=== PATIENT | male | born 1940 | race Caucasian/White ===

== ENCOUNTER 2017-01-17 17:21 | Inpatient (IN) | payer MEDICARE, BC ==
[2017-01-17] MEDS ORDERED: NS 0.9% 1000 ML* 1,000 ML IV ONE (17:27)
[2017-01-17] MEDS ORDERED: Ondansetron INJ* 2 MG/ML VIAL IV ONE (17:27)
--- NOTE | 2017-01-17 18:04 | RAD ---
INDICATION: Abdominal pain. COMPARISON: Comparison is made with a prior CT of the abdomen and pelvis from June 12, 2016. TECHNIQUE: Supine and decubitus views of the abdomen were obtained. FINDINGS: The small bowel and colon appear nondistended. No free intraperitoneal air is seen. There are scattered air-fluid levels within the small bowel and colon. No abnormal calcifications are seen. IMPRESSION: SCATTERED AIR-FLUID LEVELS WITHIN THE SMALL BOWEL AND COLON, NONSPECIFIC GAS PATTERN.
[2017-01-17 18:42] LABS: Albumin 3.9 g/dL (3.2-5.2); BUN/Creatinine Ratio 16.7 (8-20); C Reactive Protein 139.67 mg/L (< 5.00); Calcium 8.8 mg/dL (8.6-10.3); EGFR African American 39.7 (>60); EGFR Non-African American 30.9 (>60); Globulin 3.1 g/dL (2-4); Potassium 4.4 mmol/L (3.5-5.0); Total Bilirubin 0.9 mg/dL (0.2-1.0)
[2017-01-17 18:44] LABS: Hematocrit 48 % (42-52); Hemoglobin 15.5 g/dl (14.0-18.0); Mean Corpuscular HGB Conc 32 g/dl (31-36); Mean Corpuscular Hemoglobin 30 pg (27-31); Mean Corpuscular Volume 92 fL (80-94); Mean Platelet Volume 10 um3 (7.4-10.4); Red Cell Distribution Width 16 % (10.5-15); White Blood Count 7.4 10^3/ul (3.5-10.8)
[2017-01-17] MEDS ORDERED: NS 0.9% 1000 ML* 2,000 ML IV ONE ×2 (19:09→20:52)
[2017-01-17] MEDS ORDERED: metroNIDAZOLE TAB* 250 MG PO ONE (20:07)
--- NOTE | 2017-01-17 20:45 | ED ---
Frantz López Billy, scribed for Jose Car MD on 01/17/17 at 1743 . Abdominal Pain/Male - HPI Summary HPI Summary: Patient is a 76 year-old male coming to [facility] presenting with constant diffuse abdominal pain since late yesterday evening. Pain severity 9/10, worse with palpation. Positive N/V/D, abdominal distension, and general weakness; denies any blood or mucus in the stools. Denies any recent travel, antibiotics, changes in diet, or contact with sick people. - History of Current Complaint Chief Complaint: EDAbdPain Stated Complaint: WEAKNESS, ABD PAIN, BACK PAIN Time Seen by Provider: 01/17/17 17:27 Hx Obtained From: Patient Onset/Duration: Gradual Onset, Lasting Hours, Still Present Timing: Constant Severity Initially: Moderate Severity Currently: Moderate Pain Intensity: 9 Pain Scale Used: 0-10 Numeric Location: Diffuse Radiates: No Aggravating Factor(s): Other: - palpation Alleviating Factor(s): Nothing Associated Signs And Symptoms: Positive: Nausea, Vomiting, Diarrhea, Other - weakness - Allergies/Home Medications Allergies/Adverse Reactions: Allergies Allergy/AdvReac Type Severity Reaction Status Date / Time Enalapril [From Vasotec] Allergy Unknown Unknown Verified 06/12/16 14:47 Reaction Details Nifedipine [From Procardia] Allergy Unknown Unknown Verified 06/12/16 14:47 Reaction Details Verapamil Allergy Unknown Unknown Verified 06/12/16 14:47 Reaction Details Cephalexin Allergy Anaphylatic Verified 06/13/16 09:08 Shock PMH/Surg Hx/FS Hx/Imm Hx Endocrine/Hematology History: Reports: Hx Anticoagulant Therapy - xarelto for alpha lipoic acid , Hx Diabetes - insulin dependent, poorly controlled Cardiovascular History: Reports: Hx Hypercholesterolemia, Hx Hypertension, Other Cardiovascular Problems/Disorders Denies: Hx Congestive Heart Failure, Hx Pacemaker/ICD Respiratory History: Denies: Hx Asthma GI History: Reports: Other GI Disorders - CELIAC DISEASE History: Reports: Other Problems/Disorders - URETHRAL STRICTURE DILATION Denies: Hx Dialysis, Hx Renal Disease Sensory History: Reports: Hx Contacts or Glasses, Other Sensory Impairments - decreased hearing Denies: Hx Hearing Aid Opthamlomology History: Reports: Hx Contacts or Glasses, Other Sensory Impairments - decreased hearing Neurological History: Reports: Other Neuro Impairments/Disorders - SPINAL FUSION ; pituitary adenoma Psychiatric History: Denies: Hx Panic Disorder - Surgical History Surgery Procedure, Year, and Place: HERNIA, LEFT THUMB AMPUTATION, C-SPINE FUSION, CATARACT - Immunization History Date of Tetanus Vaccine: unknown Date of Influenza Vaccine: 08/16/15 Infectious Disease History: No Infectious Disease History: Denies: Hx of Known/Suspected MRSA, Traveled Outside the [place] in Last 30 Days - Family History Known Family History: Positive: Diabetes - Social History Alcohol Use: Occasionally Substance Use Type: Reports: None Smoking Status (MU): Former Smoker Review of Systems Positive: Abdominal Pain, Vomiting, Diarrhea, Nausea, Other - distension Positive: Weakness All Other Systems Reviewed And Are Negative: Yes Physical Exam - Summary Physical Exam Summary: VITAL SIGNS: Reviewed. GENERAL: Patient is a debilitated male who is lying comfortable in the stretcher. Patient is not in any acute respiratory distress. HEAD AND FACE: Normocephalic and atraumatic. EYES: PERRLA, EOMI x 2, No injected conjunctiva. EARS: Hearing grossly intact. Ear canals and tympanic membranes are WNL. MOUTH: Dry nasal and oral mucosa. NECK: Supple, trachea is midline, no adenopathy, no JVD. CHEST: Symmetric, no tenderness at palpation LUNGS: Clear to auscultation bilaterally. No wheezing or crackles. CVS: RRR,, S1 and S2 present, no murmurs or gallops appreciated. ABDOMEN: Soft, Diffuse abdominal tenderness. No signs of distention. Positive bowel sounds. No rebound no guarding, and no masses palpated. No abdominal bruit or pulsations. EXTREMITIES: FROM in all major joints, no edema, no cyanosis or clubbing. NEURO: Alert and oriented x 3. No acute neurological deficits. Speech is normal. SKIN: Dry and warm Triage Information Reviewed: Yes Vital Signs On Initial Exam: Initial Vitals BP 130/80 01/17/17 17:33 Vital Signs Reviewed: Yes Diagnostics - Vital Signs Vital Signs Temp Pulse Resp BP Pulse Ox 01/17/17 17:36 98.8 F 88 18 130/80 92 01/17/17 17:35 91 18 92 01/17/17 17:33 130/80 - Laboratory Lab Results: Lab Results 01/17/17 01/17/17 01/17/17 Range/Units 18:15 18:15 18:15 WBC 7.4 (3.5-10.8) 10^3/ul RBC 5.20 (4.0-5.4) 10^6/ul Hgb 15.5 (14.0-18.0) g/dl Hct 48 (42-52) % MCV 92 (80-94) fL MCH 30 (27-31) pg MCHC 32 (31-36) g/dl RDW 16 H (10.5-15) % Plt Count 138 L (150-450) 10^3/ul MPV 10 (7.4-10.4) um3 Neut % (Auto) 81.5 (38-83) % Lymph % (Auto) 8.4 L (25-47) % [place] % (Auto) 9.1 H (1-9) % Eos % (Auto) 0.5 (0-6) % Baso % (Auto) 0.5 (0-2) % Absolute Neuts (auto) 6.0 (1.5-7.7) 10^3/ul Absolute Lymphs (auto) 0.6 L (1.0-4.8) 10^3/ul Absolute Monos (auto) 0.7 (0-0.8) 10^3/ul Absolute Eos (auto) 0 (0-0.6) 10^3/ul Absolute Basos (auto) 0 (0-0.2) 10^3/ul Absolute Nucleated RBC 0.01 10^3/ul Nucleated RBC % 0.1 APTT 32.5 (26.0-36.3) seconds Sodium 137 (133-145) mmol/L Potassium 4.4 (3.5-5.0) mmol/L Chloride 107 (101-111) mmol/L Carbon Dioxide 23 (22-32) mmol/L Anion Gap 7 (2-11) mmol/L BUN 35 H (6-24) mg/dL Creatinine 2.10 H (0.67-1.17) mg/dL Est GFR ( Amer) 39.7 (>60) Est GFR (Non-Af Amer) 30.9 (>60) BUN/Creatinine Ratio 16.7 (8-20) Glucose 192 H (70-100) mg/dL Lactic Acid (0.5-2.0) mmol/L Calcium 8.8 (8.6-10.3) mg/dL Total Bilirubin 0.90 (0.2-1.0) mg/dL AST 33 (13-39) U/L ALT 37 (7-52) U/L Alkaline Phosphatase 63 (34-104) U/L C-Reactive Protein 139.67 H (< 5.00) mg/L B-Natriuretic Peptide ( - 100) pg/mL Total Protein 7.0 (6.4-8.9) g/dL Albumin 3.9 (3.2-5.2) g/dL Globulin 3.1 (2-4) g/dL Albumin/Globulin Ratio 1.3 (1-3) Amylase 18 L (29-103) U/L Lipase 10 L (11.0-82.0) U/L 01/17/17 01/17/17 Range/Units 18:15 18:15 WBC (3.5-10.8) 10^3/ul RBC (4.0-5.4) 10^6/ul Hgb (14.0-18.0) g/dl Hct (42-52) % MCV (80-94) fL MCH (27-31) pg MCHC (31-36) g/dl RDW (10.5-15) % Plt Count (150-450) 10^3/ul MPV (7.4-10.4) um3 Neut % (Auto) (38-83) % Lymph % (Auto) (25-47) % [place] % (Auto) (1-9) % Eos % (Auto) (0-6) % Baso % (Auto) (0-2) % Absolute Neuts (auto) (1.5-7.7) 10^3/ul Absolute Lymphs (auto) (1.0-4.8) 10^3/ul Absolute Monos (auto) (0-0.8) 10^3/ul Absolute Eos (auto) (0-0.6) 10^3/ul Absolute Basos (auto) (0-0.2) 10^3/ul Absolute Nucleated RBC 10^3/ul Nucleated RBC % APTT (26.0-36.3) seconds Sodium (133-145) mmol/L Potassium (3.5-5.0) mmol/L Chloride (101-111) mmol/L Carbon Dioxide (22-32) mmol/L Anion Gap (2-11) mmol/L BUN (6-24) mg/dL Creatinine (0.67-1.17) mg/dL Est GFR ( Amer) (>60) Est GFR (Non-Af Amer) (>60) BUN/Creatinine Ratio (8-20) Glucose (70-100) mg/dL Lactic Acid 1.7 (0.5-2.0) mmol/L Calcium (8.6-10.3) mg/dL Total Bilirubin (0.2-1.0) mg/dL AST (13-39) U/L ALT (7-52) U/L Alkaline Phosphatase (34-104) U/L C-Reactive Protein (< 5.00) mg/L B-Natriuretic Peptide 82 ( - 100) pg/mL Total Protein (6.4-8.9) g/dL Albumin (3.2-5.2) g/dL Globulin (2-4) g/dL Albumin/Globulin Ratio (1-3) Amylase (29-103) U/L Lipase (11.0-82.0) U/L Result Diagrams: 01/17/17 18:15 01/17/17 18:15 Lab Statement: Any lab studies that have been ordered have been reviewed, and results considered in the medical decision making process. - Radiology abd xray Radiology Interpretation Completed By: Radiologist - SCATTERED AIR-FLUID LEVELS WITHIN THE SMALL BOWEL AND COLON, NONSPECIFIC GAS PATTERN. - EKG 1731 EKG Interpretation: NSR 87 bpm, no ST elevation Abdominal Pain Fem Course/Dx - Course Assessment/Plan: Patient is a 76 year-old male coming to [facility] presenting with constant diffuse abdominal pain since late yesterday evening. Pain severity 9/10 , worse with palpation. Positive N/V/D, abdominal distension, and general weakness; denies any blood or mucus in the stools. Denies any recent travel, antibiotics, changes in diet, or contact with sick people. Bloodwork found to be WNL except for increased BUN/creatinine of 35/2.1. Also, C. dif is positive. Therefore the patient was given PO Flagyl. Patient become hypotensive and so was given 3L of IV fluids. BP is now 110/60 approximately. At this point, patient reports he is feeling better, hemodynamically stable, A&Ox3. I discussed the findings and test results with Dr. Peng (hospitalist) and accepted the pt for admission. - Diagnoses Differential Diagnosis/HQI/PQRI: Bowel Obstruction, Urinary Tract Infection, Other - Nausea, vomiting, diarrhea, gastroenteritis Provider Diagnoses: Abdominal pain, Diarrhea, C. difficile colitis - Provider Notifications Discussed Care Of Patient With: Dr. Peng (hospitalist) @ 2001: accepts admission. Discharge - Discharge Plan Condition: Stable Disposition: ADMITTED TO [facility] Referrals: Gigi Feldman MD [Primary Care Provider] - The documentation as recorded by the Frantz celestin Billy accurately reflects the service I personally performed and the decisions made by , Jose Car MD.
[2017-01-17] MEDS ORDERED: Ondansetron INJ* 2 MG/ML VIAL IV PRN (20:52)
[2017-01-17] MEDS ORDERED: Acetaminophen TAB* 325 MG PO PRN (20:52)
[2017-01-17] MEDS ORDERED: Dextrose 50% Syringe 50 ML* 25 GM/50 ML SYRINGE IV PUSH PRN (20:55)
[2017-01-17] MEDS ORDERED: NS 0.9% 1000 ML* 1,000 ML IV SCH (21:00)
[2017-01-17] MEDS: Hydrocortisone INJ* 100 MG VIAL IV SCH (22:46)
[2017-01-17] MEDS: metroNIDAZOLE IV 500 MG/100ML* 500 MG/100 ML BAG IVPB SCH (22:46)
--- NOTE | 2017-01-17 22:49 | RAD ---
INDICATION: Abdominal pain and distention, nausea, C. difficile. COMPARISON: Comparison is made with a prior CT of the abdomen and pelvis from June 12, 2006. TECHNIQUE: A CT scan of the abdomen and pelvis was performed without intravenous and oral oral contrast. Contiguous axial sections were obtained from the lung bases through the symphysis pubis. Images were reconstructed in the coronal and sagittal planes. FINDINGS: There is mild dependent bilateral lower lobe subsegmental atelectasis. No pleural effusion is present. The liver and spleen are normal in size. The liver is decreased in attenuation consistent with fatty infiltration which appears similar to the prior study. There are calcified gallstones present. No gallbladder wall thickening is seen. There is fatty infiltration of the pancreas. The pancreas is otherwise unremarkable. The adrenal glands appear to be within normal limits. The kidneys appear slightly small in size. There is a 2 mm calculus present in the upper pole of the right kidney. No hydronephrosis is present. The aorta is normal in caliber with mild calcific plaque present. No significant enlarged retroperitoneal lymph nodes are seen. The stomach, small and large bowel appear nondistended. There is fluid present within the colon consistent with the patient's history of diarrhea. The appendix appears to be within normal limits. There is mild sigmoid diverticulosis without evidence for diverticulitis. No free intraperitoneal air or fluid is seen. No significant focal osseous abnormality is seen. IMPRESSION: 1. FLUID IS NOTED WITHIN THE COLON CONSISTENT WITH THE PATIENT'S HISTORY OF DIARRHEA. 2. HEPATIC STEATOSIS. 3. CHOLELITHIASIS. 4. SMALL NONOBSTRUCTING RIGHT RENAL CALCULUS.
[2017-01-17] MEDS: Vancomycin CAP* 250 MG CAP PO SCH (22:50)
[2017-01-18] MEDS: Insulin LISPRO* 1 UNITS UNIT SUBCUT SCH ×5 (00:57→22:40)
[2017-01-18] MEDS: Insulin GLARGINE(*) 1 UNITS UNIT SUBCUT SCH ×2 (01:00→22:39)
--- NOTE | 2017-01-18 01:39 | HP ---
HISTORY AND PHYSICAL: DATE OF ADMISSION: 01/17/17 PRIMARY CARE PROVIDER: Dr. Feldman. ATTENDING PHYSICIAN WHILE IN THE HOSPITAL: Dr. Daniel Peng *(report dictated by Handy Goodman NP) CHIEF COMPLAINT: 1. Diarrhea. 2. Abdominal bloating. 3. Abdominal discomfort. HISTORY OF PRESENT ILLNESS: Mr. Foley is a 76-year-old male patient. He has multiple medical problems with history of celiac disease with chronic diarrhea, history of diabetes insipidus, diabetes. He has a history of panhypopituitarism. He has a pituitary adenoma, urethral strictures, hypertension, antiphospholipid syndrome, glaucoma, gout, back pain, and history of TIA. He comes into the ER today. The says that the patient last night started all of a sudden having a loose watery stool. He had about an episode every half an hour throughout the night. He woke up this morning. He felt extremely fatigued, weak, to the point where he could not even get out of bed. The was concerned because she knew she would not really lift him or care for him. He was still having diarrhea. He was having more abdominal distention and belly pain, so she was concerned and brought him into the hospital. He had one episode of vomiting. She had to call the ambulance because she could not move him and said he was feeling profoundly weak and this has been going on for the last 12 to 24 hours. The patient denies any recent antibiotics. He says he has had C. diff in the past, 2 separate occasions, the last one was over greater than a year to two years ago. He has had exploratory laparotomy in the past related to C. diff and was concerned that this may be the case again, so she brought him into the hospital. There has been no reports of shortness of breath, chest pain, no reports of blood in the stool and there has been no reports of vomiting, just one episode. He came into the ER. He was evaluated. It was noted that he was C. diff positive. It was noted that he was in acute renal failure and the hospitalist service was asked to evaluate for admission. PAST MEDICAL HISTORY: Significant for: 1. Celiac disease. 2. Diabetes insipidus. 3. Diabetes. 4. Urethral strictures. 5. Panhypopituitarism. 6. Pituitary adenoma. 7. Hypertension. 8. Antiphospholipid syndrome. 9. Glaucoma. 10. Gout. 11. Back pain. 12. TIA. PAST SURGICAL HISTORY: 1. He has had a partial amputation of the left thumb. 2. He has had a right inguinal hernia repair. 3. He has had a C-spine fusion. 4. He has had a diagnostic laparotomy. HOME MEDICATIONS: According to the list that was provided by the patient include: 1. B12 100 mcg p.o. daily. 2. Glucophage 1000 mg at night and 1500 mg in the morning. 3. Desmopressin 0.2 mg p.o. b.i.d. 4. Allopurinol 300 mg p.o. daily. 5. Cytomel 5 mcg p.o. b.i.d. 6. Synthroid 112 mcg p.o. daily. 7. Lantus 35 units subcu q.p.m. 8. Meclizine 25 mg p.o. t.i.d. as needed. 9. Losartan 50 mg p.o. daily. 10. Celebrex 200 mg p.o. b.i.d. 11. Testosterone 1% topically daily. 12. Xarelto 10 mg daily. 13. Repaglinide 1 mg p.o. t.i.d. 14. Lyrica 50 mg p.o. b.i.d. 15. Prednisone 7.5 mg daily. 16. Metformin 1500 mg in the morning. ALLERGIES TO MEDICATIONS: Include VERAPAMIL, ENALAPRIL, NIFEDIPINE, KEFLEX. FAMILY HISTORY: His mother was diabetic. Father had a history of heart disease. SOCIAL HISTORY: He is a former smoker. He rarely drinks alcohol. Surrogate decision maker is his , Megan. REVIEW OF SYSTEMS: There is no documented fever. He denied having any significant weight change. There was no double vision. There was no ear discharge. There was no rhinorrhea, no sore throat, no thyroid enlargement. There is no chest pain, no orthopnea, no nocturnal dyspnea. There was abdominal discomfort mostly in the left lower quadrant described as a cramping. One episode of nausea and vomiting. There is diarrhea. No dysuria, no frequency, no loss of consciousness, no pruritus, and no skin ulcerations. Review of 14 systems completed, all others negative. PHYSICAL EXAMINATION GENERAL: At this time, Mr. Foley is a 76-year-old male patient. He is sitting in the ER stretcher. He does not appear to be in any acute distress. He does appear to be weak and drowsy. He is awake and alert. VITAL SIGNS: Blood pressure 103/52, pulse 89, respirations were 25, O2 sat 93% , temperature 98.8. HEENT: Head: Atraumatic, normocephalic. Eyes: EOMs intact. Sclerae anicteric, not pale. Throat: Oral mucosa appears to be dry. No oropharyngeal erythema. NECK: Supple. LUNGS: Clear to auscultation bilaterally. No wheezes, rales, or rhonchi. HEART: Sounds S1, S2. Regular rate and rhythm. No murmurs, rubs, or gallops. ABDOMEN: Distended. He did have tenderness diffusely. Bowel sounds were present. EXTREMITIES: Pulses were 2+ throughout. He is able to move all 4 extremities with 5/5 strength. NEUROLOGIC: The patient is awake. He is alert. He is oriented x3. His aqua ammonia operator were equal. His tongue is midline. He had no gross focal deficits. SKIN: Intact. LABORATORY DATA AND DIAGNOSTIC STUDIES: Labs today revealed a WBC of 7.4, RBC of 5.20, hemoglobin 15.5, hematocrit of 48, platelet count of 138, PTT of 32.5. Sodium was 137, potassium 4.4, chloride of 107, bicarbonate 23, BUN 35, creatinine 2.10, glucose 192, lactic 1.7, calcium 8.8. Total bili 0.9, AST 32, ALT 37, alk phos 63. CRP was 140. His albumin was 3.9. He did have an abdominal x-ray, which impression read as scattered air fluid levels within the small bowel and colon, nonspecific gas pattern. He had an EKG obtained today as well, which showed a normal sinus rhythm at a rate of 90. He had some subtle depression in leads I and II, which he has had in the past. The EKG appeared to be unchanged. He does have a PAC on the new one. Old medical records were reviewed. ASSESSMENT AND PLAN: Mr. Foley is a 76-year-old male patient coming into the ER today with complaints of abdominal discomfort, diarrhea, and weakness. On evaluation, he was found to have C. diff. He will be admitted under inpatient status for: 1. C. diff. I am concerned that he has moderate to severe C. diff. His abdominal examination, he is distended. He has diffuse tenderness. I think he warrants a CAT scan to make sure he does not have an ileus. I am going to touch base with Surgery. I did place a call to Dr. Meyer. I have put the patient on p.o. vancomycin. In addition to this, I put him on IV Flagyl. Fortunately, he is not tachycardic. He does not have a fever. He might not mount these response because of the prednisone, but we would like to get the CAT scan. He is not vomiting fortunately. We will hydrate him aggressively. I am going to give him another liter for a total of 4 L bolus and then normal saline at 100 an hour and we will hold obviously his blood pressure medications in the setting of acute illness, put him on stress-dose steroids and treat him aggressively and monitor. 2. Celiac disease. Continue current medical regimen. 3. Diabetes insipidus. Continue his desmopressin. 4. Diabetes. He will be on a lispro sliding scale and I will order his Lantus at a reduced dose probably just 10 units a day as right now, he is n.p.o. because of the fact that going for the CAT scan for the time being. 5. Urethral strictures. Again, continue to follow with his primary. 6. Panhypopituitarism. Continue with Cytomel. Continue his Synthroid and I have put him on stress-dosed steroids and continue desmopressin. 7. Pituitary adenoma. Follow with his primary. 8. Hypertension. In the setting of acute illness, we are holding his antihypertensives. 9. Antiphospholipid syndrome. He did get a dose of Xarelto this morning. We may need to consider starting him on the heparin drip, but I would like to see the CAT scan before I make that decision just in case if there was any procedure. The heparin drip will need to be started in the morning anyway because of Xarelto, he will need time to clear the acute renal failure. 10. Acute renal failure. This is probably prerenal secondary to the fact that the patient has been having significant amount of diarrhea. I will send off a urine sodium and creatinine for a FENa and we will hydrate him. We will continue to follow. We will try to avoid nephrotoxic agents. 11. Glaucoma. Continue with his meds as described. 12. Gout. I am going to hold his allopurinol in the setting of this acute illness. 13. Back pain. Continue p.r.n. Tylenol. 14. History of transient ischemic attack. Continue with secondary prevention. 15. DVT prophylaxis. Again, he was on Xarelto, took it this morning. I am just putting on SCDs for now. We may need to consider putting him on a heparin drip in the morning possibly because of the antiphospholipid syndrome. 16. Code status. He is a full code. 17. Fluids, electrolytes and nutrition. He is n.p.o., normal saline at 100 an hour. TIME SPENT: Time spent on the admission approximately 60 minutes, greater than half the time was spent [id number] with the patient obtaining my history and physical, the other half time was spent going over the plan of care with the patient and implementing plan of care. I did discuss the plan of care with my attending, Dr. Peng; he is in agreement. HANDY GOODMAN NP CC: Dr. Feldman* [id number]/[facility] #: [id number] SYMONE
[2017-01-18 03:25] LABS: Urine Bacteria Absent (Absent); Urine Bilirubin Negative (Negative); Urine Glucose 1+(50 mg/dL) (Negative); Urine Nitrite Negative (Negative)
[2017-01-18] MEDS: Hydrocortisone INJ* 100 MG VIAL IV SCH ×3 (05:43→22:39)
[2017-01-18] MEDS: metroNIDAZOLE IV 500 MG/100ML* 500 MG/100 ML BAG IVPB SCH ×3 (05:51→22:37)
[2017-01-18] MEDS: Levothyroxine TAB* 112 MCG TAB PO SCH (05:59)
[2017-01-18 06:02] LABS: Hematocrit 37 % (42-52); Hemoglobin 12.4 g/dl (14.0-18.0); Mean Corpuscular HGB Conc 33 g/dl (31-36); Mean Corpuscular Hemoglobin 31 pg (27-31); Mean Corpuscular Volume 92 fL (80-94); Mean Platelet Volume 10 um3 (7.4-10.4); Red Blood Count 4.05 10^6/ul (4.0-5.4); Red Cell Distribution Width 16 % (10.5-15); White Blood Count 5.1 10^3/ul (3.5-10.8)
[2017-01-18 06:16] LABS: BUN/Creatinine Ratio 17.3 (8-20); EGFR African American 55.9 (>60); EGFR Non-African American 43.5 (>60); Potassium 4.7 mmol/L (3.5-5.0)
[2017-01-18 06:18] LABS: Calcium 6.3 mg/dL (8.6-10.3)
[2017-01-18] MEDS: Vancomycin CAP* 250 MG CAP PO SCH ×4 (08:44→22:40)
[2017-01-18] MEDS: CMCS: Desmopressin TAB (NF) 0.1 MG TAB PO SCH ×2 (08:44→22:39)
[2017-01-18] MEDS: Liothyronine TAB* 5 MCG PO SCH ×2 (08:44→22:39)
[2017-01-18] MEDS ORDERED: Morphine INJ* 2 MG/ML 1 ML CARPUJECT IV PRN (09:13)
[2017-01-18] MEDS ORDERED: NS 0.9% 1000 ML* 1,000 ML IV SCH (09:15)
--- NOTE | 2017-01-18 09:21 | PN ---
Subjective Date of Service: 01/18/17 Interval History: Feels abdomen is more distended but not more painful Feels very thirsty and hungry No nausea or vomiting. 3 episodes of diarrhea overnight Feels stronger since presenting to the hospital Specifically denies SOB and chest pain Objective Active Medications: Acetaminophen (Tylenol Tab*) 650 mg PO Q4H PRN PRN Reason: FEVER/PAIN Desmopressin Acetate (Desmopressin Tab (Nf)) 0.2 mg PO BID [facility] Last Admin: 01/18/17 08:44 Dose: 0.2 mg Dextrose (D50w Syringe 50 Ml*) 12.5 gm IV PUSH .FOR FS < 60 - SS PRN PRN Reason: FS < 60 Hydrocortisone Sodium Succinate (Solu-Cortef*) 100 mg IV Q8H [facility] Last Admin: 01/18/17 05:43 Dose: 100 mg Metronidazole/Sodium Chloride (Flagyl 500 Mg Ivpb*) 500 mg in 100 mls @ 100 mls /hr IVPB Q8H [facility] Last Admin: 01/18/17 05:51 Dose: 100 mls/hr Sodium Chloride (Ns 0.9% 1000 Ml*) 1,000 mls @ 100 mls/hr IV PER RATE [facility] Stop: 01/18/17 19:14 Insulin Glargine (Lantus(*)) 10 units SUBCUT Q24H [facility] Last Admin: 01/18/17 01:00 Dose: 10 unit Insulin Human Lispro (Humalog*) 0 units SUBCUT ACHS [facility] PRN Reason: Protocol Levothyroxine Sodium (Synthroid Tab*) 112 mcg PO DAILY@0600 [facility] Last Admin: 01/18/17 05:59 Dose: 112 mcg Liothyronine Sodium (Cytomel Tab*) 5 mcg PO BID [facility] Last Admin: 01/18/17 08:44 Dose: 5 mcg Morphine Sulfate (Morphine Inj (Syringe)*) 2 mg IV Q4H PRN PRN Reason: PAIN - MILD Ondansetron HCl (Zofran Inj*) 4 mg IV Q6H PRN PRN Reason: NAUSEA Vancomycin HCl (Vancomycin Cap*) 250 mg PO QID [facility] Last Admin: 01/18/17 08:44 Dose: 250 mg Vital Signs 01/17/17 01/17/17 01/17/17 21:30 22:00 22:24 Temperature Pulse Rate 77 60 67 Respiratory 23 25 25 Rate Blood Pressure 123/62 112/60 (mmHg) O2 Sat by Pulse 94 93 93 Oximetry 01/17/17 01/17/17 01/17/17 22:38 22:47 23:00 Temperature 98.9 F Pulse Rate 79 76 Respiratory 27 26 Rate Blood Pressure 136/60 120/58 (mmHg) O2 Sat by Pulse 93 90 Oximetry 01/17/17 01/17/17 01/17/17 23:25 23:30 23:45 Temperature Pulse Rate 75 70 69 Respiratory 20 22 22 Rate Blood Pressure 126/51 118/57 101/47 (mmHg) O2 Sat by Pulse 93 97 95 Oximetry 01/17/17 01/18/17 01/18/17 23:51 00:00 00:01 Temperature 98.9 F 98.9 F Pulse Rate 72 70 Respiratory 20 22 Rate Blood Pressure 104/50 (mmHg) O2 Sat by Pulse 95 96 Oximetry 01/18/17 01/18/17 01/18/17 00:15 00:30 00:45 Temperature Pulse Rate 66 64 67 Respiratory 21 22 21 Rate Blood Pressure 103/50 110/48 110/54 (mmHg) O2 Sat by Pulse 95 95 95 Oximetry 01/18/17 01/18/17 01/18/17 01:00 01:15 01:30 Temperature Pulse Rate 65 67 62 Respiratory 21 17 22 Rate Blood Pressure 116/46 130/59 118/53 (mmHg) O2 Sat by Pulse 95 96 96 Oximetry 01/18/17 01/18/17 01/18/17 01:45 02:00 02:15 Temperature Pulse Rate 52 69 63 Respiratory 20 21 20 Rate Blood Pressure 107/52 105/50 115/59 (mmHg) O2 Sat by Pulse 95 96 95 Oximetry 01/18/17 01/18/17 01/18/17 02:30 02:45 03:00 Temperature Pulse Rate 63 64 66 Respiratory 21 20 20 Rate Blood Pressure 115/60 115/60 106/50 (mmHg) O2 Sat by Pulse 96 96 97 Oximetry 01/18/17 01/18/17 01/18/17 03:15 03:17 03:30 Temperature Pulse Rate 42 41 Respiratory 19 20 Rate Blood Pressure 86/33 67/35 (mmHg) O2 Sat by Pulse 94 94 Oximetry 01/18/17 01/18/17 01/18/17 03:34 03:51 04:00 Temperature 97.0 F Pulse Rate 44 45 Respiratory 20 20 Rate Blood Pressure 101/54 100/53 (mmHg) O2 Sat by Pulse 94 94 Oximetry 01/18/17 01/18/17 01/18/17 05:00 06:00 07:00 Temperature Pulse Rate 63 73 49 Respiratory 17 19 17 Rate Blood Pressure 113/54 110/64 101/57 (mmHg) O2 Sat by Pulse 96 95 95 Oximetry 01/18/17 01/18/17 01/18/17 07:58 08:00 08:15 Temperature 97.1 F Pulse Rate 52 Respiratory 18 15 Rate Blood Pressure 119/63 (mmHg) O2 Sat by Pulse 97 Oximetry Oxygen Devices in Use Now: None Appearance: lying 20 deg, interactive, NAD Eyes: No Scleral Icterus, PERRLA Ears/Nose/Mouth/Throat: Clear Oropharnyx, - - dry MM Neck: NL Appearance and Movements; NL JVP, Trachea Midline Respiratory: Symmetrical Chest Expansion and Respiratory Effort, Clear to Auscultation Cardiovascular: - - irregular HR Abdominal: - - distended, +bs, TTP throughout worst in LLQ, guarding without rebound Extremities: No Edema Skin: No Rash or Ulcers Neurological: Alert and Oriented x 3 Result Diagrams: 01/18/17 05:50 01/18/17 05:50 Additional Lab and Data: Lab Results 01/17/17 01/17/17 01/17/17 Range/Units 18:15 18:15 18:15 WBC 7.4 (3.5-10.8) 10^3/ul RBC 5.20 (4.0-5.4) 10^6/ul Hgb 15.5 (14.0-18.0) g/dl Hct 48 (42-52) % MCV 92 (80-94) fL MCH 30 (27-31) pg MCHC 32 (31-36) g/dl RDW 16 H (10.5-15) % Plt Count 138 L (150-450) 10^3/ul MPV 10 (7.4-10.4) um3 Neut % (Auto) 81.5 (38-83) % Lymph % (Auto) 8.4 L (25-47) % Emmet % (Auto) 9.1 H (1-9) % Eos % (Auto) 0.5 (0-6) % Baso % (Auto) 0.5 (0-2) % Absolute Neuts (auto) 6.0 (1.5-7.7) 10^3/ul Absolute Lymphs (auto) 0.6 L (1.0-4.8) 10^3/ul Absolute Monos (auto) 0.7 (0-0.8) 10^3/ul Absolute Eos (auto) 0 (0-0.6) 10^3/ul Absolute Basos (auto) 0 (0-0.2) 10^3/ul Absolute Nucleated RBC 0.01 10^3/ul Nucleated RBC % 0.1 APTT 32.5 (26.0-36.3) seconds Sodium 137 (133-145) mmol/L Potassium 4.4 (3.5-5.0) mmol/L Chloride 107 (101-111) mmol/L Carbon Dioxide 23 (22-32) mmol/L Anion Gap 7 (2-11) mmol/L BUN 35 H (6-24) mg/dL Creatinine 2.10 H (0.67-1.17) mg/dL Est GFR ( Amer) 39.7 (>60) Est GFR (Non-Af Amer) 30.9 (>60) BUN/Creatinine Ratio 16.7 (8-20) Glucose 192 H (70-100) mg/dL Lactic Acid (0.5-2.0) mmol/L Calcium 8.8 (8.6-10.3) mg/dL Total Bilirubin 0.90 (0.2-1.0) mg/dL AST 33 (13-39) U/L ALT 37 (7-52) U/L Alkaline Phosphatase 63 (34-104) U/L C-Reactive Protein 139.67 H (< 5.00) mg/L B-Natriuretic Peptide ( - 100) pg/mL Total Protein 7.0 (6.4-8.9) g/dL Albumin 3.9 (3.2-5.2) g/dL Globulin 3.1 (2-4) g/dL Albumin/Globulin Ratio 1.3 (1-3) Amylase 18 L (29-103) U/L Lipase 10 L (11.0-82.0) U/L 01/17/17 01/17/17 Range/Units 18:15 18:15 WBC (3.5-10.8) 10^3/ul RBC (4.0-5.4) 10^6/ul Hgb (14.0-18.0) g/dl Hct (42-52) % MCV (80-94) fL MCH (27-31) pg MCHC (31-36) g/dl RDW (10.5-15) % Plt Count (150-450) 10^3/ul MPV (7.4-10.4) um3 Neut % (Auto) (38-83) % Lymph % (Auto) (25-47) % Emmet % (Auto) (1-9) % Eos % (Auto) (0-6) % Baso % (Auto) (0-2) % Absolute Neuts (auto) (1.5-7.7) 10^3/ul Absolute Lymphs (auto) (1.0-4.8) 10^3/ul Absolute Monos (auto) (0-0.8) 10^3/ul Absolute Eos (auto) (0-0.6) 10^3/ul Absolute Basos (auto) (0-0.2) 10^3/ul Absolute Nucleated RBC 10^3/ul Nucleated RBC % APTT (26.0-36.3) seconds Sodium (133-145) mmol/L Potassium (3.5-5.0) mmol/L Chloride (101-111) mmol/L Carbon Dioxide (22-32) mmol/L Anion Gap (2-11) mmol/L BUN (6-24) mg/dL Creatinine (0.67-1.17) mg/dL Est GFR ( Amer) (>60) Est GFR (Non-Af Amer) (>60) BUN/Creatinine Ratio (8-20) Glucose (70-100) mg/dL Lactic Acid 1.7 (0.5-2.0) mmol/L Calcium (8.6-10.3) mg/dL Total Bilirubin (0.2-1.0) mg/dL AST (13-39) U/L ALT (7-52) U/L Alkaline Phosphatase (34-104) U/L C-Reactive Protein (< 5.00) mg/L B-Natriuretic Peptide 82 ( - 100) pg/mL Total Protein (6.4-8.9) g/dL Albumin (3.2-5.2) g/dL Globulin (2-4) g/dL Albumin/Globulin Ratio (1-3) Amylase (29-103) U/L Lipase (11.0-82.0) U/L Microbiology and Other Data: Microbiology 01/18/17 00:00 Nasal Screen MRSA (PCR)(HARLEEN) - Final Nasal Mrsa Positive Assess/Plan/Problems-Billing Assessment: 76 yo M h/o celiacs, DI, panhypopituitary, antiphospholipd syndrome, HTN, C. diff colitis presents with abdominal pain diarrhea found +C. diff - Patient Problems (1) Recurrent Clostridium difficile diarrhea Comment: Positive 06/23/2016 but no records here for surrounding circumstances. Pt is a little hazy on details Request records from Dr. Feldman Also had episode of severe abdominal pain in 2014 for which he underwent an unrevealing ex-lap. Repeat abdominal pain, N/V after urethral dilitation 05/2016 with concern for anaphylaxis to periprocedural abx IV flagyl and PO vanco Normal saline additional 1 liter Advance diet Would consider repeat CT abd/pelvis for worsening distention or pain (2) Panhypopituitarism Comment: cont cytomel/synthroid, desmopressin Stress dose steroids in setting of infection Decrease tomorrow is stable (3) Diabetes mellitus Comment: Basal bolus insulin (4) Lupus anticoagulant disorder Comment: Continue rivaroxaban. (5) DVT prophylaxis Comment: gita
[2017-01-18 09:25] LABS: Albumin 2.8 g/dL (3.2-5.2)
[2017-01-18 09:51] LABS: Troponin I 0.03 ng/mL (<0.04)
[2017-01-18] MEDS ORDERED: Calcium Gluconate INJ* 1 GM in NS 0.9% 50 ML* 50 ML IVPB ONE (10:12)
[2017-01-18] MEDS: Rivaroxaban TAB(*) 10 MG PO SCH (11:47)
[2017-01-18] MEDS: Morphine INJ* 2 MG/ML 1 ML CARPUJECT IV PRN ×3 (13:09→22:33)
[2017-01-18] MEDS ORDERED: Vancomycin per Pharmacy* NOTE FOLLOW UP SCH (23:45)
--- NOTE | 2017-01-18 23:46 | PN ---
Progress Note - Progress Note Note: Paged for 2 out of 2 gram positive cocci not staph aureus. Patient with anaphylaxis to cephalosporins. Will start vancomycin.
[2017-01-19] MEDS ORDERED: Vancomycin(*) 1,500 MG in NS 0.9% 250 ML* 250 ML IVPB ONE ×2
[2017-01-19] MEDS: Hydrocortisone INJ* 100 MG VIAL IV SCH ×3 (06:10→23:54)
[2017-01-19] MEDS: Levothyroxine TAB* 112 MCG TAB PO SCH (06:15)
[2017-01-19] MEDS: metroNIDAZOLE IV 500 MG/100ML* 500 MG/100 ML BAG IVPB SCH (06:15)
[2017-01-19 06:20] LABS: Hematocrit 36 % (42-52); Hemoglobin 11.9 g/dl (14.0-18.0); Mean Corpuscular HGB Conc 33 g/dl (31-36); Mean Corpuscular Hemoglobin 30 pg (27-31); Mean Corpuscular Volume 92 fL (80-94); Mean Platelet Volume 10 um3 (7.4-10.4); Red Blood Count 3.93 10^6/ul (4.0-5.4); Red Cell Distribution Width 16 % (10.5-15); White Blood Count 6.5 10^3/ul (3.5-10.8)
[2017-01-19 06:34] LABS: BUN/Creatinine Ratio 19.4 (8-20); Calcium 6.9 mg/dL (8.6-10.3); EGFR African American 61.3 (>60); EGFR Non-African American 47.7 (>60)
[2017-01-19] MEDS ORDERED: Insulin GLARGINE(*) 1 UNITS UNIT SUBCUT ONE (08:10)
[2017-01-19] MEDS ORDERED: Calcium Gluconate INJ* 1 GM in NS 0.9% 50 ML* 50 ML IVPB ONE (08:30)
[2017-01-19] MEDS: CMCS: Desmopressin TAB (NF) 0.1 MG TAB PO SCH ×2 (09:38→21:02)
[2017-01-19] MEDS: Liothyronine TAB* 5 MCG PO SCH ×2 (09:39→21:00)
[2017-01-19] MEDS: Rivaroxaban TAB(*) 10 MG PO SCH (09:39)
[2017-01-19] MEDS: Vancomycin CAP* 250 MG CAP PO SCH ×4 (09:39→21:02)
[2017-01-19] MEDS: Insulin LISPRO* 1 UNITS UNIT SUBCUT SCH ×4 (09:42→21:26)
--- NOTE | 2017-01-19 11:21 | PN ---
Subjective Date of Service: 01/19/17 Interval History: Bcx positive overnight. 1 bottle staph epi and 1 enteroccocus. 2 bottle NGTD Feels stronger today. Feels increased appetite. No N/V 1 episode diarrhea overnight 2 this AM Abdominal pain decreased, now a 3/10 without narcotics Objective Active Medications: Acetaminophen (Tylenol Tab*) 650 mg PO Q4H PRN PRN Reason: FEVER/PAIN Last Admin: 01/19/17 09:39 Dose: 650 mg Desmopressin Acetate (Desmopressin Tab (Nf)) 0.2 mg PO BID [facility] Last Admin: 01/19/17 09:38 Dose: 0.2 mg Dextrose (D50w Syringe 50 Ml*) 12.5 gm IV PUSH .FOR FS < 60 - SS PRN PRN Reason: FS < 60 Hydrocortisone Sodium Succinate (Solu-Cortef*) 50 mg IV Q8H [facility] Insulin Glargine (Lantus(*)) 10 units SUBCUT Q24H [facility] Last Admin: 01/18/17 22:39 Dose: 10 unit Insulin Glargine (Lantus(*)) 35 units SUBCUT Q24H [facility] Insulin Human Lispro (Humalog*) 0 units SUBCUT ACHS [facility] PRN Reason: Protocol Last Admin: 01/19/17 09:42 Dose: 6 unit Levothyroxine Sodium (Synthroid Tab*) 112 mcg PO DAILY@0600 [facility] Last Admin: 01/19/17 06:15 Dose: 112 mcg Liothyronine Sodium (Cytomel Tab*) 5 mcg PO BID [facility] Last Admin: 01/19/17 09:39 Dose: 5 mcg Metronidazole (Flagyl Tab*) 500 mg PO TID [facility] Morphine Sulfate (Morphine Inj (Syringe)*) 2 mg IV Q2H PRN PRN Reason: PAIN - MILD Last Admin: 01/18/17 22:33 Dose: 2 mg Ondansetron HCl (Zofran Inj*) 4 mg IV Q6H PRN PRN Reason: NAUSEA Oxycodone/Acetaminophen (Percocet 5/325 Tab*) 1 tab PO Q4H PRN PRN Reason: PAIN Pharmacy Profile Note (Vancomycin Trough Check) 1 note FOLLOW UP 1130 ONE Stop: 01/20/17 11:31 Rivaroxaban (Xarelto(*)) 10 mg PO DAILY [facility] Last Admin: 01/19/17 09:39 Dose: 10 mg Vancomycin HCl (Vancomycin Cap*) 250 mg PO QID [facility] Last Admin: 01/19/17 09:39 Dose: 250 mg Vital Signs 01/18/17 01/18/17 01/18/17 12:00 12:05 13:03 Temperature 96.8 F Pulse Rate Respiratory 16 15 Rate Blood Pressure (mmHg) O2 Sat by Pulse Oximetry 01/18/17 01/18/17 01/18/17 13:09 14:33 15:18 Temperature 97.6 F 97.5 F Pulse Rate 69 61 Respiratory 15 18 16 Rate Blood Pressure 115/66 107/57 (mmHg) O2 Sat by Pulse 100 94 Oximetry 01/18/17 01/18/17 01/18/17 17:12 18:12 19:14 Temperature 97.6 F Pulse Rate 66 Respiratory 16 16 16 Rate Blood Pressure 116/63 (mmHg) O2 Sat by Pulse 96 Oximetry 01/18/17 01/18/17 01/18/17 20:00 22:33 23:33 Temperature Pulse Rate Respiratory 16 16 16 Rate Blood Pressure (mmHg) O2 Sat by Pulse Oximetry 01/18/17 01/19/17 01/19/17 23:45 04:20 07:49 Temperature 97.6 F 97.6 F 97.4 F Pulse Rate 64 66 62 Respiratory 16 15 Rate Blood Pressure 103/42 124/53 115/67 (mmHg) O2 Sat by Pulse 95 96 96 Oximetry Oxygen Devices in Use Now: None Appearance: NAD Eyes: No Scleral Icterus, PERRLA Ears/Nose/Mouth/Throat: NL Teeth, Lips, Gums, Clear Oropharnyx, Mucous Membranes Moist, - Neck: NL Appearance and Movements; NL JVP, Trachea Midline Respiratory: Symmetrical Chest Expansion and Respiratory Effort, Clear to Auscultation Cardiovascular: NL Sounds; No Murmurs; No JVD, RRR Abdominal: - - soft, +bs, distended, TTP worst in LLQ, no rebound/guarding Extremities: No Edema Skin: No Rash or Ulcers Neurological: Alert and Oriented x 3 Result Diagrams: 01/19/17 05:53 01/19/17 05:53 Additional Lab and Data: Lab Results 01/17/17 01/17/17 01/17/17 Range/Units 18:15 18:15 18:15 WBC 7.4 (3.5-10.8) 10^3/ul RBC 5.20 (4.0-5.4) 10^6/ul Hgb 15.5 (14.0-18.0) g/dl Hct 48 (42-52) % MCV 92 (80-94) fL MCH 30 (27-31) pg MCHC 32 (31-36) g/dl RDW 16 H (10.5-15) % Plt Count 138 L (150-450) 10^3/ul MPV 10 (7.4-10.4) um3 Neut % (Auto) 81.5 (38-83) % Lymph % (Auto) 8.4 L (25-47) % Polk % (Auto) 9.1 H (1-9) % Eos % (Auto) 0.5 (0-6) % Baso % (Auto) 0.5 (0-2) % Absolute Neuts (auto) 6.0 (1.5-7.7) 10^3/ul Absolute Lymphs (auto) 0.6 L (1.0-4.8) 10^3/ul Absolute Monos (auto) 0.7 (0-0.8) 10^3/ul Absolute Eos (auto) 0 (0-0.6) 10^3/ul Absolute Basos (auto) 0 (0-0.2) 10^3/ul Absolute Nucleated RBC 0.01 10^3/ul Nucleated RBC % 0.1 APTT 32.5 (26.0-36.3) seconds Sodium 137 (133-145) mmol/L Potassium 4.4 (3.5-5.0) mmol/L Chloride 107 (101-111) mmol/L Carbon Dioxide 23 (22-32) mmol/L Anion Gap 7 (2-11) mmol/L BUN 35 H (6-24) mg/dL Creatinine 2.10 H (0.67-1.17) mg/dL Est GFR ( Amer) 39.7 (>60) Est GFR (Non-Af Amer) 30.9 (>60) BUN/Creatinine Ratio 16.7 (8-20) Glucose 192 H (70-100) mg/dL Lactic Acid (0.5-2.0) mmol/L Calcium 8.8 (8.6-10.3) mg/dL Total Bilirubin 0.90 (0.2-1.0) mg/dL AST 33 (13-39) U/L ALT 37 (7-52) U/L Alkaline Phosphatase 63 (34-104) U/L C-Reactive Protein 139.67 H (< 5.00) mg/L B-Natriuretic Peptide ( - 100) pg/mL Total Protein 7.0 (6.4-8.9) g/dL Albumin 3.9 (3.2-5.2) g/dL Globulin 3.1 (2-4) g/dL Albumin/Globulin Ratio 1.3 (1-3) Amylase 18 L (29-103) U/L Lipase 10 L (11.0-82.0) U/L 01/17/17 01/17/17 Range/Units 18:15 18:15 WBC (3.5-10.8) 10^3/ul RBC (4.0-5.4) 10^6/ul Hgb (14.0-18.0) g/dl Hct (42-52) % MCV (80-94) fL MCH (27-31) pg MCHC (31-36) g/dl RDW (10.5-15) % Plt Count (150-450) 10^3/ul MPV (7.4-10.4) um3 Neut % (Auto) (38-83) % Lymph % (Auto) (25-47) % Polk % (Auto) (1-9) % Eos % (Auto) (0-6) % Baso % (Auto) (0-2) % Absolute Neuts (auto) (1.5-7.7) 10^3/ul Absolute Lymphs (auto) (1.0-4.8) 10^3/ul Absolute Monos (auto) (0-0.8) 10^3/ul Absolute Eos (auto) (0-0.6) 10^3/ul Absolute Basos (auto) (0-0.2) 10^3/ul Absolute Nucleated RBC 10^3/ul Nucleated RBC % APTT (26.0-36.3) seconds Sodium (133-145) mmol/L Potassium (3.5-5.0) mmol/L Chloride (101-111) mmol/L Carbon Dioxide (22-32) mmol/L Anion Gap (2-11) mmol/L BUN (6-24) mg/dL Creatinine (0.67-1.17) mg/dL Est GFR ( Amer) (>60) Est GFR (Non-Af Amer) (>60) BUN/Creatinine Ratio (8-20) Glucose (70-100) mg/dL Lactic Acid 1.7 (0.5-2.0) mmol/L Calcium (8.6-10.3) mg/dL Total Bilirubin (0.2-1.0) mg/dL AST (13-39) U/L ALT (7-52) U/L Alkaline Phosphatase (34-104) U/L C-Reactive Protein (< 5.00) mg/L B-Natriuretic Peptide 82 ( - 100) pg/mL Total Protein (6.4-8.9) g/dL Albumin (3.2-5.2) g/dL Globulin (2-4) g/dL Albumin/Globulin Ratio (1-3) Amylase (29-103) U/L Lipase (11.0-82.0) U/L Microbiology and Other Data: Microbiology 01/18/17 00:00 Nasal Screen MRSA (PCR)(HARLEEN) - Final Nasal Mrsa Positive Assess/Plan/Problems-Billing Assessment: 76 yo M h/o celiacs, DI, panhypopituitary, antiphospholipd syndrome, HTN, C. diff colitis presents with abdominal pain diarrhea found +C. diff - Patient Problems (1) Recurrent Clostridium difficile diarrhea Comment: Positive 06/23/2016 but no records here for surrounding circumstances. Pt is a little hazy on details Requested records from Dr. Feldman [email or web address] Also had episode of severe abdominal pain in 2014 for which he underwent an unrevealing ex-lap. Repeat abdominal pain, N/V after urethral dilitation 05/2016 with concern for anaphylaxis to periprocedural abx improving on IV flagyl and PO vanco - change IV to PO flagyl 01/19/17 Tolerating diet (2) Panhypopituitarism Comment: cont cytomel/synthroid, desmopressin Stress dose steroids in setting of infection decreased from 100mg to 50mg q8h 01/19 (3) Diabetes mellitus Comment: Basal bolus insulin Increase to home dose lantus 01/19 (4) Lupus anticoagulant disorder Comment: Continue rivaroxaban. (5) DVT prophylaxis Comment: xarelto
[2017-01-19] MEDS ORDERED: Vancomycin(*) 1,000 MG in NS 0.9% 250 ML* 250 ML IVPB SCH (12:00)
[2017-01-19] MEDS: metroNIDAZOLE TAB* 250 MG PO SCH ×2 (14:50→21:00)
[2017-01-19] MEDS: oxyCODONE/Acetamin 5/325 MG* TAB PO PRN ×2 (16:17→21:02)
[2017-01-19] MEDS: Insulin GLARGINE(*) 1 UNITS UNIT SUBCUT SCH (21:01)
[2017-01-20 06:06] LABS: Hematocrit 34 % (42-52); Hemoglobin 11.3 g/dl (14.0-18.0); Mean Corpuscular HGB Conc 33 g/dl (31-36); Mean Corpuscular Hemoglobin 30 pg (27-31); Mean Corpuscular Volume 91 fL (80-94); Mean Platelet Volume 10 um3 (7.4-10.4); Red Blood Count 3.72 10^6/ul (4.0-5.4); Red Cell Distribution Width 16 % (10.5-15)
[2017-01-20] MEDS: Levothyroxine TAB* 112 MCG TAB PO SCH (06:09)
[2017-01-20] MEDS: Hydrocortisone INJ* 100 MG VIAL IV SCH ×2 (06:09→13:04)
[2017-01-20 06:16] LABS: BUN/Creatinine Ratio 18.9 (8-20); Calcium 7.2 mg/dL (8.6-10.3); EGFR African American 61.8 (>60); EGFR Non-African American 48.1 (>60); Potassium 4.1 mmol/L (3.5-5.0)
[2017-01-20 07:59] VITALS: BP 143/75
[2017-01-20] MEDS: CMCS: Desmopressin TAB (NF) 0.1 MG TAB PO SCH (07:59)
[2017-01-20] MEDS: Liothyronine TAB* 5 MCG PO SCH (08:00)
[2017-01-20] MEDS: Rivaroxaban TAB(*) 10 MG PO SCH (08:00)
[2017-01-20] MEDS: metroNIDAZOLE TAB* 250 MG PO SCH ×2 (08:00→13:03)
[2017-01-20] MEDS: Vancomycin CAP* 250 MG CAP PO SCH ×2 (08:00→13:03)
[2017-01-20] MEDS: Insulin LISPRO* 1 UNITS UNIT SUBCUT SCH ×2 (08:01→13:04)
[2017-01-20] MEDS ORDERED: Insulin GLARGINE(*) 1 UNITS UNIT SUBCUT SCH (09:00)
[2017-01-20] MEDS ORDERED: Vancomycin Trough Check NOTE FOLLOW UP ONE (11:30)
--- NOTE | 2017-01-21 05:56 | DS ---
DISCHARGE SUMMARY: DATE OF ADMISSION: 01/17/17 DATE OF DISCHARGE: 01/20/17 PRIMARY CARE PROVIDER: Dr. Feldman. PRIMARY DIAGNOSIS: Sepsis secondary to Clostridium difficile colitis. SECONDARY DIAGNOSES: Include: 1. Recurrent Clostridium difficile diarrhea. 2. Panhypopituitarism. 3. Type 2 diabetes mellitus. 4. Lupus anticoagulant disorder. 5. Celiac disease. 6. History of urethral strictures. 7. Hypertension. 8. Glaucoma. 9. Gout. 10. Back pain. 11. History of transient ischemic attacks. MEDICATIONS ON DISCHARGE: Include: 1. Vitamin B12 100 mcg daily. 2. Desmopressin 0.2 mg twice daily. 3. Allopurinol 300 mg daily. 4. Cytomel 5 mcg twice daily. 5. Synthroid 112 mcg in the morning. 6. Insulin glargine 35 units in the morning. 7. Meclizine 25 mg 3 times a day as needed. 8. Testosterone gel 1% topically daily. 9. Xarelto 10 mg daily. 10. Repaglinide 2 mg 3 times daily. 11. Lyrica 50 mg twice daily. 12. Prednisone 7.5 mg daily. 13. Vancomycin 250 mg every 4 hours for 10 additional days. 14. Metronidazole 500 mg 3 times a day for 10 additional days. PERTINENT MICROBIOLOGY: Stool positive for C. diff on 0 to 7 strain. Urine culture positive for E. coli, 10,000 to 25,000 colony count. One blood culture bottle positive for Staphylococcus haemolyticus. An additional bottle positive for Enterococcus faecalis. Two blood culture bottles drawn at the same time remained negative to date. HISTORY OF PRESENT ILLNESS AND HOSPITAL COURSE: This is a very pleasant 76-year - old gentleman with past medical history as outlined on the day of admission including history of abdominal pain for which he underwent ex lap without identification of source as well as history of positive C. diff in our computer system, who presented to the hospital with copious diarrhea and abdominal pain and was found with positive C. diff colitis, was treated with metronidazole as well as vancomycin p.o. with resolution of diarrhea and abdominal pain. On the day of discharge, he was tolerating diabetic diet, and his pain had completely resolved and had a semi-formed stool. Diarrhea is no longer an issue. He is ambulatory without distress. Of note, he received stress dosed steroids for 2 days, titrated down to 50 mg, hydrocortisone for 1 day and then discharged on his home dose of oral steroids. Hypotension was never an issue. Suspected that he had recurrent C. diff colitis. His CAT scan was not indicative of diffuse colitis, however, positive stool culture in the setting of abdominal pain and diffuse diarrhea improved with antibiotics consistent with diagnosis of C. diff colitis. Of note, blood sugar was elevated during the course of the hospital stay on steroids. He will be discharged off of metformin given his elevated creatinine of 1.4, which appears to be his baseline. Please evaluate and restart if deemed necessary. He can be discharged on his home dose of Lantus. There were no complications of this patient's hospital stay. He was discharged on his home dose of rivaroxaban __dosed for____ lupus anticoagulant _ __at___ 10 mg daily. Additionally, valsartan was held at the time of discharge given his normal blood pressures off of this medication. At followup, please; 1. Evaluate blood pressure, restart valsartan as deemed necessary. 2. Evaluate blood sugar control and restart metformin if kidney function allows. 3. No other specific labs or vitals that need followup. Reasons to return to the hospital including, but not limited to recurrent or worsening of symptoms including profuse diarrhea, fevers, chills, night sweats, inability to obtain or tolerate his medications, chest pain, shortness of breath , bleeding from any source were discussed with the patient and his and they acknowledged understanding. TIME SPENT: Greater than 45 minutes were spent on the discharge of this patient with greater than half spent [id number] with the patient. CC: Dr. Feldman * [id number]/[facility] #: [id number] SYMONE
== END 2017-01-20 14:20 | disposition home or self-care (01) | DRG 872 ==
LOC: ED 17:21 → MED 21:09 → ICU 21:54 → MED 01-18 14:08
PROVIDERS: ADMIT Internal Medicine; ATTEND Internal Medicine
DX: A41.9 Sepsis, unspecified organism (principal); N17.9 Acute kidney failure, unspecified; A04.7 Enterocolitis due to Clostridium difficile; E23.2 Diabetes insipidus; E23.0 Hypopituitarism; D68.62 Lupus anticoagulant syndrome; K86.81 Exocrine pancreatic insufficiency; E11.9 Type 2 diabetes mellitus without complications; K90.0 Celiac disease; I10 Essential (primary) hypertension; H40.9 Unspecified glaucoma; M10.9 Gout, unspecified; M54.9 Dorsalgia, unspecified; N35.9 Urethral stricture, unspecified; D35.2 Benign neoplasm of pituitary gland; Z79.01 Long term (current) use of anticoagulants; Z86.73 Personal history of transient ischemic attack (TIA), and cerebral infarction without residual deficits; Z79.84 Long term (current) use of oral hypoglycemic drugs; Z79.4 Long term (current) use of insulin; Z79.899 Other long term (current) drug therapy; Z79.52 Long term (current) use of systemic steroids; Z91.09 Other allergy status, other than to drugs and biological substances; Z83.3 Family history of diabetes mellitus; Z82.49 Family history of ischemic heart disease and other diseases of the circulatory system; Z87.891 Personal history of nicotine dependence
CPT/HCPCS: 36415; 74020; 74176; 80048; 80053; 80202; 81003; 81015; 82040; 82150; 82330; 83605; 83630; 83690; 83880; 84484; 85025; 85730; 86140; 87040; 87045; 87046; 87077; 87086; 87150; 87186; 87205; 87493; 87641; 87899; 93005; A9270-GY; J0610; J1720; J2270; J3370; J3490

== ENCOUNTER 2017-08-05 06:25 | Day surgery (SDC) | payer MEDICARE, BC ==
[~2017-08-05 06:25] MED LIST: Buffered Lidocaine 0.9% SYRIN* 5 ML/SYR SYRINGE INTRADERM ONE; Famotidine IV* 10 MG/ML 2 ML (20 mg) IV ONE; Famotidine IV* 10 MG/ML 2 ML (20 mg) ONE; Proparacaine 0.5% OPHTH.SOL* 15 ML BTL ONE; mitoMYcin 0.2 MG (0.02%) in Sterile Water for Inj* 1 ML OPHTHALMIC SCH
[2017-08-05] MEDS ORDERED: Sodium Bicarbonate 8.4%* 50 ML SYRINGE ONE (07:04)
[2017-08-05] MEDS ORDERED: Lidocaine 2% PF* 10 ML AMP ONE (07:04)
[2017-08-05] MEDS ORDERED: Triamcinolone Acetonide* 40 MG/ML 1 ML VIAL ONE (07:04)
[2017-08-05] MEDS ORDERED: Acetylcholine 1:100 OPTH* OPHTH.SOLN ONE (07:04)
[2017-08-05] MEDS ORDERED: Atropine 1% OPHTH.SOL* 2 ML BOT - 2 ML ONE (07:05)
[2017-08-05] MEDS ORDERED: Povidone Iodine 5% OPTH* 30 ML BTL ONE (07:05)
[2017-08-05] MEDS ORDERED: Neomycin/Polymy/Dex OPTH.SUSP* MAXITROL 0.1% 5 ML ONE (07:05)
[2017-08-05] MEDS ORDERED: Lidocaine 2% EPI 1:200000 MPF* 20 ML VIAL ONE (07:05)
[2017-08-05] MEDS ORDERED: Hyaluronidase OVINE* 200 UNIT/ML ML SUBCUT ONE (07:05)
[2017-08-05] MEDS ORDERED: BSS OPTH.SOL* BTL ONE (07:05)
[2017-08-05] MEDS ORDERED: fentaNYL* 50 MCG/ML 2 ML VIAL (100 MCG VIAL) ONE (07:11)
[2017-08-05] MEDS ORDERED: Propofol* 10 MG/ML 20 ML BTL IV PUSH ONE (07:11)
[2017-08-05] MEDS ORDERED: Lidocaine 2% PF * 5 ML VIAL ONE (07:11)
[2017-08-05] MEDS ORDERED: Midazolam* 1 MG/ML 2 ML VIAL (2 MG) ONE ×2 (07:11→07:40)
[2017-08-05 11:52] VITALS: BP 162/80
--- NOTE | 2017-08-06 05:43 | OP ---
DATE OF OPERATION: 08/05/17- [facility] DATE OF : 40 SURGEON: Pedrito Huynh M.D. ANESTHESIA: Local with MAC. PREOPERATIVE DIAGNOSIS: Uncontrolled glaucoma, right eye. POSTOPERATIVE DIAGNOSIS: Uncontrolled glaucoma, right eye. OPERATIVE PROCEDURE: Trabeculectomy, right eye. COMPLICATIONS: None. DESCRIPTION OF PROCEDURE: The patient was given retrobulbar in the operating room, 50:50 mixture of 0.75 Marcaine and 1.5% lidocaine with epinephrine inserted into the cone, 4 cc were injected. He was prepped and draped in the usual sterile fashion. A lid speculum was placed. Superior limbal traction suture 6-0 silk was placed and the eye rotated inferiorly. A fornix-based conjunctival peritomy was performed with Jason scissors from the 12 o'clock to the 2 o'clock position. Hemostasis achieved with cautery. Mitomycin-C 0.2 mg/mL placed sub-tenon's on a Weck-Alyse sponge for 90 seconds and thoroughly irrigated. Triangular limbal-based scleral flap created, half scleral thickness depth with the crescent blade. Anterior chamber entered under the flap with a 3 mm keratome. Paracentesis made at the 8 o'clock position with a 75 blade. A 3.1 mm trabecular block excised from the corneal incision using the Itzel punch, peripheral iridectomy performed with Vannas scissors. Miochol instilled into the anterior chamber, DisCoVisc. Flap closed using two 10-0 nylon interrupted sutures and the conjunctiva tenon was closed using a running locking 10-0 nylon suture and a running locking 10-0 Vicryl suture. All traction sutures removed. Sub-tenon's Kenalog 40 mg/mL injected in the inferior fornix 1 mL. The area inflated. All incisions found to be watertight. Topical atropine and Maxitrol given and the eye was patched. [id number]/[facility] #: [id number] [facility]
== END 2017-08-05 11:21 | disposition home or self-care (01) ==
LOC: OREAST 06:25
PROVIDERS: ATTEND Specialist
DX: 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, right eye, severe stage (principal); H40.1122 Primary open-angle glaucoma, left eye, moderate stage; E11.3293 Type 2 diabetes mellitus with mild nonproliferative diabetic retinopathy without macular edema, bilateral; E29.1 Testicular hypofunction; M10.9 Gout, unspecified; D68.61 Antiphospholipid syndrome; E03.9 Hypothyroidism, unspecified; I12.9 Hypertensive chronic kidney disease with stage 1 through stage 4 chronic kidney disease, or unspecified chronic kidney disease; E11.22 Type 2 diabetes mellitus with diabetic chronic kidney disease; N18.9 Chronic kidney disease, unspecified; E23.2 Diabetes insipidus; E11.40 Type 2 diabetes mellitus with diabetic neuropathy, unspecified; Z87.891 Personal history of nicotine dependence; Z79.4 Long term (current) use of insulin; Z79.01 Long term (current) use of anticoagulants; Z79.84 Long term (current) use of oral hypoglycemic drugs; Z88.1 Allergy status to other antibiotic agents; Z86.73 Personal history of transient ischemic attack (TIA), and cerebral infarction without residual deficits
CPT/HCPCS: A9270-GY; J2001; J2250; J2704; J3010; J3301; J3471; J9280

== ENCOUNTER 2017-08-19 06:27 | Day surgery (SDC) | payer MEDICARE, BC ==
[~2017-08-19 06:27] MED LIST changes: +Dexamethasone IV* 4 MG/ML 1 ML (4 MG) ONE; -Famotidine IV* 10 MG/ML 2 ML (20 mg) IV ONE; -Proparacaine 0.5% OPHTH.SOL* 15 ML BTL ONE; +mitoMYcin PWD* 0.2 MG in Sterile Water for Inj* 1 ML OPHTHALMIC SCH
[2017-08-19] MEDS: Dexamethasone IV* 4 MG/ML 1 ML (4 MG) IV SLOW PU ONE ×2 (07:06→07:07)
[2017-08-19] MEDS: Famotidine IV* 10 MG/ML 2 ML (20 mg) IV ONE ×2 (07:06→07:07)
[2017-08-19] MEDS ORDERED: Acetylcholine 1:100 OPTH* OPHTH.SOLN ONE (07:16)
[2017-08-19] MEDS ORDERED: Lidocaine 2% PF* 10 ML AMP ONE (07:16)
[2017-08-19] MEDS ORDERED: Triamcinolone Acetonide* 40 MG/ML 1 ML VIAL ONE (07:16)
[2017-08-19] MEDS ORDERED: Sodium Bicarbonate 8.4%* 50 ML SYRINGE ONE (07:16)
[2017-08-19] MEDS ORDERED: BSS OPTH.SOL* BTL ONE ×2 (07:17→07:30)
[2017-08-19] MEDS ORDERED: Lidocaine 2% EPI 1:200000 MPF* 20 ML VIAL ONE (07:17)
[2017-08-19] MEDS ORDERED: Neomycin/Polymy/Dex OPTH.SUSP* MAXITROL 0.1% 5 ML ONE (07:17)
[2017-08-19] MEDS ORDERED: Atropine 1% OPHTH.SOL* 2 ML BOT - 2 ML ONE (07:17)
[2017-08-19] MEDS ORDERED: Povidone Iodine 5% OPTH* 30 ML BTL ONE (07:17)
[2017-08-19] MEDS ORDERED: Hyaluronidase OVINE* 200 UNIT/ML ML SUBCUT ONE (07:18)
[2017-08-19] MEDS ORDERED: Midazolam* 1 MG/ML 2 ML VIAL (2 MG) ONE ×2 (07:27→08:04)
[2017-08-19] MEDS ORDERED: fentaNYL* 50 MCG/ML 2 ML VIAL (100 MCG VIAL) ONE (07:41)
[2017-08-19 09:39] VITALS: BP 149/78
--- NOTE | 2017-08-19 15:33 | OP ---
DATE OF OPERATION: 08/19/17 - [facility] DATE OF : 40 SURGEON: Pedrito Huynh MD. ANESTHESIA: Local with MAC. PRE-OP DIAGNOSIS: Uncontrolled glaucoma, left eye. POST-OP DIAGNOSIS: Uncontrolled glaucoma, left eye. OPERATIVE PROCEDURE: Trabeculectomy, left eye. COMPLICATIONS: None. DESCRIPTION OF PROCEDURE: The patient was given retrobulbar anesthesia in the operating room, 50:50 mixture of 0.75 Marcaine, 2% lidocaine with epinephrine, 4 cc given in the muscle cone without difficulty. Eye was prepped and draped in the usual sterile fashion. A lid speculum was placed. A 6-0 silk traction suture was placed through the superior limbus and the eye rotated inferiorly. A fornix-based conjunctival peritomy was performed with Jason scissors from the 12 o'clock to the 2 o'clock position. Hemostasis achieved with low temp cautery. Mitomycin-C 0.2 mg/mL was placed in a sponge, placed sub-tenons for 90 seconds and then thoroughly irrigated with balanced salt solution. The half scleral thickness limbal based triangular scleral flap was created using the crescent blade. Anterior chamber entered with a 3 mm keratome and 3 x 1 mm trabecular block was excised using the Itzel punch. A peripheral iridectomy was performed with Vannas scissors and the scleral flap was sutured with two 10- 0 nylon interrupted sutures with the suture tension adjusted to provide adequate fluid flow. Paracentesis was made at the 4 o'clock position with a 75 blade. Miochol and small amount of DisCoVisc was inflated into the anterior chamber prior to suturing the scleral flap. The conjunctiva was closed with combination of running locking 10-0 nylon suture at the limbus and 10-0 Vicryl suture on the sides of the conjunctiva. Kenalog 40 mg/mL was given sub-tenons 1 mL. The traction suture removed. Anterior chamber reinflated with balanced salt solution and the incisions were all found to be watertight. Topical Maxitrol and atropine were given and then the eye was securely patched. [id number]/[facility] #: [id number] [facility]
== END 2017-08-19 09:45 | disposition home or self-care (01) ==
LOC: OREAST 06:27
PROVIDERS: ATTEND Specialist
DX: E11.39 Type 2 diabetes mellitus with other diabetic ophthalmic complication (principal); H40.1122 Primary open-angle glaucoma, left eye, moderate stage; 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, right eye, severe stage; Z79.4 Long term (current) use of insulin; I10 Essential (primary) hypertension; E03.9 Hypothyroidism, unspecified; E29.1 Testicular hypofunction; G47.33 Obstructive sleep apnea (adult) (pediatric); M10.9 Gout, unspecified; D68.61 Antiphospholipid syndrome; E23.2 Diabetes insipidus; Z79.01 Long term (current) use of anticoagulants; Z88.1 Allergy status to other antibiotic agents; Z87.891 Personal history of nicotine dependence
CPT/HCPCS: A9270-GY; J1100; J2001; J2250; J3010; J3301; J3471; J9280

== ENCOUNTER → 2018-03-10 10:12 | Day surgery (SDC) | payer MEDICARE, BC ==
[~2018-03-10 10:12] MED LIST changes: -Buffered Lidocaine 0.9% SYRIN* 5 ML/SYR SYRINGE INTRADERM ONE; -Dexamethasone IV* 4 MG/ML 1 ML (4 MG) ONE; -Famotidine IV* 10 MG/ML 2 ML (20 mg) ONE; +LORazepam TAB(*) 1 MG ONE; -mitoMYcin 0.2 MG (0.02%) in Sterile Water for Inj* 1 ML OPHTHALMIC SCH; -mitoMYcin PWD* 0.2 MG in Sterile Water for Inj* 1 ML OPHTHALMIC SCH
[2018-03-10 13:08] LABS: ABS Basophils 0.1 10^3/ul (0-0.2); ABS Eosinophils 0 10^3/ul (0-0.6); ABS Lymphocytes 0.7 10^3/ul (1.0-4.8); ABS Monocytes 0.7 10^3/ul (0-0.8); ABS Neutrophils 5.1 10^3/ul (1.5-7.7); ABS Nucleated RBC 0 10^3/ul; Eosinophil % 0.7 % (0-6); Hematocrit 39 % (42-52); Hemoglobin 13.3 g/dl (14.0-18.0); Mean Corpuscular HGB Conc 34 g/dl (31-36); Mean Corpuscular Hemoglobin 31 pg (27-31); Mean Corpuscular Volume 92 fL (80-94); Mean Platelet Volume 9.7 um3 (7.4-10.4); Nucleated Red Blood Cells % 0.1; Platelet Count 155 10^3/ul (150-450); Red Blood Count 4.28 10^6/ul (4.0-5.4); Red Cell Distribution Width 15 % (10.5-15); White Blood Count 6.6 10^3/ul (3.5-10.8)
[2018-03-10 13:20] LABS: INR 1.5 (0.77-1.02)
--- NOTE | 2018-03-10 16:22 | RAD ---
CPT II Codes: G9500 Procedure(s) performed: 1. Diagnostic pelvic and left lower extremity arteriogram. 2. Percutaneous closure device at the right common femoral arteriotomy. 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 Comparison: Anteriorly PVR dated December 22, 2017 Contrast: 45 mL of Visipaque 320 Fluoroscopy Time: 6.5 minutes Vessels Accessed: Percutaneous access was obtained with ultrasound guidance in the right common femoral artery in the retrograde direction towards the heart. Catheter arteriography, with the catheter tip located within the lumen of the following arteries, was performed at the right external iliac artery, right common iliac artery, right common femoral artery and right popliteal artery. Anesthesia: Conscious sedation with IV Fentanyl and Versed as well as local 1% lidocaine injected locally at the arteriotomy site. Conscious sedation time: Timeout: 1329 hours Case end: 1412 hours Total conscious sedation time: 43 minutes Additional medications: * The patient received 1 mg of p.o. Ativan prior to the onset of the procedure. PROCEDURE NOTE AND INTRAPROCEDURAL IMAGING FINDINGS: While still in the [facility] holding area bedside ultrasound was performed of the left ankle arteries demonstrating no flow in the left dorsalis pedis artery and flow in the coarsely calcified left posterior tibial artery. Images were recorded. Immediately prior to the procedure the patient signed consent after thoroughly discussing all risks, benefits and alternative therapies. The patient was positioned on the fluoroscopy table in the supine position and the bilateral groins and left ankle were shaved, prepped and the patient was draped in standard sterile fashion. Using fluoroscopic imaging the location of the right common femoral head was marked externally with a skin marker on the patient's groin. Utilizing sonographic guidance and palpation, the right common femoral artery was cannulated overlying the femoral head with an 18-gauge needle. An ultrasound image was saved. A 0.035" wire was slowly and smoothly advanced into the common femoral artery under fluoroscopic imaging. No buckling of the wire was visualized to indicate dissection. With the wire securing percutaneous arterial access, the needle was removed and a 5-[place] Citizen SideArm access sheath was advanced under fluoroscopic control into the common femoral artery retrograde into the distal left external iliac artery securing access. Through the side arm of the access sheath arteriography of the right common femoral artery demonstrated an appropriate puncture of the common femoral artery above the bifurcation and below the inferior epigastric artery. To further characterize and exactly locate the extent of atherosclerotic disease involving the pelvis and left lower extremity diagnostic catheter arteriography was necessary. Over the wire a 5-[place] Citizen C2 catheter was advanced to the aortic bifurcation. With the tip of the catheter in the left common iliac artery contrast arteriography was performed demonstrating the lower abdominal aorta and left iliac arteries and proximal femoral arteries to be adequately patent. A hydrophilic wire was advanced into the catheter securing access into the left superficial femoral artery. Over the wire a 5-[place] Citizen straight multi-sidehole catheter was advanced until the tip was at the left common femoral artery. The wire was removed and contrast arteriography was performed of the left femoral profundus and proximal half of the left superficial femoral artery exhibiting wide patency. With the catheter at the same location the distal superficial femoral artery, popliteal artery and proximal infrapopliteal arteries were studied demonstrating adequate patency. A stiff hydrophilic wire was advanced into the catheter and advanced to the proximal portion of the left posterior tibial artery. Over the stiff hydrophilic wire the flush catheter was advanced until the tip was in the midportion of the left popliteal artery. The wire was removed and catheter arteriography was performed demonstrating adequate patency of the infrapopliteal arteries to approximately the mid-level left lower leg. With the catheter in the same position a final arteriogram of the left leg was performed to image the remainder of the infrapopliteal arteries and the arteries of the foot. The distal most portion of the left posterior tibial artery exhibits mild multifocal stenoses. There is more long segment stenoses at the proximal plantar arteries but in-line flow through the FACILITY SERVICE ASSOCIATE and plantar arteries is seen up to the pedal arch. The left anterior tibial artery becomes abruptly occluded at the level of the ankle and the dorsalis pedis artery exhibits essentially no filling until collateralized flow fills the distal portion from collateral branches provided by the pedal loop. The peroneal artery provides minimal collateralized flow at the level of the ankle but does not directly provide arterial flow to the foot. It was determined at this time that no intervention was currently indicated. Under fluoroscopic control the flush catheter and wire were removed. Through the side arm of the access sheath, this time in the right anterior oblique projection, arteriography of the right common femoral artery demonstrated an appropriate puncture of the common femoral artery above the bifurcation and below the inferior epigastric artery. After an appropriate resterilization of the arteriotomy and exchange for new sterile gloves, a Minx closure device was deployed at the common femoral arteriotomy and pressure held for approximately 15 minutes. There were no signs of bleeding at the percutaneous arterial access site and the site was dressed with sterile gauze and Tegaderm. The patient tolerated the procedure well and was transferred to angiography holding bay for standard post procedural observation. SUMMARY OF PROCEDURE, IMAGING FINDINGS AND INTERVENTIONS PERFORMED: 1. Diagnostic studies performed: * Arterial access was obtained at the right common femoral artery in the retrograde direction (i.e. towards the heart) with ultrasound guidance. A sonographic image was recorded. * Diagnostic catheter angiography was performed with the catheter tip in the right external iliac artery, left common iliac artery, left common femoral artery and left popliteal artery. * Catheter arteriography was performed of the pelvic and left lower extremity arteries as far as the toes. * At the conclusion of the procedure arteriography was performed through the side arm of the access sheath to image the distal right external iliac artery, right common femoral artery and proximal superficial femoral artery and femoral profundus. 2. Interpretation of diagnostic studies performed: * Bedside ultrasound performed by Dr. Henning of the pedal arteries demonstrates the dorsalis pedis artery to be coarsely calcified and absent of flow. The left posterior tibial artery is coarsely calcified but exhibits adequate flow. * Widely patent arteries were documented from the lower abdominal aorta to the left lower leg infrapopliteal arteries. * Mild multifocal stenoses at the inferior most distal left posterior tibial artery as well as more long segment stenoses at the proximal left plantar arteries. Despite this appearance the left FACILITY SERVICE ASSOCIATE provides the dominant flow to the foot including filling the inferior portion of the "pedal loop". * There is abrupt occlusion of the distal left anterior tibial artery approximately at the junction with the dorsalis pedis artery. Only the distal most portion of the dorsalis pedis artery fills by collateralized flow mostly provided by branches from the FACILITY SERVICE ASSOCIATE and plantar arteries. * Arteriography performed for the purpose of deploying a percutaneous arterial closure device demonstrates adequately patent right external iliac artery, common femoral artery and proximal superficial femoral artery and femoral profundus. 3. Surgical interventions performed: * Closure of the right common femoral artery was achieved with a Minx closure device followed by 15 minutes of gentle manual pressure. Plan: 1. As was discussed with the patient and his Megan, contour and recommendations are to continue good diabetes control, attentive foot and wound care with Dr. Patel and to exercise regularly. If and when the patient experiences chronic wounds in the left foot today's examination provides detailed arteriography for the purpose of a revascularization intervention. 2. No change was made to the patient's current prescription regimen.
[2018-03-10 16:25] VITALS: BP 145/76
--- NOTE | 2018-03-10 16:39 | PN ---
Progress Note - Progress Note Date of Service: 03/10/18 SOAP: Subjective: No pain or nausea. Ate lunch. Ready to go home. 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 Plan: 1. As discussed with patient and his Megan, good diabetes control, exercise and attentive foot/wound care with Dr. Black. 2. Continue all previous medications. 3. IR clinic nurse will call tomorrow and 03/12/18 to inquire about groin symptoms. No specific IR clinic visit currently necessary.
== END | disposition home or self-care (01) ==
LOC: CHICATH 10:12
PROVIDERS: ATTEND Radiology Diagnostic Radiology
DX: I70.262 Atherosclerosis of native arteries of extremities with gangrene, left leg (principal); E11.621 Type 2 diabetes mellitus with foot ulcer; L97.529 Non-pressure chronic ulcer of other part of left foot with unspecified severity; Z79.4 Long term (current) use of insulin; I10 Essential (primary) hypertension; Z79.84 Long term (current) use of oral hypoglycemic drugs; Z87.891 Personal history of nicotine dependence; L97.521 Non-pressure chronic ulcer of other part of left foot limited to breakdown of skin; L97.511 Non-pressure chronic ulcer of other part of right foot limited to breakdown of skin; Z79.899 Other long term (current) drug therapy
CPT/HCPCS: 36415; 76937; 85025; 85610; 85730; 99156; 99157; A9270-GY; C1769; C1887

== ENCOUNTER 2018-04-19 16:11 | Observation (INO) | payer MEDICARE, BC ==
--- NOTE | 2018-04-19 16:52 | RAD ---
Indication: Chest pain. Single frontal view of the chest performed at 1641 hours was reviewed. Comparison is made with previous exam dated April 11, 2016. No mediastinal shift is noted. Heart is of normal size and configuration. Lung davies appear clear. IMPRESSION: NO ACTIVE CARDIOPULMONARY DISEASE IS NOTED.
[2018-04-19 17:18] LABS: ABS Basophils 0 10^3/ul (0-0.2); ABS Eosinophils 0 10^3/ul (0-0.6); ABS Lymphocytes 0.7 10^3/ul (1.0-4.8); ABS Nucleated RBC 0 10^3/ul; Eosinophil % 0.6 % (0-6); Hematocrit 43 % (42-52); Hemoglobin 14.4 g/dl (14.0-18.0); Lymphocyte % 10.8 % (25-47); Mean Corpuscular HGB Conc 34 g/dl (31-36); Mean Corpuscular Hemoglobin 31 pg (27-31); Mean Corpuscular Volume 93 fL (80-94); Mean Platelet Volume 9.5 um3 (7.4-10.4); Nucleated Red Blood Cells % 0; Platelet Count 183 10^3/ul (150-450); Red Blood Count 4.62 10^6/ul (4.0-5.4); Red Cell Distribution Width 15 % (10.5-15); White Blood Count 6.8 10^3/ul (3.5-10.8)
[2018-04-19 17:27] LABS: INR 1.67 (0.77-1.02)
[2018-04-19 17:51] LABS: EGFR Non-African American 45.7 (>60)
[2018-04-19] MEDS ORDERED: Aspirin 81 mg CHEW TAB* 81 MG TAB.CHEW PO ONE (19:18)
[2018-04-19] MEDS ORDERED: Morphine VIAL* 4 MG/ML VIAL (1 ml vial) IV PRN (19:21)
[2018-04-19] MEDS ORDERED: Ondansetron 40 MG VIAL* 2 MG/ML 20 ML VIAL IV PRN (19:21)
[2018-04-19] MEDS ORDERED: oxyCODONE/Acetamin 5/325 MG* TAB PO PRN (19:21)
[2018-04-19] MEDS ORDERED: Magnesium Hydroxide LIQ* 30 ML UDC PO PRN (19:21)
[2018-04-19] MEDS ORDERED: Acetaminophen TAB* 325 MG PO PRN (19:21)
[2018-04-19] MEDS ORDERED: Al Hydrox/Mg Hydrox/Simet LIQ* 30 ML UDC PO PRN (19:21)
--- NOTE | 2018-04-19 19:29 | ED ---
Juan Carlos Lpóez Angela, scribed for Jose Car MD on 04/19/18 at 1640 . HPI Chest Pain - HPI Summary HPI Summary: This pt is a 77 y/o male, accompanied by his , presenting to [facility] c/o chest pain today. reports that last night the pt was moaning and was short of breath. This morning the pt developed chest pain on the right. Additionally pt has SOB, fatigue, and nausea. Pt states he has a sensation of not being able to take a deep breathe. Denies fever, vomiting, dizziness. Yesterday the reports the pt didn't eat much. Per , pt only had coffee this morning. PMHx includes neuropathy, diabetes, HTN. - History of Current Complaint Chief Complaint: EDChestPainROMI Time Seen by Provider: 04/19/18 16:30 Hx Obtained From: Patient Onset/Duration: Started Hours Ago, Still Present Timing: Lasting Hours Current Severity: Severe Pain Intensity: 8 Pain Scale Used: 0-10 Numeric Chest Pain Location: Right Anterior Chest Pain Radiates: No Aggravating Factor(s): Nothing Alleviating Factor(s): Nothing Associated Signs and Symptoms: Positive: Chest Pain, Shortness of Breath, Nausea. Negative: Dizziness, Vomiting - Additional Pertinent History Primary Care Physician: [id number] - Allergy/Home Medications Allergies/Adverse Reactions: Allergies Allergy/AdvReac Type Severity Reaction Status Date / Time MS Cephalexin [Cephalexin] Allergy Severe Anaphylatic Verified 08/19/17 06:40 Shock MS Enalapril [From Vasotec] Allergy Unknown Unknown Verified 08/19/17 06:40 Reaction Details MS Nifedipine Allergy Unknown Unknown Verified 08/19/17 06:40 [From Procardia] Reaction Details MS Verapamil [Verapamil] Allergy Unknown Unknown Verified 08/19/17 06:40 Reaction Details Home Medications: Home Medications Allopurinol TAB* [Zyloprim 300 MG TAB*] 300 mg PO DAILY 04/19/18 [History Confirmed 04/19/18] Desmopressin Acetate [Ddavp] 0.2 mg PO BID 04/19/18 [History Confirmed 04/19/18] Insulin GLARGINE(*) [Lantus(*)] 28 units SUBCUT DAILY 04/19/18 [History Confirmed 04/19/18] Insulin LISPRO* [HumaLOG*] 0 units SUBCUT TID AC 04/19/18 [History Confirmed 03/03] Levothyroxine TAB* [Synthroid TAB*] 112 mcg PO DAILY 04/19/18 [History Confirmed 04/19/18] Liothyronine TAB* [Cytomel TAB*] 5 mcg PO BID 04/19/18 [History Confirmed ] Losartan TAB* [Cozaar TAB*] 50 mg PO DAILY 04/19/18 [History Confirmed 04/19/18] Magnesium Oxide [Magnesium 400 mg] 1 tab PO DAILY 04/19/18 [History Confirmed ] Pregabalin CAP(*) [Lyrica CAP(*)] 50 - 100 mg PO DAILY 04/19/18 [History Confirmed 04/19/18] Rivaroxaban TAB(*) [Xarelto 10 mg (*)] 10 mg PO DAILY 04/19/18 [History Confirmed 04/19/18] Testosterone [Androgel] 2 pump TOPICAL DAILY 04/19/18 [History Confirmed ] metFORMIN* [Glucophage 1000 MG TAB *] 1,000 mg PO BID 04/19/18 [History Confirmed 04/19/18] predniSONE TAB* [Deltasone TAB*] 7.5 mg PO DAILY 04/19/18 [History Confirmed 03/03] PMH/Surg Hx/FS Hx/Imm Hx Endocrine/Hematology History: Reports: Hx Anticoagulant Therapy - xarelto for alpha lipoic acid , Hx Diabetes - insulin dependent type 2, poorly controlled, Hx Thyroid Disease Cardiovascular History: Reports: Hx Hypercholesterolemia, Hx Hypertension - takes meds, Other Cardiovascular Problems/Disorders Denies: Hx Congestive Heart Failure, Hx Pacemaker/ICD Respiratory History: Denies: Hx Asthma GI History: Reports: Other GI Disorders - Celiac disease History: Reports: Other Problems/Disorders - URETHRAL STRICTURE DILATION Denies: Hx Dialysis, Hx Renal Disease Sensory History: Reports: Hx Contacts or Glasses - reading, Hx Glaucoma - both eyes, Hx Hearing Aid - doesn't wear them, Other Sensory Impairments - decreased hearing Opthamlomology History: Reports: Hx Contacts or Glasses - reading, Hx Glaucoma - both eyes, Other Sensory Impairments - decreased hearing Neurological History: Reports: Hx Nerve Disease - neuropathy, Other Neuro Impairments/Disorders - SPINAL FUSION; pituitary adenoma >10 years ago Psychiatric History: Denies: Hx Panic Disorder - Cancer History Hx Chemotherapy: No - Surgical History Surgery Procedure, Year, and Place: right inguinal hernia repair 4th grade, LEFT THUMB AMPUTATION, C-SPINE FUSION. filter placed in right eye for glaucoma , exploratory laparotomy Dr. Deal Hx Anesthesia Reactions: No - Immunization History Date of Tetanus Vaccine: unknown Date of Influenza Vaccine: 08/16/15 Infectious Disease History: No Infectious Disease History: Denies: Hx of Known/Suspected MRSA, Traveled Outside the [place] in Last 30 Days - Family History Known Family History: Positive: Diabetes - Social History Alcohol Use: Rare Substance Use Type: Reports: None Smoking Status (MU): Former Smoker Amount Used/How Often: smoked for 20-30 years 1/2ppd Review of Systems Positive: Fatigue. Negative: Fever Positive: Chest Pain Positive: Shortness Of Breath Positive: Nausea. Negative: Vomiting Musculoskeletal: Negative Skin: Negative Neurological: Negative - dizziness All Other Systems Reviewed And Are Negative: Yes Physical Exam - Summary Physical Exam Summary: VITAL SIGNS: Reviewed. GENERAL: Patient is a well-developed and nourished male who is lying comfortable in the stretcher. Patient is not in any acute respiratory distress. HEAD AND FACE: No signs of trauma. No ecchymosis, hematomas or skull depressions. No sinus tenderness. EYES: PERRLA, EOMI x 2, No injected conjunctiva, no nystagmus. EARS: Hearing grossly intact. Ear canals and tympanic membranes are within normal limits. MOUTH: Oropharynx within normal limits. NECK: Supple, trachea is midline, no adenopathy, no JVD, no carotid bruit, no c- spine tenderness, neck with full ROM. CHEST: Symmetric, no tenderness at palpation LUNGS: Clear to auscultation bilaterally. No wheezing or crackles. CVS: Regular rate and rhythm, S1 and S2 present, no murmurs or gallops appreciated. ABDOMEN: Soft, non-tender. No signs of distention. No rebound no guarding, and no masses palpated. Bowel sounds are normal. EXTREMITIES: FROM in all major joints, no edema, no cyanosis or clubbing. NEURO: Alert and oriented x 3. No acute neurological deficits. Speech is normal and follows commands. SKIN: Dry and warm Triage Information Reviewed: Yes Vital Signs On Initial Exam: Initial Vitals Temp Pulse Resp BP Pulse Ox 97.4 F 65 19 156/78 96 04/19/18 16:20 04/19/18 16:20 04/19/18 16:20 04/19/18 16:20 04/19/18 16:20 Vital Signs Reviewed: Yes Diagnostics - Vital Signs Vital Signs Temp Pulse Resp BP Pulse Ox 04/19/18 16:20 97.4 F 65 19 156/78 96 - Laboratory Lab Results: Lab Results 04/19/18 04/19/18 04/19/18 Range/Units 17:01 17:01 17:01 WBC 6.8 (3.5-10.8) 10^3/ul RBC 4.62 (4.0-5.4) 10^6/ul Hgb 14.4 (14.0-18.0) g/dl Hct 43 (42-52) % MCV 93 (80-94) fL MCH 31 (27-31) pg MCHC 34 (31-36) g/dl RDW 15 (10.5-15) % Plt Count 183 (150-450) 10^3/ul MPV 9.5 (7.4-10.4) um3 Neut % (Auto) 73.8 (38-83) % Lymph % (Auto) 10.8 L (25-47) % Reagan % (Auto) 14.3 H (0-7) % Eos % (Auto) 0.6 (0-6) % Baso % (Auto) 0.5 (0-2) % Absolute Neuts (auto) 5.0 (1.5-7.7) 10^3/ul Absolute Lymphs (auto) 0.7 L (1.0-4.8) 10^3/ul Absolute Monos (auto) 1.0 H (0-0.8) 10^3/ul Absolute Eos (auto) 0 (0-0.6) 10^3/ul Absolute Basos (auto) 0 (0-0.2) 10^3/ul Absolute Nucleated RBC 0 10^3/ul Nucleated RBC % 0 INR (Anticoag Therapy) (0.77-1.02) APTT (26.0-36.3) seconds D-Dimer, Quantitative (Less Than 230) ng/mL Sodium 137 L (139-145) mmol/L Potassium 4.0 (3.5-5.0) mmol/L Chloride 101 (101-111) mmol/L Carbon Dioxide 24 (22-32) mmol/L Anion Gap 12 H (2-11) mmol/L BUN 24 (6-24) mg/dL Creatinine 1.49 H (0.67-1.17) mg/dL Est GFR ( Amer) 58.8 (>60) Est GFR (Non-Af Amer) 45.7 (>60) BUN/Creatinine Ratio 16.1 (8-20) Glucose 232 H (70-100) mg/dL Lactic Acid 2.5 H* (0.5-2.0) mmol/L Calcium 8.8 (8.6-10.3) mg/dL Magnesium 1.9 (1.9-2.7) mg/dL Total Bilirubin 0.50 (0.2-1.0) mg/dL AST 18 (13-39) U/L ALT 26 (7-52) U/L Alkaline Phosphatase 69 (34-104) U/L Total Creatine Kinase 47 (10-223) U/L CK-MB (CK-2) 2.1 (0.6-6.3) ng/mL Troponin I 0.03 (<0.04) ng/mL B-Natriuretic Peptide ( - 100) pg/mL Total Protein 6.1 L (6.4-8.9) g/dL Albumin 3.6 (3.2-5.2) g/dL Globulin 2.5 (2-4) g/dL Albumin/Globulin Ratio 1.4 (1-3) TSH 0.07 L (0.34-5.60) mcIU/mL 04/19/18 04/19/18 Range/Units 17:01 17:01 WBC (3.5-10.8) 10^3/ul RBC (4.0-5.4) 10^6/ul Hgb (14.0-18.0) g/dl Hct (42-52) % MCV (80-94) fL MCH (27-31) pg MCHC (31-36) g/dl RDW (10.5-15) % Plt Count (150-450) 10^3/ul MPV (7.4-10.4) um3 Neut % (Auto) (38-83) % Lymph % (Auto) (25-47) % Reagan % (Auto) (0-7) % Eos % (Auto) (0-6) % Baso % (Auto) (0-2) % Absolute Neuts (auto) (1.5-7.7) 10^3/ul Absolute Lymphs (auto) (1.0-4.8) 10^3/ul Absolute Monos (auto) (0-0.8) 10^3/ul Absolute Eos (auto) (0-0.6) 10^3/ul Absolute Basos (auto) (0-0.2) 10^3/ul Absolute Nucleated RBC 10^3/ul Nucleated RBC % INR (Anticoag Therapy) 1.67 H (0.77-1.02) APTT 36.4 H (26.0-36.3) seconds D-Dimer, Quantitative < 200 (Less Than 230) ng/mL Sodium (139-145) mmol/L Potassium (3.5-5.0) mmol/L Chloride (101-111) mmol/L Carbon Dioxide (22-32) mmol/L Anion Gap (2-11) mmol/L BUN (6-24) mg/dL Creatinine (0.67-1.17) mg/dL Est GFR ( Amer) (>60) Est GFR (Non-Af Amer) (>60) BUN/Creatinine Ratio (8-20) Glucose (70-100) mg/dL Lactic Acid (0.5-2.0) mmol/L Calcium (8.6-10.3) mg/dL Magnesium (1.9-2.7) mg/dL Total Bilirubin (0.2-1.0) mg/dL AST (13-39) U/L ALT (7-52) U/L Alkaline Phosphatase (34-104) U/L Total Creatine Kinase (10-223) U/L CK-MB (CK-2) (0.6-6.3) ng/mL Troponin I (<0.04) ng/mL B-Natriuretic Peptide 85 ( - 100) pg/mL Total Protein (6.4-8.9) g/dL Albumin (3.2-5.2) g/dL Globulin (2-4) g/dL Albumin/Globulin Ratio (1-3) TSH (0.34-5.60) mcIU/mL Result Diagrams: 04/19/18 17:01 04/19/18 17:01 Lab Statement: Any lab studies that have been ordered have been reviewed, and results considered in the medical decision making process. - Radiology Chest XR Xray Interpretation: No Acute Changes - IMPRESSION: No active cardiopulmonary disease is noted. Dr. Car has reviewed this radiology report. Radiology Interpretation Completed By: Radiologist - EKG 16:32 Cardiac Rate: NL - at 60 bpm EKG Rhythm: Sinus Rhythm EKG Interpretation: No ST elevations. EKG Comparison: No Significant Change - Unchanged from prior EKG on 01/18/17. Chest Pain Course/Dx - Course Assessment/Plan: This patient is a 77-year-old male who presents to the emergency department with a chief complaint of chest pain approximately shortness of breath. Patient has past medical history for lupus anticoagulant disorder, diabetes insipidus, diabetes mellitus, hypertension,hypothyroidism, HTN and gout. Blood test results without any significant abnormality except for sodium 137, creatinine 1.49,glucose is 232. Left because it is 2.5, TSH is 0.07. Troponin is 0.03. EKG shows no ST elevation. Because of the patients multiple comorbidities I discussed the case with Dr. Castillo from the hospitalist services and he agreed to admit the patient to his services for further workup and management. The patient also has a right foot wound which is with some black discoloration that has no surrounding erythema, he has slight increase in temperature. I would do an x-ray of the foot however I do not think the patient is infected since the patient does have an increase in WBCs, and d-dimer is not increased. Therefore this time and do not worry for a cellulitis. The patient was given aspirin however I held a nitroglycerin and the beta liss since the patient's heart rate is in the 50s. - Chest Pain Differential Diagnosis/HQI/PQRI: Acute MN, ACS, Angina, CHF, Chest Wall, GI Disease, Lower Respiratory Infection - Diagnoses Provider Diagnoses: Chest pain, Dyspnea - Provider Notifications Discussed Care Of Patient With: Lg Castillo Time Discussed With Above Provider: 18:36 Instructed by Provider To: Other - I discussed pt care with Dr. Castillo, hospitalist, who has accepted the pt for admission. Discharge - Sign-Out/Discharge Documenting (check all that apply): Discharge/Admit/Transfer - Admit - Discharge Plan Condition: Stable Disposition: ADMITTED TO [facility] Referrals: Daniel Peng MD [Primary Care Provider] - - Billing Disposition and Condition Condition: STABLE Disposition: Admitted to [facility] The documentation as recorded by the Juan Carlos celestin Angela accurately reflects the service I personally performed and the decisions made by Josep marin Walter, MD.
[2018-04-19] MEDS ORDERED: NS 0.9% 1000 ML* 1,000 ML IV SCH (19:30)
[2018-04-19] MEDS ORDERED: Dextrose 50% Syringe 50 ML* 25 GM/50 ML SYRINGE IV PUSH PRN (19:31)
--- NOTE | 2018-04-19 20:11 | RAD ---
Indication indication: Foot wound. 2 views of left foot demonstrates no fracture. No foreign body is noted. Mild osteopenia is noted. Vascular calcifications are noted. IMPRESSION: No fracture or focal osteoporosis is noted.
--- NOTE | 2018-04-19 21:08 | HP ---
CC: Dr. Peng * ADMISSION HISTORY AND PHYSICAL: DATE OF ADMISSION: 04/19/18 PATIENT OF: Lg Castillo MD PRIMARY CARE PHYSICIAN: Daniel Peng MD ATTENDING HOSPITALIST: Lg Castillo MD * (DICTATED BY MODE CASTILLO) CHIEF COMPLAINT: Chest pain. HISTORY OF PRESENT ILLNESS: Mr. Foley is a pleasant 77-year-old gentleman, who carries multiple past medical histories including atherosclerotic disease of the extremities as well as bilateral conductive hearing loss in addition to hypertension, glaucoma, gout, celiac disease, primary antiphospholipid syndrome , pituitary gland insufficiency, testicular dysfunction, and acquired hypothyroidism in addition to multiple other endocrine issues. The patient presents to the emergency room today with 1-day history of intermittent left- sided chest pain. He notes that he has not felt well for almost a month with increased weakness and loss of stamina. He denied any weakness or headache or syncope. He has been slowing down lately and he thinks that might be related of just getting old. His noted that he has not been breathing very well last night and then he got up this morning with increasing breathing difficulty as well as intermittent left-sided chest pain. He described his pain as being burning, localized to the left substernal area, occasionally migrate to the epigastric and left upper quadrant. He denies any indigestion, history of GERD, gallbladder issues, nausea, vomiting, or recent changes in the bowel habits. He was evaluated in the emergency room and found to have normal blood count with stable hemoglobin and hematocrit. His D- dimer was less than 200 and his INR was slightly elevated at 1.6. He has been on Xarelto for an extended period of time after he was on warfarin for years due to a known history of primary antiphospholipid syndrome. His troponin was 0.03, which has been his baseline lately. He had an EKG that showed no significant ST changes. He never had any significant cardiac history and his last stress test was done back in 2009 according to the records and per the patient, there were no significant ischemic changes. Given his age, multiple comorbidities, and the new onset of chest pain today, we were asked to see the patient to consider admission for observation and to rule out acute coronary syndrome. 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 PAST SURGICAL HISTORY: Significant for right inguinal hernia repair as a child , cervical spine fusion, exploratory laparotomy with history of C. diff colitis in the remote past, as well as transurethral resection of the prostate with history of urinary retention and benign prostatic hypertrophy. CURRENT MEDICATIONS: His medications at home include: 1. Allopurinol 300 mg p.o. daily. 2. DDAVP (desmopressin) 0.2 mg p.o. b.i.d. 3. Lantus insulin 28 units subcu daily. 4. Humalog insulin 0 to 15 units per sliding scale. 5. Synthroid 112 mcg p.o. daily. 6. Cytomel 5 mcg p.o. b.i.d. 7. Cozaar 50 mg p.o. daily. 8. Magnesium 400 mg p.o. daily. 9. Glucophage 100 mg p.o. b.i.d. 10. Prednisone 7.5 mg p.o. daily. 11. Lyrica 50 to 100 mg p.o. daily. 12. Xarelto 10 mg p.o. daily. 13. Testosterone/AndroGel 1.25 g gel packet, use as directed. ALLERGIES: Multiple including CEPHALEXIN, ENALAPRIL, NIFEDIPINE, and VERAPAMIL. FAMILY HISTORY: Denies any family history of diabetes. Father of [place] back in May of last year and also has family history of rheumatoid arthritis. SOCIAL HISTORY: The patient is retired. He lives with his , Megan, who is the carrier of the healthcare proxy. He has never smoked and he denies alcohol intake. REVIEW OF SYSTEMS: I have reviewed 14-point review of systems and any pertinent positive finding will be found in the above history of present illness , otherwise all negative. PHYSICAL EXAMINATION GENERAL: He is a pleasant, older male, appears comfortable, and in no acute distress or discomfort. VITAL SIGNS: Revealed blood pressure of 142/77, pulse of 54, respirations of 16 , temperature of 97.4, and O2 sat of 94% on room air. HEENT: Head is normocephalic, atraumatic. Sclerae anicteric. PERRLA. EOMs intact. Oropharynx is pink and moist. NECK: Supple. Trachea midline. No cervical adenopathy or thyromegaly. LUNGS: Clear to auscultation bilaterally. HEART: Regular rate and rhythm. Normal S1 and S2 without rubs, murmurs, or gallops. BACK: With normal curvature. No CVA tenderness. BREASTS: Exam deferred at this time. ABDOMEN: Soft, nontender, and nondistended. There are no hernias, masses, or hepatosplenomegaly. RECTAL: Exam deferred at this time. EXTREMITIES: Without cyanosis, clubbing, or edema. NEUROLOGIC: Grossly intact. DIAGNOSTIC STUDIES/LAB DATA: CBC done today was white count of 6800, hemoglobin 14.4, hematocrit 43, platelets of 183. Chemistry panel: Sodium of 137, potassium 4.0, CO2 24, BUN 24, creatinine 1.5 which is baseline for the patient, glucose 232, lactic acid 2.5. TSH of 0.07. Accessory diagnostic data: Chest x-ray with no acute findings. EKG was done with no significant ST changes compared to last study. IMPRESSION: A 77-year-old gentleman with multiple past medical comorbidities including hypertension, hyperlipidemia, peripheral vascular disease, endocrine issues including primary antiphospholipid syndrome, and panhypopituitarism as well as hypothyroidism and diabetes mellitus, who presented to the emergency room today with worsening left-sided chest pain. ASSESSMENT AND PLAN: 1. Chest pain, although atypical in nature for myocardial infarction, the patient has been chest pain-free since presentation to the emergency room. His blood pressure and other vitals have been stable. His pain is more likely to be secondary to gastroesophageal reflux disease symptoms versus indigestion. Given his multiple comorbidities and his age as well as family history, he needs to be admitted to telemetry for close observation, oxygen supplementation , close monitoring as well as serial troponin. We will repeat his EKG tomorrow morning and also we will obtain stress test. He appears to be comfortable at that point. 2. Hypertension. We will continue his Cozaar at home. 3. Insulin-dependent type 2 diabetes mellitus. The patient will be covered with his Lantus in addition to lispro per sliding scale. I will hold his metformin for now. He will have cardiac healthy diet and then n.p.o. after midnight in anticipation for his nuclear stress test. 4. Glaucoma. To be followed up by his production floater as an outpatient. 5. Gout. We will continue his allopurinol. 6. History of benign prostatic hyperplasia and status post transurethral resection of prostate. The patient shows no sign of urinary retention. 7. DVT prophylaxis. He is on Xarelto. 8. Code status. He is a full code. I have discussed the case with my attending, Dr. Castillo, who agreed to the management and the patient will be admitted for observation status to telemetry unit to rule out acute coronary syndrome. TIME SPENT: I have spent approximately 50 minutes with the patient and his with greater than 50% spent obtaining history, performing physical exam, and discussing plan of care. MODE CASTILLO [id number]/[facility] #: [id number] SYMONE
[2018-04-19] MEDS: Insulin LISPRO* 1 UNITS UNIT SUBCUT SCH (21:44)
[2018-04-19] MEDS: Omeprazole CAP* 20 MG PO SCH (21:44)
[2018-04-19] MEDS: Liothyronine TAB* 5 MCG PO SCH (21:45)
[2018-04-19] MEDS: Desmopressin TAB (NF) 0.2 MG TAB PO SCH (21:49)
[2018-04-20 05:49] LABS: ABS Basophils 0 10^3/ul (0-0.2); ABS Eosinophils 0.1 10^3/ul (0-0.6); ABS Monocytes 0.7 10^3/ul (0-0.8); ABS Neutrophils 3.5 10^3/ul (1.5-7.7); ABS Nucleated RBC 0 10^3/ul; Eosinophil % 1.1 % (0-6); Hematocrit 41 % (42-52); Lymphocyte % 18.3 % (25-47); Mean Corpuscular HGB Conc 34 g/dl (31-36); Mean Corpuscular Hemoglobin 32 pg (27-31); Mean Corpuscular Volume 92 fL (80-94); Mean Platelet Volume 9.3 um3 (7.4-10.4); Nucleated Red Blood Cells % 0.2; Platelet Count 167 10^3/ul (150-450); Red Blood Count 4.44 10^6/ul (4.0-5.4); Red Cell Distribution Width 16 % (10.5-15); White Blood Count 5.3 10^3/ul (3.5-10.8)
[2018-04-20] MEDS ORDERED: Levothyroxine TAB* 112 MCG TAB PO SCH (06:00)
[2018-04-20 06:04] LABS: EGFR Non-African American 46.5 (>60)
[2018-04-20] MEDS: Insulin LISPRO* 1 UNITS UNIT SUBCUT SCH ×2 (08:01→13:12)
[2018-04-20] MEDS ORDERED: Insulin GLARGINE(*) 1 UNITS UNIT SUBCUT SCH (09:00)
[2018-04-20] MEDS ORDERED: Losartan TAB* 25 MG PO SCH (09:00)
[2018-04-20] MEDS ORDERED: Pregabalin CAP(*) 50 MG PO SCH (09:00)
[2018-04-20] MEDS ORDERED: Magnesium Oxide TAB* 400 MG PO SCH (09:00)
[2018-04-20] MEDS ORDERED: Allopurinol TAB* 300 MG PO SCH (09:00)
[2018-04-20] MEDS ORDERED: predniSONE TAB* 5 MG PO SCH (09:00)
[2018-04-20] MEDS ORDERED: Rivaroxaban TAB(*) 10 MG PO SCH (09:00)
[2018-04-20] MEDS ORDERED: Regadenoson* 0.4 MG/5 ML SYRINGE ONE (09:31)
[2018-04-20] MEDS ORDERED: Aminophylline IV* 25 MG/ML 10 ML VIAL ONE (09:32)
--- NOTE | 2018-04-20 11:03 | RAD ---
HISTORY: Chest pain, shortness of breath, diabetes, hypertension, hyperlipidemia COMPARISONS: May 08, 2010 TECHNIQUE: A 1 day stress/rest myocardial perfusion study was performed, with pharmacologic stress. The stress portion was monitored by Dr. Yarbrough. Gated SPECT imaging was performed, with CT-based attenuation correction DOSE: Stress: Technetium 99m tetrofosmin, 25.99 millicuries, injected at 9:55 AM on April 20, 2018 Rest: Technetium 99m tetrofosmin, 10.2 millicuries, injected at 6:50 AM on April 20, 2018 Pharmacologic agent: Lexiscan FINDINGS: CARDIAC MONITORING: Nondiagnostic EKG study due to resting EKG abnormalities. EF: 56% TID: 1 MOTION: Normal motion, with normal wall thickening. PERFUSION: There is a small partially reversible apical perfusion defect along the distal lateral wall OTHER: None IMPRESSION: SMALL PARTIALLY REVERSIBLE PERFUSION DEFECT ALONG THE DISTAL LATERAL WALL TOWARDS THE APEX SUGGESTIVE OF AN AREA OF ISCHEMIA. ASSESSMENT: LOW RISK. Based on imaging criteria from ACC/AHA 2002. Guideline Update for the Management of Patient's with Chronic Stable Angina, table 23. Noninvasive Risk Stratification. CPT II Codes: 3570F
[2018-04-20] MEDS: Desmopressin TAB (NF) 0.2 MG TAB PO SCH (11:30)
[2018-04-20] MEDS: Omeprazole CAP* 20 MG PO SCH (11:37)
[2018-04-20] MEDS ORDERED: DESMOPRESSIN 0.1 MG PO SCH (12:00)
[2018-04-20] MEDS: Liothyronine TAB* 5 MCG PO SCH (12:15)
[2018-04-20] MEDS ORDERED: Famotidine IV* 10 MG/ML 2 ML (20 mg) IV SLOW PU ONE (15:31)
[2018-04-20 15:43] VITALS: BP 132/68
--- NOTE | 2018-04-21 08:18 | DS ---
AMENDED REPORT NOW INCLUDES COSIGNER DESIGNATION - ESIGNED BEFORE ADJUSTMENTS CC: Dr. Peng * DISCHARGE SUMMARY: DATE OF ADMISSION: 04/19/18 DATE OF DISCHARGE: 04/20/18 ATTENDING PHYSICIAN: Dr. Lg Castillo. MY ATTENDING FOR TODAY: Dr. Lg Castillo.* (DICTATED BY [facility] ZARAGOZA NP) PRIMARY CARE PROVIDER: Dr. Daniel Peng. CHIEF COMPLAINT: Chest pain. HOSPITAL COURSE: This is a very pleasant 77-year-old male patient, who has history of hypertension, glaucoma, gout, celiac disease, primary antiphospholipid syndrome, pituitary gland insufficiency, acquired hypothyroidism, multiple endocrine disorders and issues, also hypoandrogenism. The patient presented to the emergency department with 1-day history of intermittent left-sided chest pain. The patient described as a burning sensation on the left side, substernal, and into the epigastrium. The patient states that he has had a month of general weakness and malaise, but no other quantifiable complaints. The patient had been on Xarelto for many years and then was on warfarin; however, he has been off anticoagulation for some time. EKG in the emergency department was negative for any acute changes. He had a last stress test in 2009 with no significant ischemic changes; however, given his multiple comorbidities, we kept him for observation to evaluate for cardiac ischemia. He had a stress test, 04/20/2018. Impression states small partially reversible perfusion defect along the distal lateral wall towards the apex suggestive of an area of ischemia. Assessment, low risk based on imaging criteria. Also, of note, the patient was not able to participate in an exercise stress test, so as a result, he had a nuclear stress test as opposed to walking on the treadmill. The patient states he felt the sensation of this chest and epigastric pain again with burning sensation during his test; however, there were no associated EKG changes that coincided with his complaint. Upon seeing the patient after his stress test, I explained to him these results were low risk according to the criteria. The patient then described after the stress test, he had lunch and then felt the pain again, having some postprandial burning and nausea. The patient states he felt like his food was repeating on him and that sensation was similar to what he felt when he came into the emergency department. Upon further discussion, the patient revealed that he does have celiac disease and has been noncompliant with his diet. Also, at one point, may have had a component of GERD, but has not seen the GI doctor in a long time. Also, the patient has not had an endoscopy in a number of years. At this point, with a low-risk stress test and the patient's self- reporting of being noncompliant with his celiac disease diet, e.g., eating white bread, tuna fish sandwich for lunch here in the hospital, and then experiencing the same pain afterwards, I suspect the patient's chest pain has been due to dietary indiscretion in accordance with his celiac disease. He may also have a component of GERD and/or peptic ulcer disease. We gave the patient a dose of IV Pepcid 20 mg and also some Zofran. He is actually feeling better with having both of those medications. We discussed discharge planning and need to stay on a PPI and to monitor his diet. The patient and his are agreeable and concur that they feel that his symptoms are much more GI related than cardiac at this point. On day of discharge, the patient again was complaining of some nausea earlier, which has improved since having IV Pepcid. Denies any acute chest pain, no shortness of breath, no abdominal pain, no nausea, no vomiting, no further constitutional complaints. PHYSICAL EXAMINATION: The patient is alert, no acute distress. Vital Signs: Blood pressure 132/68, heart rate is 54, respiratory rate 16, O2 saturation 92% on room air, temperature is 97.3. HEENT: The patient is atraumatic. Normocephalic. PERRLA with nonicteric sclerae. Extraocular movements are intact. Neck: Supple, nontender, no JVD noted. No thyromegaly appreciated. Cardiovascular: S1, S2 are present. No murmurs, gallops, or rubs noted. Lungs are clear bilaterally to auscultation with no adventitious breath sounds. Abdomen: Soft, nontender. Moderately obese, nondistended, positive bowel sounds in all 4 quadrants. : Deferred. Musculoskeletal: There is no clubbing, no cyanosis. No pedal edema. He has +2 distal pulses palpable. Gross motor and sensation are intact. Neurologic: There are no acute focalities. Psychiatric: He is cooperative and appropriate. LABORATORY DATA: WBC is 5.3, RBC is 4.44, hemoglobin 14, hematocrit 41, platelets 167. Sodium 138, potassium 3.9, chloride 102, CO2 of 28, BUN 25, creatinine 1.47. GFR 46.5, glucose ranging from 144 to 199, lactic acid 1.4, calcium 8.6. Troponin is negative at 0.03, 0.02, and 0.01. Triglycerides 87, cholesterol 138, LDL 81, HDL 39.4. TSH is 0.07. DISPOSITION: The patient will be discharged to home. DISCHARGE DIAGNOSES: 1. Atypical chest pain and burning, rule out acute coronary syndrome versus gastrointestinal disorder. 2. Hypertension. 3. Gout. 4. History of arthritis. 5. Thyroid disease. 6. Celiac disease. 7. History of pituitary adenoma. 8. Diabetes mellitus, type 2. 9. Glaucoma. 10. Panhypopituitarism. DISCHARGE MEDICATIONS: Include: 1. Allopurinol 300 mg daily. 2. Desmopressin 0.2 mg p.o. 2 times a day. 3. Lantus 20 units subcu daily. 4. Humalog sliding scale. 5. Synthroid 112 mcg daily. 6. Cytomel 5 mcg 2 times a day. 7. Cozaar 50 mg daily. 8. Magnesium 400 mg daily. 9. Glucophage 100 mg 2 times a day. 10. Prednisone 7.5 mg daily. 11. Lyrica 50 mg p.o. daily. 12. Testosterone/AndroGel 1.25 g gel. 13. Xarelto 10 mg p.o. daily. INSTRUCTIONS FOR FOLLOWUP: The patient was told to follow up with his primary care, Dr. Daniel Peng, in the next 4 to 7 days and also with Dr. Ulices Banerjee, his histology teacher. If he cannot get in to see Dr. Peng, we discussed it will be okay for him to see Dr. Banerjee instead. The patient should also follow up with Dr. Gomez of the GI group to have followup endoscopy and evaluate possibility of peptic ulcer disease and/or GERD and also to discuss dietary issues with his celiac disease, which may likely be the culprit in his pain over the past 3 weeks. The patient is agreeable and states he understands his discharge plan, his medications at the time of discharge, and his followups. [facility] Z[facility]OZA, DIRECT MARKETING REPRESENTATIVE [id number]/[facility] #: [id number] [facility] HEALTH SYSTEMKellie
== END 2018-04-20 16:43 | disposition home or self-care (01) ==
LOC: ED 16:11 → MEDTELE 19:21
PROVIDERS: ADMIT Internal Medicine; ATTEND Internal Medicine
DX: R07.89 Other chest pain (principal); I10 Essential (primary) hypertension; R06.00 Dyspnea, unspecified; R06.02 Shortness of breath; R11.0 Nausea; Z79.01 Long term (current) use of anticoagulants; Z87.891 Personal history of nicotine dependence; R53.83 Other fatigue; M10.9 Gout, unspecified; M19.91 Primary osteoarthritis, unspecified site; E07.9 Disorder of thyroid, unspecified; K90.0 Celiac disease; Z86.018 Personal history of other benign neoplasm; E11.9 Type 2 diabetes mellitus without complications; H40.9 Unspecified glaucoma; E23.0 Hypopituitarism
CPT/HCPCS: 36415; 71045; 78452; 80048; 80053; 80061; 82550; 82553; 83605; 83735; 83880; 84443; 84484; 85025; 85379; 85610; 85730; 86140; 93005; 93017; 96360; 99284; A9270-GY; A9502; J0280; J2785; J7512

== ENCOUNTER 2018-07-13 16:40 | Emergency (ER) | payer MEDICARE, BC ==
--- OUTSIDE RECORDS SUMMARY | 2018-07-13 17:13 | XMS REPORT ---
:1940 External Reference #:[id number] Author Organization [facility] Address [address] [place] [address] [place] [address] Phone [phone] Care Team Providers Name Role Phone Daniel Peng MD Primary Care Physician Unavailable Payers Type Date Identification Numbers Payment Provider Subscriber Medicare Primary Effective: Policy Number: Medicare Rashel Foley 2002 [id number] PayID: [id number] [address] [address] [place] [address] Medigap Part B Effective: 2012 Policy Number: BS Facets Michele Foley [id number] PayID: [id number] [address] [address] [place] [address] Problems Date Description Provider Status Onset: 05/27/2017 Disorder of pituitary gland Daniel Peng M.D.,FACP Active Note: apoplexy 2006 Onset: 05/27/2017 Primary antiphospholipid syndrome Carolann Thorpe M.D.,BOYDP Onset: 05/27/2017 Diabetes mellitus Carolann Thorpe M.D.,BOYDP Onset: 05/27/2017 Acquired hypothyroidism Carolann Thorpe M.D.,BOYDP Onset: 05/27/2017 Testicular hypofunction Carolann Thorpe M.D.,BOYDP Onset: 05/27/2017 Celiac disease Carolann Thorpe M.D.,BOYDP Onset: 05/27/2017 Essential hypertension Carolann Thorpe M.D.,BOYDP Onset: 05/27/2017 Gout Carolann Thorpe M.D.,FACP Onset: 05/27/2017 Glaucoma Carolann Thorpe M.D.,BOYDP Note: trabulectomy Onset: 05/27/2017 Obstructive sleep apnea Daniel Peng M.D.,BOYDP Active syndrome Onset: 06/19/2017 Benign prostatic hypertrophy Daniel Peng M.D.,BOYDP Active without outflow obstruction Note: s/p TURP Onset: 06/19/2017 Disseminated idiopathic skeletal Carolann Thorpe hyperostosis Oksana,FACP Onset: 09/15/2017 Bilateral hearing loss Carolann Thorpe M.D.,FACP Onset: 01/20/2018 Atherosclerosis of arteries of Tony Henning M.D. Active the extremities 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/2018 Hypopituitarism Carolann Thorpe M.D.,FACP Onset: 04/19/2018 Long-term current use of insulin MODE Guzman Active Onset: 04/19/2018 Chest pain MODE Guzman Resolved Resolved: 06/03/2018 Family History Date Family Member(s) Problem(s) Comments General No Current Problems General Heart Disease General Hypertension General Rheumatoid Arthritis : (05/27/2017) Father due to [place] Onset: (05/27/2017) Father 53 Mother due to Diabetes () Onset: (05/27/2017) Mother 58 Onset: (05/27/2017) Siblings 3 First Brother Hypertension First Brother 81 Second Brother Subdural Hemorrhage Second Brother 49 First Sister Hypertension First Sister 79 Social History Type Date Description Comments Marital Status Lives With Occupation Store Detective-Retired Cigarette Use Quit - Age 50 ETOH Use 09/15/2017 Denies alcohol use Smoking Patient is a former smoker Recreational Drug Use Denies Drug Use Daily Caffeine Consumes on average 1 cup of regular coffee per day Daily Caffeine Consumes on average 8oz of soda per occassional day Exercise Type/Frequency Does not exercise General Hx Text 3 children Allergies, Adverse Reactions, Alerts Date Description Reaction Status Severity Comments 10/02/2016 Keflex active 04/26/2018 Protonix active diarrhea 05/16/2015 NKDA inactive Medications Medication Date Status Form Strength Qnty SIG Indications Ordering Provider Ranitidine HCL 04/26/ Active Tablets 150mg 60tab take one Daniel 2017 s tablet by Beckie Peng, mouth twice M.D.,FACP a day prn Insulin 02/09/ Active Misc 29G X 100un use twice E11.9 Daniel Syringe/U-100/1 2018 1" 1 ML its daily with Beckie Peng, ML/29G X /2" insulin M.D.,FACP Prednisone 02/09/ Active Tablets 2.5mg 270ta 2 tabs PO Daniel 2017 bs qam and 1 Beckie Peng, tab po qpm M.D.,FACP Androgel Pump 01/20/ Active Gel 20.25mg/A [address] topical Beckie Peng, (1.62%) daily M.D.,FACHeriberto Magnesium-Oxide 06/11/ Active Tablets 400(241.3 90tab 1 by mouth Ray Mixon 2016 mg) mg s every Beckie Peng, evening M.D.,FACHeriberto Allopurinol / Active Tablets 300mg 90tab 1 by mouth Daniel 0000 s every day Beckie Peng M.D.,FACP Levothyroxine / Active Tablets 112mcg 1 by mouth Unknown Sodium 0000 every day Liothyronine / Active Tablets 5mcg bid Unknown Sodium 0000 Desmopressin / Active Tablets 0.2mg 1 by mouth Unknown Acetate 0000 twice daily Losartan / Active Tablets 50mg 90tab 1 by mouth Daniel Potassium 0000 s every day Beckie Peng M.D.,BOYDP Lyrica / Active Capsules 50mg 120ca 1-2 tab by Daniel 0000 ps mouth twice Beckie Peng, daily M.D.,FACP Lantus 00/ Active Solution 100Unit/M 20 units SC Unknown 0000 L daily Xarelto / Active Tablets 10mg 90tab 1 by mouth Danile 0000 s every day Beckie Peng M.D.,FACP Metformin HCL / Active Tablets 1000mg 1 by mouth Unknown 0000 twice a day Humalog Kwikpen / Active Solution 100Unit/M use per Unknown 0000 Pen-Inject L sliding scale (mdd 36 units) b-150:0 units;151-20 0: 2 201-250:5;25 1-300: 7;301-350: 9; 351-400:11; >400: 12 Celebrex 07/24/ Hx Capsules 100mg 30cap 1-2 po qd Amari Kwok 2008 s Rachelle, 04/16/ M.D. 2014 Percocet 01/30/ Hx Tablets 10-325mg 60tab 1-2 po qid Amari Kwok 2008 prn Rachelle, 04/16/ M.D. 2014 Androgel / Hx Gel 25mg/2.5G apply 2 Daniel 0000 - M (1%) pumps each Beckie Peng, arm twice a M.D.,FACP 2018 day Coumadin / Hx Tablets 5mg as directed Unknown 0000 - 2015 Pilocarpine HCL 00/ Hx Solution 4% 1 drop both Unknown 0000 - eyes daily 2016 Lumigan / Hx Solution 0.01% instill one Unknown 0000 - drop in each eye at 2017 bedtime every day Prednisone / Hx Tablets 5mg 135ta 1 tab po qam Daniel 0000 - bs and 1/2 tab Beckie Peng, 02/09/ po qpm [facility] 2017 Metformin HCL /00/ Hx Tablets 500mg 1 by mouth Unknown 0000 - twice a day 2016 Viagra /00/ Hx Tablets 100mg by mouth 0.5 Unknown 0000 - or 1 tab 1h 09/22/ 2016 intercourse Dorzolamide HCL / Hx Solution 2% 1 drop left Unknown 0000 - eye twice daily 2017 Celebrex / Hx Capsules 200mg 1 by mouth Unknown 0000 - every day 2016 Lantus /00/ Hx Unknown 0000 - 2016 Repaglinide 00/ Hx Tablets 1mg 1 by mouth Unknown 0000 - before 08/03/ dinner 2016 Glipizide-Metfo / Hx Tablets 2.5-500mg 2 by mouth Unknown rmin HCL 0000 - twice a day 2017 Brimonidine 00/ Hx Solution 0.2% bid Unknown Tartrate 0000 - 2016 Immunizations CPT Code Status Date Vaccine Lot # [id number] Given 09/15/2017 Pneumococcal Conjugate Vaccine 13 Valent For [id number] Intramuscular Use [id number] Given 09/09/2017 Influenza Virus Vaccine, Quadrivalent, Split, Preservative Free [id number] Given 09/06/2007 Pneumonia Vaccine Vital Signs Date Vital Result Comment 06/22/2018 Height 70 inches 5'10" Weight 198.00 lb Heart Rate 64 /min BP Systolic 132 mmHg BP Diastolic 70 mmHg Respiratory Rate 16 /min Body Temperature 97.5 F BMI (Body Mass Index) 28.4 kg/m2 06/03/2018 Weight 206.00 lb Heart Rate 59 /min BP Systolic Sitting 138 mmHg BP Diastolic Sitting 80 mmHg Body Temperature 97.8 F O2 % BldC Oximetry 95 % 04/26/2018 Height 70 inches 5'10" Weight 204.00 lb Heart Rate 54 /min BP Systolic Sitting 146 mmHg BP Diastolic Sitting 72 mmHg BP Systolic Recheck 152 mmHg BP Diastolic Recheck 88 mmHg Body Temperature 96.3 F O2 % BldC Oximetry 95 % BMI (Body Mass Index) 29.3 kg/m2 02/09/2018 Height 70 inches 5'10" Weight 216.25 lb Heart Rate 63 /min BP Systolic Sitting 138 mmHg BP Diastolic Sitting 78 mmHg Body Temperature 98.0 F O2 % BldC Oximetry 96 % BMI (Body Mass Index) 31.0 kg/m2 01/20/2018 Height 70 inches 5'10" Weight 218.00 lb w/ shoes Heart Rate 60 /min BP Systolic Sitting 162 mmHg lue large cuff BP Diastolic Sitting 80 mmHg lue large cuff Respiratory Rate 18 /min BMI (Body Mass Index) 31.3 kg/m2 Ejection Fraction no echo/ss 09/15/2017 Weight 220.00 lb Heart Rate 66 /min BP Systolic Sitting 142 mmHg BP Diastolic Sitting 60 mmHg Body Temperature 97.1 F O2 % BldC Oximetry 93 % 08/03/2017 Height 69.25 inches 5'9.25" Weight 219.00 lb Heart Rate 59 /min BP Systolic Sitting 138 mmHg BP Diastolic Sitting 80 mmHg O2 % BldC Oximetry 95 % BMI (Body Mass Index) 32.1 kg/m2 05/27/2017 Height 69.25 inches 5'9.25" Weight 219.00 lb Heart Rate 60 /min BP Systolic Sitting 150 mmHg BP Diastolic Sitting 82 mmHg BP Systolic Recheck 162 mmHg BP Diastolic Recheck 85 mmHg Body Temperature 98.1 F O2 % BldC Oximetry 96 % BMI (Body Mass Index) 32.1 kg/m2 11/26/2016 Height 71 inches 5'11" Weight 211.00 lb Pain Level 0 BMI (Body Mass Index) 29.4 kg/m2 11/05/2016 Height 71 inches 5'11" Weight 211.00 lb Pain Level 2 BMI (Body Mass Index) 29.4 kg/m2 10/22/2016 Height 71 inches 5'11" Weight 222.00 lb Pain Level 3 BMI (Body Mass Index) 31.0 kg/m2 10/08/2016 Height 71 inches 5'11" Weight 222.00 lb Heart Rate 60 /min Respiratory Rate 16 /min Pain Level 3 BMI (Body Mass Index) 31.0 kg/m2 10/02/2016 Height 71 inches 5'11" Weight 222.00 lb Heart Rate 60 /min BP Systolic 135 mmHg BP Diastolic 80 mmHg Pain Level 10 BMI (Body Mass Index) 31.0 kg/m2 06/18/2015 Height 71 inches 5'11" Weight 215.00 lb Pain Level 0 BMI (Body Mass Index) 30.0 kg/m2 05/16/2015 Height 71 inches 5'11" Weight 215.00 lb Heart Rate 61 /min BP Systolic Sitting 172 mmHg BP Diastolic Sitting 90 mmHg Pain Level 9 BMI (Body Mass Index) 30.0 kg/m2 Results Test Date Test Result H/L Range Note Xray 05/24/2018 US Gall Bladder <pending> US Liver <pending> Laboratory test finding 04/28/2018 TSH (Thyroid Stim 0.05 mcIU/mL Low 0.34 -5.60 Horm) T3 Free 3.30 pg/mL 2.5-3.9 Free T4 (Free Thyroxine) 1.18 ng/dL High 0.61-1.12 T3 Total 69 ng/dL Low 87-178 Comp Metabolic Panel 04/28/2018 Sodium 139 mmol/L 139-145 Potassium 4.6 mmol/L 3.5-5.0 Chloride 103 mmol/L 101-111 Co2 Carbon Dioxide 27 mmol/L 22-32 Anion Gap 9 mmol/L 2-11 Glucose 174 mg/dL High 70-100 Blood Urea Nitrogen 29 mg/dL High 6-24 Creatinine 1.53 mg/dL High 0.67-1.17 BUN/Creatinine Ratio 19.0 8-20 Calcium 9.2 mg/dL 8.6-10.3 Total Protein 6.1 g/dL Low 6.4-8.9 Albumin 3.8 g/dL 3.2-5.2 Globulin 2.3 g/dL 2-4 Albumin/Globulin Ratio 1.7 1-3 Total Bilirubin 0.50 mg/dL 0.2-1.0 Alkaline Phosphatase 63 U/L 34-104 Alt 24 U/L 7-52 Ast 16 U/L 13-39 Egfr Non- 44.4 >60 Egfr 57.0 >60 1 Laboratory test finding 04/28/2018 C Reactive Protein 8.48 mg/L High < 5.00 2 Basic Metabolic Panel 04/28/2018 Sodium 138 mmol/L Low 139-145 Potassium 4.6 mmol/L 3.5-5.0 Chloride 103 mmol/L 101-111 Co2 Carbon Dioxide 27 mmol/L 22-32 Anion Gap 8 mmol/L 2-11 Glucose 173 mg/dL High 70-100 Blood Urea Nitrogen 29 mg/dL High 6-24 Creatinine 1.47 mg/dL High 0.67-1.17 BUN/Creatinine Ratio 19.7 8-20 Calcium 9.1 mg/dL 8.6-10.3 Egfr Non- 46.5 >60 Egfr 59.7 >60 3 CBC Auto Diff 04/28/2018 White Blood Count 6.3 10^3/uL 3.5-10.8 Red Blood Count 4.52 10^6/uL 4.00-5.40 Hemoglobin 13.8 g/dL Low 14.0-18.0 Hematocrit 42 % 42-52 Mean Corpuscular Volume 93 fL 80-94 Mean Corpuscular Hemoglobin 31 pg 27-31 Mean Corpuscular HGB Conc 33 g/dL 31-36 Red Cell Distribution Width 15 % 10.5-15 Platelet Count 182 10^3/uL 150-450 Mean Platelet Volume 10.1 um3 7.4-10.4 Abs Neutrophils 4.3 10^3/uL 1.5-7.7 Abs Lymphocytes 1.0 10^3/uL 1.0-4.8 Abs Monocytes 0.8 10^3/uL 0-0.8 Abs Eosinophils 0.1 10^3/uL 0-0.6 Abs Basophils 0.1 10^3/uL 0-0.2 Abs Nucleated RBC 0 10^3/uL Granulocyte % 68.3 % 38-83 Lymphocyte % 16.0 % Low 25-47 Monocyte % 13.4 % High 0-7 Eosinophil % 1.0 % 0-6 Basophil % 1.3 % 0-2 Nucleated Red Blood Cells % 0.1 Laboratory test finding 04/26/2018 Hemoglobin A1c 7.8 High 5-7 CBC Auto Diff 04/19/2018 White Blood Count 6.8 10^3/uL 3.5-10.8 Red Blood Count 4.62 10^6/uL 4.0-5.4 Hemoglobin 14.4 g/dL 14.0-18.0 Hematocrit 43 % 42-52 Mean Corpuscular Volume 93 fL 80-94 Mean Corpuscular Hemoglobin 31 pg 27-31 Mean Corpuscular HGB Conc 34 g/dL 31-36 Red Cell Distribution Width 15 % 10.5-15 Platelet Count 183 10^3/uL 150-450 Mean Platelet Volume 9.5 um3 7.4-10.4 Abs Neutrophils 5.0 10^3/uL 1.5-7.7 Abs Lymphocytes 0.7 10^3/uL Low 1.0-4.8 Abs Monocytes 1.0 10^3/uL High 0-0.8 Abs Eosinophils 0 10^3/uL 0-0.6 Abs Basophils 0 10^3/uL 0-0.2 Abs Nucleated RBC 0 10^3/uL Granulocyte % 73.8 % 38-83 Lymphocyte % 10.8 % Low 25-47 Monocyte % 14.3 % High 0-7 Eosinophil % 0.6 % 0-6 Basophil % 0.5 % 0-2 Nucleated Red Blood Cells % 0 Inr/Protime 04/19/2018 Inr 1.67 High 0.77-1.02 Laboratory test finding 04/19/2018 Partial Thrombo Time 36.4 seconds High 26.0-36.3 PTT B-Type Natriuretic Peptide BNP 85 pg/mL 4 Troponin-I (TnI) 0.03 ng/mL <0.04 CKMB 04/19/2018 CKMB ng/mL 2.1 ng/mL 0.6-6.3 Laboratory test finding 04/19/2018 TSH (Thyroid Stim 0.07 mcIU/mL Low 0.34 -5.60 Horm) Comp Metabolic Panel 04/19/2018 Sodium 137 mmol/L Low 139-145 Potassium 4.0 mmol/L 3.5-5.0 Chloride 101 mmol/L 101-111 Co2 Carbon Dioxide 24 mmol/L 22-32 Anion Gap 12 mmol/L High 2-11 Glucose 232 mg/dL High 70-100 Blood Urea Nitrogen 24 mg/dL 6-24 Creatinine 1.49 mg/dL High 0.67-1.17 BUN/Creatinine Ratio 16.1 8-20 Calcium 8.8 mg/dL 8.6-10.3 Total Protein 6.1 g/dL Low 6.4-8.9 Albumin 3.6 g/dL 3.2-5.2 Globulin 2.5 g/dL 2-4 Albumin/Globulin Ratio 1.4 1-3 Total Bilirubin 0.50 mg/dL 0.2-1.0 Alkaline Phosphatase 69 U/L 34-104 Alt 26 U/L 7-52 Ast 18 U/L 13-39 Egfr Non- 45.7 >60 Egfr 58.8 >60 5 Laboratory test finding 04/19/2018 Magnesium 1.9 mg/dL 1.9-2.7 Creatine Kinase(CK) 47 U/L 10-223 Lactic Acid 2.5 mmol/L High 0.5-2.0 6 D Dimer Quantitative < 200 ng/mL Less Than 230 7 C Reactive Protein 23.95 mg/L High < 5.00 8 Laboratory test finding 04/19/2018 Troponin-I (TnI) 0.02 ng/mL <0.04 CBC Auto Diff 03/10/2018 White Blood Count 6.6 10^3/uL 3.5-10.8 Red Blood Count 4.28 10^6/uL 4.0-5.4 Hemoglobin 13.3 g/dL Low 14.0-18.0 Hematocrit 39 % Low 42-52 Mean Corpuscular Volume 92 fL 80-94 Mean Corpuscular Hemoglobin 31 pg 27-31 Mean Corpuscular HGB Conc 34 g/dL 31-36 Red Cell Distribution Width 15 % 10.5-15 Platelet Count 155 10^3/uL 150-450 Mean Platelet Volume 9.7 um3 7.4-10.4 Abs Neutrophils 5.1 10^3/uL 1.5-7.7 Abs Lymphocytes 0.7 10^3/uL Low 1.0-4.8 Abs Monocytes 0.7 10^3/uL 0-0.8 Abs Eosinophils 0 10^3/uL 0-0.6 Abs Basophils 0.1 10^3/uL 0-0.2 Abs Nucleated RBC 0 10^3/uL Granulocyte % 76.3 % 38-83 Lymphocyte % 11.0 % Low 25-47 Monocyte % 11.2 % High 0-7 Eosinophil % 0.7 % 0-6 Basophil % 0.8 % 0-2 Nucleated Red Blood Cells % 0.1 Inr/Protime 03/10/2018 Inr 1.50 High 0.77-1.02 Laboratory test finding 03/10/2018 Partial Thrombo Time 36.7 seconds High 26.0-36.3 PTT Xray 03/10/2018 Angio Extremity <pending> Unilateral Angio Pelvic Selective Supraselect <pending> Laboratory test finding 03/03/2018 Uric Acid 4.1 mg/dL Low 4.4-7.6 9 Urine Microalbumin Random 03/03/2018 Ur Microalbumin (mg/L) 71.0 mg/L Urine Creatinine 178.34 mg/dL Urine Microalbumin/Creatinine 39.8 ug/mg High <31 Basic Metabolic Panel 03/03/2018 Sodium 142 mmol/L 139-145 Potassium 4.4 mmol/L 3.5-5.0 Chloride 106 mmol/L 101-111 Co2 Carbon Dioxide 26 mmol/L 22-32 Anion Gap 10 mmol/L 2-11 Glucose 208 mg/dL High 70-100 Blood Urea Nitrogen 30 mg/dL High 6-24 Creatinine 1.46 mg/dL High 0.67-1.17 BUN/Creatinine Ratio 20.5 High 8-20 Calcium 9.3 mg/dL 8.6-10.3 Egfr Non- 46.8 >60 Egfr 60.2 >60 10 Laboratory test finding 11/13/2017 Hemoglobin A1c (Glyco 8.6 % High 4.0- 5.6 11 HGB) Basic Metabolic Panel 11/13/2017 Sodium 142 mmol/L 133-145 Chloride 103 mmol/L 101-111 Co2 Carbon Dioxide 28 mmol/L 22-32 Glucose 151 mg/dL High 70-100 Blood Urea Nitrogen 24 mg/dL 6-24 Creatinine 1.51 mg/dL High 0.67-1.17 BUN/Creatinine Ratio 15.9 8-20 Calcium 9.2 mg/dL 8.6-10.3 Egfr Non- 45.0 >60 Egfr 57.9 >60 12 Potassium 5.1 mmol/L High 3.5-5.0 Anion Gap 11 mmol/L 2-11 Lipid Profile (Trig/Chol/HDL) 11/13/2017 Triglycerides 78 mg/dL 13 Cholesterol 152 mg/dL 14 HDL Cholesterol 49.6 mg/dL 15 LDL Cholesterol 87 mg/dL 16 Laboratory test finding 08/19/2017 Point of Care Glucose 269 mg/dL High 70 -100 17 Laboratory test finding 08/19/2017 Point of Care Glucose 179 mg/dL High 70 -100 18 Laboratory test finding 08/05/2017 Point of Care Glucose 221 mg/dL High 70 -100 19 Laboratory test finding 06/05/2017 Testosterone Total 501.36 ng/dL 240- 950 Cortisol 0.79 g/dL 20 Free T4 (Free Thyroxine) 1.08 ng/dL 0.61-1.12 Basic Metabolic Panel 06/05/2017 Sodium 138 mmol/L 133-145 Potassium 3.9 mmol/L 3.5-5.0 Chloride 102 mmol/L 101-111 Co2 Carbon Dioxide 27 mmol/L 22-32 Anion Gap 9 mmol/L 2-11 Glucose 124 mg/dL High 70-100 Blood Urea Nitrogen 18 mg/dL 6-24 Creatinine 1.31 mg/dL High 0.67-1.17 BUN/Creatinine Ratio 13.7 8-20 Calcium 9.0 mg/dL 8.6-10.3 Egfr Non- 53.2 >60 Egfr 68.4 >60 21 Laboratory test finding 06/05/2017 Uric Acid 3.8 mg/dL Low 4.4-7.6 CBC Auto Diff 06/05/2017 White Blood Count 6.0 10^3/uL 3.5-10.8 Red Blood Count 4.72 10^6/uL 4.0-5.4 Hemoglobin 14.3 g/dL 14.0-18.0 Hematocrit 44 % 42-52 Mean Corpuscular Volume 93 fL 80-94 Mean Corpuscular Hemoglobin 30 pg 27-31 Mean Corpuscular HGB Conc 33 g/dL 31-36 Red Cell Distribution Width 16 % High 10.5-15 Platelet Count 169 10^3/uL 150-450 Mean Platelet Volume 11 um3 High 7.4-10.4 Abs Neutrophils 3.8 10^3/uL 1.5-7.7 Abs Lymphocytes 1.2 10^3/uL 1.0-4.8 Abs Monocytes 0.9 10^3/uL High 0-0.8 Abs Eosinophils 0.1 10^3/uL 0-0.6 Abs Basophils 0.1 10^3/uL 0-0.2 Abs Nucleated RBC 0 10^3/uL Granulocyte % 63.4 % 38-83 Lymphocyte % 20.1 % Low 25-47 Monocyte % 14.3 % High 1-9 Eosinophil % 1.2 % 0-6 Basophil % 1.0 % 0-2 Nucleated Red Blood Cells % 0.1 Laboratory test 06/05/2017 Magnesium 1.6 mg/dL Low 1.9-2.7 finding Order 05/27/2017 EKG <pending> Surgical Pathology 01/25/2009 Surgical Pathology 22 - <SEE NOTE> Laboratory test 01/19/2009 Antibody Identification Anti-E 23 finding Abid Comment . 23, 24 Direct Antiglobulin Test NEGATIVE 23, 25 Protime 01/19/2009 Protime 20.3 High 10.9-13.3 23 Inr 2.83 23, 26 Laboratory test 01/19/2009 PTT (Aptt) 36.5 High 20.1-28.2 23, 27 finding Type And Screen 01/19/2009 Patient Blood Type A POSITIVE 23 Antibody Screen POSITIVE 23 Specimen Discard Date 02/02/09 23, 28 Basic Metabolic Panel 01/19/2009 Sodium 134 mmol/L Low 135-145 23 Potassium 4.0 mmol/L 3.5-5.0 23 Chloride 101 mmol/L 101-111 23 Co2 (Carbon Dioxide) 24.0 mmol/L 22-32 23 Anion Gap 9.0 mmol/L 2-11 23, 29 Glucose 119 mg/dL High 70-100 23, 30 BUN 19 mg/dL 6-24 23 Creatinine 1.10 mg/dL 0.50-1.40 23 One Over Creatinine 0.90 23 BUN/Creatinine Ratio 17.3 8-20 23 Calcium 8.7 mg/dL 8.1-9.9 23, 31 CBC With Manual Diff 01/19/2009 White Blood Count 7.3 CUMM 4.8-10.8 23 Red Cell Count 4.87 CUMM 4.6-6.2 23 Hemoglobin 14.9 g/dL 14.0-18.0 23 Hematocrit 44 % 42-52 23 Mean Corpuscular Volume 90 um3 80-94 23 Mean Corpuscular Hemoglob 31 pg 27-31 23 Mean Corpuscular HGB Cone 34 g/dL 32-36 23 Redcell Distribution WDTH 14 % 10.5-15 23 Platelet Count 246 CUMM 150-450 23 Mean Platelet Volume 8.2 um3 7.4-10.4 23 Polysegmented Neutrophil 70 % 38-83 23 Band Neutrophil 2 % 0-8 23 Lymphocyte 15 % Low 25-47 23 Monocyte 8 % 0-13 23 Eosenophil 3 % 0-6 23 Atypical Lymph 1 % 0-6 23 Metamyelocyte 1 % 0-2 23 Absolute Neutrophil Count 5.2 23 RBC Morphology NORMAL 23 1 Because ethnic data is not always readily available, this report includes an eGFR for both -Americans and non- Americans. The National Kidney Disease Education Program (NKDEP) does not endorse the use of the MDRD equation for patients that are not between the ages of 18 and 70, are , have extremes of body size, muscle mass, or nutritional status, or are non- or non-. According to the National Kidney Foundation, irrespective of diagnosis, the stage of the disease is based on the level of kidney function: Stage Description GFR(mL/min/1.73 m(2)) 1 Kidney damage with normal or decreased GFR 90 2 Kidney damage with mild decrease in GFR 60-89 3 Moderate decrease in GFR 30-59 4 Severe decrease in GFR 15-29 5 Kidney failure <15 (or dialysis) 2 Acute inflammation: >10.00 3 Because ethnic data is not always readily available, this report includes an eGFR for both -Americans and non- Americans. The National Kidney Disease Education Program (NKDEP) does not endorse the use of the MDRD equation for patients that are not between the ages of 18 and 70, are , have extremes of body size, muscle mass, or nutritional status, or are non- or non-. According to the National Kidney Foundation, irrespective of diagnosis, the stage of the disease is based on the level of kidney function: Stage Description GFR(mL/min/1.73 m(2)) 1 Kidney damage with normal or decreased GFR 90 2 Kidney damage with mild decrease in GFR 60-89 3 Moderate decrease in GFR 30-59 4 Severe decrease in GFR 15-29 5 Kidney failure <15 (or dialysis) 4 >100 to <200 pg/mL: likely compensated congestive heart failure (CHF) 200 to 400 pg/mL: likely moderate CHF >400 pg/mL: likely moderate to severe CHF 5 Because ethnic data is not always readily available, this report includes an eGFR for both -Americans and non- Americans. The National Kidney Disease Education Program (NKDEP) does not endorse the use of the MDRD equation for patients that are not between the ages of 18 and 70, are , have extremes of body size, muscle mass, or nutritional status, or are non- or non-. According to the National Kidney Foundation, irrespective of diagnosis, the stage of the disease is based on the level of kidney function: Stage Description GFR(mL/min/1.73 m(2)) 1 Kidney damage with normal or decreased GFR 90 2 Kidney damage with mild decrease in GFR 60-89 3 Moderate decrease in GFR 30-59 4 Severe decrease in GFR 15-29 5 Kidney failure <15 (or dialysis) 6 Critical Result LACT:2.5 Called to DEVONTE at: 17:52:15 by:[id number] Read back by:[facility] Severe Sepsis and Septic Shock Management Bundle Measure requires all lactic acids initially measuring >2.0 mmol/L be repeated. 7 Please note: The following may produce a false positive D Dimer test: - Rheumatoid factor greater than 60 IU/ml - Plasma hemoglobin greater than 0.05 gm/dl - Bilirubin greater than 50 mg/dl - Lipids greater than 1000 mg/dl - FDP greater than 20 ug/ml 8 Acute inflammation: >10.00 9 Copy Result to: [facility] ([id number]) 10 Because ethnic data is not always readily available, this report includes an eGFR for both -Americans and non- Americans. The National Kidney Disease Education Program (NKDEP) does not endorse the use of the MDRD equation for patients that are not between the ages of 18 and 70, are , have extremes of body size, muscle mass, or nutritional status, or are non- or non-. According to the National Kidney Foundation, irrespective of diagnosis, the stage of the disease is based on the level of kidney function: Stage Description GFR(mL/min/1.73 m(2)) 1 Kidney damage with normal or decreased GFR 90 2 Kidney damage with mild decrease in GFR 60-89 3 Moderate decrease in GFR 30-59 4 Severe decrease in GFR 15-29 5 Kidney failure <15 (or dialysis) 11 Therapeutic target for the treatment of diabetes mellitus patients is <7% HBA1C, and in selective patients <6.0%. Please refer to [place] [employer] diabetic care guidelines for further information. 12 Because ethnic data is not always readily available, this report includes an eGFR for both -Americans and non- Americans. The National Kidney Disease Education Program (NKDEP) does not endorse the use of the MDRD equation for patients that are not between the ages of 18 and 70, are , have extremes of body size, muscle mass, or nutritional status, or are non- or non-. According to the National Kidney Foundation, irrespective of diagnosis, the stage of the disease is based on the level of kidney function: Stage Description GFR(mL/min/1.73 m(2)) 1 Kidney damage with normal or decreased GFR 90 2 Kidney damage with mild decrease in GFR 60-89 3 Moderate decrease in GFR 30-59 4 Severe decrease in GFR 15-29 5 Kidney failure <15 (or dialysis) 13 Desirable: <150 Borderline High: 150-199 High: 200-499 Very High: >500 14 Desirable: <200 Borderline High: 200-239 High: >239 15 Low: <40 Desirable: 40-60 High: >60 16 Desirable: <100 Near Optimal: 100-129 Borderline High: 130-159 High: 160-189 Very High: >189 17 Sourcing Coordinator: [id number] 18 Sourcing Coordinator: [id number] 19 Sourcing Coordinator: [id number] 20 AM 8.7-22.4 PM <10 21 Because ethnic data is not always readily available, this report includes an eGFR for both -Americans and non- Americans. The National Kidney Disease Education Program (NKDEP) does not endorse the use of the MDRD equation for patients that are not between the ages of 18 and 70, are , have extremes of body size, muscle mass, or nutritional status, or are non- or non-. According to the National Kidney Foundation, irrespective of diagnosis, the stage of the disease is based on the level of kidney function: Stage Description GFR(mL/min/1.73 m(2)) 1 Kidney damage with normal or decreased GFR 90 2 Kidney damage with mild decrease in GFR 60-89 3 Moderate decrease in GFR 30-59 4 Severe decrease in GFR 15-29 5 Kidney failure <15 (or dialysis) 22 ---- RUN DATE: 01/30/09 [facility] NMI LIVE PAGE 1 RUN TIME: 1314 Specimen Inquiry RUN USER: INTERFACE -- Name: MICHELE FOLEY Accrebeca#: [id number] Status: DIS IN Re01/25/09 Age/Sex: 68/M Unit#: [id number] Location: [facility] : 40 -- Specimen: [id number] SOUT Spec Date: 01/25/[address] [facility] Dr: Amari alegre MD Spec Type: SURGICAL P Received: 01/26/09-1301 Copies to: SPECIMEN DISC C4-C5 HISTORY PRE-OP DIAGNOSIS: Cord compression from C4-5 cord compression GROSS DESCRIPTION The specimen is received in formalin labelled Michele Foley, Disc C4-5, and consists of multiple fragments of gardiner tissue, measuring in aggregate 2.0 x 2.0 x 1.0 cm. Implementation Advisor sections, one cassette. DIAGNOSIS Intervertebral disc, C4-C5, discectomy: Intervertebral disc material with myxoid degeneration. Signed Electronically by: MANOJ LERNER MD 01/29/09 1438 -- -- DEPARTMENT OF PATHOLOGY, [address] [place] [address] [facility] Permit #[id number] Manoj Lerner M.D. Director Tom Downey M.D. Foreign Exchange Trader Dir travis -- 23 [facility] 01/26/09 24 *PATIENT'S BLOOD CONTAINS ATYPICAL ANTIBODIES. ADDITIONAL UNITS OF COMPATIBLE BLOOD CANNOT BE AVAILABLE IN AN EMERGENCY* 25 DIRECT FLORIN INTERPRETATION: RESULT: INTERPRETATION: WEAKLY POSITIVE POSITIVE 1+ POSITIVE 2+ POSITIVE 3+ POSITIVE 4+ POSITIVE 26 YESSENIA VALUE=2.01 ( OF 10/22/07 Recommended INR for Patients on Oral Anticoagulants Prophylaxis 2.0 - 3.0 Treatment of thrombosis 2.0 - 3.0 Prevention of embolism 2.0 - 3.0 Prevention of embolism from prosthetic heart valves 2.5 - 3.5 27 PLEASE NOTE NEW REFERENCE RANGE EFFECTIVE 08. 28 PREADMISSION TESTING SAMPLES FOR BLOOD BANK WILL BE HELD FOR 14 DAYS FROM THE DATE OF COLLECTION *IF* THE FOLLOWING CRITERIA ARE MET: 1) THE PATIENT HAS *NOT* BEEN IN THE LAST 3 MONTHS. 2) THE PATIENT HAS *NOT* BEEN TRANSFUSED IN THE LAST 3 MONTHS. PREADMISSION TESTING SAMPLES WILL *NOT* BE HELD FOR 14 DAYS FROM PATIENTS WHO IN THE LAST 3 MONTHS: 1) HAVE BEEN 2) HAVE BEEN TRANSFUSED THESE PATIENTS *MUST* BE COLLECTED WITHIN 3 DAYS OF THE SURGERY DATE. 29 Anion gap measurement may be of limited value in the presence of any alkalosis, especially in a combined acid base disorder. . 30 Note change in reference range as of 07/06/08. The change was based on recommendations from the [employer]. 31 Please note change in reference range effective 08 . Procedures Date CPT Code Description Status 05/25/2018 Diabetic Retinal Eye Exam Completed 04/20/2018 54849 Stress Test Supervsn W/Out I/R Completed 04/20/2018 21806 Treadmill Interp/Report Only Completed 03/10/2018 86096 Moderate Sedation Services; Same Phys Each Additional Completed 15 Mins 03/10/2018 82471 Moderate Sedation Services; Same Phys Intl 15 Mins; PT Completed >=5 Years 03/10/2018 36406 Ultrasound Guidance For Vascular Access Completed 03/10/2018 76637 Ahogb-Ppmojvnca-Pvwvakcxfy Completed 03/10/2018 86766 Catheter Placement Arterial System Init 3RD Order Completed Abdom/Pelv/Low 11/17/2017 Diabetic Retinal Eye Exam Completed 05/27/2017 65455 EKG Tracing & Interpretation Completed 01/18/2017 38537 EKG, Interpretation Only Completed 06/22/2015 00010 Laparoscopy, Surgical,Abdomen,Peritoneum,Omentum Completed Diagnostic 06/03/2013 Colonoscopy Completed 01/25/2009 98619 Discectomy,W/Decomp SP Cord/Nerve Root;Cervical Single Completed Interspace 01/25/2009 64709 Anterior Instrumentation 2-3 Vertebral Segments Completed 01/25/2009 04316 Arthrodesis, Anterior Cervical C2 And Below Completed 01/25/2009 90491 Allograft For Spine Surgery,Structural (Bone Bank) Completed Encounters Type Date Location Provider CPT E/M Dx Office Visit 04/26/2018 9:00a [facility] Internal Daniel Peng, 37444 R07.89 Medicine - [place] Rene Gandhi,FACP K81.9 E11.65 Office Visit 04/20/2018 11:46a [facility], Yumiko Bello 03284 R07.89 Hospitalists NATO Etienne K90.0 E23.0 E11.9 I10 Z79.4 Office Visit 04/19/2018 11:45a [facility] Abhay, 50906 R07.89 Assoc, Hospitalists MODE E23.0 D68.61 E11.9 Z79.4 I10 Office Visit 02/09/2018 1:00p [facility] Internal Medicine Daniel Peng, 70012 Z00.01 - Senthil Gandhi,BOYDP E23.0 E11.65 I70.262 I10 D68.61 M10.9 Z12.11 Office Visit 01/20/2018 2:00p [facility] Vascular Medicine Tony Heninng, 80385 I70.262 Of Fadumo Gandhi Office Visit 09/15/2017 4:00p [facility] Internal Medicine Daniel Peng, 52606 I10 - Senthil Gandhi,FACP E11.9 H40.1232 Z23 Office Visit 08/03/2017 1:00p [facility] [place] [address] Z01.818 Senthil H40.1113 E11.9 E03.9 D68.61 E23.2 I10 Office Visit 05/27/2017 11:30a [facility] Daniel DKenya Peng, 63883 R53.83 Medicine - [address] Oksana,FACP E23.0 E11.9 E03.9 D68.61 Z01.810 Office Visit 01/20/2017 12:33p [facility], 21263 A04.7 Hospitalists M.D. E23.0 E03.9 E11.9 Office Visit 01/19/2017 12:32p [facility], 39562 A04.7 Hospitalists M.D. E23.0 E03.9 E11.9 Office Visit 01/18/2017 12:32p [facility], 42454 A04.7 Hospitalists M.D. E23.0 E03.9 E11.9 Office Visit 01/17/2017 12:27p [facility] [place], Rm Goodman, 52680 A04.7 Hospitalists N.P. E11.9 E23.0 E03.9 Office Visit 11/26/2016 10:15a [facility] Nancy Hyman, 59429 S61.012D Of Marco A Gandhi S62.525D Office Visit 11/05/2016 10:20a [facility] Jaida Davenport, 25420 S61.012D Of Marco A RPA-C Office Visit 10/22/2016 10:00a [facility] Jaida Davenport, 26376 S61.012D Of Marco A RPA-C S62.525D Office Visit 10/08/2016 9:40a [facility] Nancy Hyman, 21564 S61.012A Of Marco A Gandhi S62.525A Office Visit 10/02/2016 9:30a [facility] Nancy Hyman, 24814 S61.012A Of Marco A Gandhi S62.525A Office Visit 06/13/2016 12:51p [facility], Tariq Hauser, 72544 R55 Hospitalthai Gandhi D68.61 E11.8 Office Visit 06/12/2016 12:50p [facility] Annita Ceballos, 31917 R55 Assoc, [place] Hospitalists E11.8 I95.9 D68.61 Office Visit 06/26/2015 9:13a [facility], Tsih Adolfo, 91005 584.9 Hospitalists MDesiree 785.50 789.00 Office Visit 06/25/2015 9:13a [facility] Tish Mata, 94013 785.50 Assoc, Hospitalists MDesiree 584.9 789.00 253.2 Office Visit 06/24/2015 [facility] Clifford M.D. 39523 584.9 Hospitalists 785.50 Office Visit 06/23/2015 9:11a [facility], Matthew Clifford M.D. 66698 584.9 Hospitalists 785.50 Office Visit 06/22/2015 9:10a [facility], Trenton Rosenthal D.O. 88488 789.00 Hospitalists 785.50 253.2 584.9 Office Visit 06/18/2015 2:00p [facility] Of Jaret Brooks M.D. 47125 845.10 C.M.A. 917.0 Office Visit 05/16/2015 1:15p [facility] Of Jaret Brooks M.D. 13218 845.10 C.M.A. Office Visit 01/25/2013 2:00p [facility]ari Bush, 84176 722.0 Fadumo Gandhi Office Visit 05/08/2010 1:00a [facility], Azael Haynes M.D. 56448 786.50 Hospitalists Office Visit 05/07/2010 3:00a [facility], Azael Haynes M.D. 10755 786.50 Hospitalists Office Visit 07/24/2009 9:40a [facility] Bush 41759 722.71 Faudmo Gandhi Office Visit 05/25/2009 2:00p [facility] 69442 722.71 Fadumo Gandhi Office Visit 05/04/2009 1:20p [facility] Amari Rissa Bush, 00591 724.3 Fadumo Gandhi Office Visit 01/18/2009 10:00a [facility] Amari Rissa Bush, 60009 722.0 [facility] Oksana Plan of Care Future Appointment(s):08/17/2018 1:40 pm - Daniel Peng M.D.,FACP at [facility] Internal Medicine [facility]06/22/2018 - Rodolfo Mims MDK80.20 Calculus of gallbladder w/o cholecystitis w/o obstructionFollow up:None needed
--- NOTE | 2018-07-13 17:16 | ED ---
Abdominal Pain/Male - HPI Summary HPI Summary: This patient is a 77 year old M presenting to [facility] with a chief complaint of constant, squeezing 8/10 RLQ abd pain since 07/12/18 AM. PMHx gallstones, last Thursday had MRI but does not know the results. He notes that the pain radiates to right flank/back and is severe. Pt endorses 3 or 4 recent ED visits with similar but constantly worsening sx, especially his back pain. He denies SHx appendectomy. - History of Current Complaint Chief Complaint: EDAbdPain Stated Complaint: FLANK/BACK PAIN Time Seen by Provider: 07/13/18 17:06 Hx Obtained From: Patient Onset/Duration: Gradual Onset, Lasting Days, Still Present, Worse Since - gradually worsening Timing: Constant, Lasting Days Severity Initially: Moderate Severity Currently: Moderate Pain Intensity: 7 Pain Scale Used: 0-10 Numeric Location: Discrete At: RLQ Radiates: Yes Radiates to: Back, Flank Character: Sharp, Other: - squeezing Aggravating Factor(s): Nothing Alleviating Factor(s): Nothing Associated Signs And Symptoms: Positive: Back Pain. Negative: Fever Similar Episode/Dx As:: several recend ED visits with same sx - Allergies/Home Medications Allergies/Adverse Reactions: Allergies Allergy/AdvReac Type Severity Reaction Status Date / Time cephalexin Allergy Anaphylatic Verified 07/13/18 16:48 Shock enalapril Allergy Unknown Verified 07/13/18 16:48 Reaction Details nifedipine Allergy Unknown Verified 07/13/18 16:48 Reaction Details verapamil Allergy Unknown Verified 07/13/18 16:48 Reaction Details PMH/Surg Hx/FS Hx/Imm Hx Endocrine/Hematology History: Reports: Hx Anticoagulant Therapy - xarelto for alpha lipoic acid , Hx Diabetes - insulin dependent type 2, poorly controlled, Hx Thyroid Disease Cardiovascular History: Reports: Hx Hypercholesterolemia, Hx Hypertension - takes meds, Other Cardiovascular Problems/Disorders Denies: Hx Congestive Heart Failure, Hx Pacemaker/ICD Respiratory History: Denies: Hx Asthma GI History: Reports: Other GI Disorders - Celiac disease History: Reports: Other Problems/Disorders - URETHRAL STRICTURE DILATION Denies: Hx Dialysis, Hx Renal Disease Musculoskeletal History: Reports: Hx Arthritis Sensory History: Reports: Hx Contacts or Glasses - Reading, Hx Glaucoma - both eyes, Hx Hearing Aid, Other Sensory Impairments - decreased hearing Denies: Hx Deafness Opthamlomology History: Reports: Hx Contacts or Glasses - Reading, Hx Glaucoma - both eyes, Other Sensory Impairments - decreased hearing EENT History: Denies: Hx Deafness Neurological History: Reports: Hx Nerve Disease - neuropathy, Other Neuro Impairments/Disorders - SPINAL FUSION; pituitary adenoma >10 years ago Psychiatric History: Denies: Hx Panic Disorder - Cancer History Hx Chemotherapy: No - Surgical History Surgery Procedure, Year, and Place: right inguinal hernia repair 4th grade, LEFT THUMB AMPUTATION, C-SPINE FUSION. filter placed in right eye for glaucoma , exploratory laparotomy Dr. Deal Hx Anesthesia Reactions: No - Immunization History Date of Tetanus Vaccine: unknown Date of Influenza Vaccine: 08/16/15 Infectious Disease History: No Infectious Disease History: Denies: Hx of Known/Suspected MRSA, Traveled Outside the [place] in Last 30 Days - Family History Known Family History: Positive: Diabetes - Social History Occupation: Retired Alcohol Use: None Substance Use Type: Reports: None Smoking Status (MU): Former Smoker Amount Used/How Often: smoked for 20-30 years 1/2ppd Review of Systems Negative: Fever Positive: Abdominal Pain Positive: flank pain Positive: Arthralgia - right back, Myalgia, Decreased ROM All Other Systems Reviewed And Are Negative: Yes Physical Exam - Summary Physical Exam Summary: Appearance: Well appearing, no pain distress Skin: warm, dry, reflects adequate perfusion Head/face: normal Eyes: EOMI, DARI ENT: normal Neck: supple, non-tender Respiratory: CTA, breath sounds present Cardiovascular: RRR, pulses symmetrical Abdomen: RLQ tenderness, soft Bowel: present Musculoskeletal: normal, strength/ROM intact. Neuro: normal, sensory motor intact, A&Ox3 Triage Information Reviewed: Yes Vital Signs On Initial Exam: Initial Vitals Temp Pulse Resp BP Pulse Ox 98.1 F 81 20 124/70 94 07/13/18 16:43 07/13/18 16:43 07/13/18 16:43 07/13/18 16:43 07/13/18 16:43 Vital Signs Reviewed: Yes Diagnostics - Vital Signs Vital Signs Temp Pulse Resp BP Pulse Ox 07/13/18 16:43 98.1 F 81 20 124/70 94 - Laboratory Result Diagrams: 07/13/18 16:56 07/13/18 16:56 Lab Statement: Any lab studies that have been ordered have been reviewed, and results considered in the medical decision making process. - CT A/P CT Interpretation: No Acute Changes CT Interpretation Completed By: Radiologist - No acute abdominal or pelvic abnormality. Cholelithiasis. Dr. Rondon has reviewed this report. Abdominal Pain Fem Course/Dx - Course Course Of Treatment: A 77-year-old M presents to the ED with a CC of RLQ pain since several days ago, but worsening yesterday (07/12/18). (+) radiation to flank, back, with severe pain there. (-) PMHx appendectomy. MRI taken on thursday , was not read DIRECTOR PROSPECT. A CT A/P reveals no acute abdominal or pelvic abnormality and cholelithiasis. In the ED course, pt was given zofran, morphine, and nl saline. Pt shows low lymph %, high mono%, high creat, high glucose, high CRP, and low lipase. - Diagnoses Differential Diagnosis/HQI/PQRI: Appendicitis, Renal Colic, Urinary Tract Infection Provider Diagnoses: Abdominal pain, Cholelithiasis Discharge - Sign-Out/Discharge Documenting (check all that apply): Patient Departure - discharge - Discharge Plan Condition: Stable Disposition: HOME Prescriptions: traMADol TAB* [Ultram*] 50 mg PO Q12H PRN #12 tab MDD 2 PRN Reason: Pain Patient Education Materials: Gallstones (ED), Abdominal Pain (ED) Referrals: Daniel Peng MD [Primary Care Provider] - 3 Days Additional Instructions: Please return to the emergency department for any new or worsening symptoms. - Billing Disposition and Condition Condition: STABLE Disposition: Home - Attestation Statements Document Initiated by J Carlos: Yes Documenting Scribe: Ken Valencia Provider For Whom J Carlos is Documenting (Include Credential): Dr. Doug Rondon MD Scribe Attestation: Ken López scribed for Dr. Doug Rondon MD on 07/13/18 at 2141. Scribe Documentation Reviewed: Yes Provider Attestation: The documentation as recorded by the Ken celestin accurately reflects the service I personally performed and the decisions made by me, Dr. Doug Rondon MD
[2018-07-13] MEDS ORDERED: Morphine INJ* 2 MG/ML 1 ML SYRINGE (TWO MG - NEW SYRINGE VERSION) IV ONE (17:18)
[2018-07-13] MEDS ORDERED: NS 0.9% 1000 ML* 1,000 ML IV ONE (17:18)
[2018-07-13] MEDS ORDERED: Ondansetron INJ* 2 MG/ML VIAL IV ONE (17:18)
[2018-07-13 17:22] LABS: ABS Basophils 0.1 10^3/ul (0-0.2); ABS Eosinophils 0 10^3/ul (0-0.6); ABS Lymphocytes 1.3 10^3/ul (1.0-4.8); ABS Neutrophils 4.8 10^3/ul (1.5-7.7); ABS Nucleated RBC 0 10^3/ul; Eosinophil % 0.6 % (0-6); Hematocrit 46 % (42-52); Hemoglobin 15.4 g/dl (14.0-18.0); Lymphocyte % 17.8 % (25-47); Mean Corpuscular HGB Conc 34 g/dl (31-36); Mean Corpuscular Hemoglobin 31 pg (27-31); Mean Corpuscular Volume 93 fL (80-94); Mean Platelet Volume 9.2 um3 (7.4-10.4); Nucleated Red Blood Cells % 0.1; Platelet Count 180 10^3/ul (150-450); Red Blood Count 4.95 10^6/ul (4.00-5.40); Red Cell Distribution Width 16 % (10.5-15); White Blood Count 7.2 10^3/ul (3.5-10.8)
[2018-07-13 17:35] LABS: EGFR Non-African American 32.2 (>60)
[2018-07-13] MEDS ORDERED: Iodixanol* (CONTRAST) 320 MG/ML 100 ML SDV IV ONE (19:19)
[2018-07-13 20:15] LABS: Urine Appearance Cloudy; Urine Blood Negative (Negative); Urine Color Yellow; Urine Ketones Trace (Negative); Urine Protein 1+(30 mg/dL) (Negative); Urine Red Blood Cell Trace(0-2/hpf) (Absent); Urine Specific Gravity 1.016 (1.010-1.030); Urine Urobilinogen Negative (Negative); Urine White Blood Cell 1+(6-10/hpf) (Absent)
--- NOTE | 2018-07-13 21:25 | RAD ---
EXAM: CT Abdomen and Pelvis With Intravenous Contrast CLINICAL HISTORY: 77 years old, male; Pain; Abdominal pain; Localized; Lower; Prior surgery; Surgery date: 6+ months; Additional info: Appendicitis/diverticulitis; HX of inguinal hernia, exploratory laparotomy, pituitary tumor TECHNIQUE: Axial computed tomography images of the abdomen and pelvis with intravenous contrast. All CT scans at this facility use at least one of these dose optimization techniques: automated exposure control; mA and/or kV adjustment per patient size (includes targeted exams where dose is matched to clinical indication); or iterative reconstruction. Coronal and sagittal reformatted images were created and reviewed. CONTRAST: 100 mL of VISIPAQUE 320 administered intravenously. COMPARISON: A/P WO CT ABD/PEL W/O 01/17/2017 10:34 PM FINDINGS: Lung bases: Bilateral dependent atelectasis. ABDOMEN: Liver: Unremarkable. No mass. Gallbladder and bile ducts: Cholelithiasis. No ductal dilation. Pancreas: Fatty infiltration of the pancreas. No ductal dilation. Spleen: Unremarkable. No splenomegaly. Adrenals: Unremarkable. No mass. Kidneys and ureters: Multiple right-sided renal cysts with the largest measuring 9 mm in the midpole. Stomach and bowel: Scattered diverticulosis of the sigmoid colon. No obstruction. No mucosal thickening. PELVIS: Appendix: Appendix is unremarkable. Bladder: Unremarkable. No mass. Reproductive: Unremarkable as visualized. ABDOMEN and PELVIS: Intraperitoneal space: Unremarkable. No free air. No significant fluid collection. Bones/joints: Degenerative changes of the spine. Grade 1 retrolisthesis of L2 over L3. No acute fracture. No dislocation. Soft tissues: Unremarkable. Vasculature: Unremarkable. No abdominal aortic aneurysm. Lymph nodes: Unremarkable. No enlarged lymph nodes. IMPRESSION: No acute abdominal or pelvic abnormality. Cholelithiasis.
[2018-07-13 21:53] VITALS: BP 137/65
== END 2018-07-13 21:53 | disposition home or self-care (01) ==
LOC: ED 16:40
DX: R10.84 Generalized abdominal pain (principal); K80.20 Calculus of gallbladder without cholecystitis without obstruction; M54.9 Dorsalgia, unspecified; Z79.01 Long term (current) use of anticoagulants
CPT/HCPCS: 36415; 74177; 80053; 81003; 81015; 83605; 83690; 85025; 86140; 87086; 96374; 96375; 99283; J2270; J2405; Q9967

== ENCOUNTER 2019-01-31 20:39 | Inpatient (IN) | payer MEDICARE, BC ==
[2019-01-31] MEDS ORDERED: Albuterol/Ipratropium NEB.SOL* Albuterol 2.5 MG/Ipratropium 0.5 MG 3 ML INH ONE (20:47)
[2019-01-31] MEDS ORDERED: Acetaminophen TAB* 325 MG PO ONE (20:48)
[2019-01-31] MEDS ORDERED: NS 0.9% 1000 ML** 2,000 ML IV ONE (20:48)
[2019-01-31] MEDS ORDERED: Levofloxacin 750 MG IVPREMIX(* 750 MG/150 ML BAG IVPB ONE (20:49)
--- NOTE | 2019-01-31 20:49 | ED ---
Altered Mental Status - HPI Summary HPI Summary: Pt is a 78 y/o M presenting to the ED brought in by EMS for AMS. Per EMS, his stated he hasnt been normal since 1100 this morning, has had a productive cough the last three days which his cough medicine has not helped, and has been sleeping or fatigued all day. Upon EMS arrival, pt was diaphoretic and warm. The last BP EMS obtained was 180/92, and he was given a duoneb. The pt reports shortness of breath. The pt denies vomiting or use of O2 at home. Per , he got up around 1100 and had coffee, but was very tired at 1130. He is on painkillers for his R-sided abd pain onset 4 years ago, but he has not complained of pain today. She reports he has a hx of gallstones that were not operated on due to no inflammation and no wall thickening. The pt was coherent until around 1100, after she let him sleep he did not remember what day it was. Pt denies abd pain or general pain. - History Of Current Complaint Stated Complaint: AMS PER EMS Time Seen by Provider: 01/31/19 20:42 Hx Obtained From: Patient Last Known Well Date: today, early am Onset/Duration: Still Present, Suddenly Timing: Constant, Lasting Hours Severity Initially: Moderate Severity Currently: Moderate Character: Responsiveness, Lethargy Aggravating Factor(s): Nothing Alleviating Factor(s): Nothing - Allergies/Home Medications Allergies/Adverse Reactions: Allergies Allergy/AdvReac Type Severity Reaction Status Date / Time cephalexin Allergy Anaphylatic Verified 01/31/19 20:52 Shock enalapril Allergy Unknown Verified 01/31/19 20:52 Reaction Details metformin Allergy Diarrhea Verified 01/31/19 20:52 nifedipine Allergy Unknown Verified 01/31/19 20:52 Reaction Details pantoprazole [From Protonix] Allergy Diarrhea Verified 01/31/19 20:52 verapamil Allergy Unknown Verified 01/31/19 20:52 Reaction Details PMH/Surg Hx/FS Hx/Imm Hx Previously Healthy: No Endocrine/Hematology History: Reports: Hx Anticoagulant Therapy - xarelto for alpha lipoic acid , Hx Diabetes - insulin dependent type 2, poorly controlled, Hx Thyroid Disease Cardiovascular History: Reports: Hx Hypercholesterolemia, Hx Hypertension - takes meds, Other Cardiovascular Problems/Disorders Denies: Hx Congestive Heart Failure, Hx Pacemaker/ICD Respiratory History: Denies: Hx Asthma GI History: Reports: Hx Gall Bladder Disease - gall stones, not operated on, Other GI Disorders - Celiac disease History: Reports: Other Problems/Disorders - URETHRAL STRICTURE DILATION Denies: Hx Dialysis, Hx Renal Disease Musculoskeletal History: Reports: Hx Arthritis Sensory History: Reports: Hx Contacts or Glasses - Reading, Hx Glaucoma - both eyes, Hx Hearing Aid, Other Sensory Impairments - decreased hearing Denies: Hx Deafness Opthamlomology History: Reports: Hx Contacts or Glasses - Reading, Hx Glaucoma - both eyes, Other Sensory Impairments - decreased hearing Neurological History: Reports: Hx Nerve Disease - neuropathy, Other Neuro Impairments/Disorders - SPINAL FUSION; pituitary adenoma >10 years ago Psychiatric History: Denies: Hx Panic Disorder - Cancer History Hx Chemotherapy: No - Surgical History Surgery Procedure, Year, and Place: right inguinal hernia repair 4th grade, LEFT THUMB AMPUTATION, C-SPINE FUSION. filter placed in right eye for glaucoma , exploratory laparotomy Dr. Toyin Dumont Anesthesia Reactions: No - Immunization History Date of Tetanus Vaccine: unknown Date of Influenza Vaccine: 08/16/15 Infectious Disease History: Denies: Hx of Known/Suspected MRSA - Family History Known Family History: Positive: Diabetes - Social History Alcohol Use: None Hx Substance Use: No Substance Use Type: Reports: None Hx Tobacco Use: Yes Smoking Status (MU): Former Smoker Amount Used/How Often: smoked for 20-30 years 1/2ppd Have You Smoked in the Last Year: No Review of Systems Positive: Fever, Fatigue, Skin Diaphoresis Positive: Cough Negative: Abdominal Pain Negative: Myalgia Neurological: Other - asleep or fatigued, "not himself" per All Other Systems Reviewed And Are Negative: Yes Physical Exam - Summary Physical Exam Summary: VITAL SIGNS: Reviewed. GENERAL: Patient is a well-developed and nourished male who is lying comfortable in the stretcher. Patient is not in any acute respiratory distress. HEAD AND FACE: No signs of trauma. No ecchymosis, hematomas or skull depressions. No sinus tenderness. EYES: PERRLA, EOMI x 2, No injected conjunctiva, no nystagmus. EARS: Hearing grossly intact. Ear canals and tympanic membranes are within normal limits. MOUTH: Oropharynx within normal limits. NECK: Supple, trachea is midline, no adenopathy, no JVD, no carotid bruit, no c- spine tenderness, neck with full ROM. CHEST: Symmetric, no tenderness at palpation LUNGS: Bilateral expiratory wheezes, and decreased breath sounds bilaterally. CVS: Regular rate and rhythm, S1 and S2 present, no murmurs or gallops appreciated. ABDOMEN: Mild diffuse tenderness with hypoactive bowel sounds. Distended. No rebound no guarding, and no masses palpated. EXTREMITIES: FROM in all major joints, no edema, no cyanosis or clubbing. NEURO: Pt is lethargic but easily rousable and A&Ox3. No acute neurological deficits. Speech is normal and follows commands. SKIN: Dry and warm Triage Information Reviewed: Yes Vital Signs Reviewed: Yes Diagnostics - Laboratory Result Diagrams: 01/31/19 21:27 01/31/19 21:27 Lab Statement: Any lab studies that have been ordered have been reviewed, and results considered in the medical decision making process. - Radiology CXR Radiology Interpretation Completed By: ED Physician Summary of Radiographic Findings: Decreased lung volume. No acute process. Pending official radiology report. - CT CTA chest/abdomen/pelvis CT Interpretation Completed By: Radiologist Summary of CT Findings: CHEST IMPRESSION: 1. Slight interstitial prominence with mild bilateral lower lobe. fibro-atelectatic change. 2. Cholelithiasis. 3. Essentially negative CTA chest. There is motion artifact in the lungs. No. central pulmonary embolism is identified. ED physician has reviewed this imaging report. ABDOMEN/PELVIS IMPRESSION: 1. Mild distention of the urinary bladder with minimal bilateral hydronephrosis. and hydroureters which are likely related to bladder distention. 2. Cholelithiasis. 3. Otherwise negative CT abdomen/pelvis. ED physician has reviewed this imaging report - EKG 2057 Cardiac Rate: NL - 97bpm EKG Rhythm: Sinus Rhythm ST Segment: Non-Specific Ectopy: None Summary of EKG Findings: Non-specific T wave changes. Altered Mental Statu Course/Dx - Course Course Of Treatment: Pt is a 78 y/o M presenting to the ED brought in by EMS for AMS. EMS reports his stating he had a cough and has not been himself since this morning around 1100. He has been sleeping all day. EMS found him diaphoretic and warm, and gave him a duoneb on the way here. The pt denies vomiting or use of O2 at home. He reports shortness of breath. The pt is positive for Influenza A and has a troponin of 0.06. CXR showed decreased lung volume. No acute process. CTA chest/abdomen/pelvis impression: CHEST IMPRESSION : 1. Slight interstitial prominence with mild bilateral lower lobe. fibro- atelectatic change. 2. Cholelithiasis. 3. Essentially negative CTA chest. There is motion artifact in the lungs. No. central pulmonary embolism is identified. ED physician has reviewed this imaging report. ABDOMEN/PELVIS IMPRESSION: 1. Mild distention of the urinary bladder with minimal bilateral hydronephrosis. and hydroureters which are likely related to bladder distention. 2. Cholelithiasis. 3. Otherwise negative CT abdomen/pelvis. ED physician has reviewed this imaging report. Case discussed with hospitalist, Dr. Castillo, who accepted the patient for admission. The patient is agreable with this plan. - Diagnoses Provider Diagnoses: Influenza A, Hypoxia - Provider Notifications Discussed Care Of Patient With: Lg Castillo Time Discussed With Above Provider: 23:23 Instructed by Provider To: Admit As Inpatient Discharge - Sign-Out/Discharge Documenting (check all that apply): Patient Departure - admit Patient Received Moderate/Deep Sedation with Procedure: No - Discharge Plan Condition: Fair Disposition: ADMITTED TO [facility] - Billing Disposition and Condition Condition: FAIR Disposition: Admitted to [facility] - Attestation Statements Document Initiated by J Carlos: Yes Documenting Scribe: Lien Zelaya Provider For Whom J Carlos is Documenting (Include Credential): Liliana Alvarez MD. Scribe Attestation: Lien López scribed for Liliana Alvarez MD. on 02/01/19 at 0607. Scribe Documentation Reviewed: Yes Provider Attestation: The documentation as recorded by the teresoibeLien accurately reflects the service I personally performed and the decisions made by , Liliana Alvarez MD. Status of Scribe Document: Viewed
--- OUTSIDE RECORDS SUMMARY | 2019-01-31 21:14 | XMS REPORT | Continuity of Care Document ---
:1940 External Reference #:[id number] Author Name Pedrito Huynh M.D. Address [address] [place] [address] Care Team Providers Name Role Phone Matthew Peng M.D. Primary Care Physician Unavailable Payers Date Identification Numbers Payment Provider Subscriber Policy Number: [id number] Medicare RR Petar Foley PayID: [id number] [address] [address] [place] [address] Policy Number: [id number] [facility] [address] Petar Foley PayID: [id number] [address] [address] [place] [address] Advance Directives Description No Information Available Problems Date Description Provider Status Onset: 01/11/2015 Type 2 diabetes mellitus Active Onset: Essential hypertension Active Onset: 04/13/2015 Primary open angle glaucoma Pedrito Huynh M.D. Active Onset: 04/13/2015 Severe / Advanced / End Stage Glaucoma Pedrito Huynh M.D. Active Onset: 01/15/2016 Combined form of senile cataract Pedrito Huynh M.D. Active Onset: 01/15/2016 Type 2 diabetes mellitus with mild Pedrito Huynh M.D. Active nonproliferative diabetic retinopathy without macular edema Onset: 11/27/2016 Primary open angle glaucoma of right Pedrito Huynh M.D. Active eye Onset: 11/27/2016 Primary open angle glaucoma of left Pedrito Huynh M.D. Active eye Onset: 11/27/2016 Type 2 diabetes mellitus with mild Pedrito Huynh M.D. Active nonproliferative diabetic retinopathy without macular edema, bilateral Onset: Panhypopituitarism Active Onset: Pituitary adenoma Active Note: 2005 Onset: Primary antiphospholipid syndrome Active Onset: Celiac disease Active Onset: Gout Active Onset: 05/25/2018 Tear film insufficiency Pedrito Huynh M.D. Active Onset: 10/26/2018 Blepharitis Sebastian Cardoza M.D. Active Family History Date Family Member(s) Observation Comments Father Loss of Vision ? etiology Mother No Current Problems Social History Type Date Description Comments Sex Unknown Marital Status Legal Status: Occupation [employer]ant Work Status Retired ETOH Use Denies alcohol use Tobacco Use Start: Unknown End: Patient is a former smoker quit 1989 Unknown Recreational Drug Use Denies Drug Use Smoking Status Reviewed: 01/07/19 Patient is a former smoker quit 1989 Allergies, Adverse Reactions, Alerts Date Description Reaction Status Severity Comments 09/01/2017 Cephalexin Active 09/01/2017 Verapamil Active 09/01/2017 Nifedipine Active 09/01/2017 Enalapril Active 01/21/2016 NKDA Inactive Medications Medication Date Status Form Strength Qnty SIG Indications Ordering Provider Timolol Maleate 11/01/ Active Solution 0.25% 45ml 1 drop in H40.1113 Pedrito Escobar your left [place], eye once a M.D. day Artificial 08/26/ Active Solution 0.1-0.3% as needed Pedrito Kwok Tears 2018 Oksana Huynh First-Testoster / Active Ointment 2% Unknown one 0000 Allopurinol / Active Tablets 300mg qd Unknown 0000 Lantus / Active Solution 100Unit/M 32 units Unknown 0000 L qam Desmopressin / Active Tablets 0.1mg bid Unknown Acetate 0000 Xarelto / Active Tablets 10mg Unknown 0000 Levothyroxine / Active Tablets 112mcg Unknown Sodium 0000 Lyrica / Active Capsules 50mg Unknown 0000 Prednisone / Active Tablets 7.5mg 7.5 MG qd Unknown 0000 Losartan / Active Tablets 50mg every day Unknown Potassium 0000 Liothyronine / Active Tablets 5mcg Law, Sodium 0000 Oksana Elena Androgel Pump / Active Gel 20.25mg/A Law, 0000 ct Ulices, (1.62%) M.DKenya Glipizide / Active Tablets 10mg Law, 0000 Oksana Elena Tears Naturale / Active Solution 0.1-0.3% Unknown Free 0000 Humalog Kwikpen / Active Solution 50Unit/ML Take as Unknown 0000 Pen-Inject Instructed Up To 60 Units Per Day Magnesium / Active Capsules 400mg Unknown 0000 Ranitidine HCL / Active Tablets 150mg [place], 0000 Matthew Mixon M.D. Neomycin/Polymy 11/01/ Hx Suspension 3.5-02894 10ml use one H01.001 Sebastian tara/Dexamethaso 2017 - -0.1 drop three [place], ne 11/20/ times a day M.D. 2019 to Right eye for 14days then stop Neomycin/Polymy 10/26/ Hx Suspension 3.5-89664 10ml use one H01.001 Sebastian tara/Dexamethaso 2017 - -0.1 drop three [place], ne 10/31/ times a day M.D. 2018 to Right eye for 14days then stop Maxitrol 10/26/ Hx Suspension 3.5-60381 3 Times Pedrito Kwok 2018 - -0.1 Daily Left [place], 11/16/ Eye M.D. 2019 Atropine 08/06/ Hx Solution 1% 5ml One drop Pedrito JKenya Sulfate 2017 - left eye [place], 09/01/ three times M.D. 2017 per day Prednisolone 08/04/ Hx Suspension 1% 10ml 1 drop both Pedrito J. Acetate 2017 - eyes once a [place], 11/15/ day M.D. 2017 Vigamox 08/03/ Hx Solution 0.5% 6ml One drop Pedrito J. 2017 - left eye [place], 08/30/ three times M.D. 2017 per day Brimonidine 11/27/ Hx Solution 0.2% On Hold H40.1122 Pedrito Kwok Tartrate 2017 - [place], 08/18/ M.D. 2017 Liothyronine 01/21/ Hx Tablets 5mcg bid Pedrito JKenya Sodium 2016 - [place], 02/03/ M.D. 2016 Pred Forte 01/14/ Hx Suspension 1% 1ml One drop H40.11x3 Pedrito Kwok 2016 - three times [place], 01/19/ a day in M.D. 2016 the left eye for three days, then discontinue . Pred Forte 04/20/ Hx Suspension 1% 15ml 1 drop Pedrito Kwok 2014 - right eye [place], 05/10/ taper as M.D. 2014 directed after surgery Desmopressin 01/11/ Hx Tablets qd Pedrito Kwok Acetate 2014 - [place], 04/12/ M.D. 2014 Lumigan 01/10/ Hx Solution 0.01% 7.5un 1 drop left Pedrito Kwok 2014 - its eye at [place], 08/18/ bedtime M.D. 2016 [place] HCL 01/10/ Hx Solution 4% 45uni 1 drop left Pedrito Kwok 2014 - ts eye 4 times [place], 08/18/ daily M.D. 2016 Cosopt 01/10/ Hx Solution 22.3-6.8m 20uni Instill 1 Pedrito Kwok 2014 - g/ml ts Drop Into [place], 08/18/ Both Eyes M.D. 2016 Two Times A Day Synthroid 00/00/ Hx Tablets 25mcg qd Unknown 2015 Metformin HCL /00/ Hx Tablets 500mg 3 Tabs Am 2 Unknown 0000 - Tabs hs 2016 Cozaar /00/ Hx Tablets 50mg qd Unknown 2015 Coumadin 00/00/ Hx Tablets qd Unknown 2015 Cytomel 00/00/ Hx Tablets qd Unknown 2015 Vitamin B 12 /00/ Hx qd Unknown 2015 Celebrex /00/ Hx Capsules bid Unknown 2015 Finasteride 00/00/ Hx Tablets qd Unknown 2015 Repaglinide /00/ Hx Tablets 0.5mg tid Unknown 2016 Liothyronine /00/ Hx Solution 10mcg/ML Unknown Sodium 2016 Celecoxib /00/ Hx Capsules 200mg Take One Unknown 0000 - Capsule By 08/12/ Mouth Twice 2017 A Day as Needed Metformin HCL 00/00/ Hx Tablets 1000mg Law, 0000 - Ulices, 12/10/ M.D. 2018 Neomycin/Polymy / Hx Suspension 3.5-93962 Instill 1 Unknown tara/Dexamethaso 0000 - -0.1 Drop To ne 11/20/ Right Eye 2019 Three Times A Day For 14 Days Then Stop Immunizations Description No Information Available Vital Signs Date Vital Result Comment 01/21/2016 3:57pm BP Systolic 134 mmHg BP Diastolic 71 mmHg Heart Rate 71 /min Respiratory Rate 12 /min Results Test Date Facility Test Result H/L Range Note CBC Auto Diff 04/28/2018 [facility] White Blood 6.3 10 ^3/uL N 3.5-10.[address] [place] [address] (607)- - Red Blood Count 4.52 10^6/uL N 4.00-5.40 Hemoglobin 13.8 g/dL Low 14.0-18.0 Hematocrit 42 % N 42-52 Mean Corpuscular Volume 93 fL N 80-94 Mean Corpuscular Hemoglobin 31 pg N 27-31 Mean Corpuscular HGB Conc 33 g/dL N 31-36 Red Cell Distribution Width 15 % N 10.5-15 Platelet Count 182 10^3/uL N 150-450 Mean Platelet Volume 10.1 um3 N 7.4-10.4 Abs Neutrophils 4.3 10^3/uL N 1.5-7.7 Abs Lymphocytes 1.0 10^3/uL N 1.0-4.8 Abs Monocytes 0.8 10^3/uL N 0-0.8 Abs Eosinophils 0.1 10^3/uL N 0-0.6 Abs Basophils 0.1 10^3/uL N 0-0.2 Abs Nucleated RBC 0 10^3/uL Granulocyte % 68.3 % N 38-83 Lymphocyte % 16.0 % Low 25-47 Monocyte % 13.4 % High 0-7 Eosinophil % 1.0 % N 0-6 Basophil % 1.3 % N 0-2 Nucleated Red Blood Cells % 0.1 Comp Metabolic Panel 04/28/2018 [facility] Sodium 139 mmol/L N 139-[address] [place] [address] (607)- - Potassium 4.6 mmol/L N 3.5-5.0 Chloride 103 mmol/L N 101-111 Co2 Carbon Dioxide 27 mmol/L N 22-32 Anion Gap 9 mmol/L N 2-11 Glucose 174 mg/dL High 70-100 Blood Urea Nitrogen 29 mg/dL High 6-24 Creatinine 1.53 mg/dL High 0.67-1.17 BUN/Creatinine Ratio 19.0 N 8-20 Calcium 9.2 mg/dL N 8.6-10.3 Total Protein 6.1 g/dL Low 6.4-8.9 Albumin 3.8 g/dL N 3.2-5.2 Globulin 2.3 g/dL N 2-4 Albumin/Globulin Ratio 1.7 N 1-3 Total Bilirubin 0.50 mg/dL N 0.2-1.0 Alkaline Phosphatase 63 U/L N 34-104 Alt 24 U/L N 7-52 Ast 16 U/L N 13-39 Egfr Non- 44.4 >60 Egfr 57.0 >60 1 Laboratory test 04/28/2018 [facility] C Reactive 8.48 mg/L High < 5.[address] [place] [address] (607)- - Basic Metabolic 04/28/2018 [facility] Sodium 138 mmol/ L Low 139-[address] [place] [address] (607)- - Potassium 4.6 mmol/L N 3.5-5.0 Chloride 103 mmol/L N 101-111 Co2 Carbon Dioxide 27 mmol/L N 22-32 Anion Gap 8 mmol/L N 2-11 Glucose 173 mg/dL High 70-100 Blood Urea Nitrogen 29 mg/dL High 6-24 Creatinine 1.47 mg/dL High 0.67-1.17 BUN/Creatinine Ratio 19.7 N 8-20 Calcium 9.1 mg/dL N 8.6-10.3 Egfr Non- 46.5 >60 Egfr 59.7 >60 3 Laboratory test 04/28/2018 [facility] TSH (Thyroid 0.05 mcIU/mL Low 0.34-5.[address] Stim [place]orm) [place] [address] (607)- - T3 Free 3.30 pg/mL N 2.5-3.9 Free T4 (Free Thyroxine) 1.18 ng/dL High 0.61-1.12 T3 Total 69 ng/dL Low 87-178 Laboratory test 03/03/2018 [facility] Uric Acid 4.1 mg /dL Low 4.4-7.6 [address] [place] [address] (607)- - Urine Microalbumin 03/03/2018 [facility] Ur Microalbumin 71.0 mg/L Random [address] (mg/L) [place] [address] (607)- - Urine Creatinine 178.34 mg/dL Urine Microalbumin/Creatinine 39.8 ug/mg High <31 Basic Metabolic Panel 03/03/2018 [facility] Sodium 142 mmol/L N 139-145 [address] [place] [address] (607)- - Potassium 4.4 mmol/L N 3.5-5.0 Chloride 106 mmol/L N 101-111 Co2 Carbon Dioxide 26 mmol/L N 22-32 Anion Gap 10 mmol/L N 2-11 Glucose 208 mg/dL High 70-100 Blood Urea Nitrogen 30 mg/dL High 6-24 Creatinine 1.46 mg/dL High 0.67-1.17 BUN/Creatinine Ratio 20.5 High 8-20 Calcium 9.3 mg/dL N 8.6-10.3 Egfr Non- 46.8 >60 Egfr 60.2 >60 5 Laboratory test 08/19/2017 [facility] Point of Care 269 mg/dL High 70-100 [address] [place] [address] (607)- - Laboratory test 08/19/2017 [facility] Point of Care 179 mg/dL High 70-100 [address] [place] [address] (607)- - Laboratory test 08/05/2017 [facility] Point of Care 221 mg/dL High 70-100 [address] [place] [address] (607)- - 1 Because ethnic data is not always [...] 5 Kidney failure <15 (or dialysis) 4 Copy Result to: [facility] ([id number]) 5 Because ethnic data is not always [...] 5 Kidney failure <15 (or dialysis) 6 Gas Utility Worker: [id number] Gas Utility Worker: [id number] 8 Gas Utility Worker: [id number] Procedures Date Code Description Status 08/27/2018 79557 Est Patient Intermediate Exam Completed 05/25/2018 47221 Visual Field Exam Extended Completed 05/25/2018 50181 Determination Of Refractive State Completed 05/25/2018 78396 Est Patient Intermediate Exam Completed 02/16/2018 21469 Est Patient Intermediate Exam Completed 11/17/2017 20657 Visual Field Exam Extended Completed 11/17/2017 49870 Est Patient Intermediate Exam Completed 08/19/2017 90953 Fistulization Sclera For Glaucoma, Trabeculectomy AB Completed Externo 08/05/2017 46088 Fistulization Sclera For Glaucoma, Trabeculectomy AB Completed Externo 07/02/2017 02088 Scanning Computerized Ophthalmic Diagnostic Imag Posterior Completed Seg On 07/02/2017 52799 Est Patient Intermediate Exam Completed 02/06/2017 00648 Est Patient Intermediate Exam Completed 11/27/2016 10224 Est Patient Intermediate Exam Completed 11/27/2016 72799 Determination Of Refractive State Completed 11/27/2016 55498 Visual Field Exam Extended Completed 07/03/2016 59447 Scanning Computerized Ophthalmic Diagnostic Imag Posterior Completed Seg On 07/03/2016 88496 Est Patient Comprehensive Exam Completed 02/29/2016 54990 Visual Field Exam Extended Completed 02/05/2016 90669 Est Patient Intermediate Exam Completed 01/21/2016 91129 Trabeculoplasty By Laser Surgery Completed 01/15/2016 82361 Fundus Photography With Interpretation And Report Completed 01/15/2016 98707 Visual Field Exam Extended Completed 01/15/2016 89155 Est Patient Comprehensive Exam Completed 04/23/2015 33371 Trabeculoplasty By Laser Surgery Completed 04/13/2015 46835 Visual Field Exam Extended Completed 01/11/2015 85212 Est Patient Intermediate Exam Completed 01/11/2015 90753 Scanning Computerized Ophthalmic Diagnostic Imag Posterior Completed Seg On 09/12/2014 39475 Visual Field Exam Extended Completed 09/12/2014 19305 Gonioscopy Completed 09/12/2014 51669 Est Patient Intermediate Exam Completed 04/27/2014 28763 Fundus Photography With Interpretation And Report Completed 04/27/2014 93774 Est Patient Intermediate Exam Completed 12/27/2013 59359 Visual Field Exam Extended Completed 12/27/2013 02949 Est Patient Intermediate Exam Completed 09/19/2013 07734 Trabeculoplasty By Laser Surgery Completed 09/01/2013 11176 Scanning Computerized Opthalmic Diagnostic Posterior Seg Completed Retina 09/01/2013 15199 Est Patient Comprehensive Exam Completed 08/31/2013 55265 Visual Field Exam Extended Completed 06/13/2013 77774 Est Patient Comprehensive Exam Completed 06/13/2013 14366 Determination Of Refractive State Completed 06/13/2013 41105 Scanning Computerized Opthalmic Diagnostic Posterior Seg Completed Retina 12/13/2012 22468 Scanning Computerized Ophthalmic Diagnostic Imag Posterior Completed Seg On 12/13/2012 92533 Est Patient Intermediate Exam Completed 09/10/2012 29549 Fundus Photography With Interpretation And Report Completed 09/10/2012 89565 Visual Field Exam Extended Completed 09/10/2012 66211 Est Patient Comprehensive Exam Completed 06/07/2012 55546 Est Patient Intermediate Exam Completed 03/05/2012 37986 Visual Field Exam Extended Completed 01/02/2012 99624 Est Patient Intermediate Exam Completed 12/05/2011 17002 Visual Field Exam Extended Completed 12/05/2011 96503 Est Patient Intermediate Exam Completed 10/16/2011 85279 Est Patient Intermediate Exam Completed 07/15/2011 90134 Est Patient Intermediate Exam Completed 07/15/2011 94028 Visual Field Exam Extended Completed 05/19/2011 96201 Est Patient Intermediate Exam Completed 03/12/2011 49339 Fistulization Sclera For Glaucoma, Trabeculectomy AB Completed Externo 02/19/2011 70214 Trabeculoplasty By Laser Surgery Completed 02/04/2011 87397 Est Patient Intermediate Exam Completed 12/24/2010 04290 Visual Field Exam Extended Completed 12/24/2010 65602 Est Patient Intermediate Exam Completed 09/19/2010 42763 Visual Field Exam Extended Completed 09/19/2010 07903 Est Patient Intermediate Exam Completed 07/05/2010 90019 Scanning Laser W/Interp And Report Completed 07/05/2010 85012 Est Patient Intermediate Exam Completed 03/05/2010 37773 Est Patient Intermediate Exam Completed 11/20/2009 32442 Est Patient Intermediate Exam Completed 11/20/2009 10372 Visual Field Exam Extended Completed 05/31/2009 16774 Scanning Laser W/Interp And Report Completed 05/31/2009 39130 Est Patient Intermediate Exam Completed 05/09/2009 71051 Visual Field Exam Extended Completed 05/01/2009 87828 Fundus Photography With Interpretation And Report Completed 05/01/2009 49348 Est Patient Intermediate Exam Completed 12/14/2008 80246 Visual Field Exam Extended Completed 12/14/2008 02236 Determination Of Refractive State Completed 12/14/2008 04922 Est Patient Intermediate Exam Completed 12/14/2008 61360 Pachymetry Completed 07/10/2008 37098 Scanning Laser W/Interp And Report Completed 07/10/2008 80331 Est Patient Intermediate Exam Completed 03/07/2008 14531 Est Patient Intermediate Exam Completed 11/04/2007 02487 Est Patient Intermediate Exam Completed 11/04/2007 91833 Visual Field Exam Extended Completed 08/06/2007 05548 Scanning Laser W/Interp And Report Completed 08/06/2007 09865 Est Patient Intermediate Exam Completed 03/23/2007 16515 Fundus Photography With Interpretation And Report Completed 03/23/2007 03777 Est Patient Intermediate Exam Completed 12/25/2006 13401 Visual Field Exam Extended Completed 12/22/2006 61704 Est Patient Intermediate Exam Completed 07/29/2006 38075 Scanning Laser W/Interp And Report Completed 07/29/2006 66696 Visual Field Exam Extended Completed 03/27/2006 03355 Determination Of Refractive State Completed 03/27/2006 28258 Est Patient Comprehensive Exam Completed 08/11/2005 44890 Est Patient Intermediate Exam Completed 08/11/2005 04398 Visual Field Exam Extended Completed 03/24/2005 35935 Scanning Laser W/Interp And Report Completed 03/24/2005 09529 Visual Field Exam Extended Completed 12/27/2004 84141 Trabeculoplasty By Laser Surgery Completed 12/20/2004 16657 Fundus Photography With Interpretation And Report Completed 12/20/2004 64710 Scanning Laser W/Interp And Report Completed 12/20/2004 70896 Determination Of Refractive State Completed 12/20/2004 91796 Est Patient Comprehensive Exam Completed 06/19/2004 06129 Fundus Photography With Interpretation And Report Completed 06/19/2004 29056 Est Patient Intermediate Exam Completed 06/18/2004 42599 Rescheduled Appointment Completed 03/18/2004 90931 Visual Field Exam Intermediate Completed 02/07/2004 94109 Patient No Show For Appt Completed Encounters Type Date Location Provider Dx Diagnosis Office Visit 11/11/2018 Sebastian Celestin0.1122 Primary 8:30a , harsha Cardoza M.D. open-angle glaucoma, left eye, moderate stage 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, right eye, severe stage Office Visit 11/01/2018 11:00a Pedrito Kwok H40.1122 Primary MD Amina, harsha Huynh M.D. open-angle glaucoma, left eye, moderate stage 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, right eye, severe stage Office Visit 10/26/2018 11:30a Pedrito Cortes H01.001 Unspecified MD Amina, harsha Cardoza M.D. blepharitis right upper eyelid H01.002 Unspecified blepharitis right lower eyelid H01.004 Unspecified blepharitis left upper eyelid H01.005 Unspecified blepharitis left lower eyelid H40.1122 Primary open-angle glaucoma, left eye, moderate stage Office Visit 08/03/2017 11:15a Pedrito Kwok H40.1113 Primary MD Amina, harsha Huynh M.D. open-angle glaucoma, right eye, severe stage H40.1122 Primary open-angle glaucoma, left eye, moderate stage E11.3293 Type 2 diab with mild nonp rtnop without macular edema, bi Office Visit 12/04/2016 11:30a Pedrito Kwok H40.1113 Primary MD Amina, harsha Huynh M.D. open-angle glaucoma, right eye, severe stage H40.1122 Primary open-angle glaucoma, left eye, moderate stage Office Visit 03/03/2016 10:30a Pedrito Kwok H40.11x3 Stacey Huynh MD, harsha Huynh M.D. open-angle glaucoma, severe stage H25.813 Combined forms of age-related cataract, bilateral E11.329 Type 2 diab w mild nonprlf diabetic rtnop w/o macular edema Office Visit 10/02/2015 8:45a Pedrito Kwok H40.11x3 Stacey Huynh MD, harsha Huynh M.D. open-angle glaucoma, severe stage Office Visit 07/10/2015 12:30p Pedrito Kwok 365.11 Primary Open MD Amina, harsha Huynh M.D. Angle Glaucoma 365.73 Severe / Advanced / End Stage Glaucoma Office Visit 05/11/2015 7:45a Pedrito Celestin 365.11 Primary Open harsha AARON M.D. Angle Glaucoma 365.73 Severe / Advanced / End Stage Glaucoma Office Visit 10/10/2013 9:15a Pedrito Celestin 365.11 Primary Open harsha AARON M.D. Angle Glaucoma 365.73 Severe / Advanced / End Stage Glaucoma Office Visit 03/05/2012 11:45a Pedrito Celestin 365.11 Primary Open harsha AARON M.D. Angle Glaucoma 365.73 Severe / Advanced / End Stage Glaucoma Office Visit 05/22/2011 2:45p Pedrito Cherry 372.30 Conjunctivitis Vamshi Huynh MD, harsha Stewart O.D. Office Visit 01/10/2011 1:15p Pedrito Kwok 365.11 Primary Open Angle MD Amina, harsha Huynh M.D. Glaucoma Office Visit 08/07/2009 11:15a Pedrito Kwok 365.11 Primary Open Angle MD Amina, harsha Huynh M.D. Glaucoma Office Visit 06/28/2009 11:30a Pedrito Kwok 365.11 Primary Open Angle MD Amina, harsha Huynh M.D. Glaucoma Office Visit 05/04/2007 9:15a Pedrito Kwok 365.11 Primary Open Angle MD Amina, harsha Huynh M.D. Glaucoma Office Visit 09/18/2005 1:15p Pedrito Kwok 372.51 Shimon Huynh MD, harsha Huynh M.D. Office Visit 09/10/2005 9:15a Pedrito Kwok 365.11 Primary Open Angle MD Amina, harsha Huynh M.D. Glaucoma Office Visit 05/05/2005 9:45a Pedrito Kwok 365.11 Primary Open Angle MD Amina, harsha Huynh M.D. Glaucoma Plan of Treatment 01/07/2019 - Pedrito Huynh M.D.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, right eye, severe stageComments:Smoking can increase the risk of developing or worsening any eye related disease, as well as affect your overall health. If you are a smoker, we strongly recommend that you quit.If you are not a smoker, we strongly recommend that you do not start. Your Glaucoma is stable at this time in your right eye. Your eye pressure is within an acceptable range, and your testing does not show any further deterioration at this time. Please continue your treatment as directed and keep follow up appointments.Follow up:4 Month Follow Up Diagnostic Refraction You can expect to have your eyes dilated at your next visit. If Dr. Huynh orders any additional testing, it may require extra time. We recommend that you bring sunglasses, as dilation drops often make you light sensitive until they wear off. We always recommendyou bring someone to drive you home if you are uncomfortable driving with your eyes dilated. If you have any questions before your next visit, feel free to call our office at .H40.1122 Primary open-angle glaucoma, left eye, moderate stageComments:Your glaucoma is stable at this time in your left eye.Your eye pressure is within an acceptable range, and your testing does not show any further deterioration at this time. Please continue your treatment as directed and keep follow up appointments.H25.813 Combined forms of age-related cataract, bilateralComments:You have been diagnosed with cataracts. If you are happy with your vision as it is now, then we willsee you at your next scheduled appointment. If you feel like your vision is getting worse before your scheduled appointment, please call Kaitlin Calderon at [phone].E11.3293 Type 2 diabetes mellitus with mild nonproliferative diabeticComments:I can detect diabetic changes in your eyes. Proper control of your diabetes is important for the health of your eyes. It is important that you keep all of your follow up appointments. Dr. Huynh has sent a report to your primary care doctor, letting them know the current status of your retina.
--- OUTSIDE RECORDS SUMMARY | 2019-01-31 21:14 | XMS REPORT | Continuity of Care Document ---
:1940 External Reference #:[id number] Author Name Itzel Rivera Care Team Providers Name Role Phone Daniel Peng MD Primary Care Physician Unavailable Payers Date Identification Numbers Payment Provider Subscriber Effective: 2002 Policy Number: [id number] Medicare [employer] Michele Foley PayID: [id number] [address] [address] [place] [address] Effective: 2012 Policy Number: [id number] [employer] Michele Foley PayID: [id number] [address] [address] [place] [address] Advance Directives Description No Information Available Problems Date Description Provider Status Onset: 10/29/2018 Chronic kidney disease stage 2 Daniel Peng M.D., FACP Active due to type 2 diabetes mellitus Note: with microalbumin 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/2018 Panhypopituitarism Daniel Peng M.D.,FACP Active Onset: 06/03/2018 Type 2 diabetes mellitus Daniel Peng M.D.,FACP Active Onset: 05/27/2017 Disorder of pituitary gland Daniel Peng M.D.,FACP Active Note: apoplexy 2006 Onset: 05/27/2017 Primary antiphospholipid syndrome Carolann Thorpe M.D.,BOYDP Onset: 05/27/2017 Acquired hypothyroidism Carolann Thorpe M.D.,FACP Onset: 05/27/2017 Testicular hypofunction Carolann Thorpe M.D.,FACP Onset: 05/27/2017 Celiac disease Carolann Thorpe M.D.,FACP Onset: 05/27/2017 Essential hypertension Carolann Thorpe M.D.,FACP Onset: 05/27/2017 Gout Carolann Thorpe M.D.,FACP Onset: 05/27/2017 Glaucoma Carolann Thorpe M.D.,FACP Note: trabulectomy Onset: 05/27/2017 Obstructive sleep apnea Daniel Peng M.D.,FACP Active syndrome Onset: 06/19/2017 Benign prostatic hypertrophy Daniel Peng M.D.,BOYDP Active without outflow obstruction Note: s/p TURP Onset: 06/19/2017 Disseminated idiopathic skeletal Carolann Thorpe hyperostosis Oksana,FACP Onset: 09/15/2017 Bilateral hearing loss Carolann Thorpe M.D.,FACP Onset: 01/20/2018 Atherosclerosis of arteries of Tony Henning M.D. Active the extremities Onset: 04/19/2018 Long-term current use of insulin MODE Guzman Active Onset: 10/19/2018 Cholelithiasis without Daniel Peng Active obstruction Oksana,FACP Onset: 05/27/2017 Diabetes mellitus Hamzah Thorpe M.D.,FACP Inactive: 06/22/2018 Onset: 04/19/2018 Chest pain MODE Guzman Resolved Resolved: 06/03/2018 Family History Date Family Member(s) Observation Comments General No Current Problems General Heart Disease General Hypertension General Rheumatoid Arthritis : (05/27/2017) Father due to [place] Onset: (05/27/2017) Father 53 Mother due to Diabetes () Onset: (05/27/2017) Mother 58 Onset: (05/27/2017) Siblings 3 First Brother Hypertension First Brother 81 Second Brother Subdural Hemorrhage Second Brother 49 First Sister Hypertension First Sister 79 Social History Type Date Description Comments Sex Unknown Marital Status 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 Cigarette Use Quit - Age 50 ETOH Use 09/15/2017 Denies alcohol use Tobacco Use Start: Unknown End: Patient is a former smoker Recreational Drug Use Denies Drug Use Smoking Status Reviewed: 01/19/19 Patient is a former smoker Exercise Type/Frequency Does not exercise Allergies, Adverse Reactions, Alerts Date Description Reaction Status Severity Comments 10/02/2016 Keflex Active 04/26/2018 Protonix Active diarrhea 05/16/2015 NKDA Inactive Medications Medication Date Status Form Strength Qnty SIG Indications Ordering Provider Triamcinolone 01/19/ Active Cream 0.5% 45gm apply twice Liam Acetonide 2018 daily to the [place] affected area Losartan 10/29/ Active Tablets 100mg 90tab 1 by mouth Daniel Potassium 2018 s every day Beckie Peng M.D.,FACHeriberto Cheratussin ac 09/10/ Active Syrup 100-10mg/ 473ml 10 Daniel 2017 5ML milliliters Beckie Peng, by mouth M.D.,RUSTAM four times a day as needed Ranitidine HCL 04/26/ Active Tablets 150mg 60tab 01/19/19 takes Ray Mixon 2017 s as needed Beckie Peng, take one M.D.,FACP tablet by mouth twice a day prn Insulin 02/09/ Active Misc 29G X 100un use twice E11.9 Daniel Syringe/U-100/1 2018 1/2" 1 ML its daily with Beckie Peng, ML/29G X 1/2" insulin M.D.,FACP Prednisone 02/09/ Active Tablets 2.5mg 270ta 2 tabs PO Daniel 2017 bs qam and 1 DKenya Peng, tab po qpm M.D.,FACP Androgel Pump 01/20/ Active Gel 20.25mg/A [address] topical Beckie Peng, (1.62%) daily M.D.,FACP Magnesium-Oxide 06/11/ Active Tablets 400(241.3 90tab 1 by mouth Ray Mixon 2016 mg) mg s every D. Danish, evening M.D.,FACP Levothyroxine / Active Tablets 112mcg 1 by mouth Unknown Sodium 0000 every day Liothyronine / Active Tablets 5mcg bid Unknown Sodium 0000 Desmopressin / Active Tablets 0.2mg 1 by mouth Unknown Acetate 0000 twice daily Lyrica / Active Capsules 50mg 120ca 1-2 tab by Jose Hicks 0000 ps mouth twice Denise, daily M.D. Lantus / Active Solution 100Unit/M 50 units SC Unknown 0000 L daily Humalog Kwikpen / Active Solution 100Unit/M 7u Unknown 0000 Pen-Inject L pre-break, 10u pre-lunch, 12u pre-dinner Xarelto / Active Tablets 10mg 90tab take one Daniel 0000 s tablet by Beckie Peng, mouth every M.D.,FACP day Allopurinol / Active Tablets 300mg 90tab Take One Daniel 0000 s Tablet By Beckie Peng, Mouth Every M.D.,FACP Day Acetaminophen-C / Active Tablets 300-30mg Take 1 2 Unknown odeine #3 0000 Tablet By Mouth Two Times A Day as Needed Maximum Daily Dose 1 Tablet Celebrex 07/24/ Hx Capsules 100mg 30cap 1-2 po qd Amari Kwok 2008 s Rachelle, 04/16/ M.D. 2014 Percocet 01/30/ Hx Tablets 10-325mg 60tab 1-2 po qid Amari Kwok 2008 prn Rachelle, M.D. 2014 Androgel / Hx Gel 25mg/2.5G apply 2 Daniel 0000 - M (1%) pumps each Beckie Peng, twice a [facility] 2018 day Coumadin / Hx Tablets 5mg as directed Unknown 0000 - 2015 Pilocarpine HCL / Hx Solution 4% 1 drop both Unknown 0000 - eyes daily 2016 Lumigan / Hx Solution 0.01% instill one Unknown 0000 - drop in each eye at 2017 bedtime every day Losartan / Hx Tablets 50mg 90tab 1 by mouth Daniel Potassium 0000 - s every day Beckie Peng, 10/29/ M.D.,FACP 2018 Prednisone / Hx Tablets 5mg 135ta 1 tab po qam Daniel 0000 - bs and 1/2 tab Beckie Peng, 02/09/ po qpm M.D.,FACP 2018 Metformin HCL / Hx Tablets 500mg 1 by mouth Unknown 0000 - twice a day 2016 Viagra /00/ Hx Tablets 100mg by mouth 0.5 Unknown 0000 - or 1 tab 1h 2016 intercourse Dorzolamide HCL / Hx Solution 2% 1 drop left Unknown 0000 - eye twice 2016 Celebrex 00/ Hx Capsules 200mg 1 by mouth Unknown 0000 - every day 2016 Lantus / Hx Unknown 0000 - 2016 Repaglinide / Hx Tablets 1mg 1 by mouth Unknown 0000 - before 2016 Glipizide-Metfo / Hx Tablets 2.5-500mg 2 by mouth Unknown rmin HCL 0000 - twice a day 2017 Brimonidine / Hx Solution 0.2% bid Unknown Tartrate 0000 - 2016 Metformin HCL / Hx Tablets 1000mg 1 by mouth Unknown 0000 - twice a day 2017 Immunizations CPT Code Status Date Vaccine Lot # [id number] Given 09/09/2018 Fluzone High Dose 69935 Given 09/09/2018 Fluzone High Dose 92607 Given 09/15/2017 Pneumococcal Conjugate Vaccine 13 Valent For [id number] Intramuscular Use 56621 Given 09/09/2017 Influenza Virus Vaccine, Quadrivalent, Split, Preservative Free 54675 Given 09/06/2007 Pneumonia Vaccine Vital Signs Date Vital Result Comment 01/19/2019 9:07am Height 70 inches 5'10" Weight 208.50 lb Heart Rate 56 /min BP Systolic 135 mmHg BP Diastolic 71 mmHg Body Temperature 97.3 F O2 % BldC Oximetry 98 % BMI (Body Mass Index) 29.9 kg/m2 10/19/2018 8:08am Height 70 inches 5'10" Weight 219.50 lb Heart Rate 61 /min BP Systolic 150 mmHg BP Diastolic 60 mmHg BP Systolic Recheck 160 mmHg BP Diastolic Recheck 66 mmHg Body Temperature 98.6 F O2 % BldC Oximetry 96 % BMI (Body Mass Index) 31.5 kg/m2 09/10/2018 11:03am Height 70 inches 5'10" Weight 202.00 lb Heart Rate 67 /min BP Systolic Sitting 160 mmHg BP Diastolic Sitting 70 mmHg Body Temperature 96.5 F O2 % BldC Oximetry 97 % BMI (Body Mass Index) 29.0 kg/m2 06/22/2018 11:33am Height 70 inches 5'10" Weight 198.00 lb Heart Rate 64 /min BP Systolic 132 mmHg BP Diastolic 70 mmHg Respiratory Rate 16 /min Body Temperature 97.5 F BMI (Body Mass Index) 28.4 kg/m2 06/03/2018 11:43am Weight 206.00 lb Heart Rate 59 /min BP Systolic Sitting 138 mmHg BP Diastolic Sitting 80 mmHg Body Temperature 97.8 F O2 % BldC Oximetry 95 % 04/26/2018 8:41am Height 70 inches 5'10" Weight 204.00 lb Heart Rate 54 /min BP Systolic Sitting 146 mmHg BP Diastolic Sitting 72 mmHg BP Systolic Recheck 152 mmHg BP Diastolic Recheck 88 mmHg Body Temperature 96.3 F O2 % BldC Oximetry 95 % BMI (Body Mass Index) 29.3 kg/m2 02/09/2018 1:02pm Height 70 inches 5'10" Weight 216.25 lb Heart Rate 63 /min BP Systolic Sitting 138 mmHg BP Diastolic Sitting 78 mmHg Body Temperature 98.0 F O2 % BldC Oximetry 96 % BMI (Body Mass Index) 31.0 kg/m2 01/20/2018 1:22pm Height 70 inches 5'10" Weight 218.00 lb w/ shoes Heart Rate 60 /min BP Systolic Sitting 162 mmHg lue large cuff BP Diastolic Sitting 80 mmHg lue large cuff Respiratory Rate 18 /min BMI (Body Mass Index) 31.3 kg/m2 Ejection Fraction no echo/ss 09/15/2017 4:34pm Weight 220.00 lb Heart Rate 66 /min BP Systolic Sitting 142 mmHg BP Diastolic Sitting 60 mmHg Body Temperature 97.1 F O2 % BldC Oximetry 93 % 08/03/2017 1:04pm Height 69.25 inches 5'9.25" Weight 219.00 lb Heart Rate 59 /min BP Systolic Sitting 138 mmHg BP Diastolic Sitting 80 mmHg O2 % BldC Oximetry 95 % BMI (Body Mass Index) 32.1 kg/m2 05/27/2017 10:52am Height 69.25 inches 5'9.25" Weight 219.00 lb Heart Rate 60 /min BP Systolic Sitting 150 mmHg BP Diastolic Sitting 82 mmHg BP Systolic Recheck 162 mmHg BP Diastolic Recheck 85 mmHg Body Temperature 98.1 F O2 % BldC Oximetry 96 % BMI (Body Mass Index) 32.1 kg/m2 11/26/2016 9:51am Height 71 inches 5'11" Weight 211.00 lb Pain Level 0 BMI (Body Mass Index) 29.4 kg/m2 11/05/2016 10:14am Height 71 inches 5'11" Weight 211.00 lb Pain Level 2 BMI (Body Mass Index) 29.4 kg/m2 10/22/2016 10:06am Height 71 inches 5'11" Weight 222.00 lb Pain Level 3 BMI (Body Mass Index) 31.0 kg/m2 10/08/2016 10:02am Height 71 inches 5'11" Weight 222.00 lb Heart Rate 60 /min Respiratory Rate 16 /min Pain Level 3 BMI (Body Mass Index) 31.0 kg/m2 10/02/2016 9:36am Height 71 inches 5'11" Weight 222.00 lb Heart Rate 60 /min BP Systolic 135 mmHg BP Diastolic 80 mmHg Pain Level 10 BMI (Body Mass Index) 31.0 kg/m2 06/18/2015 1:53pm Height 71 inches 5'11" Weight 215.00 lb Pain Level 0 BMI (Body Mass Index) 30.0 kg/m2 05/16/2015 1:21pm Height 71 inches 5'11" Weight 215.00 lb Heart Rate 61 /min BP Systolic Sitting 172 mmHg BP Diastolic Sitting 90 mmHg Pain Level 9 BMI (Body Mass Index) 30.0 kg/m2 Results Test Date Facility Test Result H/L Range Note Microalbumin 24HR 10/22/2018 [facility] Urine Collection 24 hr Urine [address] [place] [address] [phone] Urine Total Volume 1100 mL Ur Microalbumin (mg/L) 75.6 Urine Microalbumin (mg/24Hr) 83.2 mg/24hr High Less than 30 Urine Microalbumin (mcg/min) 57.8 mcg/min High Less than 20 Creatinine 10/22/2018 [facility] Creatinine, 1.39 High 0.51- 0.[address] Serum mg/[place] [address] [phone] Urine Collection Time 24 hr Urine Total Volume 1100 mL Urine Creatinine Concentration 120.07 mg/dL Creatinine Clearance 66 mL/min Low 97-137 Basic Metabolic Panel 10/22/2018 [facility] Sodium 142 mmol/L N 135-[address] [place] [address] [phone] Potassium 4.1 mmol/L N 3.5-5.0 Chloride 110 mmol/L N 101-111 Co2 Carbon Dioxide 22 mmol/L N 22-32 Anion Gap 10 mmol/L N 2-11 Glucose 181 mg/dL High 70-100 Blood Urea Nitrogen 20 mg/dL N 6-24 Creatinine 1.43 mg/dL High 0.67-1.17 BUN/Creatinine Ratio 14.0 N 8-20 Calcium 8.6 mg/dL N 8.6-10.3 Egfr Non- 47.8 >60 Egfr 57.9 >60 1 Laboratory test 10/22/2018 [facility] Uric Acid 3.7 mg/dL Low 4.4-7.6 2 finding [address] [place] [address] [phone] Laboratory test 08/06/2018 [facility] Lipase < 10 U/L Low 11.0 -82.0 finding [address] [place] [address] [phone] Laboratory test 07/13/2018 [facility] Lactic Acid 1.5 mmol/L N 0.5-2.0 3 finding [address] [place] [address] [phone] Comp Metabolic 07/13/2018 [facility] Sodium 135 mmol/L N 135- 145 Panel [address] [place] [address] [phone] Potassium 3.9 mmol/L N 3.5-5.0 Chloride 101 mmol/L N 101-111 Co2 Carbon Dioxide 25 mmol/L N 22-32 Anion Gap 9 mmol/L N 2-11 Glucose 183 mg/dL High 70-100 Blood Urea Nitrogen 24 mg/dL N 6-24 Creatinine 2.02 mg/dL High 0.67-1.17 BUN/Creatinine Ratio 11.9 N 8-20 Calcium 8.9 mg/dL N 8.6-10.3 Total Protein 6.5 g/dL N 6.4-8.9 Albumin 3.8 g/dL N 3.2-5.2 Globulin 2.7 g/dL N 2-4 Albumin/Globulin Ratio 1.4 N 1-3 Total Bilirubin 0.90 mg/dL N 0.2-1.0 Alkaline Phosphatase 66 U/L N 34-104 Alt 22 U/L N 7-52 Ast 17 U/L N 13-39 Egfr Non- 32.2 >60 Egfr 38.9 >60 4 Laboratory test 07/13/2018 [facility] Lipase < 10 U/L Low 11.0 -82.[address] [place] [address] [phone] C Reactive Protein 91.86 mg/L High <8.01 CBC Auto Diff 07/13/2018 [facility] White Blood 7.2 10^3/uL N 3.5-10.[address] [place] [address] [phone] Red Blood Count 4.95 10^6/uL N 4.00-5.40 Hemoglobin 15.4 g/dL N 14.0-18.0 Hematocrit 46 % N 42-52 Mean Corpuscular Volume 93 fL N 80-94 Mean Corpuscular Hemoglobin 31 pg N 27-31 Mean Corpuscular HGB Conc 34 g/dL N 31-36 Red Cell Distribution Width 16 % High 10.5-15 Platelet Count 180 10^3/uL N 150-450 Mean Platelet Volume 9.2 um3 N 7.4-10.4 Abs Neutrophils 4.8 10^3/uL N 1.5-7.7 Abs Lymphocytes 1.3 10^3/uL N 1.0-4.8 Abs Monocytes 1.0 10^3/uL High 0-0.8 Abs Eosinophils 0 10^3/uL N 0-0.6 Abs Basophils 0.1 10^3/uL N 0-0.2 Abs Nucleated RBC 0 10^3/uL Granulocyte % 66.7 % N 38-83 Lymphocyte % 17.8 % Low 25-47 Monocyte % 14.1 % High 0-7 Eosinophil % 0.6 % N 0-6 Basophil % 0.8 % N 0-2 Nucleated Red Blood Cells % 0.1 Urinalysis Profile 07/13/2018 [facility] Urine Color Yellow [address] [place] [address] [phone] Urine Appearance Cloudy Urine Specific [place] 1.016 N 1.010-1.030 Urine pH 5.0 N 5-9 Urine Urobilinogen Negative Negative Urine Ketones Trace Abnormal Negative Urine Protein 1+(30 mg/dL) Abnormal Negative Urine Leukocytes Negative Negative Urine Blood Negative Negative Urine Nitrite Negative Negative Urine Bilirubin Negative Negative Urine Glucose Negative Negative Urine White Blood Cell 1+(6-10/hpf) Abnormal Absent Urine Red Blood Cell Trace(0-2/hpf) Absent Urine Bacteria Absent Absent Urine Squamous Epithelial Cell Present Abnormal Absent Urine Hyaline Casts Present Abnormal Absent Urine Culture And 07/13/2018 [facility] Urine Culture SEE RESULT [address] [place] [address] [phone] Comp Metabolic 04/28/2018 [facility] Sodium 139 mmol/L N 139- [address] [place] [address] [phone] Potassium 4.6 mmol/L N 3.5-5.0 Chloride 103 [...] Egfr Non- 44.4 >60 Egfr 57.0 >60 6 Laboratory test 04/28/2018 [facility] C Reactive 8.48 mg/L High < 5.00 [address] [place] [address] [phone] Laboratory test 04/28/2018 [facility] TSH (Thyroid 0.05 Low 0.34-5.[address] Stim Horm) mcIU/[place] [address] [phone] T3 Free 3.30 pg/mL N 2.5-3.9 Free T4 (Free Thyroxine) 1.18 ng/dL High 0.61-1.12 T3 Total 69 ng/dL Low 87-178 Basic Metabolic 04/28/2018 [facility] Sodium 138 mmol/L Low 139-[address] [place] [address] [phone] Potassium 4.6 mmol/L N 3.5-5.0 Chloride 103 mmol/L N 101-111 Co2 Carbon Dioxide 27 mmol/L N 22-32 Anion Gap 8 mmol/L N 2-11 Glucose 173 mg/dL High 70-100 Blood Urea Nitrogen 29 mg/dL High 6-24 Creatinine 1.47 mg/dL High 0.67-1.17 BUN/Creatinine Ratio 19.7 N 8-20 Calcium 9.1 mg/dL N 8.6-10.3 Egfr Non- 46.5 >60 Egfr 59.7 >60 8 CBC Auto Diff 04/28/2018 [facility] White Blood 6.3 10^3/uL N 3.5-10.[address] [place] [address] [phone] Red Blood Count 4.52 10^6/uL N 4.00-5.40 [...] Red Blood Cells % 0.1 Laboratory test 04/26/2018 [employer] [facility] Hemoglobin A1c 7.8 High 5-7 finding Inr/Protime 04/19/2018 [facility] Inr 1.67 High 0.77-1.[address] [place] [address] [phone] Laboratory test 04/19/2018 [facility] Partial Thrombo 36.4 seconds High 26.0-36.[address] [place] [address] [phone] B-Type Natriuretic Peptide BNP 85 pg/mL 9 Troponin-I (TnI) 0.03 ng/mL <0.04 CKMB 04/19/2018 [facility] CKMB ng/mL 2.1 ng/mL N 0.6-6.[address] [place] [address] [phone] Laboratory test 04/19/2018 [facility] TSH (Thyroid 0.07 Low 0.34-5.[address] Stim Horm) mcIU/[place] [address] [phone] Comp Metabolic 04/19/2018 [facility] Sodium 137 mmol/L Low 139 -[address] [place] [address] [phone] Potassium 4.0 mmol/L N 3.5-5.0 Chloride 101 mmol/L N 101-111 Co2 Carbon Dioxide 24 mmol/L N 22-32 Anion Gap 12 mmol/L High 2-11 Glucose 232 mg/dL High 70-100 Blood Urea Nitrogen 24 mg/dL N 6-24 Creatinine 1.49 mg/dL High 0.67-1.17 BUN/Creatinine Ratio 16.1 N 8-20 Calcium 8.8 mg/dL N 8.6-10.3 Total Protein 6.1 g/dL Low 6.4-8.9 Albumin 3.6 g/dL N 3.2-5.2 Globulin 2.5 g/dL N 2-4 Albumin/Globulin Ratio 1.4 N 1-3 Total Bilirubin 0.50 mg/dL N 0.2-1.0 Alkaline Phosphatase 69 U/L N 34-104 Alt 26 U/L N 7-52 Ast 18 U/L N 13-39 Egfr Non- 45.7 >60 Egfr 58.8 >60 10 Laboratory test 04/19/2018 [facility] Magnesium 1.9 mg/dL N 1.9-2.[address] [place] [address] [phone] Creatine Kinase(CK) 47 U/L N 10-223 Lactic Acid 2.5 mmol/L High 0.5-2.0 11 D Dimer Quantitative < 200 ng/mL N Less Than 230 12 C Reactive Protein 23.95 mg/L High < 5.00 13 CBC Auto Diff 04/19/2018 [facility] White Blood 6.8 10^3/uL N 3.5-10.[address] [place] [address] [phone] Red Blood Count 4.62 10^6/uL N 4.0-5.4 Hemoglobin 14.4 g/dL N 14.0-18.0 Hematocrit 43 % N 42-52 Mean Corpuscular Volume 93 fL N 80-94 Mean Corpuscular Hemoglobin 31 pg N 27-31 Mean Corpuscular HGB Conc 34 g/dL N 31-36 Red Cell Distribution Width 15 % N 10.5-15 Platelet Count 183 10^3/uL N 150-450 Mean Platelet Volume 9.5 um3 N 7.4-10.4 Abs Neutrophils 5.0 10^3/uL N 1.5-7.7 Abs Lymphocytes 0.7 10^3/uL Low 1.0-4.8 Abs Monocytes 1.0 10^3/uL High 0-0.8 Abs Eosinophils 0 10^3/uL N 0-0.6 Abs Basophils 0 10^3/uL N 0-0.2 Abs Nucleated RBC 0 10^3/uL Granulocyte % 73.8 % N 38-83 Lymphocyte % 10.8 % Low 25-47 Monocyte % 14.3 % High 0-7 Eosinophil % 0.6 % N 0-6 Basophil % 0.5 % N 0-2 Nucleated Red Blood Cells % 0 Laboratory test 04/19/2018 [facility] Troponin-I 0.02 ng/mL < 0.[address] (TnI) [place] [address] [phone] CBC Auto Diff 03/10/2018 [facility] White Blood 6.6 N 3.5- 10.[address] Count 10^3/[place] [address] [phone] Red Blood Count 4.28 10^6/uL N 4.0-5.4 Hemoglobin 13.3 g/dL Low 14.0-18.0 Hematocrit 39 % Low 42-52 Mean Corpuscular Volume 92 fL N 80-94 Mean Corpuscular Hemoglobin 31 pg N 27-31 Mean Corpuscular HGB Conc 34 g/dL N 31-36 Red Cell Distribution Width 15 % N 10.5-15 Platelet Count 155 10^3/uL N 150-450 Mean Platelet Volume 9.7 um3 N 7.4-10.4 Abs Neutrophils 5.1 10^3/uL N 1.5-7.7 Abs Lymphocytes 0.7 10^3/uL Low 1.0-4.8 Abs Monocytes 0.7 10^3/uL N 0-0.8 Abs Eosinophils 0 10^3/uL N 0-0.6 Abs Basophils 0.1 10^3/uL N 0-0.2 Abs Nucleated RBC 0 10^3/uL Granulocyte % 76.3 % N 38-83 Lymphocyte % 11.0 % Low 25-47 Monocyte % 11.2 % High 0-7 Eosinophil % 0.7 % N 0-6 Basophil % 0.8 % N 0-2 Nucleated Red Blood Cells % 0.1 Inr/Protime 03/10/2018 [facility] Inr 1.50 High 0.77-1.[address] [place], [place] [address] [phone] Laboratory test 03/10/2018 [facility] Partial 36.7 High 26.0- 36.[address] [place] [address] PTT [phone] Xray 03/10/2018 [facility] Angio <pending> [address] [place] [address] Unilateral [phone] Angio Pelvic Selective Supraselect <pending> Laboratory test 03/03/2018 [facility] Uric Acid 4.1 mg/dL Low 4.4-7.6 [address] [place], [place] [address] [phone] Urine 03/03/2018 [facility] Ur Microalbumin 71.0 mg/L Microalbumin [address] (mg/L) [place] [address] [phone] Urine Creatinine 178.34 mg/dL Urine Microalbumin/Creatinine 39.8 ug/mg High <31 Basic Metabolic Panel 03/03/2018 [facility] Sodium 142 mmol/L N 139-[address] [place] [address] [phone] Potassium 4.4 mmol/L N 3.5-5.0 Chloride 106 mmol/L N 101-111 Co2 Carbon Dioxide 26 mmol/L N 22-32 Anion Gap 10 mmol/L N 2-11 Glucose 208 mg/dL High 70-100 Blood Urea Nitrogen 30 mg/dL High 6-24 Creatinine 1.46 mg/dL High 0.67-1.17 BUN/Creatinine Ratio 20.5 High 8-20 Calcium 9.3 mg/dL N 8.6-10.3 Egfr Non- 46.8 >60 Egfr 60.2 >60 15 Laboratory test 11/13/2017 [facility] Hemoglobin A1c 8.6 % High 4.0-5.[address] (Glyco HGB) [place] [address] [phone] Basic Metabolic 11/13/2017 [facility] Sodium 142 N 133-[address] mmol/[place] [address] [phone] Chloride 103 mmol/L N 101-111 Co2 Carbon Dioxide 28 mmol/L N 22-32 Glucose 151 mg/dL High 70-100 Blood Urea Nitrogen 24 mg/dL N 6-24 Creatinine 1.51 mg/dL High 0.67-1.17 BUN/Creatinine Ratio 15.9 N 8-20 Calcium 9.2 mg/dL N 8.6-10.3 Egfr Non- 45.0 >60 Egfr 57.9 >60 17 Potassium 5.1 mmol/L High 3.5-5.0 Anion Gap 11 mmol/L N 2-11 Lipid Profile 11/13/2017 [facility] Triglycerides 78 mg/dL 18 (Trig/Chol/HDL) [address] [place] [address] [phone] Cholesterol 152 mg/dL 19 HDL Cholesterol 49.6 mg/dL 20 LDL Cholesterol 87 mg/dL 21 Laboratory test 08/19/2017 [facility] Point of Care 179 mg/dL High 70-100 [address] [place] [address] [phone] Laboratory test 08/19/2017 [facility] Point of Care 269 mg/dL High 70-[address] [place] [address] [phone] Laboratory test 08/05/2017 [facility] Point of Care 221 mg/dL High 70-100 24 finding 101 [facility] [place] [address] [phone] Laboratory test 06/05/2017 [facility] Testosterone 501.36 N 240-950 finding [address] [facility] Total ng/[place] [address] [phone] Cortisol 0.79 g/dL N 25 Free T4 (Free Thyroxine) 1.08 ng/dL N 0.61-1.12 Basic Metabolic Panel 06/05/2017 [facility] Sodium 138 mmol/L N 133-145 [address] [place] [address] [phone] Potassium 3.9 mmol/L N 3.5-5.0 Chloride 102 mmol/L N 101-111 Co2 Carbon Dioxide 27 mmol/L N 22-32 Anion Gap 9 mmol/L N 2-11 Glucose 124 mg/dL High 70-100 Blood Urea Nitrogen 18 mg/dL N 6-24 Creatinine 1.31 mg/dL High 0.67-1.17 BUN/Creatinine Ratio 13.7 N 8-20 Calcium 9.0 mg/dL N 8.6-10.3 Egfr Non- 53.2 N >60 Egfr 68.4 N >60 26 Laboratory test 06/05/2017 [facility] Uric Acid 3.8 mg/dL Low 4.4-7.[address] [place] [address] [phone] CBC Auto Diff 06/05/2017 [facility] White Blood 6.0 10^3/uL N 3.5-10.8 [address] [facility] [place] [address] [phone] Red Blood Count 4.72 10^6/uL N 4.0-5.4 Hemoglobin 14.3 g/dL N 14.0-18.0 Hematocrit 44 % N 42-52 Mean Corpuscular Volume 93 fL N 80-94 Mean Corpuscular Hemoglobin 30 pg N 27-31 Mean Corpuscular HGB Conc 33 g/dL N 31-36 Red Cell Distribution Width 16 % High 10.5-15 Platelet Count 169 10^3/uL N 150-450 Mean Platelet Volume 11 um3 High 7.4-10.4 Abs Neutrophils 3.8 10^3/uL N 1.5-7.7 Abs Lymphocytes 1.2 10^3/uL N 1.0-4.8 Abs Monocytes 0.9 10^3/uL High 0-0.8 Abs Eosinophils 0.1 10^3/uL N 0-0.6 Abs Basophils 0.1 10^3/uL N 0-0.2 Abs Nucleated RBC 0 10^3/uL N Granulocyte % 63.4 % N 38-83 Lymphocyte % 20.1 % Low 25-47 Monocyte % 14.3 % High 1-9 Eosinophil % 1.2 % N 0-6 Basophil % 1.0 % N 0-2 Nucleated Red Blood Cells % 0.1 N Laboratory 06/05/2017 [facility] Magnesium 1.6 mg/dL Low 1.9- 2.7 test finding [address] [place] [address] [phone] Order 05/27/2017 [employer] Supervisor In-House EKG <pending> Surgical 01/25/2009 [facility] Surgical --------- [address] [place] [address] Pathology ------- [place] [address] <SEE [phone] NOTE> Laboratory 01/19/2009 [facility] PTT (Aptt) 36.5 High 20.1- 28.2 28, test finding [facility] [address] [place] [address] [phone] Protime 01/19/2009 [facility] Protime 20.3 High 10.9-13.[address] [place] [address] [phone] Inr 2.83 30 Laboratory test 01/19/2009 [facility] Antibody Anti-E finding [address] [facility] [place] [address] [phone] Abid Comment . 31 Direct Antiglobulin Test NEGATIVE 32 Type And Screen 01/19/2009 [facility] Patient Blood Type A POSITIVE [address] [place] [address] [phone] Antibody Screen POSITIVE Specimen Discard Date 02/02/09 33 Basic Metabolic 01/19/2009 [facility] Sodium 134 mmol/L Low 135-[address] [place] [address] [phone] Potassium 4.0 mmol/L 3.5-5.0 Chloride 101 mmol/L 101-111 Co2 (Carbon Dioxide) 24.0 mmol/L 22-32 Anion Gap 9.0 mmol/L 2-11 34 Glucose 119 mg/dL High 70-100 35 BUN 19 mg/dL 6-24 Creatinine 1.10 mg/dL 0.50-1.40 One Over Creatinine 0.90 BUN/Creatinine Ratio 17.3 8-20 Calcium 8.7 mg/dL 8.1-9.9 36 CBC With Manual 01/19/2009 [facility] White Blood 7.3 CUMM 4.8-10.[address] [place] [address] [phone] Red Cell Count 4.87 CUMM 4.6-6.2 Hemoglobin 14.9 g/dL 14.0-18.0 Hematocrit 44 % 42-52 Mean Corpuscular Volume 90 um3 80-94 Mean Corpuscular Hemoglob 31 pg 27-31 Mean Corpuscular HGB Cone 34 g/dL 32-36 Redcell Distribution WDTH 14 % 10.5-15 Platelet Count 246 CUMM 150-450 Mean Platelet Volume 8.2 um3 7.4-10.4 Polysegmented Neutrophil 70 % 38-83 Band Neutrophil 2 % 0-8 Lymphocyte 15 % Low 25-47 Monocyte 8 % 0-13 Eosenophil 3 % 0-6 Atypical Lymph 1 % 0-6 Metamyelocyte 1 % 0-2 Absolute Neutrophil Count 5.2 RBC Morphology NORMAL 1 Because ethnic data is not always [...] 5 Kidney failure <15 (or dialysis) 2 Copy Result to: [facility] ([id number]) 3 [facility] Severe Sepsis and Septic Shock Management Bundle Measure requires all lactic acids initially measuring >2.0 mmol/L be repeated. 4 Because ethnic data is not always readily [...] 15-29 5 Kidney failure <15 (or dialysis) 5 SEE RESULT BELOW Name: MICHELE FOLEY : [address]: Doug Rondon MD Acct: [id number] Unit: [id number] AGE: 77 Location: ED Re07/13/18 SEX: M Status: DEP ER SPEC: [id number] BOOKER: 07/13/[address]: Curt Rogers MD REQ: [id number] RECD: 07/13/18 STATUS: LAURA GORE DR: Daniel Peng MD _ SOURCE: URINE [facility]ESC: ORDERED: Urine Culture Procedure Result Reported Site Urine Culture Final 07/15/18- 0848 ML No growth of clinically significant organisms * ML - Main Lab . END OF REPORT DEPARTMENT OF PATHOLOGY, [address] [place] [address] Manoj Lerner M.D. Director [facility] # [id number] 6 Because ethnic data is not always readily [...] 15-29 5 Kidney failure <15 (or dialysis) 7 Acute inflammation: >10.00 8 Because ethnic data is not always readily [...] 15-29 5 Kidney failure <15 (or dialysis) 9 >100 to <200 pg/mL: likely compensated congestive heart failure (CHF) 200 to 400 pg/mL: likely moderate CHF >400 pg/mL: likely moderate to severe CHF 10 Because ethnic data is not always [...] 5 Kidney failure <15 (or dialysis) 11 Critical Result LACT:2.5 Called to [id number] at: 17:52:15 by:[id number] Read back by:DEV[place]TE [place] Severe Sepsis and Septic Shock Management Bundle Measure requires all lactic acids initially measuring >2.0 mmol/L be repeated. 12 Please note: The following may produce a false positive D Dimer test: - Rheumatoid factor greater than 60 IU/ml - Plasma hemoglobin greater than 0.05 gm/dl - Bilirubin greater than 50 mg/dl - Lipids greater than 1000 mg/dl - FDP greater than 20 ug/ml 13 Acute inflammation: >10.00 14 Copy Result to: [facility] ([id number]) 15 Because ethnic data is not always readily [...] 15-29 5 Kidney failure <15 (or dialysis) 16 Therapeutic target for the treatment of diabetes mellitus patients is <7% HBA1C, and in selective patients <6.0%. Please refer to [place] [employer] diabetic care guidelines for further information. 17 Because ethnic data is not always readily [...] 15-29 5 Kidney failure <15 (or dialysis) 18 Desirable: <150 Borderline High: 150-199 High: 200-499 Very High: >500 19 Desirable: <200 Borderline High: 200-239 High: >239 20 Low: <40 Desirable: 40-60 High: >60 21 Desirable: <100 Near Optimal: 100-129 Borderline High: 130-159 High: 160-189 Very High: >189 22 Slip Cover Maker: [id number] Slip Cover Maker: [id number] Slip Cover Maker: [id number] 25 AM 8.7-22.4 PM <10 26 Because ethnic data is not always readily [...] 15-29 5 Kidney failure <15 (or dialysis) 27 ---- RUN DATE: 01/30/09 [facility] NMI LIVE PAGE 1 RUN TIME: 1314 Specimen Inquiry RUN USER: INTERFACE -- Name: MICHELE FOLEY Status: DIS IN Re01/25/09 Age/Sex: 68/M Unit#: [id number] Location: [facility]. : [birth year] -- Specimen: [id number] SOUT Spec Date: 01/25/[address]: Amari alegre MD Spec Type: SURGICAL P Received: 01/26/09-8445 Copies to: SPECIMEN DISC C4-C5 HISTORY PRE-OP DIAGNOSIS: Cord compression from C4-5 cord compression GROSS DESCRIPTION The specimen is received in formalin labelled Michele Foley, Disc C4-5, and consists of multiple fragments of gardiner tissue, measuring in aggregate 2.0 x 2.0 x 1.0 cm. Property Claims Adjuster sections, one cassette. DIAGNOSIS Intervertebral disc, C4-C5, discectomy: Intervertebral disc material with myxoid degeneration. Signed Electronically by: MANOJ LERNER MD 01/29/09 1438 -- -- DEPARTMENT OF PATHOLOGY, [address] [place] [address] [facility] Permit #[id number] Manoj Lerner M.D. Director Tom Downey M.D. Mortgage Or Loan Underwriter Dir travis -- 28 SDS 01/26/09 29 PLEASE NOTE NEW REFERENCE RANGE EFFECTIVE 08. 30 YESSENIA VALUE=2.01 ( OF 10/22/07 Recommended INR for Patients on Oral Anticoagulants Prophylaxis 2.0 - 3.0 Treatment of thrombosis 2.0 - 3.0 Prevention of embolism 2.0 - 3.0 Prevention of embolism from prosthetic heart valves 2.5 - 3.5 31 *PATIENT'S BLOOD CONTAINS ATYPICAL ANTIBODIES. ADDITIONAL UNITS OF COMPATIBLE BLOOD CANNOT BE AVAILABLE IN AN EMERGENCY* 32 DIRECT FLORIN INTERPRETATION: RESULT: INTERPRETATION: WEAKLY POSITIVE POSITIVE 1+ POSITIVE 2+ POSITIVE 3+ POSITIVE 4+ POSITIVE 33 PREADMISSION TESTING SAMPLES FOR BLOOD BANK WILL [...] WITHIN 3 DAYS OF THE SURGERY DATE. 34 Anion gap measurement may be of limited value in the presence of any alkalosis, especially in a combined acid base disorder. . 35 Note change in reference range as of 07/06/08. The change was based on recommendations from the [place] [employer]. 36 Please note change in reference range effective 08 . Procedures Date Code Description Status 01/07/2019 [id number] Diabetic Retinal Eye Exam Completed 08/27/2018 445742375 Diabetic Retinal Eye Exam Completed 05/25/2018 [id number] Diabetic Retinal Eye Exam Completed 04/20/2018 47659 Treadmill Interp/Report Only Completed 04/20/2018 39976 Stress Test Supervsn W/Out I/R Completed 04/20/2018 39232 EKG, Interpretation Only Completed 03/10/2018 64843 Catheter Placement Arterial System Init 3RD Order Completed Abdom/Pelv/Low 03/10/2018 35786 Hgcux-Xjcxedkec-Jmrxvgefrf Completed 03/10/2018 91448 Ultrasound Guidance For Vascular Access Completed 03/10/2018 24897 Moderate Sedation Services; Same Phys Intl 15 Mins; PT Completed >=5 Years 03/10/2018 41808 Moderate Sedation Services; Same Phys Each Additional Completed 15 Mins 11/17/2017 [id number] Diabetic Retinal Eye Exam Completed 05/27/2017 98623 EKG Tracing & Interpretation Completed 01/18/2017 79781 EKG, Interpretation Only Completed 06/22/2015 00734 Laparoscopy, Surgical,Abdomen,Peritoneum,Omentum Completed Diagnostic 06/03/2013 15121927 Colonoscopy Completed 01/25/2009 80849 Discectomy,W/Decomp SP Cord/Nerve Root;Cervical Single Completed Interspace 01/25/2009 16622 Anterior Instrumentation 2-3 Vertebral Segments Completed 01/25/2009 70648 Arthrodesis, Anterior Cervical C2 And Below Completed 01/25/200992663 Allograft For Spine Surgery,Structural (Bone Bank) Completed Encounters Type Date Location Provider Dx Diagnosis Office Visit 10/19/2018 [facility] Internal Daniel D. E11.65 Type 2 diabetes 8:00a Eyad Peng M.D.,FACP mellitus with [place] hyperglycemia K80.20 Calculus of gallbladder w/o cholecystitis w/o obstruction N18.2 Chronic kidney disease, stage 2 (mild) Office Visit 09/10/2018 11:30a [facility] Fina Butts R10.31 Right lower Eyad Peng M.D.,FACP quadrant pain Rd K80.20 Calculus of gallbladder w/o cholecystitis w/o obstruction M54.16 Radiculopathy, lumbar region R19.7 Diarrhea, unspecified E11.65 Type 2 diabetes mellitus with hyperglycemia Office Visit 06/22/2018 Surgical Rodolfo S. K80.20 Calculus of 11:15a [facility] gallbladder w/o [employer] Supervisor cholecystitis w/o obstruction Office Visit 06/03/2018 [facility] Internal Daniel Butts K80.80 Other 11:20a Eyad Peng M.D.,FACP cholelithiasis Rd without obstruction M54.16 Radiculopathy, lumbar region E11.65 Type 2 diabetes mellitus with hyperglycemia Office Visit 04/26/2018 9:00a [facility] Fina Butts R07.89 Other chest Eyad Peng M.D.,FACP pain Rd K81.9 Cholecystitis, unspecified E11.65 Type 2 diabetes mellitus with hyperglycemia Office Visit 04/20/2018 11:46a [facility] R07.89 Other chest Assoc,pc Eugenia Etienne, pain Hospitalists HAND THERAPIST K90.0 Celiac disease 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 E11.9 Type 2 diabetes mellitus without complications I10 Essential (primary) hypertension Z79.4 records analyst (current) use of insulin Office Visit 04/19/2018 11:45a [facility] Abhay, R07.89 Other chest Assoc,pc [place] pain Hospitalists 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 D68.61 Antiphospholipid syndrome E11.9 Type 2 diabetes mellitus without complications Z79.4 records analyst (current) use of insulin I10 Essential (primary) hypertension Office Visit 02/09/2018 1:00p [facility] Fina Butts Z00.01 Encounter for Eyad Peng M.D.,FACP general adult [place] medical exam w abnormal findings 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 E11.65 Type 2 diabetes mellitus with hyperglycemia I70.262 [place] arteries of extremities w gangrene, left leg I10 Essential (primary) hypertension D68.61 Antiphospholipid syndrome M10.9 Gout, unspecified Z12.11 Encounter for screening for malignant neoplasm of colon Office Visit 01/20/2018 2:00p [facility] Eduar Tariq I70.262 [place] [facility] Oksana Henning arteries of extremities w gangrene, left leg Office Visit 09/15/2017 4:00p [facility] Internal Daniel Butts I10 Essential Medicine - Danish (primary) Senthil Gandhi,FAC hypertension E11.9 Type 2 diabetes mellitus without complications 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, bilateral, moderate stage Z23 Encounter for immunization Office Visit 08/03/2017 1:00p [facility] Internal Liam Nieves, Z01.818 Encounter for other Medicine - HAND THERAPIST preprocedural [place] examination 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, right eye, severe stage E11.9 Type 2 diabetes mellitus without complications E03.9 Hypothyroidism, unspecified D68.61 Antiphospholipid syndrome 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 Santy A04.7 Enterocolitis due 12:32p Assocharsha M.D. 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 w/o damage to nail, subs S62.525D Nondisp fx of dist phalanx of l thm, 7thD Office Visit 11/05/2016 10:20a Orthopedic Jaida Barrera.012D Laceration w/o Services Of Bitting, RPA-C fb of left thumb C.M.A. w/o damage to nail, subs Office Visit 10/22/2016 10:00a Orthopedic Jaida Galeas012D Laceration w/o Services Of Bitting, RPA-C fb of left thumb C.M.A. w/o damage to nail, subs S62.525D Nondisp fx of dist phalanx of l thm, 7thD Office Visit 10/08/2016 Orthopedic Nancy Galeas012A Laceration w/o 9:40a Services Of Oksana Hyman fb of left thumb C.M.A. w/o damage to nail, init S62.525A Nondisp fx of distal phalanx of left thumb, init for clos fx Office Visit 10/02/2016 Orthopedic Nancy ChouA Laceration w/o 9:30a Services Of Oksana Hyman fb of left thumb C.M.A. w/o damage to nail, init S62.525A Nondisp fx of distal phalanx of left thumb, init for clos fx Office Visit 06/13/2016 12:51p [facility] Tariq Hauser, R55 Syncope and Assoc,harsha Gandhi collapse Hospitalists D68.61 Antiphospholipid syndrome E11.8 Type 2 diabetes mellitus with unspecified complications Office Visit 06/12/2016 12:50p [facility] Annita Clements R55 Syncope and Assoc,harsha Power, HAND THERAPIST collapse Hospitalists E11.8 Type 2 diabetes mellitus with unspecified complications I95.9 Hypotension, unspecified D68.61 Antiphospholipid syndrome Office Visit 06/26/2015 [facility] Tish Mata, 584.9 Acute Kidney 9:13a Assoc,harsha Gandhi Failure, Hospitalists Unspecified 785.50 Shock Unspec 789.00 Pain Abdominal Unspec Site Office Visit 06/25/2015 9:13a 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 Matthew Clifford, 584.9 Acute Kidney Assoc,harsha Gandhi Failure, Hospitalists Unspecified 785.50 Shock Unspec Office Visit 06/23/2015 9:11a [facility] Matthew Clifford, 584.9 Acute Kidney Assoc,harsha Gandhi Failure, Hospitalists Unspecified 785.50 Shock Unspec Office Visit 06/22/2015 9:10a [facility] Trenton Ariadna, 789.00 Pain Abdominal Assoc,pc D.O. 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 Cervical W/O Myelopathy Office Visit 05/08/2010 [facility] [place], 786.50 Pain Chest Unspec 1:00a harsha Recinos M.D. Hospitalists Office Visit 05/07/2010 [facility] 786.50 Pain Chest Unspec 3:00a harsha Recinos M.D. Hospitalists Office Visit 07/24/2009 Neurosurgery Amari Kwok 722.71 Intervertebral Disc 9:40a Services Of [facility] Rachelle Cervical W/ Oksana Myelopathy Office Visit 05/25/2009 Neurosurgery Amari Kwok 722.71 Intervertebral Disc 2:00p Services Of [facility] Rachelle Cervical W/ Oksana Myelopathy Office Visit 05/04/2009 Neurosurgery Amari Kwok 724.3 Sciatica 1:20p Services Of [facility] Oksana Bush Office Visit 01/18/2009 Neurosurgery Amari Kwok 722.0 Intervertebral Disc 10:00a [facility] Of [facility] Jonathan Bush M.D. Cervical W/O Myelopathy Plan of Treatment Future Appointment(s):04/25/2019 10:20 am - Liam Nieves NP at [facility] Internal Medicine [facility]01/19/2019 - Liam Nieves NPN18.2 Chronic kidney disease, stage 2 (mild)New Labs:Basic Metabolic Panel, Ordered: 01/19/19Comments:Please have the bloodwork done soon.Follow up:3 qdzlazD56.16 Radiculopathy, lumbar regionNew Therapy:Physical TherapyComments:Try taking two of the Lyrica twice daily. Use heat regularly to the area. I have submitted the referral for physical therapy.If this is not helping I can refer you to Dr. Alston, the labourers.R21 Rash and other nonspecific skin eruptionComments:Start applying the triamcinolone twice daily. Continue to use the moisturizer twice daily.Consider using a humidifier in your bedroom.
[2019-01-31] MEDS ORDERED: Albuterol 2.5 MG/3 ML NEB.SOL* (0.083%) INH ONE (21:16)
[2019-01-31 21:26] LABS: Influenza A Molecular POSITIVE (Negative)
[2019-01-31] MEDS: Albuterol 2.5 MG/3 ML NEB.SOL* (0.083%) INH SCH ×2 (21:27→21:38)
[2019-01-31 21:35] LABS: ABS Basophils 0 10^3/ul (0-0.2); ABS Eosinophils 0 10^3/ul (0-0.6); ABS Lymphocytes 1.3 10^3/ul (1.0-4.8); ABS Monocytes 1.3 10^3/ul (0-0.8); ABS Neutrophils 4.4 10^3/ul (1.5-7.7); ABS Nucleated RBC 0 10^3/ul; Eosinophil % 0.1 %; Hematocrit 50 % (36-46); Hemoglobin 16.4 g/dL (14.0-18.0); Lymphocyte % 18.5 %; Mean Corpuscular HGB Conc 33 g/dL (31-36); Mean Corpuscular Hemoglobin 31 pg (27-31); Mean Corpuscular Volume 94 fL (80-94); Mean Platelet Volume 9.6 fL (7.4-10.4); Nucleated Red Blood Cells % 0.1; Platelet Count 131 10^3/uL (150-450); Red Blood Count 5.33 10^6 /uL (4.18-5.48); Red Cell Distribution Width 16 % (10.5-15); White Blood Count 7.2 10^3/uL (3.5-10.8)
[2019-01-31 21:46] LABS: Activated Partial Thrombo Time 33.5 seconds (26.0-36.3); INR 1.16 (0.77-1.02)
[2019-01-31 21:52] LABS: ALT 20 U/L (7-52); AST 21 U/L (13-39); Albumin 4.2 g/dL (3.2-5.2); Albumin/Globulin Ratio 1.6 (1-3); Alkaline Phosphatase 74 U/L (34-104); Anion Gap 13 mmol/L (2-11); Blood Urea Nitrogen 22 mg/dL (6-24); C Reactive Protein 96.21 mg/L (<8.01); CO2 Carbon Dioxide 19 mmol/L (22-32); Calcium 8.6 mg/dL (8.6-10.3); Chloride 104 mmol/L (101-111); EGFR African American 43.5 (>60); Globulin 2.7 g/dL (2-4); Glucose 203 mg/dL (70-100); Potassium 4.1 mmol/L (3.5-5.0); Sodium 136 mmol/L (135-145); Total Protein 6.9 g/dL (6.4-8.9)
[2019-01-31] MEDS ORDERED: Oseltamivir CAP* 75 MG CAP PO ONE (21:54)
[2019-01-31 21:55] LABS: Troponin I 0.06 ng/mL (<0.04)
[2019-01-31] MEDS ORDERED: Iodixanol* (CONTRAST) 320 MG/ML 100 ML SDV IV ONE (21:55)
[2019-02-01] MEDS ORDERED: Dextrose 50% Syringe 50 ML* 25 GM/50 ML SYRINGE IV PUSH PRN (00:23)
[2019-02-01] MEDS ORDERED: Tamsulosin CAP* 0.4 MG PO ONE (00:25)
[2019-02-01] MEDS ORDERED: hydrALAZINE IV* 20 MG/ML VIAL IV SLOW PU PRN (00:41)
[2019-02-01 01:43] LABS: Troponin I 0.11 ng/mL (<0.04)
[2019-02-01] MEDS ORDERED: Acetaminophen TAB* 325 MG PO PRN (02:11)
[2019-02-01 02:39] LABS: Urine Appearance Clear; Urine Bacteria Absent (Absent); Urine Bilirubin Negative (Negative); Urine Blood 2+ (Negative); Urine Color Yellow; Urine Glucose Negative (Negative); Urine Ketones Trace (Negative); Urine Nitrite Negative (Negative); Urine Protein Negative (Negative); Urine Red Blood Cell Trace(0-2/hpf) (Absent); Urine Specific Gravity 1.017 (1.010-1.030); Urine Urobilinogen Negative (Negative); Urine White Blood Cell Absent (Absent)
[2019-02-01 02:51] LABS: Urine Creatinine Concentration 101.58 mg/dL
--- NOTE | 2019-02-01 04:35 | HP ---
HISTORY AND PHYSICAL: DATE OF ADMISSION: 01/31/19 ADMITTING PROVIDER: gL Castillo MD PRIMARY CARE PROVIDER: Liam Nieves NP CHIEF COMPLAINT: Altered mental status; cough; fatigue. 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 He has been in his usual state of health until he developed a dry cough 2 days ago. On the morning of admission, he was very tired, had reduced appetite at breakfast, went back to sleep, became increasingly more confused throughout the day, so his , Megan, brought him to the emergency room. He was found to have a temperature here with fever of 102.9, tachycardic in the low 100s and was initially Sat'ing 89% on room air. His nasal swab was positive for influenza A. He was referred to the hospitalist service for admission for influenza A, altered mental status, and acute hypoxic respiratory failure. His other workup included a CTA of the chest which showed no evidence of pulmonary embolism, although there was motion artifact. He had a CT abdomen and pelvis which showed mild distention of the urinary bladder with minimal bilateral hydronephrosis and hydroureters which are likely related to bladder distention. Also, cholelithiasis. Otherwise, negative CT abdomen and pelvis. Chest x-ray with no acute process. He has gotten blood cultures. Urinalysis has not been obtained. He had slight JOAN with creatinine 1.83, up from previous value of 1.66 and before that 1.39. CRP is 96. BNP 136. He missed all of his medications other than his levothyroxine and liothyronine today given his fatigue. He otherwise was without complaint to his . Denying any headaches , neck stiffness, abdominal pain, nausea, vomiting, chest pain. Of note prior to Influenza A result, he got 750mg dose of Levaquin. PAST MEDICAL HISTORY: 1. Insulin-dependent diabetes mellitus. 2. Antiphospholipid syndrome, on Xarelto. 3. Gout. 4. Hypertension. 5. 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 6. Hypothyroidism. 7. Arthritis. 8. Former smoker. 9. Celiac disease. 10. Glaucoma. 11. TIA. PAST SURGICAL HISTORY: 1. Partial amputation of the left thumb. 2. Right inguinal hernia repair. 3. C-spine fusion. 4. Ex lap. MEDICATIONS: Include: 1. Synthroid 112 mcg p.o. daily. 2. Allopurinol 300 mg p.o. daily. 3. Cytomel (liothyronine) 5 mcg p.o. b.i.d. 4. Humalog 7 units at breakfast, 10 units at lunch, 12 units at dinner along SSI (for example additional 2 units for 200-250 etc) 5. Lantus 50 units q24h 6. Desmopressin 0.2 mg p.o. b.i.d. 7. Lyrica 100 mg p.o. b.i.d. (this has been increased in recent months) 8. Magnesium oxide 1 tab p.o. daily. 9. Losartan 100 mg daily. (this has been increased in recent months) 10. Testosterone 2 pumps topical daily. 11. Xarelto 10 mg p.o. daily. 12. Prednisone 7.5 mg p.o. daily. ALLERGIES: Include CEPHALEXIN (anaphylactic shock); ENALAPRIL; metformin is not allergy, but side effect of diarrhea; NIFEDIPINE, unknown; PANTOPRAZOLE, diarrhea; VERAPAMIL, unknown. FAMILY HISTORY: Mother of diabetes. Father of heart attack. Brother of brain aneurysm at age 49. SOCIAL HISTORY: The patient is a former smoker, quit in 1989. His does not know how many packs per day he smoked, but thinks he smoked in his early teenage years as a start. Denies alcohol or drug use. He is a full code. Medical surrogate is his , Megan Foley, who is at the bedside. REVIEW OF SYSTEMS: A complete 14-point review of systems is negative except as per HPI. PHYSICAL EXAMINATION GENERAL APPEARANCE: In no acute distress, but very lethargic looking. He can answer simple questions and follow commands, but otherwise he is very fatigued. VITAL SIGNS: Temperature 102.9; pulse rate 95 initially, currently 111; respiratory rate 18 to 32; Satting 89% on room air initially, currently 92% on 2 L; blood pressure 168/93. HEENT: Normocephalic, atraumatic. Pupils equal, round, and reactive to light. Extraocular motions are intact. No scleral icterus. Moist mucous membranes. NECK: Supple. No cervical lymphadenopathy. LUNGS: Anteriorly clear to auscultation bilaterally. CARDIOVASCULAR: Regular rate and rhythm. No murmurs, rubs, or gallops. ABDOMEN: Soft, nontender, nondistended. EXTREMITIES: Warm, well perfused. Trace pitting edema bilaterally in shins and feet. SKIN: No lesions, no rashes. NEURO: Moving all extremities. De Icer strength intact,can show 2 fingers bilaterally, otherwise very fatigued appearing. LABORATORY DATA: White count 7.2, hemoglobin 16.4, hematocrit 50, platelets 131. INR 1.16. ABG; pH 7.39, pCO2 of 30, pO2 of 66, bicarb 20.4. Sodium 136, potassium 4.1, chloride 104, carbon dioxide 19, anion gap 13, BUN 22, creatinine 1.83, glucose 203. Lactic acid 1.9. Total bili 0.6, AST 21, ALT 20 , alk phos 74. Troponin 0.06. CRP 96. BNP 136. Influenza A positive. IMAGING: CT Chest/Abd/Pelvis w/ IV contrast: Chest: 1. Slight interstitial prominence with mild bilateral lower lobe fibro- atelectatic changes. 2. Cholelithiasis. 3. Essentially negative CTA chest. There is motion artifact in the lungs. No central pulmonary embolism is identified. Abd/Pelvis: 1. Mild distention of urinary bladder with minimal bilateral hydronephrosis and hydroureters which are likely related to bladder distention. 2. Cholelithiasis. 3. Otherwise negative CT abd/pelvis. EKG: NSR, HR 97, nml axis, no ST elevation or depressions. Poor r wave progression. ASSESSMENT AND PLAN: Petar Foley is a 78-year-old male with past medical history of insulin-dependent diabetes mellitus; hypertension; antiphospholipid syndrome(on Xarelto); celiac disease; gout; presenting with altered mental status, fever 102.9, tachycardia and found to have influenza A positive. 1. Sepsis secondary to Influenza A. He meets Sepsis 2 criteria and Sepsis 3 Criteria (AMS, tachypnea) Continue his Tamiflu, but dose reduce for his current kidney function, 30 mg p.o. b.i.d. Otherwise he is going to need supportive care given his AMS. I have ordered physical therapy. May need subacute rehab stay given his lethargy here. He is status post Levaquin(prior to any UA/UCx obtained) in the emergency room. 2. Acute Urinary Retention and JOAN: He does have some evidence of possible urinary retention on the CT scan, and has not voided here. We will get bladder scan and a postvoid bladder scan as needed. I am going to start him on some Flomax here, continue daily. Followup urinalysis and urine culture, unfortunately that has not been obtained prior to antibiotics, but depending on that results, we may want to continue something like ceftriaxone if that is suspicious for a urinary tract infection. He denies any dysuria or frequency. His [employer] has increased up to 1.83 from 1.66 prior and 1.30 before that - this is most likely from retention vs infection/ATN. 3. panhypopituitarism, continue desmopressin 0.2 mg p.o. b.i.d., continue levothyroxine 112 mcg and liothyronine 5 mcg p.o. b.i.d. Continue prednisone 7.5 mg p.o. daily. 4. insulin-dependent diabetes, at home he is on 50 units of Lantus daily. I am reducing that to 20 units in the morning, put him on a sliding scale insulin given his reduced appetite. He has a slight anion gap here, we are giving lispro sliding scale coverage. Check qachs. 5. antiphospholipid syndrome, continue his 10 mg p.o. daily of Xarelto. 6. HTN: I am going to hold his losartan in the setting of acute kidney injury. He has some unknown allergies to NIFEDIPINE and VERAPAMIL. I am going to start him on some hydralazine 10 mg IV p.r.n. and start him on metoprolol tartrate 25 mg daily. Repeat labs in the morning. Get physical therapy to work with them. He is a full code. Diet is carbohydrate consistent. Medical surrogate is his , Megan Foley. [id number]/[facility] #: [id number] [facility]
--- NOTE | 2019-02-01 05:09 | HP ---
H&P (Free Text) History and Physical: Addendum to plan: elevated initial troponin 0.06. no ischemic changes on EKG, denies chest pain. Will trend troponins q4h until peak. Repeat EKG in AM. Suspect demand ischemia.
[2019-02-01] MEDS: Levothyroxine TAB* 112 MCG TAB PO SCH (05:45)
[2019-02-01 06:32] LABS: Hematocrit 45 % (36-46); Hemoglobin 14.9 g/dL (14.0-18.0); Mean Corpuscular HGB Conc 33 g/dL (31-36); Mean Corpuscular Hemoglobin 31 pg (27-31); Mean Corpuscular Volume 93 fL (80-94); Mean Platelet Volume 9.9 fL (7.4-10.4); Platelet Count 117 10^3/uL (150-450); Red Blood Count 4.85 10^6 /uL (4.18-5.48); Red Cell Distribution Width 16 % (10.5-15); White Blood Count 7.2 10^3/uL (3.5-10.8)
[2019-02-01 06:36] LABS: ABS Neutrophils 4.5 10^3/ul (1.5-7.7)
[2019-02-01 07:04] LABS: Troponin I 0.14 ng/mL (<0.04)
[2019-02-01 07:17] LABS: BUN/Creatinine Ratio 11.2 (8-20); EGFR African American 30.5 (>60); EGFR Non-African American 25.2 (>60); Potassium 4.2 mmol/L (3.5-5.0)
[2019-02-01 08:26] LABS: ABS Basophils 0 10^3/ul (0-0.2); ABS Eosinophils 0 10^3/ul (0-0.6); ABS Monocytes 1.7 10^3/ul (0-0.8); ABS Nucleated RBC 0 10^3/ul; Eosinophil % 0.2 %; Lymphocyte % 14.2 %; Nucleated Red Blood Cells % 0.1
[2019-02-01] MEDS: Insulin LISPRO* 1 UNITS UNIT SUBCUT SCH ×4 (08:48→21:45)
[2019-02-01] MEDS: Insulin GLARGINE(*) 1 UNITS UNIT SUBCUT SCH (08:48)
[2019-02-01] MEDS: predniSONE TAB* 5 MG PO SCH (08:50)
[2019-02-01] MEDS: Magnesium Oxide TAB* 400 MG PO SCH (08:51)
[2019-02-01] MEDS: Allopurinol TAB* 300 MG PO SCH (08:51)
[2019-02-01] MEDS: Pregabalin CAP(*) 100 MG PO SCH (08:51)
[2019-02-01] MEDS: Rivaroxaban TAB(*) 10 MG PO SCH (08:52)
[2019-02-01] MEDS: Liothyronine TAB* 5 MCG PO SCH ×2 (08:52→21:36)
[2019-02-01] MEDS: Oseltamivir CAP* 30 MG CAP PO SCH ×2 (08:52→21:36)
[2019-02-01] MEDS: Desmopressin TAB (NF) 0.2 MG TAB PO SCH ×2 (08:54→21:29)
[2019-02-01] MEDS ORDERED: Metoprolol Tartrate TAB* 25 MG PO SCH (09:00)
[2019-02-01] MEDS ORDERED: Losartan TAB* 25 MG PO SCH (09:00)
[2019-02-01] MEDS ORDERED: NS 0.9% 1000 ML** 1,000 ML IV ONE ×2 (09:30→09:44)
[2019-02-01] MEDS ORDERED: Piperacillin/Tazobac ADVAN(*) 3.375 GM in NS 0.9% 100 ML* 100 ML IVPB ONE (10:21)
--- NOTE | 2019-02-01 10:30 | PN ---
Sepsis Event Evaluation Date of Evaluation: 02/01/19 Time of Evaluation: 09:30 Current Stage of Sepsis: Sepsis Vital Signs - Last 12 Hours: Vital Signs - 12 hr Temp Pulse Resp BP Pulse Ox 02/01/19 09:05 71 22 79/47 95 02/01/19 08:51 22 02/01/19 08:00 23 91 02/01/19 07:15 97.6 F 75 22 83/49 92 02/01/19 04:07 99.1 F 02/01/19 03:26 101.1 F 02/01/19 03:04 102.0 F 02/01/19 01:50 102.9 F 90 26 128/58 94 02/01/19 01:30 102.1 F 88 23 130/66 94 02/01/19 01:24 26 130/66 02/01/19 01:00 37 02/01/19 00:54 31 137/74 02/01/19 00:24 33 132/68 02/01/19 00:12 26 02/01/19 00:00 32 01/31/19 23:54 35 134/73 01/31/19 23:24 36 141/70 01/31/19 23:00 19 01/31/19 22:54 105 21 150/95 89 01/31/19 22:41 104 35 91 01/31/19 22:35 111 32 177/81 92 Lactic Acid: 01/31/19 21:27 Lactic Acid 1.9 - Cardiopulmonary Exam Capillary Refill: Immediate Respiratory: Symmetrical Chest Expansion and Respiratory Effort, - - Decreased breath sounds; slight wheeze at L midlung Cardiovascular: NL Sounds; No Murmurs; No JVD, RRR, No Edema - Peripheral Pulse Exam Radial Pulses: Bilateral Normal Pedal Pulses: Right Diminished - Skin Exam Skin Exam: Pale - Vicky Coma Scale Best Eye Response: 3 - To Speech Best Motor Response: 6 - Obeys Commands Best Verbal Response: 5 - Oriented Coma Scale Total: 14 Assess/Plan/Problems-Billing Assessment: Pt is a 78yom who presented to ER with Flu A and sepsis requiring fluid resuscitation. - Patient Problems (1) Sepsis Comment: -Hypotension, tachypnea; afebrile, without leukocytosis; Flu A +, negative CXR -Blood cultures pending, UA repeated -Lactic 2.4 -IV bolus 2L NS -Started Zosyn, Vanco -Transfer to ICU (2) Influenza A Comment: -Oseltamivir at renal dosing Status and Disposition: Inpatient. Discharge when stable.
[2019-02-01 10:33] LABS: Troponin I 0.12 ng/mL (<0.04)
[2019-02-01] MEDS ORDERED: Zosyn per Pharmacy* NOTE FOLLOW UP SCH (11:00)
[2019-02-01] MEDS ORDERED: Vancomycin(*) 1,000 MG in NS 0.9% 250 ML* 250 ML IVPB ONE (11:00)
[2019-02-01] MEDS ORDERED: Vancomycin(*) 0 MG in NS 0.9% 250 ML* 250 ML IVPB SCH (11:00)
[2019-02-01] MEDS ORDERED: Vancomycin per Pharmacy* NOTE FOLLOW UP PRN (11:41)
[2019-02-01] MEDS: NS 0.9% 1000 ML** 1,000 ML IV SCH (11:59)
[2019-02-01 12:17] LABS: Urine Appearance Cloudy; Urine Bacteria Absent (Absent); Urine Bilirubin Negative (Negative); Urine Blood 3+ (Negative); Urine Color Yellow; Urine Glucose 1+(50 mg/dL) (Negative); Urine Ketones Negative (Negative); Urine Nitrite Negative (Negative); Urine Protein 1+(30 mg/dL) (Negative); Urine Red Blood Cell 3+(>10/hpf) (Absent); Urine Specific Gravity 1.031 (1.010-1.030); Urine Urobilinogen Negative (Negative); Urine White Blood Cell Trace(0-5/hpf) (Absent)
[2019-02-01 14:48] LABS: Troponin I 0.08 ng/mL (<0.04)
[2019-02-01 15:05] LABS: Anion Gap 7 mmol/L (2-11); BUN/Creatinine Ratio 11.6 (8-20); Blood Urea Nitrogen 29 mg/dL (6-24); CO2 Carbon Dioxide 21 mmol/L (22-32); Calcium 7.3 mg/dL (8.6-10.3); Chloride 108 mmol/L (101-111); EGFR African American 30.2 (>60); Glucose 220 mg/dL (70-100); Potassium 4.2 mmol/L (3.5-5.0); Sodium 136 mmol/L (135-145)
--- NOTE | 2019-02-01 16:52 | PN ---
Subjective Date of Service: 02/01/19 Interval History: Pt seen this afternoon. States that he feels much better. States that he has been having loose, watery stools for the last couple days, approximately 3/day. He continues to have cough and fatigue, but he is more awake and speaks in full sentences without drifting off. is at bedside. Objective Active Medications: Acetaminophen (Tylenol Tab*) 650 mg PO Q6H PRN Allopurinol (Zyloprim Tab*) 300 mg PO DAILY [facility] Desmopressin Acetate (Desmopressin Tab (Nf)) 0.2 mg PO BID MARY Dextrose (D50w Syringe 50 Ml*) 12.5 gm IV PUSH .FOR FS < 60 - SS PRN Hydralazine HCl (Apresoline Iv*) 10 mg IV SLOW PU Q6H PRN Piperacillin Sod/Tazobactam (Sod 3.375 gm/ Sodium Chloride) 100 mls @ 25 mls/ hr IVPB Q12H MARY Sodium Chloride (Ns 0.9% 1000 Ml) 1,000 mls @ 150 mls/hr IV PER RATE MARY Insulin Glargine (Lantus(*)) 20 units SUBCUT Q24H MARY Insulin Human Lispro (Humalog*) 0 units SUBCUT ACHS MARY; Protocol Levothyroxine Sodium (Synthroid Tab*) 112 mcg PO 0600 [facility] Liothyronine Sodium (Cytomel Tab*) 5 mcg PO BID [facility] Magnesium Oxide (Magox 400 Tab*) 400 mg PO DAILY [facility] Oseltamivir Phosphate (Tamiflu Cap*) 30 mg PO BID [facility] Pharmacy Consult (Zosyn Per Pharmacy*) 1 note FOLLOW UP .ZOSYN PER PHARMACY [facility] Pharmacy Consult (Vancomycin Per Pharmacy*) 1 note FOLLOW UP . PRN Pharmacy Consult (Vancomycin Random Level*) 1 note FOLLOW UP 0600 [facility] Prednisone (Deltasone Tab*) 7.5 mg PO DAILY [facility] Pregabalin (Lyrica Cap(*)) 100 mg PO DAILY [facility] Rivaroxaban (Xarelto(*)) 10 mg PO DAILY [facility] Tamsulosin HCl (Flomax Cap*) 0.4 mg PO 1700 [facility] Vital Signs: Temp Pulse Resp BP Pulse Ox 98.1 F 66 13 107/63 94 02/01/19 13:26 02/01/19 16:00 02/01/19 16:00 02/01/19 15:45 02/01/19 16:00 Oxygen Devices in Use Now: High Flow Nasal Cannula Appearance: Pt is laying in bed asleep. He wakes easily and responds appropriately. He appears slightly ill and fatigued, but is improved from earlier. Eyes: No Scleral Icterus, PERRLA Ears/Nose/Mouth/Throat: NL Teeth, Lips, Gums, Mucous Membranes Moist Neck: NL Appearance and Movements; NL JVP, Trachea Midline Respiratory: Symmetrical Chest Expansion and Respiratory Effort - Diffuse wheezing and rhonchi throughout lung davies. Cardiovascular: NL Sounds; No Murmurs; No JVD, RRR, No Edema Abdominal: NL Sounds; No Tenderness; No Distention, No Hepatosplenomegaly Extremities: No Edema, No Clubbing, Cyanosis, - - Radial and pedal pulses palpable Neurological: Alert and Oriented x 3 Result Diagrams: 02/01/19 06:23 02/01/19 14:04 Microbiology and Other Data: Microbiology 02/01/19 14:45 Stool Gross Appearance - Final Stool C. difficile DNA Amplification - Final 027 Presumptive NEGATIVE Toxigenic C.diff NEGATIVE 02/01/19 05:26 Stool Gross Appearance - Final Stool C. difficile DNA Amplification - Final 02/01/19 02:50 Nasal Screen MRSA (PCR) - Final Nasal Mrsa Detected 01/31/19 21:09 Influenza Types A,B Antigen - Final Nasal Specimen received for Influenza A/B Molecular testing Assess/Plan/Problems-Billing Assessment: Pt is a 78yom who presented to ER with Flu A and sepsis requiring fluid resuscitation. - Patient Problems (1) Sepsis Comment: -VS WNL, afebrile, without leukocytosis -Blood cultures pending, UA unremarkable for infection, C. diff negative -Lactic 2.4 to 1.8 -IV bolus 2L NS finished; now IVF 125/h -Continue Zosyn, Vanco -Transfer to ICU -Appears to have resolved; will continue to monitor for need for pressors (2) Influenza A Comment: -Cough, wheezing, rhonchi -Oseltamivir at renal dosing -Continue supportive treatment (3) Elevated troponin Comment: -Denies CP -Peaked at 0.14 at 0630 and trended downward with fluid bolus/IVF administration -Likely demand ischemia (4) Acute kidney injury Comment: -Cr 2.51, UOP decreased- likely related to volume depletion -IVF bolus and maintainence -Continue mcgee catheter -Recheck in a.m. (5) Diabetes mellitus Comment: -Glargine 20 q24h and Lispro SS (6) Hypertension Comment: -In setting of sepsis with hypotension, hold losartan (7) Panhypopituitarism Comment: -Continue home medications: desmopressin, levothyroxine, liothyronine, prednisone (8) Antiphospholipid syndrome Comment: -Continue Xarelto (9) DVT prophylaxis Comment: -Continue Xarelto (10) Full code status Status and Disposition: Inpatient. Discharge when stable.
[2019-02-01] MEDS: Tamsulosin CAP* 0.4 MG PO SCH (16:53)
[2019-02-01] MEDS: ZOSYN 3.375 GM Q12H per EXTENDED INFUSION IVPB SCH ×2 (22:23)
[2019-02-02] MEDS: NS 0.9% 1000 ML** 1,000 ML IV SCH (01:17)
[2019-02-02 05:41] LABS: ABS Basophils 0 10^3/ul (0-0.2); ABS Eosinophils 0 10^3/ul (0-0.6); ABS Lymphocytes 0.8 10^3/ul (1.0-4.8); ABS Monocytes 0.7 10^3/ul (0-0.8); ABS Neutrophils 3.5 10^3/ul (1.5-7.7); ABS Nucleated RBC 0 10^3/ul; Eosinophil % 0.3 %; Hematocrit 40 % (36-46); Hemoglobin 13.2 g/dL (14.0-18.0); Lymphocyte % 15.9 %; Mean Corpuscular HGB Conc 33 g/dL (31-36); Mean Corpuscular Hemoglobin 31 pg (27-31); Mean Corpuscular Volume 93 fL (80-94); Mean Platelet Volume 9.8 fL (7.4-10.4); Nucleated Red Blood Cells % 0.1; Platelet Count 105 10^3/uL (150-450); Red Blood Count 4.33 10^6 /uL (4.18-5.48); Red Cell Distribution Width 17 % (10.5-15)
[2019-02-02 06:00] LABS: BUN/Creatinine Ratio 12.9 (8-20); Calcium 7.3 mg/dL (8.6-10.3); EGFR African American 39.1 (>60); EGFR Non-African American 32.3 (>60)
[2019-02-02] MEDS ORDERED: Vancomycin Random Level* NOTE FOLLOW UP ONE (06:00)
[2019-02-02] MEDS: Levothyroxine TAB* 112 MCG TAB PO SCH (06:35)
[2019-02-02] MEDS ORDERED: DESMOPRESSIN 0.2 MG PO SCH (09:00)
[2019-02-02] MEDS: Insulin LISPRO* 1 UNITS UNIT SUBCUT SCH ×4 (09:23→22:04)
[2019-02-02] MEDS: Insulin GLARGINE(*) 1 UNITS UNIT SUBCUT SCH (09:24)
[2019-02-02] MEDS: predniSONE TAB* 5 MG PO SCH (09:27)
[2019-02-02] MEDS: Magnesium Oxide TAB* 400 MG PO SCH (09:28)
[2019-02-02] MEDS: Allopurinol TAB* 300 MG PO SCH (09:28)
[2019-02-02] MEDS: Oseltamivir CAP* 30 MG CAP PO SCH ×2 (09:28→22:03)
[2019-02-02] MEDS: Liothyronine TAB* 5 MCG PO SCH ×2 (09:28→22:03)
[2019-02-02] MEDS: Pregabalin CAP(*) 100 MG PO SCH (09:28)
[2019-02-02] MEDS: Rivaroxaban TAB(*) 10 MG PO SCH (09:28)
[2019-02-02] MEDS: NS 0.9% 1000 ML** 1,000 ML IV ONE ×2 (09:34→14:19)
[2019-02-02] MEDS: CMC:Desmopressin TAB (NF) 0.1 MG TAB PO SCH ×2 (10:57→22:03)
[2019-02-02] MEDS: Loperamide CAP* 2 MG PO PRN ×2 (11:35→13:19)
[2019-02-02] MEDS: ZOSYN 3.375 GM Q12H per EXTENDED INFUSION IVPB SCH ×2 (11:41)
[2019-02-02] MEDS ORDERED: Vancomycin(*) 1,500 MG in NS 0.9% 250 ML* 250 ML IVPB ONE (13:00)
--- NOTE | 2019-02-02 15:12 | PN ---
Subjective Date of Service: 02/02/19 Interval History: Pt feeling well today. He has missed last 2 days of Desmopressin- pharmacy carries and will dispense. Pt reports increase in stool, stating that he has felt need to go 3 times today already. He is C. diff negative and denies mucous or blood in stool. Appearance is soft, not fully liquid, and light brown. Pt has increase in urine output, although he has had a large amount of IV fluid over last 48 hours. Mcgee remains in place He has a productive cough. Denies fever, CP, abd pain. Objective Active Medications: Acetaminophen (Tylenol Tab*) 650 mg PO Q6H PRN Allopurinol (Zyloprim Tab*) 300 mg PO DAILY [facility] Desmopressin Acetate (Desmopressin Tab (Nf)) 0.2 mg PO BID [facility] Dextrose (D50w Syringe 50 Ml*) 12.5 gm IV PUSH .FOR FS < 60 - SS PRN Hydralazine HCl (Apresoline Iv*) 10 mg IV SLOW PU Q6H PRN Sodium Chloride (Ns 0.9% 1000 Ml) 1,000 mls @ 125 mls/hr IV ONCE ONE Piperacillin Sod/Tazobactam (Sod 3.375 gm/ Sodium Chloride) 100 mls @ 25 mls/ hr IVPB Q8H [facility]ARY Insulin Glargine (Lantus(*)) 20 units SUBCUT Q24H [facility] Insulin Human Lispro (Humalog*) 0 units SUBCUT ACHS MARY; Protocol Levothyroxine Sodium (Synthroid Tab*) 112 mcg PO 0600 [facility] Liothyronine Sodium (Cytomel Tab*) 5 mcg PO BID [facility] Loperamide HCl (Imodium Cap*) 2 mg PO .SEE DIRECTIONS PRN Magnesium Oxide (Magox 400 Tab*) 400 mg PO DAILY [facility] Oseltamivir Phosphate (Tamiflu Cap*) 30 mg PO BID [facility] Pharmacy Consult (Zosyn Per Pharmacy*) 1 note FOLLOW UP .ZOSYN PER PHARMACY [facility] Pharmacy Consult (Vancomycin Per Pharmacy*) 1 note FOLLOW UP . PRN Pharmacy Consult (Vancomycin Random Level*) 1 note FOLLOW UP 0600 [facility] Prednisone (Deltasone Tab*) 7.5 mg PO DAILY [facility] Pregabalin (Lyrica Cap(*)) 100 mg PO DAILY [facility] Rivaroxaban (Xarelto(*)) 10 mg PO DAILY [facility]ARY Tamsulosin HCl (Flomax Cap*) 0.4 mg PO 1700 [facility] Vital Signs: Temp Pulse Resp BP Pulse Ox 97.4 F 72 20 163/69 98 02/02/19 14:57 02/02/19 14:57 02/02/19 14:57 02/02/19 14:57 02/02/19 14:57 Oxygen Devices in Use Now: None Appearance: Pt is laying in bed. He appears slightly ill, but in no acute distress. Eyes: No Scleral Icterus, PERRLA Ears/Nose/Mouth/Throat: NL Teeth, Lips, Gums, Mucous Membranes Moist Neck: NL Appearance and Movements; NL JVP, Trachea Midline Respiratory: Symmetrical Chest Expansion and Respiratory Effort, - - Diffuse wheeze and rhonchi throughout b/l lungs Cardiovascular: NL Sounds; No Murmurs; No JVD, RRR, No Edema Abdominal: NL Sounds; No Tenderness; No Distention, No Hepatosplenomegaly Lymphatic: No Cervical Adenopathy Extremities: No Edema, No Clubbing, Cyanosis Neurological: Alert and Oriented x 3 Result Diagrams: 02/02/19 05:30 02/02/19 05:30 Microbiology and Other Data: Microbiology 02/01/19 14:45 Stool Gross Appearance - Final Stool C. difficile DNA Amplification - Final 027 Presumptive NEGATIVE Toxigenic C.diff NEGATIVE 02/01/19 05:26 Stool Gross Appearance - Final Stool C. difficile DNA Amplification - Final 02/01/19 02:50 Nasal Screen MRSA (PCR) - Final Nasal Mrsa Detected 01/31/19 21:09 Influenza Types A,B Antigen - Final Nasal Specimen received for Influenza A/B Molecular testing Assess/Plan/Problems-Billing Assessment: Pt is a 78yom who presented to ER with Flu A and sepsis requiring fluid resuscitation. - Patient Problems (1) Influenza A Comment: -Cough, wheezing, rhonchi -Oseltamivir at renal dosing -Continue supportive treatment (2) Sepsis Comment: -Resolved -VS WNL, afebrile, without leukocytosis; Flu A + -Blood cultures show no growth day 1 -UA unremarkable for infection, C. diff negative -IV NS at 125 x1L today, then d/c and monitor for future need -Continue Zosyn, Vanco -Transfered from ICU to 02/02 (3) Low hemoglobin Comment: -Slight drop in Hgb throughout stay; likely result of fluid resuscitation -Will continue to monitor (4) Elevated troponin Comment: -Denies CP -Peaked at 0.14 at 0630 and trended downward with fluid resuscitation -Likely demand ischemia (5) Acute kidney injury Comment: -Cr decrease from 2.51 to 2.01 with volume resuscitation -Continue IVF x1L today; reassess tomorrow -Continue mcgee catheter -Recheck in a.m. (6) Diabetes mellitus Comment: -Glargine 20 q24h and Lispro SS (7) Hypertension Comment: -Losartan held, d/t sepsis, hypotension -Continue to hold, as pt is normotensive (8) Panhypopituitarism Comment: -Continue home medications: desmopressin, levothyroxine, liothyronine, prednisone -Pt missed last 2 days desmopressin; it will now be supplied by pharmacy (9) Antiphospholipid syndrome Comment: -Continue Xarelto (10) DVT prophylaxis Comment: -Continue Xarelto (11) Full code status Status and Disposition: Inpatient. Discharge when stable.
[2019-02-02] MEDS: Tamsulosin CAP* 0.4 MG PO SCH (16:51)
[2019-02-02] MEDS: ZOSYN 3.375 GM Q8H per EXTENDED INFUSION IVPB SCH ×2 (22:09)
[2019-02-03] MEDS: ZOSYN 3.375 GM Q8H per EXTENDED INFUSION IVPB SCH ×4 (04:39→13:54)
[2019-02-03 05:43] LABS: Hematocrit 39 % (36-46); Hemoglobin 13.1 g/dL (14.0-18.0); Mean Corpuscular HGB Conc 34 g/dL (31-36); Mean Corpuscular Hemoglobin 31 pg (27-31); Mean Corpuscular Volume 91 fL (80-94); Red Blood Count 4.27 10^6 /uL (4.18-5.48); Red Cell Distribution Width 16 % (10.5-15); White Blood Count 3.7 10^3/uL (3.5-10.8)
[2019-02-03 05:52] LABS: Calcium 7.7 mg/dL (8.6-10.3); EGFR Non-African American 42.9 (>60); Potassium 4.3 mmol/L (3.5-5.0)
[2019-02-03] MEDS: Levothyroxine TAB* 112 MCG TAB PO SCH (05:54)
[2019-02-03 06:00] LABS: ABS Basophils 0 10^3/ul (0-0.2); ABS Eosinophils 0 10^3/ul (0-0.6); ABS Lymphocytes 0.8 10^3/ul (1.0-4.8); ABS Monocytes 0.3 10^3/ul (0-0.8); ABS Neutrophils 2.5 10^3/ul (1.5-7.7); ABS Nucleated RBC 0 10^3/ul; Eosinophil % 0.7 %; Mean Platelet Volume 9.8 fL (7.4-10.4); Nucleated Red Blood Cells % 0.1; Platelet Count 95 10^3/uL (150-450)
[2019-02-03] MEDS ORDERED: Vancomycin Random Level* NOTE FOLLOW UP SCH (06:00)
[2019-02-03 06:14] LABS: Vancomycin Random 11.1 mcg/mL
[2019-02-03] MEDS: Insulin LISPRO* 1 UNITS UNIT SUBCUT SCH ×4 (06:22→21:44)
[2019-02-03] MEDS: Insulin GLARGINE(*) 1 UNITS UNIT SUBCUT SCH (09:11)
[2019-02-03] MEDS: Liothyronine TAB* 5 MCG PO SCH ×2 (09:11→21:42)
[2019-02-03] MEDS: Rivaroxaban TAB(*) 10 MG PO SCH (09:12)
[2019-02-03] MEDS: Magnesium Oxide TAB* 400 MG PO SCH (09:12)
[2019-02-03] MEDS: predniSONE TAB* 5 MG PO SCH (09:12)
[2019-02-03] MEDS: Pregabalin CAP(*) 100 MG PO SCH (09:13)
[2019-02-03] MEDS: Oseltamivir CAP* 30 MG CAP PO SCH ×2 (09:13→21:40)
[2019-02-03] MEDS: CMC:Desmopressin TAB (NF) 0.1 MG TAB PO SCH ×2 (09:13→21:41)
[2019-02-03] MEDS: Allopurinol TAB* 300 MG PO SCH (09:56)
[2019-02-03] MEDS ORDERED: Vancomycin 1500 MG IV - x ONCE IVPB ONE ×2 (10:00)
--- NOTE | 2019-02-03 13:49 | PN ---
Subjective Date of Service: 02/03/19 Interval History: Feels "much better" Cough improved but feels belly is "achy" from coughing Appetite OK No diarrhea since yesterday Feels very weak Objective Active Medications: Acetaminophen (Tylenol Tab*) 650 mg PO Q6H PRN PRN Reason: FEVER/PAIN Last Admin: 02/01/19 02:18 Dose: 650 mg Allopurinol (Zyloprim Tab*) 300 mg PO DAILY [facility] Last Admin: 02/03/19 09:56 Dose: 300 mg Desmopressin Acetate (Desmopressin Tab (Nf)) 0.2 mg PO BID [facility] Last Admin: 02/03/19 09:13 Dose: 0.2 mg Dextrose (D50w Syringe 50 Ml*) 12.5 gm IV PUSH .FOR FS < 60 - SS PRN PRN Reason: FS < 60 Hydralazine HCl (Apresoline Iv*) 10 mg IV SLOW PU Q6H PRN PRN Reason: SYSTOLIC BP GREATER THAN: Insulin Glargine (Lantus(*)) 20 units SUBCUT Q24H [facility] Last Admin: 02/03/19 09:11 Dose: 20 units Insulin Human Lispro (Humalog*) 0 units SUBCUT ACHS [facility]; Protocol Last Admin: 02/03/19 12:35 Dose: 3 units Levothyroxine Sodium (Synthroid Tab*) 112 mcg PO 0600 [facility] Last Admin: 02/03/19 05:54 Dose: 112 mcg Liothyronine Sodium (Cytomel Tab*) 5 mcg PO BID [facility] Last Admin: 02/03/19 09:11 Dose: 5 mcg Loperamide HCl (Imodium Cap*) 2 mg PO .SEE DIRECTIONS PRN PRN Reason: DIARRHEA Last Admin: 02/02/19 13:19 Dose: 2 mg Magnesium Oxide (Magox 400 Tab*) 400 mg PO DAILY [facility] Last Admin: 02/03/19 09:12 Dose: 400 mg Oseltamivir Phosphate (Tamiflu Cap*) 30 mg PO BID [facility] Stop: 02/05/19 21:01 Last Admin: 02/03/19 09:13 Dose: 30 mg Prednisone (Deltasone Tab*) 7.5 mg PO DAILY [facility] Last Admin: 02/03/19 09:12 Dose: 7.5 mg Pregabalin (Lyrica Cap(*)) 100 mg PO DAILY [facility] Last Admin: 02/03/19 09:13 Dose: 100 mg Rivaroxaban (Xarelto(*)) 10 mg PO DAILY [facility] Last Admin: 02/03/19 09:12 Dose: 10 mg Tamsulosin HCl (Flomax Cap*) 0.4 mg PO 1700 [facility] Last Admin: 02/02/19 16:51 Dose: 0.4 mg Vital Signs - 8 hr 02/03/19 02/03/19 02/03/19 08:00 08:38 09:13 Temperature 97 F Pulse Rate 59 Respiratory 20 18 20 Rate Blood Pressure 145/73 (mmHg) O2 Sat by Pulse 98 98 Oximetry 02/03/19 02/03/19 12:30 12:37 Temperature 98 F Pulse Rate 53 Respiratory 18 18 Rate Blood Pressure 150/69 (mmHg) O2 Sat by Pulse 95 Oximetry Oxygen Devices in Use Now: None Appearance: lying flat, NAD Eyes: No Scleral Icterus, PERRLA Ears/Nose/Mouth/Throat: NL Teeth, Lips, Gums, Clear Oropharnyx Neck: NL Appearance and Movements; NL JVP, Trachea Midline Respiratory: Symmetrical Chest Expansion and Respiratory Effort, Clear to Auscultation Cardiovascular: RRR Abdominal: NL Sounds; No Tenderness; No Distention, No Hepatosplenomegaly Lymphatic: No Cervical Adenopathy Extremities: - - 1+ bl le edema Skin: No Rash or Ulcers Neurological: Alert and Oriented x 3 Result Diagrams: 02/03/19 05:13 02/03/19 05:13 Microbiology and Other Data: Microbiology 02/01/19 14:45 Stool Gross Appearance - Final Stool C. difficile DNA Amplification - Final 027 Presumptive NEGATIVE Toxigenic C.diff NEGATIVE 02/01/19 05:26 Stool Gross Appearance - Final Stool C. difficile DNA Amplification - Final 02/01/19 02:50 Nasal Screen MRSA (PCR) - Final Nasal Mrsa Detected 01/31/19 21:09 Influenza Types A,B Antigen - Final Nasal Specimen received for Influenza A/B Molecular testing Assess/Plan/Problems-Billing Assessment: Pt is a 78 yo M h/o panhypopituitary, IDDM, APLS on xarelto, hypothyroidism, celiacs presented with sepsis secondary to Flu A with stay notable for hypotension and ICU stay, AKF and urinary retention with mild hydro on CT s/p mcgee placement - Patient Problems (1) Acute kidney injury Comment: Improving (2) Celiac disease Comment: noted he received gluten prior to diarrhea which is now resolved (3) Antiphospholipid syndrome Comment: -Continue Xarelto (4) Elevated troponin Comment: suspect demand ischemia (5) Influenza A Comment: -Oseltamivir at renal dosing (6) Hypertension Comment: -Losartan held, d/t hypotension (7) Sepsis Comment: in setting of influenza with notable AMS now resolved hypotension suspected in setting of desmopressin absence and no stress dose steroids d/c abx (8) Panhypopituitarism Comment: -Continue home medications: desmopressin, levothyroxine, liothyronine, prednisone -Pt missed last 2 days desmopressin; it will now be supplied by pharmacy may have benefited from increased steorids when hypotensive (9) Urinary retention Comment: remove mcgee bladder scan in 6 hrs c/w flomax (10) Insulin dependent diabetes mellitus Comment: basal bolus insulin (11) DVT prophylaxis Comment: -Continue Xarelto Status and Disposition: Inpatient. Discharge when stable.
[2019-02-03] MEDS: Tamsulosin CAP* 0.4 MG PO SCH (16:43)
[2019-02-04] MEDS: Levothyroxine TAB* 112 MCG TAB PO SCH (05:16)
[2019-02-04] MEDS ORDERED: Vancomycin Random Level* NOTE FOLLOW UP ONE (06:00)
[2019-02-04] MEDS: Insulin LISPRO* 1 UNITS UNIT SUBCUT SCH (07:48)
[2019-02-04 08:09] VITALS: BP 146/72
[2019-02-04] MEDS: Magnesium Oxide TAB* 400 MG PO SCH (08:31)
[2019-02-04] MEDS: predniSONE TAB* 5 MG PO SCH (08:31)
[2019-02-04] MEDS: CMC:Desmopressin TAB (NF) 0.1 MG TAB PO SCH (08:31)
[2019-02-04] MEDS: Liothyronine TAB* 5 MCG PO SCH (08:31)
[2019-02-04] MEDS: Rivaroxaban TAB(*) 10 MG PO SCH (08:32)
[2019-02-04] MEDS: Allopurinol TAB* 300 MG PO SCH (08:32)
[2019-02-04] MEDS: Pregabalin CAP(*) 100 MG PO SCH (08:32)
[2019-02-04] MEDS: Insulin GLARGINE(*) 1 UNITS UNIT SUBCUT SCH (08:32)
[2019-02-04] MEDS: Oseltamivir CAP* 30 MG CAP PO SCH (08:32)
--- NOTE | 2019-02-04 23:15 | DS ---
DISCHARGE SUMMARY: DATE OF ADMISSION: 01/31/19 DATE OF DISCHARGE: 02/04/19 CONDITION ON DISCHARGE: Good. DISPOSITION ON DISCHARGE: Home. PRIMARY DIAGNOSES: 1. Sepsis secondary to influenza A. 2. Influenza A. 3. Urinary retention. 4. Acute kidney injury. SECONDARY DIAGNOSES: Include: 1. Celiac disease. 2. Antiphospholipid syndrome. 3. Elevated troponin. 4. Hypertension. 5. Panhypopituitarism. 6. Insulin-dependent diabetes mellitus. 7. Gout. 8. Hypothyroidism. 9. History of transient ischemic attack. MEDICATIONS ON DISCHARGE: Include: 1. Tamiflu 30 mg renally dosed for 3 additional doses. 2. Lyrica 100 mg twice daily. 3. Losartan 100 mg daily. 4. Levothyroxine 112 mcg daily. 5. Allopurinol 300 mg daily. 6. Cytomel 5 mcg twice daily. 7. Insulin lispro 3 times a day per home sliding scale with meals. 8. Desmopressin 0.2 mg twice daily. 9. Magnesium oxide 1 tab daily. 10. Testosterone 2 pumps topically daily. 11. Rivaroxaban 10 mg daily. 12. Prednisone 7.5 mg daily. 13. Tamsulosin 0.4 mg in the evening. 14. Insulin glargine 20 units daily. Please note the addition of Flomax as well as the decrease in dose from Lantus 50 to 20 units daily. PERTINENT LABORATORY DATA: Serology notable for influenza A positivity. Creatinine peaked at 2.51 was 1.57 on day prior to discharge, just near his baseline. Troponin I peaked at 0.14. PERTINENT IMAGING: CT chest, abdomen, and pelvis. Impression: Slight interstitial prominence with mild bilateral lower lobe fibroatelectatic change. Cholelithiasis. Essentially negative CTA chest. There is motion artifact of the lungs. No central pulmonary embolism identified. Mild distention of the urinary bladder with minimal bilateral hydronephrosis and hydroureters which are likely related to bladder distention. Cholelithiasis, otherwise negative CT abdomen and pelvis. HISTORY OF PRESENT ILLNESS AND HOSPITAL COURSE: This is a 78-year-old man with a past medical history as outlined in history of present illness on the day of admission, presented to the hospital with sepsis, notable for high fever to 102.9, relative tachycardia, altered mental status, was much more lethargic as well as renal failure, meeting SIF criteria. He was admitted to the hospital, he was started on antibiotics in the setting of presumed sepsis. Decompensated on day #2 with lower blood pressures, transferred to the ICU, responded to fluid resuscitation. It was noted that his prednisone was not increased to stress doses, may have contributed to lower blood pressures, although he did respond to fluid resuscitation without need for stress-dose steroids. He remained in the ICU for 1 day, was then transferred out, titrated off of oxygen. The patient had a Ackerman catheter placed on presentation based on CT findings. He was started on Flomax at that time as well as able to have Ackerman removed on the day prior to discharge, passed his trial of void. Continued to urinate at the time of discharge without difficulty. On the day of discharge, the patient was on room air, was ambulating around the unit. He had minimal cough, felt close to his baseline, although obviously weaker in the setting of his recent illness. Course of his hospital stay, his Lantus had been decreased secondary to his critical illness and decreased need for long-acting insulin. His [id number] fingercheck in the morning of discharge was 80, on 20 units of Lantus. He should be continued on lower dose and titrated back up as his diet resumed something that more closely resembles his usual diet. This change from 50 to 20 units of Lantus was communicated to the patient [id number] and the patient acknowledged understanding. There are no complications on the patient's hospital stay. FOLLOWUP: 1. Adjust insulin as indicated above. 2. Consider repeat BMP in the future for kidney stability. 3. No other specific labs or vitals needing followup. Reason to return to the hospital including, but not limited to recurrent or worsening symptoms, difficulty breathing, fevers, chest pain, lightheadedness, loss of consciousness, near loss of consciousness, nausea, vomiting, bleeding from any source, inability to obtain or tolerate medications discussed with the patient. He acknowledged understanding. TIME SPENT: Greater than 60 minutes were spent on this discharge of this patient, greater than half was spent [id number] with the patient. [id number]/[facility] #: [id number] SYMONE
== END 2019-02-04 10:30 | disposition home or self-care (01) | DRG 871 ==
LOC: ED 20:39 → MEDTELE 23:23 → ICU 02-01 10:56 → MEDTELE 02-02 09:06
PROVIDERS: ADMIT Internal Medicine; ATTEND Internal Medicine
DX: A41.9 Sepsis, unspecified organism (principal); J96.01 Acute respiratory failure with hypoxia; N17.0 Acute kidney failure with tubular necrosis; D68.61 Antiphospholipid syndrome; E23.0 Hypopituitarism; N13.30 Unspecified hydronephrosis; N13.4 Hydroureter; I24.8 Other forms of acute ischemic heart disease; J11.1 Influenza due to unidentified influenza virus with other respiratory manifestations; R33.9 Retention of urine, unspecified; K90.0 Celiac disease; E03.8 Other specified hypothyroidism; R74.8 Abnormal levels of other serum enzymes; I10 Essential (primary) hypertension; M19.90 Unspecified osteoarthritis, unspecified site; E11.9 Type 2 diabetes mellitus without complications; M10.9 Gout, unspecified; K80.20 Calculus of gallbladder without cholecystitis without obstruction; I95.9 Hypotension, unspecified; Z86.73 Personal history of transient ischemic attack (TIA), and cerebral infarction without residual deficits; Z79.4 Long term (current) use of insulin; Z87.891 Personal history of nicotine dependence; Z79.01 Long term (current) use of anticoagulants; Z79.890 Hormone replacement therapy; Z79.52 Long term (current) use of systemic steroids; Z79.899 Other long term (current) drug therapy; Z88.8 Allergy status to other drugs, medicaments and biological substances; Z83.3 Family history of diabetes mellitus; Z82.49 Family history of ischemic heart disease and other diseases of the circulatory system
CPT/HCPCS: 36415; 36600; 71045; 71275; 74177; 80048; 80053; 80202; 81003; 81015; 82570; 82803; 83605; 83880; 84300; 84484; 85025; 85060; 85610; 85730; 86140; 87040; 87086; 87493; 87641; 93005; 99284; A9270-GY; G8978-GP-CH; G8979-GP-CH; G8980-GP-CH; J2543; J3370; J7512; Q9967

== ENCOUNTER → 2019-03-25 16:45 | Emergency (ER) | payer MEDICARE, BC ==
[~2019-03-25 16:45] MED LIST changes: +Bacitracin OINTMENT* 0.5% 0.5 oz TUBE ONE; +Bacitracin OINTMENT* 0.5% 0.5 oz TUBE TOPICAL ONE; +DOXYcycline CAP(*) 100 MG PO ONE; -LORazepam TAB(*) 1 MG ONE
--- NOTE | 2019-03-25 18:21 | ED ---
Lower Extremity - HPI Summary HPI Summary: 70-year-old male presents with left foot injury a week and half ago. He states that he ended up kicking his left foot on a machine. He states it took off his skin of his left pinky. He states that there have been increasing swelling to the foot. He states that the lesion has been healing. He denies any fevers or chills. He states the swelling has been decreasing with time. He denies any spreading redness. He has been placing topical antibiotics on the lesion. He is diabetic. He has baseline neuropathy of the foot. he took some ibuprofen with no relief. - History of Current Complaint Chief Complaint: EDExtremityLower Stated Complaint: FOOT INJURY,SWOLLEN AND IN PAIN PER PT Time Seen by Provider: 03/25/19 17:33 Pain Intensity: 10 - Allergies/Home Medications Allergies/Adverse Reactions: Allergies Allergy/AdvReac Type Severity Reaction Status Date / Time gluten Allergy Severe Diarrhea Verified 03/25/19 17:05 cephalexin Allergy Anaphylatic Verified 03/25/19 17:05 Shock enalapril Allergy Unknown Verified 03/25/19 17:05 Reaction Details metformin Allergy Diarrhea Verified 03/25/19 17:05 nifedipine Allergy Unknown Verified 03/25/19 17:05 Reaction Details pantoprazole [From Protonix] Allergy Diarrhea Verified 03/25/19 17:05 verapamil Allergy Unknown Verified 03/25/19 17:05 Reaction Details Home Medications: Home Medications Insulin GLARGINE(*) [Lantus(*)] 52 units SUBCUT Q24H 03/25/19 [History Confirmed 03/25/19] PMH/Surg Hx/FS Hx/Imm Hx Endocrine/Hematology History: Reports: Hx Anticoagulant Therapy - xarelto for alpha lipoic acid , Hx Diabetes - insulin dependent type 2, poorly controlled, Hx Thyroid Disease Cardiovascular History: Reports: Hx Hypercholesterolemia, Hx Hypertension - takes meds, Other Cardiovascular Problems/Disorders Denies: Hx Congestive Heart Failure, Hx Pacemaker/ICD Respiratory History: Denies: Hx Asthma GI History: Reports: Hx Gall Bladder Disease - gall stones, not operated on, Other GI Disorders - Celiac disease History: Reports: Other Problems/Disorders - URETHRAL STRICTURE DILATION Denies: Hx Dialysis, Hx Renal Disease Musculoskeletal History: Reports: Hx Arthritis Sensory History: Reports: Hx Contacts or Glasses - Reading, Hx Glaucoma - both eyes, Hx Hearing Aid, Other Sensory Impairments - decreased hearing Denies: Hx Deafness Opthamlomology History: Reports: Hx Contacts or Glasses - Reading, Hx Glaucoma - both eyes, Other Sensory Impairments - decreased hearing Neurological History: Reports: Hx Nerve Disease - neuropathy, Other Neuro Impairments/Disorders - SPINAL FUSION; pituitary adenoma >10 years ago Psychiatric History: Denies: Hx Panic Disorder - Cancer History Hx Chemotherapy: No - Surgical History Surgery Procedure, Year, and Place: right inguinal hernia repair 4th grade, LEFT THUMB AMPUTATION, C-SPINE FUSION. filter placed in right eye for glaucoma , exploratory laparotomy Dr. Deal Hx Anesthesia Reactions: No - Immunization History Date of Tetanus Vaccine: unknown Date of Influenza Vaccine: 08/16/15 Infectious Disease History: No Infectious Disease History: Reports: Hx Clostridium Difficile Denies: Hx of Known/Suspected MRSA, Traveled Outside the [place] in Last 30 Days - Family History Known Family History: Positive: Diabetes - Social History Alcohol Use: None Hx Substance Use: No Substance Use Type: Reports: None Hx Tobacco Use: Yes Smoking Status (MU): Former Smoker Amount Used/How Often: smoked for 20-30 years 1/2ppd Have You Smoked in the Last Year: No Review of Systems Negative: Fever Negative: Chest Pain Negative: Shortness Of Breath Positive: Myalgia - left foot Positive: Rash All Other Systems Reviewed And Are Negative: Yes Physical Exam Triage Information Reviewed: Yes Vital Signs On Initial Exam: Initial Vitals Temp Pulse Resp BP Pulse Ox 98 F 57 16 159/85 95 03/25/19 17:01 03/25/19 17:01 03/25/19 17:01 03/25/19 17:01 03/25/19 17:01 Vital Signs Reviewed: Yes Appearance: Positive: Well-Appearing Skin: Positive: Other - 2cm by 1cm ulcer to left little toe with minimial surrounding erythema Head/Face: Positive: Normal Head/Face Inspection Eyes: Positive: Normal, Conjunctiva Clear ENT: Positive: Pharynx normal Respiratory/Lung Sounds: Positive: Clear to Auscultation, Breath Sounds Present Cardiovascular: Positive: Normal, RRR Musculoskeletal: Positive: Edema Left - foot, Other - good pulses, capillary refill<2secs Neurological: Positive: Normal Psychiatric: Positive: Normal Diagnostics - Vital Signs Vital Signs Temp Pulse Resp BP Pulse Ox 03/25/19 17:01 98 F 57 16 159/85 95 - Laboratory Lab Statement: Any lab studies that have been ordered have been reviewed, and results considered in the medical decision making process. - Radiology foot Radiology Interpretation Completed By: ED Physician Summary of Radiographic Findings: possible fracture of distal phalanx of left little toe Lower Extremity Course/Dx - Course Course Of Treatment: 70-year-old male presents with left foot injury a week and half ago. He states that he ended up kicking his left foot on a machine. He states it took off his skin of his left pinky. He states that there have been increasing swelling to the foot. He states that the lesion has been healing. He denies any fevers or chills. He states the swelling has been decreasing with time. He denies any spreading redness. He has been placing topical antibiotics on the lesion. He is diabetic. He has baseline neuropathy of the foot. he took some ibuprofen with no relief. On exam has 2cm by 1 cm ulcer with minimal erythema on the left little toe. Neurovascular intact. Has edema to the foot. X-ray read by me as possible phalanges fracture of left little toe. We'll place on doxycycline with erythema around the ulcer. told to apply topical antibiotic and keep covered. Told to follow up with primary. has follow up with podiatry on thursday. Patient understands and agrees with plan. - Diagnoses Differential Diagnosis/HQI/PQRI: Positive: Cellulitis, Fracture (Closed), Osteomyelitis Provider Diagnoses: Ulcer, Injury of left foot Discharge - Sign-Out/Discharge Documenting (check all that apply): Patient Departure Patient Received Moderate/Deep Sedation with Procedure: No - Discharge Plan Condition: Good Disposition: HOME Prescriptions: DOXYcycline CAP(*) [DOXYcycline 100MG CAP(*)] 100 mg PO BID #19 cap Patient Education Materials: Acute Wound Care (ED) Referrals: Daniel Peng MD [Primary Care Provider] - Additional Instructions: take doxycycline twice a day for 10 days, first dose given in ED apply topical antibiotic to ulcer and keep covered elevate, ice Take Tylenol as needed for pain every 6 hours follow up with primary or podiatry within 5 days Return to ED if develop any new or worsening symptoms - Billing Disposition and Condition Condition: GOOD Disposition: Home
[2019-03-25 19:12] VITALS: BP 174/90
== END | disposition home or self-care (01) ==
LOC: ED 16:45
DX: L97.521 Non-pressure chronic ulcer of other part of left foot limited to breakdown of skin (principal); I10 Essential (primary) hypertension; E11.9 Type 2 diabetes mellitus without complications; E07.9 Disorder of thyroid, unspecified; E78.00 Pure hypercholesterolemia, unspecified; M19.90 Unspecified osteoarthritis, unspecified site; Z88.3 Allergy status to other anti-infective agents; Z88.8 Allergy status to other drugs, medicaments and biological substances; Z79.4 Long term (current) use of insulin; Z79.01 Long term (current) use of anticoagulants; Z79.899 Other long term (current) drug therapy; Z87.891 Personal history of nicotine dependence
CPT/HCPCS: 99282; A9270-GY

== ENCOUNTER 2019-04-17 10:18 | Emergency (ER) | payer MEDICARE, BC ==
[2019-04-17 12:44] VITALS: BP 161/76
--- NOTE | 2019-04-17 12:57 | ED ---
Lower Extremity - HPI Summary HPI Summary: Patient is a 78-year-old male with a history of bilateral foot neuropathy and diabetes presenting to the ED with a concern for toe/foot fracture bilaterally. He states a large 40 pound board dropped directly over his toes. Since he has neuropathy, he is concerned for fracture. He does have wounds to the bilateral small toes to the lateral sides. No history of osteomyelitis. Currently placing abx ointment to the area and has a f/u appt with PCP in 5 days. Denies swelling. Continues to remain ambulatory but with discomfort. States despite having neuropathy he feels twinges of pain from time to time. - History of Current Complaint Chief Complaint: EDExtremityLower Stated Complaint: "BILATERAL FOOT PAIN PER PT" Time Seen by Provider: 04/17/19 11:29 Hx Obtained From: Patient Mechanism Of Injury: Blunt Trauma Onset of Pain: Days Onset/Duration: Days Severity Initially: Moderate Severity Currently: Mild Pain Intensity: 9 Pain Scale Used: 0-10 Numeric Timing: Constant Location: Is Discrete @ - bilateral foot pain (dorsal feet) without pain over ankles Character Of Pain: Aching, Throbbing Associated Signs And Symptoms: Positive: Negative. Negative: Swelling, Redness , Bruising Aggravating Factor(s): Standing, Ambulation Alleviating Factor(s): Rest Able to Bear Weight: No - Risk Factors Gout Risk Factors: Negative DVT Risk Factors: Negative Septic Arthritis Risk Factor: Negative - Allergies/Home Medications Allergies/Adverse Reactions: Allergies Allergy/AdvReac Type Severity Reaction Status Date / Time gluten Allergy Severe Diarrhea Verified 04/17/19 10:36 cephalexin Allergy Anaphylatic Verified 04/17/19 10:36 Shock enalapril Allergy Unknown Verified 04/17/19 10:36 Reaction Details metformin Allergy Diarrhea Verified 04/17/19 10:36 nifedipine Allergy Unknown Verified 04/17/19 10:36 Reaction Details pantoprazole [From Protonix] Allergy Diarrhea Verified 04/17/19 10:36 verapamil Allergy Unknown Verified 04/17/19 10:36 Reaction Details PMH/Surg Hx/FS Hx/Imm Hx Previously Healthy: Yes Endocrine/Hematology History: Reports: Hx Anticoagulant Therapy - xarelto for alpha lipoic acid , Hx Diabetes - insulin dependent type 2, poorly controlled, Hx Thyroid Disease Cardiovascular History: Reports: Hx Hypercholesterolemia, Hx Hypertension - takes meds, Other Cardiovascular Problems/Disorders Denies: Hx Congestive Heart Failure, Hx Pacemaker/ICD Respiratory History: Denies: Hx Asthma GI History: Reports: Hx Gall Bladder Disease - gall stones, not operated on, Other GI Disorders - Celiac disease History: Reports: Other Problems/Disorders - URETHRAL STRICTURE DILATION Denies: Hx Dialysis, Hx Renal Disease Musculoskeletal History: Reports: Hx Arthritis Sensory History: Reports: Hx Contacts or Glasses - Reading, Hx Glaucoma - both eyes, Hx Hearing Aid, Other Sensory Impairments - decreased hearing Denies: Hx Deafness Opthamlomology History: Reports: Hx Contacts or Glasses - Reading, Hx Glaucoma - both eyes, Other Sensory Impairments - decreased hearing Neurological History: Reports: Hx Nerve Disease - neuropathy, Other Neuro Impairments/Disorders - SPINAL FUSION; pituitary adenoma >10 years ago Psychiatric History: Denies: Hx Panic Disorder - Cancer History Hx Chemotherapy: No - Surgical History Surgery Procedure, Year, and Place: right inguinal hernia repair 4th grade, LEFT THUMB AMPUTATION, C-SPINE FUSION. filter placed in right eye for glaucoma , exploratory laparotomy Dr. Deal Hx Anesthesia Reactions: No - Immunization History Date of Tetanus Vaccine: unknown Date of Influenza Vaccine: 08/16/15 Infectious Disease History: No Infectious Disease History: Reports: Hx Clostridium Difficile Denies: Hx of Known/Suspected MRSA, Traveled Outside the [place] in Last 30 Days - Family History Known Family History: Positive: Diabetes - Social History Occupation: Unemployed Lives: Alone Alcohol Use: None Hx Substance Use: No Substance Use Type: Reports: None Hx Tobacco Use: Yes Smoking Status (MU): Former Smoker Amount Used/How Often: smoked for 20-30 years 1/2ppd Have You Smoked in the Last Year: No Review of Systems Constitutional: Negative Negative: Fever, Chills, Fatigue, Skin Diaphoresis Negative: Palpitations, Chest Pain Negative: Shortness Of Breath, Cough Genitourinary: Negative Positive: no symptoms reported Positive: Arthralgia, Myalgia - bilateral foot pain (dorsal feet) without pain over ankles Positive: Other - small ulcerations to the bilateral small toes (lateral sides) measuring apprxo 1.0cm to each toe. Negative: Rash, Bruising Neurological: Negative All Other Systems Reviewed And Are Negative: Yes Physical Exam Triage Information Reviewed: Yes Vital Signs On Initial Exam: Initial Vitals Temp Pulse Resp BP Pulse Ox 98.2 F 67 20 190/80 95 04/17/19 10:25 06/02/19 10:25 04/17/19 10:25 04/17/19 10:25 04/17/19 10:25 Vital Signs Reviewed: Yes Appearance: Positive: Well-Appearing, Well-Nourished Skin: Positive: Skin Color Reflects Adequate Perfusion, Other - small ulcerations to the bilateral small toes (lateral sides) measuring apprxo 1.0cm to each toe Eyes: Positive: EOMI, DARI Neck: Positive: Supple, No Lymphadenopathy Respiratory/Lung Sounds: Positive: Clear to Auscultation Neurological: Positive: Sensory/Motor Intact, Alert, Oriented to Person Place, Time, Speech Normal Psychiatric: Positive: Normal, Affect/Mood Appropriate Diagnostics - Vital Signs Vital Signs Temp Pulse Resp BP Pulse Ox 04/17/19 10:25 98.2 F 67 20 190/80 95 - Laboratory Lab Statement: Any lab studies that have been ordered have been reviewed, and results considered in the medical decision making process. Lower Extremity Course/Dx - Course Course Of Treatment: Patient is evaluated for bilateral toe and dorsal foot discomfort after a board fell directly onto his bilateral toes a few days ago. He remains ambulatory, but states he is having twinges of pain. He does have neuropathy at baseline, but states this feels like a different pain. He is endorsing small ulcerations to the bilateral small toes to the lateral sides. There is no streaking, swelling or drainage. He does endorse the right small toe with drainage a few days ago, but none currently. Eyes fevers, sweats, chills. Bilateral foot x-ray obtained which shows no acute findings. At this point I am not concerned for an osteomyelitis, however I discussed with the patient he will need these wounds to be rechecked. - Diagnoses Differential Diagnosis/HQI/PQRI: Positive: Fracture (Closed), Fracture (Open), Gout Provider Diagnoses: Foot ulceration, Blunt trauma Discharge - Sign-Out/Discharge Documenting (check all that apply): Patient Departure Patient Received Moderate/Deep Sedation with Procedure: No - Discharge Plan Condition: Stable Disposition: HOME Referrals: Liam Nieves, UNIT AIDE [Primary Care Provider] - Additional Instructions: Please follow-up with your PCP as scheduled on 04/22/19 to have her recheck of your bilateral toe wounds Continue to use antibiotic ointment to the areas daily and wrap with bandages Make sure a wounds are not rubbing onto the sides of issues which could make the symptoms worse As discussed, no fractures are seen on xray today - Billing Disposition and Condition Condition: STABLE Disposition: Home
== END 2019-04-17 12:43 | disposition home or self-care (01) ==
LOC: ED 10:18
DX: L97.529 Non-pressure chronic ulcer of other part of left foot with unspecified severity (principal); L97.519 Non-pressure chronic ulcer of other part of right foot with unspecified severity; I70.203 Unspecified atherosclerosis of native arteries of extremities, bilateral legs; E11.40 Type 2 diabetes mellitus with diabetic neuropathy, unspecified; E11.65 Type 2 diabetes mellitus with hyperglycemia; Z79.4 Long term (current) use of insulin; I10 Essential (primary) hypertension; Z79.01 Long term (current) use of anticoagulants; Z89.012 Acquired absence of left thumb; Z88.1 Allergy status to other antibiotic agents; Z88.8 Allergy status to other drugs, medicaments and biological substances; Z87.891 Personal history of nicotine dependence
CPT/HCPCS: 73620; 99282

== ENCOUNTER 2019-09-28 06:24 | Day surgery (SDC) | payer MEDICARE, BC ==
[2019-09-28] MEDS ORDERED: Lidocaine 2% PF * 5 ML VIAL ONE (07:34)
[2019-09-28] MEDS ORDERED: Propofol* 10 MG/ML 20 ML BTL ONE (07:34)
[2019-09-28 08:42] VITALS: BP 129/69
--- NOTE | 2019-09-28 09:03 | OP ---
OPERATIVE NOTE: DATE OF OPERATION: 09/28/19 DATE OF : 40 SURGEON: Pedrito Huynh M.D. PREOPERATIVE DIAGNOSIS: Cataract, right eye. POSTOPERATIVE DIAGNOSIS: Cataract, right eye. OPERATIVE PROCEDURE: Extracapsular cataract extraction with IOL implant right eye. PROCEDURE: The patient was brought to the operating room after being given 1/2% Alcaine with epineph rine drops in the preoperative area. The eye was prepped and draped in the usual sterile fashion. S terile drape and eyelid speculum were placed. Again, topical 1/2% Alcaine with epinephrine was given . A paracentesis incision was made at the 9 o'clock position with the No.75 blade. Clear cornea inc ision 2.2 x 2.2-mm was created at the 12 o'clock position starting at the anterior limbus using the 2 .2-mm keratome. The anterior chamber was irrigated with 0.4 mL of 1% non-preservative intracameral l idocaine and filled with DisCoVisc. A capsulorrhexis was completed using the cystotome and the Utrat a forceps. Hydrodissection was performed with balanced salt solution. The lens nucleus was removed w ith the Phacoemulsification handpiece without incident. Cortex was removed with the irrigation-aspir ation handpiece. The capsular bag was re-inflated using DisCoVisc and an [id number] implant was inser mikey with the shooter. The pupil was only 3 mm, so a Malyugin ring was used to dilate the pupil prior to capsulorrhexis, removed after insertion of the lens. All measurements were confirmed with ORA. T he irrigation-aspiration handpiece was used to remove all residual DisCoVisc. The eye was refilled w ith balanced salt solution and the wound checked and found to be watertight. Topical Maxitrol drops were given. Indication for complex cataract surgery, pupil abnormalities requiring pupil dilation bagley. [id number]/[facility] #: [id number]
[2019-09-28] MEDS ORDERED: Neomycin/Polymy/Dex OPTH.SUSP* MAXITROL 0.1% 5 ML ONE (14:55)
[2019-09-28] MEDS ORDERED: Proparacaine 0.5% OPHTH.SOL* 15 ML BTL ONE (14:55)
[2019-09-28] MEDS ORDERED: Phenylephrine OPHTH SOL 2.5%* 2 ML ONE (14:55)
[2019-09-28] MEDS ORDERED: Povidone Iodine 5% OPTH* 30 ML BTL ONE (14:55)
[2019-09-28] MEDS ORDERED: acetaZOLAMIDE TAB* 250 MG ONE (14:55)
[2019-09-28] MEDS ORDERED: Cyclopentolate 1% OPTH.SOL* 2 ML BTL ONE (14:55)
[2019-09-28] MEDS ORDERED: Lidocaine 2% w/ EPI 1:200,000* 20 ML SDV VIAL ONE (14:55)
[2019-09-28] MEDS ORDERED: Ketorolac 0.5% OPHTH (NF) 0.5 % 5 ML BTL ONE (14:55)
[2019-09-28] MEDS ORDERED: Lidocaine 1% MPF ** 5 ML VIAL ONE (14:55)
== END 2019-09-28 08:32 | disposition home or self-care (01) ==
LOC: OREAST 06:24
PROVIDERS: ATTEND Specialist
DX: H25.811 Combined forms of age-related cataract, right eye (principal); 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, right eye, severe stage; H04.123 Dry eye syndrome of bilateral lacrimal glands; E11.3293 Type 2 diabetes mellitus with mild nonproliferative diabetic retinopathy without macular edema, bilateral; I10 Essential (primary) hypertension; E03.9 Hypothyroidism, unspecified; Z98.1 Arthrodesis status; Z79.01 Long term (current) use of anticoagulants; Z87.891 Personal history of nicotine dependence; Z79.4 Long term (current) use of insulin; Z79.84 Long term (current) use of oral hypoglycemic drugs; Z79.52 Long term (current) use of systemic steroids; Z88.1 Allergy status to other antibiotic agents; Z88.8 Allergy status to other drugs, medicaments and biological substances
CPT/HCPCS: A9270-GY; J2704; V2632

== ENCOUNTER 2019-10-05 06:28 | Day surgery (SDC) | payer MEDICARE, BC ==
[~2019-10-05 06:28] MED LIST changes: +Acetaminophen TAB* 325 MG PO PRN; -Bacitracin OINTMENT* 0.5% 0.5 oz TUBE ONE; -Bacitracin OINTMENT* 0.5% 0.5 oz TUBE TOPICAL ONE; +Buffered Lidocaine 1% SYRIN* 1 ML/SYRINGE INTRADERM ONE; -DOXYcycline CAP(*) 100 MG PO ONE
[2019-10-05] MEDS ORDERED: Midazolam* 1 MG/ML 2 ML VIAL (2 MG) ONE (07:15)
[2019-10-05] MEDS ORDERED: Cyclopentolate 1% OPTH.SOL* 2 ML BTL ONE (08:02)
[2019-10-05] MEDS ORDERED: Lidocaine 1% MPF ** 5 ML VIAL ONE (08:02)
[2019-10-05] MEDS ORDERED: Proparacaine 0.5% OPHTH.SOL* 15 ML BTL ONE (08:02)
[2019-10-05] MEDS ORDERED: Phenylephrine OPHTH SOL 2.5%* 2 ML ONE (08:02)
[2019-10-05] MEDS ORDERED: acetaZOLAMIDE TAB* 250 MG ONE (08:02)
[2019-10-05] MEDS ORDERED: Povidone Iodine 5% OPTH* 30 ML BTL ONE (08:02)
[2019-10-05] MEDS ORDERED: Ketorolac 0.5% OPHTH (NF) 0.5 % 5 ML BTL ONE (08:02)
[2019-10-05] MEDS ORDERED: Neomycin/Polymy/Dex OPTH.SUSP* MAXITROL 0.1% 5 ML ONE (08:02)
[2019-10-05] MEDS ORDERED: Lidocaine 2% w/ EPI 1:200,000* 20 ML SDV VIAL ONE (08:02)
[2019-10-05 08:30] VITALS: BP 131/65
--- NOTE | 2019-10-05 09:47 | OP ---
DATE OF OPERATION: 10/05/2019. DATE OF : 1940. SURGEON: Pedrito Huynh M.D. PREOPERATIVE DIAGNOSIS: Cataract left eye. POSTOPERATIVE DIAGNOSIS: Cataract left eye. OPERATIVE PROCEDURE: Extracapsular cataract extraction with intraocular lens implant left eye. PROCEDURE: The patient was brought to the operating room after being given 1/2% Alcaine with epineph rine drops in the preoperative area. The eye was prepped and draped in the usual sterile fashion. S terile drape and eyelid speculum were placed. Again, topical 1/2% Alcaine with epinephrine was given . A paracentesis incision was made at the 3 o'clock position with the No.75 blade. Clear cornea inc ision 2.2 x 2.2-mm was created at the 6 o'clock position starting at the anterior limbus using the 2. 2-mm keratome. The anterior chamber was irrigated with 0.4 mL of 1% non-preservative intracameral li docaine and filled with DisCoVisc. A capsulorrhexis was completed using the cystotome and the Utrata forceps. Hydrodissection was performed with balanced salt solution. The lens nucleus was removed wi th the Phacoemulsification handpiece without incident. Cortex was removed with the irrigation-aspira tion handpiece. The capsular bag was re-inflated using DisCoVisc and an [id number] implant was insert ed with the shooter, oriented to the 2 degree meridian. The pupil was very small. A Malyugin ring w as used to dilated the pupil prior to capsulorrhexis and removed after insertion of the lens. Horizon marija reference roy were made with the patient in a seated position. All measurements were confirmed with ORA. The irrigation-aspiration handpiece was used to remove all residual DisCoVisc. The eye w as refilled with balanced salt solution and the wound checked and found to be watertight. Topical Ma xitrol drops were given. Indication for complex cataract surgery: Pupil abnormalities requiring pupil dilation device. [id number]/[facility] #: [id number]
== END 2019-10-05 08:25 | disposition home or self-care (01) ==
LOC: OREAST 06:28
PROVIDERS: ATTEND Specialist
PROC: 08RK3JZ Replacement of Left Lens with Synthetic Substitute, Percutaneous Approach (ICD-10-PCS; principal; 2019-10-05 07:45)
DX: H25.812 Combined forms of age-related cataract, left eye (principal); H40.1122 Primary open-angle glaucoma, left eye, moderate stage; E11.3293 Type 2 diabetes mellitus with mild nonproliferative diabetic retinopathy without macular edema, bilateral; 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, right eye, severe stage; I10 Essential (primary) hypertension; Z96.1 Presence of intraocular lens; I73.9 Peripheral vascular disease, unspecified; M06.9 Rheumatoid arthritis, unspecified; E03.9 Hypothyroidism, unspecified; Z79.4 Long term (current) use of insulin; Z87.891 Personal history of nicotine dependence; Z79.01 Long term (current) use of anticoagulants; Z79.52 Long term (current) use of systemic steroids
CPT/HCPCS: A9270-GY; J2250; V2787

== ENCOUNTER 2019-12-29 14:00 | Emergency (ER) | payer MEDICARE, BC ==
--- OUTSIDE RECORDS SUMMARY | 2019-12-29 14:14 | XMS REPORT | Continuity of Care Document ---
:1940 External Reference #:[id number] Author Name Reina Ferrari O.D. Address [address] [place] [id number] Care Team Providers Name Role Phone Ulices Banerjee M.D. - Endocrinology, Care Team Information Drop Crew Laborer [phone] Diabetes & Metabolism Kb Eddy M.D. - Urology Care Team Information Drop Crew Laborer [phone] Liam Nieves MEMBERSHIP COUNSELOR - Nurse Practitioner Care Team Information Drop Crew Laborer Ladonna Frances MD/FACP - Internal Care Team Information Drop Crew Laborer Medicine Problems Active Problems Provider Date Type 2 diabetes mellitus Onset: 01/11/2015 Essential hypertension Onset: Primary open angle glaucoma Pedrito Huynh M.D. Onset: 04/13/2015 Severe / Advanced / End Stage Glaucoma Pedrito Huynh M.D. Onset: 2014 Combined form of senile cataract Pedrito Huynh M.D. Onset: 01/15/2016 Type 2 diabetes mellitus with mild Pedrito Huynh M.D. Onset: 01/15/2016 nonproliferative diabetic retinopathy without macular edema Primary open angle glaucoma of right eye Pedrito Huynh M.D. Onset: 2016 Primary open angle glaucoma of left eye Pedrito Huynh M.D. Onset: 2016 Type 2 diabetes mellitus with mild Pedrito Huynh M.D. Onset: 11/27/2016 nonproliferative diabetic retinopathy without macular edema, bilateral Panhypopituitarism Onset: Pituitary adenoma Onset: Note: 2006 Primary antiphospholipid syndrome Onset: Celiac disease Onset: Gout Onset: Tear film insufficiency Pedrito Huynh M.D. Onset: 05/25/2018 Blepharitis Sebastian Cardoza M.D. Onset: 10/26/2018 Presence of intraocular lens Pedrito Huynh M.D. Onset: 09/29/2019 Superficial punctate keratitis Ignacia Gaines O.D. Onset: 12/06/2019 Herpes zoster without complication Ignacia Gaines O.D. Onset: 12/07/2019 Herpes zoster keratoconjunctivitis Ignacia Gaines O.D. Onset: 12/10/2019 Social History Type Date Description Comments Sex Unknown ETOH Use Denies alcohol use Tobacco Use Start: Unknown End: Patient is a former smoker quit 1989 Unknown Recreational Drug Use Denies Drug Use Smoking Status Reviewed: 12/14/19 Patient is a former smoker quit 1989 Allergies, Adverse Reactions, Alerts Active Allergies Reaction Severity Comments Date Cephalexin 09/01/2017 Verapamil 09/01/2017 Nifedipine 09/01/2017 Enalapril 09/01/2017 Medications Active Medications SIG Qnty Indications Ordering Provider Date Prednisolone Acetate 1 drop right 15ml B02.33 Reina Kwok 12/12/2019 1% eye every 2 [place], O.D. Suspension hours For 1 day then 4xday Valacyclovir HCL 1 by mouth 21tabs Seabstian Cardoza, 12/07/2019 1gm every 8 hours M.D. Tablets for 7 days Erythromycin apply thin 1Tubes H16.141 Ignacia Gaines, 12/06/2019 5mg/GM strip to right O.D. Ointment eye twice a day Timolol Maleate 1 drop right 45ml H40.1113 Pedrito Huynh, 11/01/2018 0.25% eye once a day M.D. Solution Artificial Tears as needed Pedrito Huynh, 08/26/2018 0.1-0.3% M.D. Solution Gabapentin twice daily Unknown 100mg Capsules Hydrocodone-Acetaminoph Unknown en 5-325mg Tablets Cyanocobalamin Inject 1ML Unknown 1000mcg/ML Under The Skin Solution Weekly Humalog Kwikpen Ulices Banerjee M.D. 100Unit/ML Solution Pen-Inject Tamsulosin HCL Santy Richardson 0.4mg M.D. Capsules Ranitidine HCL Matthew Peng 150mg M.D. Tablets Magnesium Unknown 400mg Capsules Tears Naturale Free Unknown 0.1-0.3% Solution Glipizide Ulices Banerjee M.D. 10mg Tablets Androgel Pump Ulices Banerjee M.D. 20.25mg/Act (1.62%) Gel Liothyronine Sodium Ulices Banerjee M.D. 5mcg Tablets Losartan Potassium every day Unknown 50mg Tablets Prednisone 7.5 MG qd Unknown 7.5mg Tablets Lyrica Unknown 50mg Capsules Levothyroxine Sodium Unknown 112mcg Tablets Xarelto Unknown 10mg Tablets Desmopressin Acetate bid Unknown 0.1mg Tablets Lantus 32 units qam Unknown 100Unit/ML Solution Allopurinol qd Unknown 300mg Tablets First-Testosterone Unknown 2% Ointment History Medications Ciprofloxacin HCL 1 drop left eye 3 5ml Pedrito Huynh, 09/01/2019 - 0.3% times daily M.D. 10/16/2019 Solution Ketorolac Tromethamine 1 drop left eye 3 10ml Pedrito Huynh, 2018 - 0.5% times daily 1 M.D. 10/16/2019 Solution drop right eye 2 times daily Prednisolone Acetate 1 drop left eye 3 5ml Pedrito Huynh, 09/01/2019 - 1% times daily 1 M.D. 10/16/2019 Suspension drop right eye 2 times daily Acetazolamide 1 tab by mouth 14tabs Pedrito Huynh, 09/01/2019 - 250mg Tablets every 6 hours, M.D. 10/16/2019 start after surgery Brimonidine Tartrate 1 drop right eye 30units Pedrito Huynh, 2018 - 0.2% twice a day M.D. 12/05/2019 Solution Immunizations Description No Information Available Vital Signs Date Vital Result Comment 01/21/2016 3:57pm BP Systolic 134 mmHg BP Diastolic 71 mmHg Heart Rate 71 /min Respiratory Rate 12 /min Results Test Acquired Date Facility Test Result H/L Range Note Laboratory test 2019 [facility] of 134 mg/ dL High 70-100 1 [address] [place] [address] (607)- - Laboratory test 09/28/2019 [facility] of 100 mg/ dL Normal 70-100 2 [address] [place] [address] (607)- - Laboratory test 09/28/2019 [facility] of 117 mg/ dL High 70-100 3 [address] [place] [address] (607)- - Laboratory test 09/21/2019 [facility] of 310 mg/ dL High 70-100 4 [address] [place] [address] (607)- - Laboratory test 09/21/2019 [facility] of 344 mg/ dL High 70-100 5 [address] [place] [address] (607)- - Laboratory test 09/21/2019 [facility] of 375 mg/ dL High 70-100 6 [address] [place] [address] (607)- - 1 Assistant Press Operator Offset: [id number] 2 Assistant Press Operator Offset: [id number] 3 Assistant Press Operator Offset: [id number] 4 Assistant Press Operator Offset: [id number] 5 Assistant Press Operator Offset: [id number] 6 Assistant Press Operator Offset: [id number] Procedures Date Code Description Status 2019 56280 Cataract Surgery Complex Completed 09/28/2019 78123 Cataract Surgery Complex Completed 09/01/2019 01112 Ophthalmic Biometry Completed 09/01/2019 85543 Visual Field Exam Extended Completed 09/01/2019 90975 Est Patient Intermediate Exam Completed Medical Devices Description No Information Available Encounters Type Date Location Provider Dx Diagnosis Office Visit 12/12/2019 Reina Celestin B02.33 Zoster keratitis 10:00a , pc Rocky Ferrari Office Visit 12/10/2019 Ignacia Celestin, B02.33 Zoster keratitis 11:45a MD, pc O.D. Office Visit 12/08/2019 Ignacia Celestin, B02.9 Zoster without 2:15p , pc O.D. complications Office Visit 12/07/2019 Ignacia Celestin, B02.9 Zoster without 8:45a MD, pc O.D. complications Office Visit 12/06/2019 Ignacia Celestin, H16.141 Punctate keratitis, 4:45p , pc O.D. right eye Assessments Date Code Description Provider 12/14/2019 B02.33 Zoster keratitis Reina Ferrari O.D. 12/12/2019 B02.33 Zoster keratitis Nikki Hopkins.Beckie 12/10/2019 B02.33 Zoster keratitis Nikki Galdamez.DKenya 12/08/2019 B02.9 Zoster without complications Ignacia Gaines O.DKenya 12/07/2019 B02.9 Zoster without complications Ignacia Gaines O.DKenya 12/06/2019 H16.141 Punctate keratitis, right eye Ignacia Gaines O.D. 10/17/2019 Z96.1 Presence of intraocular lens Pedrito Huynh M.D. 10/17/2019 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, right eye, Pedrito Huynh M.D. severe stage 10/17/2019 H40.1122 Primary open-angle glaucoma, left eye, Pedrito Huynh M.D. moderate stage 10/17/2019 E11.3293 Type 2 diabetes mellitus with mild Pedrito Huynh M.D. nonproliferative diabetic 10/06/2019 Z96.1 Presence of intraocular lens Pedrito Huynh M.D. 10/06/2019 H40.1122 Primary open-angle glaucoma, left eye, Pedrito Huynh M.D. moderate stage 10/06/2019 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, right eye, Pedrito Huynh M.D. severe stage 10/06/2019 E11.3293 Type 2 diabetes mellitus with mild Pedrito Huynh M.D. nonproliferative diabetic 2019 H25.812 Combined forms of age-related cataract, Pedrito Huynh M.D. left eye 2019 H21.562 Pupillary abnormality, left eye Pedrito Huynh M.D. 09/29/2019 H25.812 Combined forms of age-related cataract, Pedrito Huynh M.D. left eye 09/29/2019 H40.1122 Primary open-angle glaucoma, left eye, Pedrito Huynh M.D. moderate stage 09/29/2019 E11.3293 Type 2 diabetes mellitus with mild Pedrito Huynh M.D. nonproliferative diabetic 09/29/2019 Z96.1 Presence of intraocular lens Pedrito Huynh M.D. 09/29/2019 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, right eye, Pedrito Huynh M.D. severe stage 09/28/2019 H25.811 Combined forms of age-related cataract, Pedrito Huynh M.D. right eye 09/28/2019 H21.561 Pupillary abnormality, right eye Pedrito Huynh M.D. 09/01/2019 H25.811 Combined forms of age-related tony, Pedrito Huynh M.D. right eye 09/01/2019 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, right eye, Pedrito Huynh M.D. severe stage 09/01/2019 H40.1122 Primary open-angle glaucoma, left eye, Pedrito Huynh M.D. moderate stage 09/01/2019 E11.3293 Type 2 diabetes mellitus with mild Pedrito Huynh M.D. nonproliferative diabetic 09/01/2019 H25.812 Combined forms of age-related tony, Pedrito Huynh M.D. left eye 09/01/2019 H04.123 Dry eye syndrome of bilateral lacrimal Pedrito Huynh M.D. glands Plan of Treatment Future Appointment(s):01/16/2020 9:00 am - [facility] at [facility]/16/2020 8:00 am - [facility]2019 - Reina Ferrari O.D.B02.33 Zoster keratitisComments:Smoking can increase the risk of developing or worsening any eye related disease, as well as affect your overall health. If you are a smoker, we strongly recommend that you quit.If you are not a smoker, we strongly recommend that you do not start.Follow up:2 day recheck Functional Status Description No Information Available Mental Status Description No Information Available Referrals Description No Information Available
--- OUTSIDE RECORDS SUMMARY | 2019-12-29 14:14 | XMS REPORT | Continuity of Care Document ---
:1940 External Reference #:[id number] Author Name Ignacia Gaines O.D. Address [address] [place] [phone] Care Team Providers Name Role Phone Ulices Banerjee M.D. - Endocrinology, Care Team Information Hatchery Manager [phone] Diabetes & Metabolism Kb Eddy M.D. - Urology Care Team Information Hatchery Manager [phone] Liam Nieves MEDICAL DIRECTOR/HEAD TEAM PHYSICIAN - Nurse Practitioner Care Team Information Hatchery Manager Ladonna Frances MD/FACP - Internal Care Team Information Hatchery Manager Medicine Problems Active Problems Provider Date Type [...] Use Denies Drug Use Smoking Status Reviewed: 12/10/19 Patient is a former smoker quit 1989 Allergies, Adverse Reactions, Alerts Active Allergies Reaction Severity Comments Date Cephalexin 09/01/2017 Verapamil 09/01/2017 Nifedipine 09/01/2017 Enalapril 09/01/2017 Medications Active Medications SIG Qnty Indications Ordering Provider Date Valacyclovir HCL 1 by mouth 21tabs Sebastian Cardoza, 12/07/2019 1gm every 8 hours M.D. [...] 1000mcg/ML Under The Skin Solution Weekly Humalog Ulices Kinney M.D. 100Unit/ML Solution Pen-Inject Tamsulosin HCL Santy [...] Result H/L Range Note Laboratory test 2019 [facility] of 134 mg/ dL High 70-100 1 [address] [place] [address] (607)- - Laboratory test 09/28/2019 [facility] of 100 mg/ dL Normal 70-100 2 [address] [place] [address] (607)- - Laboratory test 09/28/2019 [facility] of 117 mg/ dL High 70-100 3 [address] [place] [address] (607)- - Laboratory test 09/21/2019 [facility] of 310 mg/ dL High 70-100 4 [address] [place] [address] (607)- - Laboratory test 09/21/2019 [facility] of 344 mg/ dL High 70-100 5 [address] [place] [address] (607)- - Laboratory test 09/21/2019 [facility] of 375 mg/ dL High 70-100 [address] [place] [address] (607)- - 1 Forestry Faculty Member: [id number] 2 Forestry Faculty Member: [id number] 3 Forestry Faculty Member: [id number] 4 Forestry Faculty Member: [id number] 5 Forestry Faculty Member: [id number] 6 Forestry Faculty Member: [id number] Procedures Date Code Description Status 2019 93656 Cataract Surgery Complex Completed 09/28/2019 30587 Cataract Surgery Complex Completed 09/01/2019 63258 Ophthalmic Biometry Completed 09/01/2019 97657 Visual Field Exam Extended Completed 09/01/2019 57197 Est Patient Intermediate Exam Completed Medical Devices Description No Information Available Encounters Type Date Location Provider Dx Diagnosis Office Visit 12/08/2019 Ignacia Celestin, B02.9 Zoster without 2:15p harsha AARON O.D. complications Office Visit 12/07/2019 Ignacia Celestin, B02.9 Zoster without 8:45a harsha AARON O.D. complications Office Visit 12/06/2019 Ignacia Celestin, H16.141 Punctate keratitis, 4:45p , pc OElvia. right eye Assessments Date Code Description Provider 12/10/2019 B02.33 Zoster keratitis Ignacia Gaines O.D. 12/08/2019 B02.9 Zoster without complications Ignacia Gaines O.D. 12/07/2019 B02.9 Zoster without complications Ignacia Gaines O.D. 12/06/2019 H16.141 Punctate keratitis, right eye Ignacia [...] M.D. 09/01/2019 H25.811 Combined forms of age-related cataract, Pedrito Huynh M.D. right eye 09/01/2019 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, right eye, Pedrito Huynh M.D. severe stage 09/01/2019 H40.1122 Primary open-angle glaucoma, left eye, Pedrito Huynh M.D. moderate stage 09/01/2019 E11.3293 Type 2 diabetes mellitus with mild Pedrito Huynh M.D. nonproliferative diabetic 09/01/2019 H25.812 Combined forms of age-related cataract, Pedrito Huynh M.D. left eye 09/01/2019 H04.123 Dry eye syndrome of bilateral lacrimal Pedrito Huynh M.D. glands Plan of Treatment Future Appointment(s):12/12/2019 10:00 am - Reina Ferrari O.D. at [facility], 01/16/2020 9:00 am - Pedrito Huynh M.D. at [facility] , 01/16/2020 8:00 am - [facility] at [facility]12/10/2019 - Ignacia Gaines O.D.B02.33 Zoster keratitisComments:Smoking can increase the risk of developing or worsening any eye related disease, as well as affect your overall health. If you are a smoker, we strongly recommend that you quit.If you are not a smoker, we strongly recommend that you do not start. continue antiviral medication as prescribedcontinue ointment on rash on skin twice a daystart ointment in the right eye twice a dayuse artificial tears as neededFollow up:Thursday Functional Status Description No Information Available Mental Status Description No Information Available Referrals Description No Information Available
--- OUTSIDE RECORDS SUMMARY | 2019-12-29 14:14 | XMS REPORT | Continuity of Care Document ---
:1940 External Reference #:[id number] Author Name Reina Ferrari O.D. Address [address] [place] [address] Care Team Providers Name Role Phone Ulices Banerjee M.D. - Endocrinology, Care Team Information Health Practice Manager [phone] Diabetes & Metabolism Kb Eddy M.D. - Urology Care Team Information Health Practice Manager [phone] Liam Nieves BATH STEWARD - Nurse Practitioner Care Team Information Health Practice Manager Ladonna Frances MD/FACHeriberto - Internal Care Team Information Health Practice Manager Medicine Ladonna Frances MD/FACHeriberto - Internal Care Team Information Health Practice Manager Medicine Problems Active Problems Provider Date [...] bilateral Panhypopituitarism Onset: Pituitary adenoma Onset: Note: 2005 Primary antiphospholipid syndrome Onset: Celiac disease Onset: [...] Use Denies Drug Use Smoking Status Reviewed: 12/19/19 Patient is a former smoker quit 1989 Allergies, Adverse Reactions, Alerts Active Allergies Reaction Severity Comments Date Cephalexin 09/01/2017 Verapamil 09/01/2017 Nifedipine 09/01/2017 Enalapril 09/01/2017 Medications Active Medications SIG Qnty Indications Ordering Provider Date Prednisolone Acetate 1 drop right 15ml B02.33 Reina Kwok 12/12/2019 1% eye every 4 Stockwin, O.D. Suspension time a day Valacyclovir HCL 1 by mouth 21tabs Sebastian [...] Result H/L Range Note Laboratory test 2019 [facility] of 134 mg/ dL High 70-100 1 [address] [place] [address] (607)- - Laboratory test 09/28/2019 [facility] of 100 mg/ dL Normal 70-100 2 [address] [place] [address] (607)- - Laboratory test 09/28/2019 [facility] of 117 mg/ dL High 70-100 3 [address] [place] [address] (607)- - Laboratory test 09/21/2019 [facility] of 310 mg/ dL High 70-100 4 [address] [place] [address] (607)- - Laboratory test 09/21/2019 [facility] of 344 mg/ dL High 70-100 5 [address] [place] [address] (607)- - Laboratory test 09/21/2019 [facility] of 375 mg/ dL High 70-100 6 [address] [place] [address] (607)- - 1 Aerodynamics Engineer: [id number] 2 Aerodynamics Engineer: [id number] 3 Aerodynamics Engineer: [id number] 4 Aerodynamics Engineer: [id number] 5 Aerodynamics Engineer: [id number] 6 Aerodynamics Engineer: [id number] Procedures Date Code Description Status 2019 69610 Cataract Surgery Complex Completed 09/28/2019 33097 Cataract Surgery Complex Completed 09/01/2019 94491 Ophthalmic Biometry Completed 09/01/2019 72088 Visual Field Exam Extended Completed 09/01/2019 13387 Est Patient Intermediate Exam Completed Medical Devices Description No Information Available Encounters Type Date Location Provider Dx Diagnosis Office Visit 12/16/2019 [facility], Ignacia Gaines, B02.33 Zoster keratitis 10:45a , harsha Hidalgo Office Visit 12/14/2019 Reina Celestin B02.33 Zoster keratitis 10:20a , harsha Ferrari O.D. Office Visit 12/12/2019 Reina Celestin B02.33 Zoster keratitis 10:00a , harsha Ferrari O.D. Office Visit 12/10/2019 Ignacia Celestin, B02.33 Zoster keratitis 11:45a , harsha O.DKen[place] Office Visit 12/08/2019 Ignacia Celestin, B02.9 Zoster without 2:15p , harsha Jordan.Beckie complications Office Visit 12/07/2019 Ignacia Celestin, B02.9 Zoster without 8:45a , harsha Jordan.Beckie complications Office Visit 12/06/2019 Ignacia Celestin, H16.141 Punctate keratitis, 4:45p harsha AARON O.D. right eye Assessments Date Code Description Provider 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 Nikki Hopkins.Beckie 12/16/2019 B02.33 Zoster keratitis Nikki Galdamez.Beckie 12/14/2019 B02.33 Zoster keratitis Nikki Hopkins.Beckie 12/12/2019 B02.33 Zoster keratitis Nikki Hopkins.Beckie 12/10/2019 B02.33 Zoster keratitis Nikki Galdamez.Beckie 12/08/2019 B02.9 Zoster without complications Nikki Galdamez.DKenya 12/07/2019 B02.9 Zoster without complications Nikki Galdamez.DKenya 12/06/2019 H16.141 Punctate keratitis, right eye Ignacia [...] recommend that you do not start. continue prednisolone drops 4xday for 3 days, then 2xday for 5 daysFollow up:1 Week Follow Up Functional Status Description No Information Available Mental Status Description No Information Available Referrals Description No Information Available
--- OUTSIDE RECORDS SUMMARY | 2019-12-29 14:14 | XMS REPORT | Continuity of Care Document ---
:1940 External Reference #:[id number] Author Name Ignacia Gaines O.D. Address [address] [place] [id number] Care Team Providers Name Role Phone Ulices Banerjee M.D. - Endocrinology, Care Team Information Salon Coordinator [phone] Diabetes & Metabolism Kb Eddy M.D. - Urology Care Team Information Salon Coordinator [phone] Liam Nieves BOMB TECHNICIAN - Nurse Practitioner Care Team Information Salon Coordinator Ladonna Frances MD/FACP - Internal Care Team Information Salon Coordinator [phone] Medicine Problems Active Problems Provider Date Type [...] without complication Ignacia Gaines O.D. Onset: 12/07/2019 Social History Type Date Description Comments Sex Unknown ETOH Use Denies alcohol use Tobacco Use Start: Unknown End: Patient is a former smoker quit 1989 Unknown Recreational Drug Use Denies Drug Use Smoking Status Reviewed: 12/08/19 Patient is a former smoker quit 1989 [...] 5mg/GM strip to right O.D. Ointment eye before bed Timolol Maleate 1 drop right 45ml H40.1113 Pedrito Huynh, 11/01/2018 0.25% eye once a day M.D. Solution Artificial Tears as needed Pedrito Huynh, 08/26/2018 0.1-0.3% M.D. Solution Hydrocodone-Acetaminoph Unknown en 5-325mg Tablets Cyanocobalamin Inject [...] Result H/L Range Note Laboratory test 2019 [facility] of 134 mg/ dL High 70-100 1 finding [address] [facility] [place] [address] (607)- - Laboratory test 09/28/2019 [facility] of 100 mg/ dL Normal 70-100 2 [address] [place] [address] (607)- - Laboratory test 09/28/2019 [facility] of 117 mg/ dL High 70-100 3 [address] [place] [address] (607)- - Laboratory test 09/21/2019 [facility] of 310 mg/ dL High 70-100 4 [address] [place] [address] (607)- - Laboratory test 09/21/2019 [facility] of 344 mg/ dL High 70-100 5 [address] [place] [address] (607)- - Laboratory test 09/21/2019 [facility] of 375 mg/ dL High 70-100 6 [address] [place] [address] (607)- - 1 Cook Chill Technician: [id number] 2 Cook Chill Technician: [id number] 3 Cook Chill Technician: [id number] 4 Cook Chill Technician: [id number] 5 Cook Chill Technician: [id number] 6 Cook Chill Technician: [id number] Procedures Date Code Description Status 2019 63241 Cataract Surgery Complex Completed 09/28/2019 19909 Cataract Surgery Complex Completed 09/01/2019 63652 Ophthalmic Biometry Completed 09/01/2019 00289 Visual Field Exam Extended Completed 09/01/2019 23239 Est Patient Intermediate Exam Completed Medical Devices Description No Information Available Encounters Type Date Location Provider Dx Diagnosis Office Visit 12/08/2019 Ignacia Celestin, B02.9 Zoster without 2:15p , pc O.D. complications Office Visit 12/07/2019 Ignacia Celestin, B02.9 Zoster without 8:45a , harsha O.D. complications Office Visit 12/06/2019 Ignacia Celestin, H16.141 Punctate keratitis, 4:45p , pc O.D. right eye Assessments Date Code Description Provider 12/08/2019 B02.9 Zoster without complications Ignacia Gaines [...] Huynh M.D. glands Plan of Treatment Future Appointment(s):12/10/2019 11:45 am - Ignacia Gaines O.D. at [facility], 12/09/2019 10:30 am - Ignacia Gaines O.D. at [facility], 01/16/2020 9:00 am - Ped[facility]h M.D. at [facility], 2019 8:00 am - [facility] at [facility], 12/08/2019 - Ignacia Gaines O.D.B02.9 Zoster without complicationsComments:Smoking can increase the risk of developing or worsening any eye related disease, as well as affect your overall health. If you are a smoker, we strongly recommend that you quit.If you are not a smoker, we strongly recommend that you do not start. continue the take the medication as prescribedif your symptoms worsen, please call the office to be seenFollow up:2 days You can expect to have your eyes dilated at your next visit. If Dr. Gaines orders any additional testing, it may require extra time. We recommend that you bring sunglasses, as dilation drops often make you light sensitive until they wear off. We always recommend you bring someone to drive you home if you are uncomfortable driving with your eyes dilated. If you have any questions before your next visit, feel free to call our office at . Functional Status Description No Information Available Mental Status Description No Information Available Referrals Description No Information Available
--- OUTSIDE RECORDS SUMMARY | 2019-12-29 14:14 | XMS REPORT | Continuity of Care Document ---
:1940 External Reference #:[id number] Author Name Liam Nieves NP (transmitted by agent of provider Francia Davila) Address [address] [facility] [address], [place] [address] Care Team Providers Name Role Phone Ulices Banerjee MD - Endocrinology, Care Team Information Banking Paralegal [facility] - Pain Care Team Information Banking Paralegal [phone] Kb Bull MD - Urology Care Team Information Banking Paralegal [phone] Liam Nieves NP - Internal Medicine Care Team Information Banking Paralegal Problems Active Problems Provider Date Chronic kidney disease stage 2 due to Daniel Peng M.D.,FACP Onset: type 2 diabetes mellitus Note: with microalbuminuria, CCR 68 Panhypopituitarism Daniel Peng M.D.,FACP 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/2018 Type 2 diabetes mellitus Daniel Peng M.D.,FACP Onset: 06/03/2018 Disorder of pituitary gland Daniel Peng M.D.,FACP Onset: 05/27/2017 Note: apoplexy 2006 Primary antiphospholipid syndrome Daniel Peng M.D.,FACP Onset: 2016 Acquired hypothyroidism Daniel Peng M.D.,FACP Onset: 05/27/2017 Testicular hypofunction Daniel Peng M.D.,FACP Onset: 05/27/2017 Celiac disease Daniel Peng M.D.,FACP Onset: 05/27/2017 Essential hypertension Daniel Peng M.D.,FACP Onset: 05/27/2017 Gout Daniel Peng M.D.,FACP Onset: 05/27/2017 Glaucoma Daniel Peng M.D.,FACP Onset: 05/27/2017 Note: trabulectomy Obstructive sleep apnea syndrome Daniel Peng M.D.,FACP Onset: 2016 Benign prostatic hypertrophy without Daniel Peng M.D.,FACP Onset: 02/2017 outflow obstruction Note: s/p TURP Disseminated idiopathic skeletal Daniel Peng M.D.,FACP Onset: 2016 hyperostosis Bilateral hearing loss Daniel Peng M.D.,FACP Onset: 09/15/2017 Atherosclerosis of arteries of the Tony Chandni Henning M.D. Onset: 01/20/2018 extremities Long-term current use of insulin MODE Guzman Onset: 04/19/2018 Cholelithiasis without obstruction Daniel Peng M.D.,FACP Onset: 2017 Social History Type Date Description Comments Sex Unknown Cigarette Use Quit - Age 50 ETOH Use 09/15/2017 Denies alcohol use Tobacco Use Start: Unknown End: Patient is a former smoker Recreational Drug Use Denies Drug Use Smoking Status Reviewed: 12/27/19 Patient is a former smoker Exercise Type/Frequency Exercises sporadically Allergies, Adverse Reactions, Alerts Active Allergies Reaction Severity Comments Date Keflex 10/02/2016 Protonix diarrhea 04/26/2018 Inactive Allergies NKDA 05/16/2015 Medications Active Medications SIG Qnty Indications Ordering Date Provider [facility] Vitamin B12 please take one Liam Nieves NP 12/27/2019 1000mcg daily Tablets Hydrocodone 1-2 tabs by mouth 42tabs Liam Nieves NP 12/27/2019 Bitartrate/Acetaminop every 8 hours as hen needed. 5-325mg Tablets Gabapentin 1 by mouth twice a 60caps Liam Nieves NP 12/09/2019 300mg day. If tolerated Capsules increase to three times daily after two days. Acetaminophen Extra take 1 tab every 4 42tabs Lg Castillo MD 12/07/2019 Strength hours for moderate 500mg Tablets pain Shingrix 0.5ml 2units Liam Nieves NP 04/25/2019 50mcg/0.5ML intramuscular, Suspension Rec repeat 2-6 months later Ammonium Lactate Apply twice daily 226gm R21 Liam Nieves NP 04/25/2019 12% to affected areas. Lotion Triamcinolone apply twice daily 45gm Liam Nieves NP 01/19/2019 Acetonide to the affected 0.5% Cream area Losartan Potassium Take One Tablet By 90tabs Ladonna Frances MD 10/29/2018 Mouth Every Day 100mg Tablets Cheratussin ac 10 milliliters by 473ml Daniel Butts 09/10/2018 mouth four times a Oksana Peng,FACP 100-10mg/5ML Syrup day as needed Ranitidine HCL 01/19/19 takes as 60tabs Daniel Butts 04/26/2018 150mg needed take one Oksana Peng,FACP Tablets tablet by mouth twice a day prn Prednisone 2 tabs by mouth 270tabs Liam Nieves NP 02/09/2018 2.5mg every morning and Tablets 1 tab by mouth every night Androgel Pump 2 pump topical Daniel Butts 01/20/2018 daily Oksana Peng,FACP 20.25mg/Act (1.62%) Gel Magnesium-Oxide 1 by mouth every 90tabs Daniel Butts 06/11/2017 evening Oksana Peng,FACP 400(241.3mg) mg Tablets Levothyroxine Sodium 1 by mouth every Unknown day 112mcg Tablets Liothyronine Sodium bid Unknown 5mcg Tablets Desmopressin Acetate 1 by mouth twice Unknown daily 0.2mg Tablets Lyrica 1-2 tab by mouth 120caps Liam Nieves NP 50mg Capsules twice daily Lantus 45 units SC daily Unknown 100Unit/ML Solution Humalog Kwikpen 7u pre-break, 10u Unknown pre-lunch, 14 u 100Unit/ML Solution pre-dinner Pen-Inject (sliding scale) Xarelto Take One Tablet By 90tabs Liam Nieves NP 10mg Tablets Mouth Every Day Allopurinol Take One Tablet By 90tabs Adri Yohannes, 300mg Mouth Every Day N.P. Tablets History Medications Valacyclovir HCL one by mouth two times 14tabs Liam Nieves NP 12/07/2019 - 1gm a day x 7 days (renally 12/14/2019 Tablets dosed-Egfr=42) Oxycodone-Acetaminoph take 1 tablet every 6 14tabs Lg Castillo MD 2019 - en hours for severe pain 12/27/2019 5-325mg Tablets Medications Administered in Office Medication SIG Qnty Indications Ordering Provider Date Inj, Regadenoson, 0.1 MG Eduard Kenny, DO FAC 08/18/2019 Injection Technetium TC 99M Eduard Kenny, DO FACC 08/18/2019 Tetrofosmin, Per Unit Dose Up To 40 Millicuries Injection Technetium TC 99M Eduard Kenny, DO FACC 08/18/2019 Tetrofosmin, Per Unit Dose Up To 40 Millicuries Injection Immunizations CPT Code Status Date Vaccine Lot # [id number] Given 09/06/2019 Fluzone High Dose [id number] Given 09/09/2018 Fluzone High Dose 38720 Given 09/09/2018 Fluzone High Dose 91405 Given 09/15/2017 Pneumococcal Conjugate Vaccine 13 Valent For [id number] Intramuscular Use 17955 Given 09/09/2017 Influenza Virus Vaccine, Quadrivalent, Split, Preservative Free 89939 Given 09/06/2007 Pneumonia Vaccine Vital Signs Date Vital Result Comment 12/27/2019 11:46am Height 69 inches 5'9" Weight 203.00 lb Heart Rate 56 /min BP Systolic Sitting 141 mmHg BP Diastolic Sitting 84 mmHg Pain Level 9 O2 % BldC Oximetry 95 % BMI (Body Mass Index) 30.0 kg/m2 10/26/2019 3:46pm Height 69 inches 5'9" Weight 204.50 lb with shoes Heart Rate 54 /min left radial BP Systolic Sitting 118 mmHg ule reg cuff BP Diastolic Sitting 72 mmHg ule reg cuff BP Systolic Standing 118 mmHg ule reg cuff BP Diastolic Standing 72 mmHg ule reg cuff BMI (Body Mass Index) 30.2 kg/m2 Ejection Fraction 55-60% Echo 09/12/19 Results Test Acquired Date Facility Test Result H/L Range Note Laboratory test 2019 [facility] 134 mg/dL High 70-[address] [place] [address] [phone] Laboratory test 09/28/2019 [facility] 100 mg/dL Normal 70-[address] [place] [address] [phone] Laboratory test 09/28/2019 [facility] 117 mg/dL High 70-[address] [place] [address] [phone] Laboratory test 09/21/2019 [facility] 310 mg/dL High 70-[address] [place] [address] [phone] Laboratory test 09/21/2019 [facility] 344 mg/dL High 70-[address] [place] [address] [phone] Laboratory test 09/21/2019 [facility] 375 mg/dL High 70-[address] [place] [address] [phone] Laboratory test 09/13/2019 [facility] Hemoglobin A1c 7.5 High 5-7 finding Laboratory test 07/15/2019 [facility] Troponin-I 0.02 ng/mL < 0.[address] (TnI) [place] [address] [phone] Urinalysis 07/15/2019 [facility] Urine Color Yellow [place] [address] [place] [address] [phone] Urine Appearance Clear Urine Specific Rew 1.017 Normal 1.010-1.030 Urine pH 5.0 Normal 5-9 Urine Urobilinogen Negative Negative Urine Ketones Negative Negative Urine Protein Negative Negative Urine Leukocytes Negative Negative Urine Blood Negative Negative Urine Nitrite Negative Negative Urine Bilirubin Negative Negative Urine Glucose 3+(>=500 mg/dL) Abnormal Negative Laboratory test 07/15/2019 [facility] TSH (Thyroid 0.30 Low 0.34-5.[address] Stim Horm) mcIU/[place] [address] [phone] Vitamin B12 568 pg/mL Normal 180-914 8 PSA Screening 0.349 ng/mL Normal 0-4.000 9 Comp Metabolic 07/15/2019 [facility] Sodium 138 mmol/L Normal 135-[address] [place] [address] [phone] Potassium 4.4 mmol/L Normal 3.5-5.0 Chloride 106 mmol/L Normal 101-111 Co2 Carbon Dioxide 26 mmol/L Normal 22-32 Anion Gap 6 mmol/L Normal 2-11 Glucose 172 mg/dL High 70-100 Blood Urea Nitrogen 25 mg/dL High 6-24 Creatinine 1.59 mg/dL High 0.67-1.17 BUN/Creatinine Ratio 15.7 Normal 8-20 Calcium 9.0 mg/dL Normal 8.6-10.3 Total Protein 6.1 g/dL Low 6.4-8.9 Albumin 3.9 g/dL Normal 3.2-5.2 Globulin 2.2 g/dL Normal 2-4 Albumin/Globulin Ratio 1.8 Normal 1-3 Total Bilirubin 0.70 mg/dL Normal 0.2-1.0 Alkaline Phosphatase 82 U/L Normal 34-104 Alt 22 U/L Normal 7-52 Ast 16 U/L Normal 13-39 Egfr Non- 42.3 >60 Egfr 51.2 >60 10 CBC Auto 07/15/2019 [facility] White Blood 7.4 10^3/uL Normal 3.5-10.[address] [place] [address] [phone] Red Blood Count 4.80 10^6/uL Normal 4.18-5.48 Hemoglobin 15.1 g/dL Normal 14.0-18.0 Hematocrit 45 % Normal 42-52 Mean Corpuscular Volume 93 fL Normal 80-94 Mean Corpuscular Hemoglobin 32 pg High 27-31 Mean Corpuscular HGB Conc 34 g/dL Normal 31-36 Red Cell Distribution Width 16 % High 10-15 Platelet Count 161 10^3/uL Normal 150-450 Mean Platelet Volume 9.5 fL Normal 7.4-10.4 Abs Neutrophils 6.0 10^3/uL Normal 1.5-7.7 Abs Lymphocytes 0.7 10^3/uL Low 1.0-4.8 Abs Monocytes 0.7 10^3/uL Normal 0-0.8 Abs Eosinophils 0.0 10^3/uL Normal 0-0.6 Abs Basophils 0.0 10^3/uL Normal 0-0.2 Abs Nucleated RBC 0.0 10^3/uL Granulocyte % 80.8 % Lymphocyte % 9.0 % Monocyte % 9.7 % Eosinophil % 0.2 % Basophil % 0.3 % Nucleated Red Blood Cells % 0.0 1 Coordinator Volunteer Services: [id number] Coordinator Volunteer Services: [id number] 3 Coordinator Volunteer Services: [id number] 4 Coordinator Volunteer Services: [id number] 5 Coordinator Volunteer Services: [id number] 6 Coordinator Volunteer Services: [id number] 7 Troponin-I testing on Plasma Separator Tubes (PST) has a known false positive rate of 0.20-0.40%. All positive troponins reflex immediately to secondary confirmatory testing. Using the Immedia DxI 800 Access Immunoassay systems, the 99th percentile upper reference limit was demonstrated to be < 0.03 ng/mL. 8 Normal Range 180 to 914 Indeterminate Range 145 to 180 Deficient Range <145 9 Serum levels of PSA measured using the José Miugel bepretty DXI Hybritech immunoassay should not be interpreted as absolute evidence of the presence or absence of disease. The PSA value should be used in conjunction with other pertinent clinical diagnostic procedures. A PSA value in the range of 0.1 to 0.6 ng/ml is indeterminate if being used as an indicator of recurrent or residual disease. The values obtained with different assay methods or kits cannot be used interchangeably. 10 Because ethnic data is not always [...] 15-29 5 Kidney failure <15 (or dialysis) Procedures Date Code Description Status 12/07/2019 945911500 Diabetic Retinal Eye Exam Completed 09/12/2019 19281 ECHO Transthoracic, Real-Time 2D With Doppler And Completed Color Flow 09/12/2019 82321 ECHO Transthoracic, Real-Time 2D With Doppler And Completed Color Flow 09/06/2019 76728 Holter Monitor Review (24 hr)dr review & interp only Completed 09/05/2019 07466 ECG Monitor/Recording W/Visual Superimposition Completed Scanning 09/05/2019 68739 ECG Monitor/Recording W/Visual Superimposition Completed Scanning 09/01/2019 879680179 Diabetic Retinal Eye Exam Completed 08/22/2019 80914 EKG Tracing & Interpretation Completed 08/18/2019 17190 Stress Test Completed 08/18/2019 53159 Myocardial Perfusion Imaging Tomographic (Spect) Completed Multiple Studies 07/15/2019 31635 EKG Tracing & Interpretation Completed 05/06/2019 323318329 Diabetic Retinal Eye Exam Completed 01/07/2019 544372422 Diabetic Retinal Eye Exam Completed 08/27/2018 557047828 Diabetic Retinal Eye Exam Completed 05/25/2018 471828025 Diabetic Retinal Eye Exam Completed 11/17/2017 212833551 Diabetic Retinal Eye Exam Completed 06/03/2013 15143884 Colonoscopy Completed Medical Devices Description No Information Available Encounters Type Date Location Provider Dx Diagnosis Office Visit 10/26/2019 [facility] Allisontacorwin S. I10 Essential ( primary) 4:20p Oksana Crump hypertension I49.1 Atrial premature depolarization I49.3 Ventricular premature depolarization I34.0 Nonrheumatic mitral (valve) insufficiency I77.819 Aortic ectasia, unspecified site Office Visit 10/25/2019 10:20a [facility] Internal Liam Nieves, I10 Essential ( primary) Medicine - POSTAGE MACHINE OPERATOR hypertension Ccmob Office Visit 09/21/2019 12:10p [facility] Internal Rachel E11.65 Type 2 diabetes Medicine - Oksana Cruz mellitus with Ccmob hyperglycemia Office Visit 09/13/2019 10:40a [facility] Internal Ladonna Frances, Z01.818 Encounter for other Medicine - MD preprocedural Ccmob examination H26.9 Unspecified cataract E11.65 Type 2 diabetes mellitus with hyperglycemia I10 Essential (primary) hypertension Office Visit 08/22/2019 2:00p [facility] Qutaybeh S. M79.602 Pain in Oksana Crump left arm I10 Essential (primary) hypertension E78.5 Hyperlipidemia, unspecified E66.9 Obesity, unspecified R00.1 Bradycardia, unspecified R94.31 Abnormal electrocardiogram [ECG] [EKG] R20.2 Paresthesia of skin Office Visit 07/15/2019 11:40a [facility] Liam Nieves NP R53.83 Other fatigue Medicine - Ccmob R20.2 Paresthesia of skin M79.602 Pain in left arm R39.12 Poor urinary stream Assessments Date Code Description Provider 12/27/2019 B02.9 [place] without complications Liam Nieves NP 10/26/2019 I10 Essential (primary) hypertension Denita Crump M.D. 10/26/2019 I49.1 Atrial premature depolarization Denita Crump M.D. 10/26/2019 I49.3 Ventricular premature depolarization Denita Crump M.D. 10/26/2019 I34.0 Nonrheumatic mitral (valve) Denita Crump M.D. insufficiency 10/26/2019 I77.819 Aortic ectasia, unspecified site Denita Crump M.D. 10/25/2019 I10 Essential (primary) hypertension Liam Nieves NP 09/21/2019 E11.65 Type 2 diabetes mellitus with Rachel Cruz M.D. hyperglycemia 09/13/2019 Z01.818 Encounter for other preprocedural Ladonna Frances MD examination 09/13/2019 H26.9 Unspecified cataract Ladonna Frances MD 09/13/2019 E11.65 Type 2 diabetes mellitus with Ladonna Frances MD hyperglycemia 09/13/2019 I10 Essential (primary) hypertension Ladonna Frances MD 09/12/2019 R94.31 Abnormal electrocardiogram [ECG] [EKG] Denita Crump M.D. 09/12/2019 R94.31 Abnormal electrocardiogram [ECG] [EKG] [facility] 09/12/2019 I49.1 Atrial premature depolarization [facility] 09/12/2019 I49.3 Ventricular premature depolarization [facility] Schedule 09/12/2019 I10 Essential (primary) hypertension [facility] Schedule 09/12/2019 R00.1 Bradycardia, unspecified [place] [facility] Schedule 09/06/2019 I49.1 Atrial premature depolarization Denita Crump M.D. 09/06/2019 I49.3 Ventricular premature depolarization Denita Crump M.D. 09/05/2019 I49.1 Atrial premature depolarization Denita Crump M.D. 09/05/2019 I49.1 Atrial premature depolarization Nurse Visit cc 09/05/2019 I49.3 Ventricular premature depolarization Denita Crump M.D. 09/05/2019 I49.3 Ventricular premature depolarization Nurse Visit cc 08/22/2019 M79.602 Pain in left arm Denita Crump M.D. 08/22/2019 I10 Essential (primary) hypertension Denita Crump M.D. 08/22/2019 E78.5 Hyperlipidemia, unspecified Denita Crump M.D. 08/22/2019 E66.9 Obesity, unspecified Denita Crump M.D. 08/22/2019 R00.1 Bradycardia, unspecified Denita Crump M.D. 08/22/2019 R94.31 Abnormal electrocardiogram [ECG] [EKG] Denita Crump M.D. 08/22/2019 R20.2 Paresthesia of skin Denita Crump M.D. 08/18/2019 R94.31 Abnormal electrocardiogram [ECG] [EKG] Eduard Kenny DO [facility] 08/18/2019 R00.1 Bradycardia, unspecified Denita Crump M.D. 08/18/2019 R53.83 Other fatigue Denita Crump M.D. 08/18/2019 R94.31 Abnormal electrocardiogram [ECG] [EKG] Denita Crump M.D. 08/18/2019 M79.602 Pain in left arm Denita Crump M.D. 08/18/2019 I10 Essential (primary) hypertension Denita Crump M.D. 08/18/2019 R94.31 Abnormal electrocardiogram [ECG] [EKG] Liam Nieves NP 08/18/2019 M79.602 Pain in left arm Liam Nieves NP 07/15/2019 R00.1 Bradycardia, unspecified Ladonna Frances MD 07/15/2019 R53.83 Other fatigue Liam Nieves NP 07/15/2019 R20.2 Paresthesia of skin Liam Nieves NP 07/15/2019 R94.31 Abnormal electrocardiogram [ECG] [EKG] Ladonna Frances MD 07/15/2019 M79.602 Pain in left arm Liam Nieves NP 07/15/2019 R39.12 Poor urinary stream Liam Nieves NP Plan of Treatment Future Appointment(s):04/26/2020 9:40 am - Liam Nieves NP at [facility] Liam Nieves NPB02.9 Zoster without complicationsComments:Try increasing the gabapentin as we discussed. Start taking one capsule three times daily. If tolerated after three days you can add one capsule at night and continue from there.I have prescribed the hydrocodone. Try this instead of the oxycodone. You can try using the over the counter lidocaine to the areas of skin that feel like they are burning. Do not use this in your eye or mouth. Functional Status Description No Information Available Mental Status Description No Information Available Referrals Refer to Reason for Referral Status Appt Date [facility] Sent 08/22/[address] [place] [address] [phone]
--- OUTSIDE RECORDS SUMMARY | 2019-12-29 14:14 | XMS REPORT | Continuity of Care Document ---
:1940 External Reference #:[id number] Author Name Ignacia Gaines O.D. Address [address] [place] [id number] Care Team Providers Name Role Phone Ulices Banerjee M.D. - Endocrinology, Care Team Information Commercial Real Estate Assistant [phone] Diabetes & Metabolism Kb Eddy M.D. - Urology Care Team Information Commercial Real Estate Assistant [phone] Liam Nieves GREENSTONE POLISHER OPERATOR - Nurse Practitioner Care Team Information Commercial Real Estate Assistant Ladonna Frances MD/FACP - Internal Care Team Information Commercial Real Estate Assistant [phone] Medicine Problems Active Problems Provider Date Type [...] Use Denies Drug Use Smoking Status Reviewed: 12/07/19 Patient is a former smoker quit 1989 [...] needed Pedrito Huynh, 08/26/2018 0.1-0.3% M.D. Solution Cyanocobalamin Inject 1ML Unknown 1000mcg/ML Under The [...] Result H/L Range Note Laboratory test 2019 [facility] [place] of 134 mg/ dL High 70-100 1 [address] [facility] [place] [address] [phone])- - Laboratory test 09/28/2019 [facility] of 100 mg/ dL Normal 70-100 2 [address] [facility] [place] [address] (607)- - Laboratory test 09/28/2019 [facility] of 117 mg/ dL High 70-100 3 [address] [place] [address] (607)- - Laboratory test 09/21/2019 [facility] of 310 mg/ dL High 70-100 4 [address] [place] [address] (607)- - Laboratory test 09/21/2019 [facility] of 344 mg/ dL High 70-100 5 [address] [place] [address] (607)- - Laboratory test 09/21/2019 [facility] of 375 mg/ dL High 70-100 6 [address] [place] [address] (607)- - 1 Test Worker: [id number] 2 Test Worker: [id number] 3 Test Worker: [id number] 4 Test Worker: [id number] 5 Test Worker: [id number] 6 Test Worker: [id number] Procedures Date Code Description Status 2019 86207 Cataract Surgery Complex Completed 09/28/2019 08919 Cataract Surgery Complex Completed 09/01/2019 68801 Ophthalmic Biometry Completed 09/01/2019 26847 Visual Field Exam Extended Completed 09/01/2019 70439 Est Patient Intermediate Exam Completed Medical Devices Description No Information Available Encounters Type Date Location Provider Dx Diagnosis Office Visit 12/06/2019 Pedrito Huynh, Ignacia Gaines, H16.141 Punctate 4:45p , pc O.[place] keratitis, right eye Assessments Date Code Description Provider 12/07/2019 B02.9 Zoster without complications Ignacia Gaines [...] Huynh M.D. glands Plan of Treatment Future Appointment(s):12/08/2019 12:30 pm - Ignacia Gaines O.D. at Pedrito Huynh MD, 01/16/2020 9:00 am - Pedrito Huynh M.D. at Pedrito Huynh MD, 01/16/2020 8:00 am - Visual Field at Pedrito Huynh MD, 12/07/2019 - Ignacia Gaines O.D.B02.9 Zoster without complicationsComments:Smoking can increase the risk of developing or worsening any eye related disease, as well as affect your overall health. If you are a smoker, we strongly recommend that you quit.If you are not a smoker, we strongly recommend that you do not start. You have the shingles virus. This causes a rash on your skin on one side of your body and nerve pain.Use the ointment on the areas on your skin with the rash. I will be monitoring this closely for signs of the virus in your eyesuse cool compresses on your eyelid for the swellingtake the antiviral medication as directedFollow up:2 days or sooner as needed Functional Status Description No Information Available Mental Status Description No Information Available Referrals Description No Information Available
--- OUTSIDE RECORDS SUMMARY | 2019-12-29 14:14 | XMS REPORT | Continuity of Care Document ---
:1940 External Reference #:[id number] Author Name Reina Ferrari O.D. Address [address] [place] [id number] Care Team Providers Name Role Phone Ulices Banerjee M.D. - Endocrinology, Care Team Information Clinical Project Leader [phone] Diabetes & Metabolism Kb Eddy M.D. - Urology Care Team Information Clinical Project Leader [phone] Liam Nieves HOUSEKEEPER CAREGIVER - Nurse Practitioner Care Team Information Clinical Project Leader [phone] Ladonna Frances MD/FACHeriberto - Internal Care Team Information Clinical Project Leader [phone] Medicine Ladonna Frances MD/FACHeriberto - Internal Care Team Information Clinical Project Leader Medicine Problems Active Problems Provider Date Type [...] Use Denies Drug Use Smoking Status Reviewed: 12/26/19 Patient is a former smoker quit 1989 Allergies, Adverse Reactions, Alerts Active Allergies Reaction Severity Comments Date Cephalexin 09/01/2017 Verapamil 09/01/2017 Nifedipine 09/01/2017 Enalapril 09/01/2017 Medications Active Medications SIG Qnty Indications Ordering Provider Date Prednisolone Acetate 1 drop right 15ml B02.33 Reina Kwok 12/12/2019 1% eye every 4 [place], O.D. Suspension time a day Erythromycin apply thin 1Tubes H16.141 Ignacia Gaines, [...] Tablets First-Testosterone Unknown 2% Ointment History Medications Valacyclovir HCL 1 by mouth every 21tabs Sebastian Cardoza, 12/07/2019 - 1gm 8 hours for 7 M.D. 12/25/2019 Tablets days Ciprofloxacin HCL 1 drop left eye 5ml Pedrito Huynh, 09/01/2019 - 0.3% 3 times daily M.D. 10/16/2019 Solution Ketorolac Tromethamine 1 drop left eye 10ml [facility] Huynh, 09/01/2019 - 3 times daily 1 M.D. 10/16/2019 0.5% Solution drop right eye 2 times daily Prednisolone Acetate 1 drop left eye 5ml [facility] Huynh, 09/01/2019 - 1% 3 times daily 1 M.D. 10/16/2019 Suspension drop right eye 2 times daily Acetazolamide 1 tab by mouth 14tabs [facility] Huynh, 09/01/2019 - 250mg every 6 hours, M.D. 10/16/2019 Tablets start after surgery Brimonidine Tartrate 1 drop right eye 30units [facility] Huynh, 2018 - 0.2% twice a day M.D. 12/05/2019 Solution Immunizations Description No Information Available Vital Signs Date Vital Result Comment 01/21/2016 3:57pm BP Systolic 134 mmHg BP Diastolic 71 mmHg Heart Rate 71 /min Respiratory Rate 12 /min Results Test Acquired Date Facility Test Result H/L Range Note Laboratory test 2019 [facility] of 134 mg/ dL High 70-100 1 finding 101 DATES [facility] [place] [address] (607)- - Laboratory test 09/28/2019 [facility] of 100 mg/ dL Normal 70-100 2 finding 101 DATES [facility] [place] [address] (607)- - Laboratory test 09/28/2019 [facility] of 117 mg/ dL High 70-100 3 finding 101 DATES [facility] [place] [address] (607)- - Laboratory test 09/21/2019 [facility] of 310 mg/ dL High 70-100 4 finding 101 DATES [facility] [place] [address] (607)- - Laboratory test 09/21/2019 [facility] of 344 mg/ dL High 70-100 5 finding 101 DATES [facility] [place] [address] (607)- - Laboratory test 09/21/2019 [facility] of 375 mg/ dL High 70-100 6 finding [address] [place] [address] (607)- - 1 Body Corporate Manager: [id number] 2 Body Corporate Manager: [id number] 3 Body Corporate Manager: [id number] 4 Body Corporate Manager: [id number] 5 Body Corporate Manager: [id number] 6 Body Corporate Manager: [id number] Procedures Date Code Description Status 2019 67233 Cataract Surgery Complex Completed 09/28/2019 24815 Cataract Surgery Complex Completed 09/01/2019 90616 Ophthalmic Biometry Completed 09/01/2019 12757 Visual Field Exam Extended Completed 09/01/2019 25201 Est Patient Intermediate Exam Completed Medical Devices Description No Information Available Encounters Type Date Location Provider Dx Diagnosis Office Visit 12/19/2019 [facility], Reina J. 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 Office Visit 12/12/2019 Reina Celestin B02.33 Zoster keratitis 10:00a , Nikki White.Beckie Office Visit 12/10/2019 Ignacia Celestin, B02.33 Zoster keratitis 11:45a , harsha Jordan.D[place] Office Visit 12/08/2019 Ignacia Celestin, B02.9 Zoster without 2:15p , harsha O.D. 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 Nikki Hopkins.D[place] 12/16/2019 B02.33 Zoster keratitis Nikki Galdamez.Beckie 12/14/2019 B02.33 Zoster keratitis Nikki Hopkins.Beckie 12/12/2019 B02.33 Zoster keratitis Nikki Hopkins.DKenya 12/10/2019 B02.33 Zoster keratitis Nikki Galdamez.Beckie 12/08/2019 [...] - [facility] at [facility], 2019 - Reina Ferrari O.D.B02.33 Zoster keratitisComments:CONTINUE THE PREDNISOLONE DROPS 2XDAY FOR 3 DAYS, THEN 1XDAY FOR 1 WEEK, THEN STOPPLEASE MAKE AN APPOINTMENT WITH YOUR PRIMARY CARE DOCTOR FOR RE-EVALUATION OF THE PAINUSE COLD COMPRESS FOR COMFORTFollow up:2 Week Follow Up You can expect to have your eyes dilated at your next visit. If Dr. Ferrari orders any additional testing, it may require [...]
--- OUTSIDE RECORDS SUMMARY | 2019-12-29 14:14 | XMS REPORT | Continuity of Care Document ---
:1940 External Reference #:[id number] Author Name Reina Ferrari O.D. Address [address] [place] [id number] Care Team Providers Name Role Phone Ulices Banerjee M.D. - Endocrinology, Care Team Information Lump Receiver [phone] Diabetes & Metabolism Kb Eddy M.D. - Urology Care Team Information Lump Receiver [phone] Liam Nieves COLLABORATIVE PHYSICIAN - Nurse Practitioner Care Team Information Lump Receiver [phone] Ladonna Frances MD/FACP - Internal Care Team Information Lump Receiver [phone] Medicine Problems Active Problems Provider Date Type [...] Use Denies Drug Use Smoking Status Reviewed: 12/12/19 Patient is a former smoker quit 1989 Allergies, Adverse Reactions, Alerts Active Allergies Reaction Severity Comments Date Cephalexin 09/01/2017 Verapamil 09/01/2017 Nifedipine 09/01/2017 Enalapril 09/01/2017 Medications Active Medications SIG Qnty Indications Ordering Provider Date Prednisolone Acetate 1 drop right 15ml B02.33 Reina Kwok 12/12/2019 1% eye every 2 [place], O.D. Suspension hours For 1 day then 4xday Valacyclovir HCL 1 by mouth 21tabs Sebastian [...] Result H/L Range Note Laboratory test 2019 [facility] of 134 mg/ dL High 70-100 1 finding [address] [place] [address] (607)- - Laboratory test 09/28/2019 [facility] of 100 mg/ dL Normal 70-100 2 finding [address] [place] [address] (607)- - Laboratory test 09/28/2019 [facility] of 117 mg/ dL High 70-100 3 finding [address] [place] [address] (607)- - Laboratory test 09/21/2019 [facility] of 310 mg/ dL High 70-100 4 finding [address] [place] [address] (607)- - Laboratory test 09/21/2019 [facility] of 344 mg/ dL High 70-100 5 finding [address] [place] [address] (607)- - Laboratory test 09/21/2019 [facility] of 375 mg/ dL High 70-100 6 finding [address] [place] [address] (607)- - 1 Corporate Safety Director: [id number] 2 Corporate Safety Director: [id number] 3 Corporate Safety Director: [id number] 4 Corporate Safety Director: [id number] 5 Corporate Safety Director: [id number] 6 Corporate Safety Director: [id number] Procedures Date Code Description Status 2019 50031 Cataract Surgery Complex Completed 09/28/2019 00667 Cataract Surgery Complex Completed 09/01/2019 08673 Ophthalmic Biometry Completed 09/01/2019 61545 Visual Field Exam Extended Completed 09/01/2019 27697 Est Patient Intermediate Exam Completed Medical Devices Description No Information Available Encounters Type Date Location Provider Dx Diagnosis Office Visit 12/08/2019 [facility], Ignacia Gaines, B02.9 Zoster without 2:15p , pc O.D. complications Office Visit 12/07/2019 Ignacia Celestin, B02.9 Zoster without 8:45a harsha AARON O.D. 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 12/08/2019 B02.9 Zoster without complications Nikki Galdamez.D[place]ya 12/07/2019 B02.9 Zoster without complications Ignacia Gaines [...] Huynh M.D. glands Plan of Treatment Future Appointment(s):12/14/2019 10:20 am - Reina Ferrari O.D. at [facility], 01/16/2020 9:00 am - [facility] Hu[facility] M.D. at [facility] , 01/16/2020 8:00 am - [facility] at [facility], 12/12/2019 - Reina Ferrari O.D.B02.33 Zoster keratitisNew Medication:Prednisolone Acetate 1 % - 1 drop right eye every 2 hours For 1 day then 4xdayComments: Smoking can increase the risk of developing or worsening any eye related disease , as well as affect your overall health. If you are a smoker, we strongly recommend that you quit.If you are not a smoker, we strongly recommend that you do not start. START PREDNISOLONE DROPS EVERY 2 HOURS TODAY, THEN 4XDAYCONTINUE ERYTHROMYCIN OINTMENT AT LIDSFollow up:2 DAY RECHECK Functional Status Description No Information Available Mental Status Description No Information Available Referrals Description No Information Available
--- OUTSIDE RECORDS SUMMARY | 2019-12-29 14:14 | XMS REPORT | Continuity of Care Document ---
:1940 External Reference #:[id number] Author Name Ignacia Gaines O.D. Address [address] [place] [id number] Care Team Providers Name Role Phone Ulices Banerjee M.D. - Endocrinology, Care Team Information Entertainment Reporter [phone] Diabetes & Metabolism Kb Eddy M.D. - Urology Care Team Information Entertainment Reporter [phone] Liam Nieves PROPERTY MANAGER - Nurse Practitioner Care Team Information Entertainment Reporter Ladonna Frances MD/FACP - Internal Care Team Information Entertainment Reporter Medicine Problems Active Problems Provider Date Type [...] Onset: Gout Onset: Tear film insufficiency Pedrito uHynh M.D. Onset: 05/25/2018 Blepharitis Sebastian Cardoza M.D. Onset: 10/26/2018 Presence of intraocular lens [facility] Huynh M.D. Onset: 09/29/2019 Superficial punctate keratitis Ignacia Gaines O.D. Onset: 12/06/2019 Social History Type Date Description Comments Sex Unknown ETOH Use Denies alcohol use Tobacco Use Start: Unknown End: Patient is a former smoker quit 1989 Unknown Recreational Drug Use Denies Drug Use Smoking Status Reviewed: 12/06/19 Patient is a former smoker quit 1989 Allergies, Adverse Reactions, Alerts Active Allergies Reaction Severity Comments Date Cephalexin 09/01/2017 Verapamil 09/01/2017 Nifedipine 09/01/2017 Enalapril 09/01/2017 Medications Active Medications SIG Qnty Indications Ordering Provider Date Erythromycin apply thin 1Tubes H16.141 Ignacia Gaines, [...] Result H/L Range Note Laboratory test 2019 [facility] of 134 mg/ dL High 70-[address] [place] [address] (607)- - Laboratory test 09/28/2019 [facility] of 100 mg/ dL Normal 70-[address] [place] [address] (607)- - Laboratory test 09/28/2019 [facility] [place] of 117 mg/ dL High 70-100 3 finding 101 DATES [facility] [place] [address] (607)- - Laboratory test 09/21/2019 [facility] [place] of 310 mg/ dL High 70-100 4 finding 101 DATES [facility] [place] [address] (607)- - Laboratory test 09/21/2019 [facility] [place] of 344 mg/ dL High 70-100 5 finding 101 DATES [facility] [place] [address] (607)- - Laboratory test 09/21/2019 [facility] [place] of 375 mg/ dL High 70-100 6 finding 101 DATES [facility] [place] [address] (607)- - 1 Red Leader: [id number] 2 Red Leader: [id number] 3 Red Leader: [id number] 4 Red Leader: [id number] 5 Red Leader: [id number] 6 Red Leader: [id number] Procedures Date Code Description Status 2019 06658 Cataract Surgery Complex Completed 09/28/2019 02461 Cataract Surgery Complex Completed 09/01/2019 53228 Ophthalmic Biometry Completed 09/01/2019 07763 Visual Field Exam Extended Completed 09/01/2019 11151 Est Patient Intermediate Exam Completed Medical Devices Description No Information Available Encounters Description No Information Available Assessments Date Code Description Provider 12/06/2019 H16.141 Punctate keratitis, right eye Ignacia [...] Field at [facility], 2019 - Ignacia Gaines O.D.H16.141 Punctate keratitis, right eyeNew Medication: Erythromycin 5 mg/GM - apply thin strip to right eye before bedComments:Smoking can increase the risk of developing or worsening any eye related disease, as well as affect your overall health. If you are a smoker, we strongly recommend that you quit.If you are not a smoker, we strongly recommend that you do not start. use artificial tears as neededstart erythromycin ointment in the right eye before bedFollow up:2 days or sooner as needed Functional Status Description No Information Available Mental Status Description No Information Available Referrals Description No Information Available
--- OUTSIDE RECORDS SUMMARY | 2019-12-29 14:14 | XMS REPORT | Continuity of Care Document ---
:1940 External Reference #:[id number] Author Name Ignacia Gaines O.D. Address [address] [place] [phone] Care Team Providers Name Role Phone Ulices Banerjee M.D. - Endocrinology, Care Team Information Hot Roll Inspector [phone] Diabetes & Metabolism Kb Eddy M.D. - Urology Care Team Information Hot Roll Inspector [phone] Liam Nieves INTERNATIONAL PROJECT ENGINEER - Nurse Practitioner Care Team Information Hot Roll Inspector Ladonna Frances MD/FACP - Internal Care Team Information Hot Roll Inspector Medicine Problems Active Problems Provider Date Type [...] Use Denies Drug Use Smoking Status Reviewed: 12/16/19 Patient is a former smoker quit 1989 [...] mg/ dL High 70-100 1 [address] [place] [address] (607)- - Laboratory test 09/28/2019 [facility] of 100 mg/ dL Normal 70-100 2 [address] [place] [address] (607)- - Laboratory test 09/28/2019 [facility] of 117 mg/ dL High 70-100 3 [address] [place] [address] (607)- - Laboratory test 09/21/2019 [facility] of 310 mg/ dL High 70-100 4 [address] [place] [address] (607)- - Laboratory test 09/21/2019 [facility] of 344 mg/ dL High 70-100 5 [address] [place] [address] (607)- - Laboratory test 09/21/2019 [facility] of 375 mg/ dL High 70-100 6 [address] [place] [address] (607)- - 1 Wax Room Supervisor: [id number] 2 Wax Room Supervisor: [id number] 3 Wax Room Supervisor: [id number] 4 Wax Room Supervisor: [id number] 5 Wax Room Supervisor: [id number] 6 Wax Room Supervisor: [id number] Procedures Date Code Description Status 2019 96761 Cataract Surgery Complex Completed 09/28/2019 13259 Cataract Surgery Complex Completed 09/01/2019 25720 Ophthalmic Biometry Completed 09/01/2019 73729 Visual Field Exam Extended Completed 09/01/2019 78148 Est Patient Intermediate Exam Completed Medical Devices Description No Information Available Encounters Type Date Location Provider Dx Diagnosis Office Visit 12/14/2019 Reina Celestin 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 Office Visit 12/10/2019 Ignacia Celestin, B02.33 Zoster keratitis 11:45a , harsha O.D. Office Visit 12/08/2019 Ignacia Celestin, B02.9 Zoster without 2:15p , harsha O.D. 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 keratitis Ignacia Gaines O.DKenya 12/14/2019 B02.33 Zoster keratitis Nikki Hopkins.Beckie 12/12/2019 B02.33 Zoster keratitis Nikki Hopkins.DKenya 12/10/2019 B02.33 Zoster keratitis Nikki Galdamez.DKenya 12/08/2019 B02.9 Zoster without complications Nikki Galdamez.DKenya 12/07/2019 B02.9 Zoster without complications Ignacia Gaines O.DKeyna 12/06/2019 H16.141 Punctate keratitis, right eye Nikki Galdamez.Beckie 10/17/2019 Z96.1 Presence of intraocular lens Ped[facility] [...] Field at [facility], [facility]2019 - Ignacia Gaines O.D.B02.33 Zoster keratitisComments:Smoking can increase the risk of developing or worsening any eye related disease, as well as affect your overall health. If you are a smoker, we strongly recommend that you quit.If you are not a smoker, we strongly recommend that you do not start. CONTINUE THE PRED FORTE DROPS 4 TIMES A DAY IN THE RIGHT EYECONTINUE WITH OINTMENT ON RASH NEEDEDCONTINUE THE ANTIVIRAL MEDICATION UNTIL FINISHEDFollow up:THURSDAY OR SOONER NEEDED Functional Status Description No Information Available Mental Status Description No Information Available Referrals Description No Information Available
[2019-12-29] MEDS ORDERED: Capsaicin 0.025% CREAM* 60 GM TOPICAL ONE (15:47)
--- NOTE | 2019-12-29 15:52 | ED ---
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 Patient states his pain is made worse with movement of the face area patient is currently taking gabapentin as well as 5- 325 of hydrocodone/acetaminophen. Patient states the hydrocodone works control his pain however it makes him sleep for 18 hours. Patients states she has also been applying topical lidocaine to the area with minimal relief of symptoms patient is currently in no acute distress and the shingles rash appears to be resolved. There is no evidence of trauma to the face. No facial nerve palsy or decrease in sensation to the face. No temporal artery tenderness. Patient otherwise feels well and denies fever, chest pain, abdominal pain, pain with urination, shortness of breath, nausea, vomiting, diarrhea. - History of Current Complaint Chief Complaint: EDGeneral Time Seen by Provider: 12/29/19 15:28 Stated Complaint: SHINGLES PER PT Hx Obtained From: Patient Onset/Duration: Started Days Ago Skin Exposure Onset/Duration: Days Ago Timing: Constant Onset Severity: Severe Current Severity: Severe Pain Intensity: 10 Pain Scale Used: 0-10 Numeric Skin Location: Face - Additional Pertinent History Primary Care Physician: [id number] - Allergy/Home Medications Allergies/Adverse Reactions: Allergies Allergy/AdvReac Type Severity Reaction Status Date / Time cephalexin Allergy Severe Anaphylatic Verified 12/29/19 14:07 Shock gluten Allergy Severe Diarrhea Verified 12/29/19 14:07 metformin Allergy Severe Diarrhea Verified 12/29/19 14:07 pantoprazole [From Protonix] Allergy Severe Diarrhea Verified 12/29/19 14:07 enalapril Allergy Unknown Unknown Verified 12/29/19 14:07 Reaction Details nifedipine Allergy Unknown Unknown Verified 12/29/19 14:07 Reaction Details verapamil Allergy Unknown Unknown Verified 12/29/19 14:07 Reaction Details PMH/Surg Hx/FS Hx/Imm Hx Endocrine/Hematology History: Reports: Hx Anticoagulant Therapy - xarelto for alpha lipoic acid , Hx Diabetes - insulin dependent type 2, poorly controlled, Hx Thyroid Disease Cardiovascular History: Reports: Hx Hypercholesterolemia, Hx Hypertension - takes meds, Other Cardiovascular Problems/Disorders Denies: Hx Congestive Heart Failure, Hx Pacemaker/ICD Respiratory History: Denies: Hx Asthma, Other Respiratory Problems/Disorders GI History: Reports: Hx Gall Bladder Disease - gall stones, not operated on, Other GI Disorders - Celiac disease History: Reports: Other Problems/Disorders - URETHRAL STRICTURE DILATION Denies: Hx Dialysis, Hx Renal Disease Musculoskeletal History: Reports: Hx Arthritis Sensory History: Reports: Hx Cataracts - both eyes, Hx Contacts or Glasses - glasses to read, Hx Glaucoma - both eyes, Hx Hearing Aid - both ears- don't use , Other Sensory Impairments - decreased hearing Denies: Hx Deafness Opthamlomology History: Reports: Hx Cataracts - both eyes, Hx Contacts or Glasses - glasses to read, Hx Glaucoma - both eyes, Other Sensory Impairments - decreased hearing Neurological History: Reports: Hx Nerve Disease - neuropathy, Other Neuro Impairments/Disorders - SPINAL FUSION; pituitary adenoma >10 years ago Psychiatric History: Denies: Hx Panic Disorder - Cancer History Hx Chemotherapy: No - Surgical History Surgery Procedure, Year, and Place: right inguinal hernia repair 4th grade, LEFT THUMB AMPUTATION, C-SPINE FUSION. filter placed in right eye for glaucoma , exploratory laparotomy Dr. Deal. urethral urethrotomy, TURP 2010 Hx Anesthesia Reactions: No - Immunization History Date of Tetanus Vaccine: unknown Date of Influenza Vaccine: 08/16/15 Immunizations Up to Date: Yes Infectious Disease History: Yes Infectious Disease History: Reports: Hx Clostridium Difficile Denies: Hx of Known/Suspected MRSA, Traveled Outside the [place] in Last 30 Days - Family History Known Family History: Positive: Diabetes - Social History Alcohol Use: Rare Hx Substance Use: No Substance Use Type: Reports: None Hx Tobacco Use: Yes Smoking Status (MU): Former Smoker Amount Used/How Often: smoked for 20-30 years 1/2ppd Have You Smoked in the Last Year: No Review of Systems Constitutional: Negative Eyes: Negative ENT: Negative Cardiovascular: Negative Respiratory: Negative Gastrointestinal: Negative Genitourinary: Negative Musculoskeletal: Negative Skin: Negative Neurological/Mental Status: Negative Psychological: Normal All Other Systems Reviewed And Are Negative: Yes Physical Exam - Summary Physical Exam Summary: Inspection reveals no evidence of active is zoster or Thibodeaux sign. Patient vision grossly intact. PERRLA, EOMI, patient has mild tenderness with palpation of the face in the trigeminal nerve distribution Triage Information Reviewed: Yes Vital Signs On Initial Exam: Initial Vitals Temp Pulse Resp BP Pulse Ox 99.3 F 67 20 167/84 94 12/29/19 14:04 12/29/19 14:04 12/29/19 14:04 12/29/19 14:04 12/29/19 14:04 Vital Signs Reviewed: Yes Appearance: Positive: Well-Appearing, No Pain Distress, Well-Nourished Skin: Positive: Warm, Skin Color Reflects Adequate Perfusion Eyes: Positive: EOMI, DARI ENT: Positive: Hearing grossly normal Respiratory/Lung Sounds: Positive: Clear to Auscultation, Breath Sounds Present Cardiovascular: Positive: RRR, S1, S2 Abdomen Description: Positive: Nontender, Soft Bowel Sounds: Positive: Present Musculoskeletal: Positive: Strength/ROM Intact Neurological: Positive: Sensory/Motor Intact, Alert, Oriented to Person Place, Time, Normal Gait, Facial Symmetry, Speech Normal Psychiatric: Positive: Normal, Affect/Mood Appropriate AVPU Assessment: Alert Procedures - Sedation Patient Received Moderate/Deep Sedation with Procedure: No Diagnostics - Vital Signs Vital Signs Temp Pulse Resp BP Pulse Ox 12/29/19 14:04 99.3 F 67 20 167/84 94 - Laboratory Lab Statement: Any lab studies that have been ordered have been reviewed, and results considered in the medical decision making process. Course/Dx - Course Course Of Treatment: Patient was evaluated in the emergency department today for facial pain status post varicella-zoster resolution. Vitals noted. Patient physical exam and history is consistent with postherpetic neuralgia and trigeminal neuralgia. Patient is currently taking Vicodin, gabapentin for pain. Patient was given topical capsaicin cream to be applied to the face and discharged with outpatient follow-up. - Differential Diagnoses - Skin Complaint Differential Diagnoses: Diabetes, Varicella Zoster, Other - Postherpetic neuralgia, trigeminal neuralgia - Diagnoses Provider Diagnoses: Trigeminal neuralgia Discharge ED - Sign-Out/Discharge Documenting (check all that apply): Patient Departure - Discharge Plan Condition: Stable Disposition: HOME Prescriptions: Capsaicin 0.025% CREAM* [Zostrix 0.025% CREAM*] 1 applic TOPICAL BID #1 tu Patient Education Materials: Capsaicin (On the skin), Trigeminal Neuralgia (ED) Referrals: Liam Nieves, HOSPITALIST MEDICAL DIRECTOR [Primary Care Provider] - 3 Days Additional Instructions: You were seen in the emergency department today due to postherpetic neuralgia. This is a side effect of the shingles virus. Please continue to take the gabapentin and hydrocodone as needed. I've given you a cream in the emergency department called capsanancy. Please apply this to the affected area with caution to avoid the eyes. Please be sure to wear gloves while applying the cream. Please follow-up with your primary care provider for further evaluation and management in 3 days. Please return to the emergency Department immediately if you develop any new or worsening symptoms. - Billing Disposition and Condition Condition: STABLE Disposition: Home
[2019-12-29 17:12] VITALS: BP 168/80
== END 2019-12-29 16:55 | disposition home or self-care (01) ==
LOC: ED 14:00
DX: G50.0 Trigeminal neuralgia (principal); E78.00 Pure hypercholesterolemia, unspecified; E11.9 Type 2 diabetes mellitus without complications; Z79.4 Long term (current) use of insulin; I10 Essential (primary) hypertension; E03.9 Hypothyroidism, unspecified; Z87.891 Personal history of nicotine dependence; Z79.01 Long term (current) use of anticoagulants; Z88.8 Allergy status to other drugs, medicaments and biological substances; Z79.890 Hormone replacement therapy
CPT/HCPCS: 99282; A9270-GY

== ENCOUNTER 2020-06-13 09:54 | Observation (INO) ==
[2020-06-13] MEDS ORDERED: Iodixanol (CONTRAST) 320 MG/ML 100 ML SDV IV ONE (10:27)
[2020-06-13] MEDS ORDERED: Dextrose 50% Syringe 50 ml 25 GM/50 ML SYRINGE IV PUSH ONE (10:28)
[2020-06-13] MEDS ORDERED: Dextrose 50% Syringe 50 ml 25 GM/50 ML SYRINGE ONE (10:29)
[2020-06-13 10:57] LABS: ABS Lymphocytes 0.7 10^3/ul (1.0-4.8); ABS Monocytes 0.9 10^3/ul (0-0.8); ABS Neutrophils 5.4 10^3/ul (1.5-7.7); Eosinophil % 0.4 %; Hematocrit 36 % (42-52); Hemoglobin 12.4 g/dL (14.0-18.0); Lymphocyte % 10.1 %; Mean Corpuscular HGB Conc 34 g/dL (31-36); Mean Corpuscular Hemoglobin 33 pg (27-31); Mean Corpuscular Volume 97 fL (80-94); Mean Platelet Volume 9.1 fL (7.4-10.4); Platelet Count 149 10^3/uL (150-450); Red Blood Count 3.76 10^6 /uL (4.18-5.48); Red Cell Distribution Width 16 % (10-15); White Blood Count 7.1 10^3/uL (3.5-10.8)
[2020-06-13 11:12] LABS: Activated Partial Thrombo Time 32.2 seconds (26.0-38.0); INR 1.92 (0.82-1.09)
[2020-06-13 11:15] LABS: Albumin/Globulin Ratio 1.4 (1-3); Calcium 7.4 mg/dL (8.6-10.3); EGFR African American 53.4 (>60); EGFR Non-African American 44.1 (>60); Globulin 2.1 g/dL (2-4); Magnesium 1.9 mg/dL (1.9-2.7); Potassium 3.7 mmol/L (3.5-5.0); Total Bilirubin 0.5 mg/dL (0.2-1.0); Total Protein 5.1 g/dL (6.4-8.9)
[2020-06-13 11:16] LABS: Troponin I 0.01 ng/mL (<0.03)
[2020-06-13 11:42] LABS: TSH Ultra Thyroid Stim Horm 0.19 mcIU/mL (0.34-5.60)
[2020-06-13] MEDS ORDERED: HYDROcodone/ACETAMIN 5/325 mg TAB PO PRN (13:42)
[2020-06-13 13:45] LABS: C Reactive Protein 5.17 mg/L (<8.01)
[2020-06-13 14:18] LABS: Urine Appearance Clear; Urine Bilirubin Negative (Negative); Urine Blood 1+ (Negative); Urine Color Yellow; Urine Glucose Negative (Negative); Urine Ketones Negative (Negative); Urine Nitrite Negative (Negative); Urine Protein Negative (Negative); Urine Specific Gravity 1.042 (1.010-1.030); Urine Urobilinogen Negative (Negative)
[2020-06-13 14:32] LABS: Urine Bacteria Absent (Absent); Urine Red Blood Cell Trace(0-2/hpf) (Absent); Urine Squamous Epithelial Cell Present (Absent); Urine White Blood Cell Absent (Absent)
[2020-06-13 14:59] LABS: Folate 7.86 ng/mL (>3.99)
[2020-06-13 15:51] LABS: Free T3 2.8 pg/mL (2.5-3.9)
[2020-06-13 15:53] LABS: Free T4 1.22 ng/dL (0.61-1.12)
[2020-06-13] MEDS ORDERED: prednisoLONE 1% OPHTH.SUSP 5 ML OPHTH.SUSP RIGHT EYE SCH (17:00)
[2020-06-13] MEDS: CMC:Desmopressin 0.1 mg TAB (NF) PO SCH (20:26)
[2020-06-13] MEDS: Brimonidine P 0.15%(NF) OPH SOL 5 ML BTL BOTH EYES SCH (20:30)
[2020-06-13] MEDS: prednisoLONE 1% OPHTH.SUSP 5 ML OPHTH.SUSP RIGHT EYE SCH (20:31)
[2020-06-13] MEDS ORDERED: Dextrose 50% Syringe 50 ml 25 GM/50 ML SYRINGE IV PUSH PRN (21:00)
[2020-06-14 05:37] LABS: ABS Basophils 0.1 10^3/ul (0-0.2); ABS Monocytes 0.7 10^3/ul (0-0.8); ABS Neutrophils 4.9 10^3/ul (1.5-7.7); Eosinophil % 0.7 %; Hematocrit 38 % (42-52); Hemoglobin 13.1 g/dL (14.0-18.0); Lymphocyte % 14.9 %; Mean Corpuscular HGB Conc 34 g/dL (31-36); Mean Corpuscular Hemoglobin 33 pg (27-31); Mean Corpuscular Volume 96 fL (80-94); Mean Platelet Volume 9.4 fL (7.4-10.4); Nucleated Red Blood Cells % 0.1; Platelet Count 159 10^3/uL (150-450); Red Blood Count 4.02 10^6 /uL (4.18-5.48); Red Cell Distribution Width 16 % (10-15); White Blood Count 6.7 10^3/uL (3.5-10.8)
[2020-06-14 05:56] LABS: BUN/Creatinine Ratio 20.1 (8-20); Calcium 8.1 mg/dL (8.6-10.3); EGFR Non-African American 45.5 (>60); Potassium 4.5 mmol/L (3.5-5.0)
[2020-06-14] MEDS: CMC:Desmopressin 0.1 mg TAB (NF) PO SCH (08:38)
[2020-06-14] MEDS: prednisoLONE 1% OPHTH.SUSP 5 ML OPHTH.SUSP RIGHT EYE SCH (08:40)
[2020-06-14] MEDS: Brimonidine P 0.15%(NF) OPH SOL 5 ML BTL BOTH EYES SCH (08:41)
[2020-06-14 08:45] VITALS: BP 132/68
[2020-06-14] MEDS ORDERED: Timolol 0.25% OPHTH.SOLN BTL RIGHT EYE SCH (09:00)
[2020-06-14] MEDS ORDERED: Insulin GLARGINE 100 un/ml 10 ml VIAL SUBCUT ONE (09:30)
== END 2020-06-14 10:00 | disposition home or self-care (01) ==
LOC: ED 09:54 → MED 09:54
PROVIDERS: ADMIT Internal Medicine; ATTEND Internal Medicine

== ENCOUNTER 2020-08-22 19:18 | Inpatient (IN) ==
[2020-08-22] MEDS ORDERED: Lactated Ringers 1000 ml BAG 1,000 ML IV ONE (19:38)
[2020-08-22 21:20] LABS: ABS Basophils 0.1 10^3/ul (0-0.2); ABS Lymphocytes 0.8 10^3/ul (1.0-4.8); ABS Monocytes 1.1 10^3/ul (0-0.8); ABS Neutrophils 7.2 10^3/ul (1.5-7.7); Eosinophil % 0.2 %; Hematocrit 44 % (42-52); Hemoglobin 15.2 g/dL (14.0-18.0); Lymphocyte % 8.3 %; Mean Corpuscular HGB Conc 34 g/dL (31-36); Mean Corpuscular Hemoglobin 33 pg (27-31); Mean Corpuscular Volume 96 fL (80-94); Mean Platelet Volume 9.7 fL (7.4-10.4); Platelet Count 184 10^3/uL (150-450); Red Blood Count 4.61 10^6 /uL (4.18-5.48); Red Cell Distribution Width 16 % (10-15); White Blood Count 9.1 10^3/uL (3.5-10.8)
[2020-08-22 21:38] LABS: ALT 21 U/L (7-52); AST 23 U/L (13-39); Albumin/Globulin Ratio 1.1 (1-3); Alkaline Phosphatase 90 U/L (34-104); Anion Gap 9 mmol/L (2-11); BUN/Creatinine Ratio 13.6 (8-20); Blood Urea Nitrogen 25 mg/dL (6-24); C Reactive Protein 88.06 mg/L (<8.01); CO2 Carbon Dioxide 24 mmol/L (22-32); Calcium 9.3 mg/dL (8.6-10.3); Chloride 101 mmol/L (101-111); EGFR African American 43.2 (>60); EGFR Non-African American 35.7 (>60); Globulin 3.5 g/dL (2-4); Glucose 263 mg/dL (70-100); Lipase 13 U/L (11.0-82.0); Potassium 4.7 mmol/L (3.5-5.0); Sodium 134 mmol/L (135-145); Total Protein 7.5 g/dL (6.4-8.9)
[2020-08-22] MEDS ORDERED: Iodixanol (CONTRAST) 320 MG/ML 100 ML SDV IV ONE (21:42)
[2020-08-22 21:44] LABS: Troponin I 1.95 ng/mL (<0.03)
[2020-08-23 00:10] LABS: Cholesterol 148 mg/dL; HDL Cholesterol 45.8 mg/dL; LDL Cholesterol 85 mg/dL; Triglycerides 87 mg/dL
[2020-08-23] MEDS ORDERED: NS 0.9% 1000 ml BAG 1,000 ML IV ONE (00:30)
[2020-08-23 00:38] LABS: Troponin I 2.08 ng/mL (<0.03)
[2020-08-23] MEDS ORDERED: Ondansetron 4 mg VIAL 2 MG/ML 2 ml VIAL IV PRN (00:45)
[2020-08-23] MEDS ORDERED: Dextrose 50% Syringe 50 ml 25 GM/50 ML SYRINGE IV PUSH PRN (00:50)
[2020-08-23] MEDS ORDERED: Heparin DRIP 25,000 UNITS BAG 25,000 UNITS/500 ML BAG IV SCH (04:00)
[2020-08-23] MEDS: Heparin 5000 UNITS/ML 1 mL VIAL IV SCH (04:20)
[2020-08-23 04:55] LABS: Anion Gap 7 mmol/L (2-11); BUN/Creatinine Ratio 13.5 (8-20); Blood Urea Nitrogen 23 mg/dL (6-24); CO2 Carbon Dioxide 25 mmol/L (22-32); Calcium 8.7 mg/dL (8.6-10.3); Chloride 104 mmol/L (101-111); EGFR African American 47.3 (>60); EGFR Non-African American 39.1 (>60); Glucose 163 mg/dL (70-100); Sodium 136 mmol/L (135-145)
[2020-08-23 05:08] LABS: TSH Ultra Thyroid Stim Horm 0.67 mcIU/mL (0.34-5.60)
[2020-08-23 05:13] LABS: Troponin I 3.24 ng/mL (<0.03)
[2020-08-23 07:39] LABS: Troponin I 3.46 ng/mL (<0.03)
[2020-08-23] MEDS: NS 0.9% 1000 ml BAG 1,000 ML IV SCH ×2 (08:33→19:30)
[2020-08-23] MEDS ORDERED: Perflutren Lipid Microsphere 3 ML VIAL ONE (09:31)
[2020-08-23] MEDS: DESMOPRESSIN 0.1 MG PO SCH ×2 (10:01→20:16)
[2020-08-23] MEDS: PTO:Brimonidine P 0.15%(NF) OPH SOL 5 ML BTL BOTH EYES SCH ×2 (10:01→21:21)
[2020-08-23] MEDS: Dorzolamide 2% OPTH (NF) 10 ML BTL RIGHT EYE SCH ×2 (10:01→21:21)
[2020-08-23] MEDS: prednisoLONE 1% OPHTH.SUSP 5 ML OPHTH.SUSP RIGHT EYE SCH ×2 (10:02→20:18)
[2020-08-23] MEDS: Insulin GLARGINE 100 un/ml 10 ml VIAL SUBCUT SCH ×2 (10:02→11:56)
[2020-08-23] MEDS: Timolol 0.5% OPTH.SOL BTL BOTH EYES SCH (10:03)
[2020-08-23 11:25] LABS: Troponin I 3.26 ng/mL (<0.03)
[2020-08-23] MEDS: Collagenase 250 units/gm OINT 1 tube TOPICAL SCH ×2 (12:22→22:10)
[2020-08-23 13:37] LABS: Free T4 0.94 ng/dL (0.61-1.12)
[2020-08-23 14:25] LABS: Troponin I 2.64 ng/mL (<0.03)
[2020-08-23 19:02] LABS: Free T3 2.2 pg/mL (2.5-3.9)
[2020-08-24 04:42] LABS: ABS Basophils 0.1 10^3/ul (0-0.2); ABS Lymphocytes 0.8 10^3/ul (1.0-4.8); ABS Monocytes 0.8 10^3/ul (0-0.8); ABS Neutrophils 4.6 10^3/ul (1.5-7.7); Eosinophil % 0.7 %; Hematocrit 37 % (42-52); Hemoglobin 12.8 g/dL (14.0-18.0); Lymphocyte % 13.1 %; Mean Corpuscular HGB Conc 34 g/dL (31-36); Mean Corpuscular Hemoglobin 33 pg (27-31); Mean Corpuscular Volume 96 fL (80-94); Mean Platelet Volume 9.7 fL (7.4-10.4); Nucleated Red Blood Cells % 0.1; Platelet Count 152 10^3/uL (150-450); Red Blood Count 3.89 10^6 /uL (4.18-5.48); Red Cell Distribution Width 15 % (10-15); White Blood Count 6.4 10^3/uL (3.5-10.8)
[2020-08-24 05:22] LABS: Calcium 7.7 mg/dL (8.6-10.3); Potassium 4.3 mmol/L (3.5-5.0); Total Bilirubin 0.6 mg/dL (0.2-1.0)
[2020-08-24 05:28] LABS: Albumin/Globulin Ratio 1.4 (1-3); BUN/Creatinine Ratio 14.2 (8-20); EGFR African American 58.7 (>60); EGFR Non-African American 48.5 (>60); Globulin 2.2 g/dL (2-4); Total Protein 5.2 g/dL (6.4-8.9)
[2020-08-24] MEDS: NS 0.9% 1000 ml BAG 1,000 ML IV SCH (05:31)
[2020-08-24] MEDS: DESMOPRESSIN 0.1 MG PO SCH ×2 (09:00→21:51)
[2020-08-24] MEDS: Insulin GLARGINE 100 un/ml 10 ml VIAL SUBCUT SCH (10:13)
[2020-08-24] MEDS: Timolol 0.5% OPTH.SOL BTL BOTH EYES SCH (10:15)
[2020-08-24] MEDS: prednisoLONE 1% OPHTH.SUSP 5 ML OPHTH.SUSP RIGHT EYE SCH ×2 (10:16→16:27)
[2020-08-24] MEDS: Heparin 5000 UNITS/ML 1 mL VIAL IV SCH (11:38)
[2020-08-24] MEDS ORDERED: Regadenoson 0.4 MG/5 ML SYRINGE ONE (11:47)
[2020-08-24] MEDS ORDERED: Aminophylline 25 MG/ML VIAL ONE (13:32)
[2020-08-24] MEDS: PTO:Brimonidine P 0.15%(NF) OPH SOL 5 ML BTL BOTH EYES SCH (16:29)
[2020-08-24] MEDS: Collagenase 250 units/gm OINT 1 tube TOPICAL SCH (21:51)
[2020-08-24] MEDS: PTO:Brimonidine P 0.15%(NF) OPH SOL 5 ML BTL LEFT EYE SCH (21:52)
[2020-08-25 03:48] LABS: ABS Basophils 0.1 10^3/ul (0-0.2); ABS Lymphocytes 0.7 10^3/ul (1.0-4.8); ABS Monocytes 0.7 10^3/ul (0-0.8); ABS Neutrophils 5.5 10^3/ul (1.5-7.7); Eosinophil % 0.3 %; Hematocrit 35 % (42-52); Lymphocyte % 9.8 %; Mean Corpuscular HGB Conc 34 g/dL (31-36); Mean Corpuscular Hemoglobin 33 pg (27-31); Mean Corpuscular Volume 96 fL (80-94); Mean Platelet Volume 9.9 fL (7.4-10.4); Nucleated Red Blood Cells % 0.1; Platelet Count 160 10^3/uL (150-450); Red Cell Distribution Width 15 % (10-15)
[2020-08-25 04:04] LABS: BUN/Creatinine Ratio 14.1 (8-20); Calcium 7.9 mg/dL (8.6-10.3); EGFR African American 65.6 (>60); EGFR Non-African American 54.2 (>60); Potassium 4.1 mmol/L (3.5-5.0)
[2020-08-25] MEDS: DESMOPRESSIN 0.1 MG PO SCH ×2 (09:33→21:39)
[2020-08-25] MEDS: Insulin GLARGINE 100 un/ml 10 ml VIAL SUBCUT SCH (09:37)
[2020-08-25] MEDS: Timolol 0.5% OPTH.SOL BTL BOTH EYES SCH (09:37)
[2020-08-25] MEDS: prednisoLONE 1% OPHTH.SUSP 5 ML OPHTH.SUSP RIGHT EYE SCH ×2 (09:38→21:38)
[2020-08-25] MEDS: Dorzolamide 2% OPTH (NF) 10 ML BTL RIGHT EYE SCH (09:45)
[2020-08-25] MEDS: PTO:Brimonidine P 0.15%(NF) OPH SOL 5 ML BTL BOTH EYES SCH (09:45)
[2020-08-25] MEDS: PTO:Brimonidine P 0.15%(NF) OPH SOL 5 ML BTL LEFT EYE SCH ×2 (09:46→21:39)
[2020-08-25] MEDS: DOXYcycline 100 MG in NS 0.9% 250 ml 250 ML IVPB SCH (21:36)
[2020-08-25] MEDS: Collagenase 250 units/gm OINT 1 tube TOPICAL SCH (21:39)
[2020-08-26] MEDS: Insulin GLARGINE 100 un/ml 10 ml VIAL SUBCUT SCH (08:46)
[2020-08-26] MEDS: DESMOPRESSIN 0.1 MG PO SCH ×2 (08:48→20:45)
[2020-08-26] MEDS: prednisoLONE 1% OPHTH.SUSP 5 ML OPHTH.SUSP RIGHT EYE SCH ×2 (08:53→20:47)
[2020-08-26] MEDS: PTO:Brimonidine P 0.15%(NF) OPH SOL 5 ML BTL LEFT EYE SCH ×2 (08:54→20:48)
[2020-08-26] MEDS: Timolol 0.5% OPTH.SOL BTL BOTH EYES SCH (08:55)
[2020-08-26] MEDS: DOXYcycline 100 MG in NS 0.9% 250 ml 250 ML IVPB SCH ×2 (09:11→20:46)
[2020-08-26] MEDS: Senna TAB 8.6 mg TAB PO PRN (16:30)
[2020-08-26] MEDS: Collagenase 250 units/gm OINT 1 tube TOPICAL SCH (20:45)
[2020-08-26] MEDS: Magnesium Hydroxide LIQ 30 ML UDC PO SCH (20:45)
[2020-08-27 07:27] LABS: Hematocrit 35 % (42-52); Hemoglobin 12.2 g/dL (14.0-18.0); Mean Corpuscular HGB Conc 35 g/dL (31-36); Mean Corpuscular Hemoglobin 33 pg (27-31); Mean Corpuscular Volume 93 fL (80-94); Mean Platelet Volume 9.6 fL (7.4-10.4); Platelet Count 162 10^3/uL (150-450); Red Blood Count 3.74 10^6 /uL (4.18-5.48); Red Cell Distribution Width 15 % (10-15); White Blood Count 6.7 10^3/uL (3.5-10.8)
[2020-08-27 07:49] LABS: BUN/Creatinine Ratio 14.8 (8-20); Calcium 7.8 mg/dL (8.6-10.3); EGFR African American 65.6 (>60); EGFR Non-African American 54.2 (>60); Magnesium 1.5 mg/dL (1.9-2.7); Potassium 4.4 mmol/L (3.5-5.0)
[2020-08-27] MEDS: Insulin GLARGINE 100 un/ml 10 ml VIAL SUBCUT SCH (08:30)
[2020-08-27] MEDS: Magnesium Hydroxide LIQ 30 ML UDC PO SCH ×3 (08:31→20:45)
[2020-08-27] MEDS: DESMOPRESSIN 0.1 MG PO SCH ×2 (08:31→19:52)
[2020-08-27] MEDS: PTO:Brimonidine P 0.15%(NF) OPH SOL 5 ML BTL LEFT EYE SCH ×2 (08:33→19:54)
[2020-08-27] MEDS: DOXYcycline 100 MG in NS 0.9% 250 ml 250 ML IVPB SCH ×2 (08:33→19:54)
[2020-08-27] MEDS: Collagenase 250 units/gm OINT 1 tube TOPICAL SCH (08:34)
[2020-08-27] MEDS: prednisoLONE 1% OPHTH.SUSP 5 ML OPHTH.SUSP RIGHT EYE SCH ×2 (09:26→19:54)
[2020-08-27] MEDS: Timolol 0.5% OPTH.SOL BTL BOTH EYES SCH (10:10)
[2020-08-27] MEDS ORDERED: Magnesium Sulfate 2 gm BAG 2 GM/50 ML BAG IVPB ONE (16:47)
[2020-08-28 08:02] LABS: Hematocrit 37 % (42-52); Hemoglobin 13.2 g/dL (14.0-18.0); Mean Corpuscular HGB Conc 35 g/dL (31-36); Mean Corpuscular Hemoglobin 33 pg (27-31); Mean Corpuscular Volume 93 fL (80-94); Platelet Count 181 10^3/uL (150-450); Red Blood Count 4.01 10^6 /uL (4.18-5.48); Red Cell Distribution Width 15 % (10-15); White Blood Count 8.9 10^3/uL (3.5-10.8)
[2020-08-28 08:23] LABS: BUN/Creatinine Ratio 16.5 (8-20); Calcium 7.9 mg/dL (8.6-10.3); EGFR Non-African American 57.8 (>60); Potassium 4.4 mmol/L (3.5-5.0)
[2020-08-28] MEDS: DESMOPRESSIN 0.1 MG PO SCH (08:27)
[2020-08-28] MEDS: Magnesium Hydroxide LIQ 30 ML UDC PO SCH ×3 (08:30→20:35)
[2020-08-28] MEDS: DOXYcycline 100 MG in NS 0.9% 250 ml 250 ML IVPB SCH (08:31)
[2020-08-28] MEDS: PTO:Brimonidine P 0.15%(NF) OPH SOL 5 ML BTL LEFT EYE SCH ×2 (08:32→20:35)
[2020-08-28] MEDS: Timolol 0.5% OPTH.SOL BTL BOTH EYES SCH (09:08)
[2020-08-28] MEDS: Insulin GLARGINE 100 un/ml 10 ml VIAL SUBCUT SCH (09:09)
[2020-08-28] MEDS: prednisoLONE 1% OPHTH.SUSP 5 ML OPHTH.SUSP RIGHT EYE SCH ×2 (09:22→20:35)
[2020-08-28 12:46] LABS: C Reactive Protein 17.69 mg/L (<8.01)
[2020-08-28 14:29] LABS: BUN/Creatinine Ratio 17.2 (8-20); Calcium 8.2 mg/dL (8.6-10.3); EGFR African American 73.5 (>60); EGFR Non-African American 60.7 (>60); Potassium 4.4 mmol/L (3.5-5.0)
[2020-08-28] MEDS ORDERED: Vancomycin 1,500 MG in NS 0.9% 250 ml 250 ML IVPB ONE (16:00)
[2020-08-28 22:26] LABS: BUN/Creatinine Ratio 16.3 (8-20); Calcium 7.9 mg/dL (8.6-10.3); EGFR African American 68.7 (>60); EGFR Non-African American 56.8 (>60); Potassium 4.8 mmol/L (3.5-5.0)
[2020-08-29] MEDS: VANCOMYCIN 1250 MG IVPB SCH ×2 (04:19→15:28)
[2020-08-29 04:25] LABS: Hematocrit 38 % (42-52); Hemoglobin 12.9 g/dL (14.0-18.0); Mean Corpuscular HGB Conc 34 g/dL (31-36); Mean Corpuscular Hemoglobin 32 pg (27-31); Mean Corpuscular Volume 93 fL (80-94); Mean Platelet Volume 9.5 fL (7.4-10.4); Platelet Count 189 10^3/uL (150-450); Red Blood Count 4.06 10^6 /uL (4.18-5.48); Red Cell Distribution Width 15 % (10-15); White Blood Count 8.9 10^3/uL (3.5-10.8)
[2020-08-29] MEDS ORDERED: Magnesium Sulfate IV 1GM/100ML 1 GM/100 ML BAG IV ONE (05:18)
[2020-08-29 05:55] LABS: Calcium 8.1 mg/dL (8.6-10.3)
[2020-08-29 06:00] LABS: BUN/Creatinine Ratio 14.5 (8-20); EGFR African American 63.9 (>60); EGFR Non-African American 52.8 (>60)
[2020-08-29 06:05] LABS: Potassium 5.1 mmol/L (3.5-5.0)
[2020-08-29] MEDS ORDERED: Patiromer POWDER 8.4 GM PAK PO SCH (09:00)
[2020-08-29] MEDS: Insulin GLARGINE 100 un/ml 10 ml VIAL SUBCUT SCH (09:13)
[2020-08-29] MEDS: Magnesium Hydroxide LIQ 30 ML UDC PO SCH ×2 (09:15→20:35)
[2020-08-29] MEDS: prednisoLONE 1% OPHTH.SUSP 5 ML OPHTH.SUSP RIGHT EYE SCH ×2 (09:15→20:26)
[2020-08-29] MEDS: Timolol 0.5% OPTH.SOL BTL BOTH EYES SCH (09:16)
[2020-08-29 09:18] LABS: Calcium 7.8 mg/dL (8.6-10.3); EGFR Non-African American 57.8 (>60); Potassium 4.5 mmol/L (3.5-5.0)
[2020-08-29] MEDS: PTO:Brimonidine P 0.15%(NF) OPH SOL 5 ML BTL BOTH EYES SCH (09:26)
[2020-08-29] MEDS: PTO:Brimonidine P 0.15%(NF) OPH SOL 5 ML BTL LEFT EYE SCH ×2 (09:30→21:41)
[2020-08-29 10:21] LABS: BUN/Creatinine Ratio 12.9 (8-20); EGFR African American 63.3 (>60); EGFR Non-African American 52.3 (>60); Potassium 4.4 mmol/L (3.5-5.0)
[2020-08-29] MEDS: Aztreonam 2 GM in NS 0.9% 100 ML 100 ML IV SCH ×2 (10:41→18:26)
[2020-08-29] MEDS: Patiromer POWDER 8.4 GM PAK PO SCH (12:32)
[2020-08-29 12:50] LABS: BUN/Creatinine Ratio 15.5 (8-20); Calcium 7.4 mg/dL (8.6-10.3); EGFR Non-African American 53.7 (>60); Potassium 4.2 mmol/L (3.5-5.0)
[2020-08-29 20:44] LABS: Calcium 8.1 mg/dL (8.6-10.3)
[2020-08-29 20:45] LABS: Potassium 5.5 mmol/L (3.5-5.0)
[2020-08-29 20:50] LABS: BUN/Creatinine Ratio 15.6 (8-20); EGFR African American 55.9 (>60); EGFR Non-African American 46.2 (>60)
[2020-08-30] MEDS: Aztreonam 2 GM in NS 0.9% 100 ML 100 ML IV SCH ×3 (02:20→17:44)
[2020-08-30] MEDS: VANCOMYCIN 1250 MG IVPB SCH ×2 (04:16→16:24)
[2020-08-30 06:36] LABS: Hematocrit 39 % (42-52); Hemoglobin 13.6 g/dL (14.0-18.0); Mean Corpuscular HGB Conc 35 g/dL (31-36); Mean Corpuscular Hemoglobin 33 pg (27-31); Mean Corpuscular Volume 94 fL (80-94); Mean Platelet Volume 9.9 fL (7.4-10.4); Platelet Count 206 10^3/uL (150-450); Red Blood Count 4.19 10^6 /uL (4.18-5.48); Red Cell Distribution Width 16 % (10-15); White Blood Count 8.3 10^3/uL (3.5-10.8)
[2020-08-30 06:55] LABS: BUN/Creatinine Ratio 17.1 (8-20); Calcium 8.6 mg/dL (8.6-10.3); EGFR African American 56.4 (>60); EGFR Non-African American 46.6 (>60); Magnesium 2.3 mg/dL (1.9-2.7)
[2020-08-30 06:57] LABS: Potassium 5.4 mmol/L (3.5-5.0)
[2020-08-30] MEDS: Magnesium Hydroxide LIQ 30 ML UDC PO SCH ×2 (08:38→20:25)
[2020-08-30] MEDS: Timolol 0.5% OPTH.SOL BTL BOTH EYES SCH (08:42)
[2020-08-30] MEDS: prednisoLONE 1% OPHTH.SUSP 5 ML OPHTH.SUSP RIGHT EYE SCH ×2 (08:42→20:24)
[2020-08-30] MEDS: PTO:Brimonidine P 0.15%(NF) OPH SOL 5 ML BTL LEFT EYE SCH (08:45)
[2020-08-30] MEDS: DESMOPRESSIN 0.1 MG PO SCH ×2 (09:21→20:24)
[2020-08-30] MEDS: Insulin GLARGINE 100 un/ml 10 ml VIAL SUBCUT SCH (09:22)
[2020-08-30] MEDS: Patiromer POWDER 8.4 GM PAK PO SCH (12:58)
[2020-08-30] MEDS ORDERED: Vancomycin Trough Check NOTE FOLLOW UP ONE (15:00)
[2020-08-30 15:49] LABS: BUN/Creatinine Ratio 18.9 (8-20); Calcium 8.7 mg/dL (8.6-10.3); EGFR African American 57.7 (>60); EGFR Non-African American 47.7 (>60)
[2020-08-30 16:26] LABS: Potassium 5.2 mmol/L (3.5-5.0)
[2020-08-30] MEDS: Vancomycin 1000 MG in NS 0.9% 250 ML IVPB SCH (20:25)
[2020-08-31] MEDS: Aztreonam 2 GM in NS 0.9% 100 ML 100 ML IV SCH ×3 (02:27→17:07)
[2020-08-31] MEDS: Vancomycin 1000 MG in NS 0.9% 250 ML IVPB SCH ×2 (07:48→21:02)
[2020-08-31 08:12] LABS: BUN/Creatinine Ratio 17.4 (8-20); EGFR Non-African American 45.5 (>60); Potassium 4.8 mmol/L (3.5-5.0)
[2020-08-31 08:18] LABS: Troponin I 0.08 ng/mL (<0.03)
[2020-08-31] MEDS: Insulin GLARGINE 100 un/ml 10 ml VIAL SUBCUT SCH (09:03)
[2020-08-31 09:08] LABS: Magnesium 2.2 mg/dL (1.9-2.7)
[2020-08-31] MEDS: DESMOPRESSIN 0.1 MG PO SCH ×2 (09:41→21:01)
[2020-08-31] MEDS: prednisoLONE 1% OPHTH.SUSP 5 ML OPHTH.SUSP RIGHT EYE SCH ×2 (09:42→21:02)
[2020-08-31] MEDS: Timolol 0.5% OPTH.SOL BTL BOTH EYES SCH (09:42)
[2020-08-31] MEDS: Magnesium Hydroxide LIQ 30 ML UDC PO SCH ×2 (09:43→20:59)
[2020-08-31] MEDS: Patiromer POWDER 8.4 GM PAK PO SCH (12:19)
[2020-08-31] MEDS: Senna TAB 8.6 mg TAB PO PRN (18:09)
[2020-08-31] MEDS ORDERED: Magnesium Hydroxide LIQ 30 ML UDC PO SCH (21:00)
[2020-09-01] MEDS: Aztreonam 2 GM in NS 0.9% 100 ML 100 ML IV SCH ×3 (02:09→17:03)
[2020-09-01 05:58] LABS: ABS Basophils 0.1 10^3/ul (0-0.2); ABS Lymphocytes 0.7 10^3/ul (1.0-4.8); ABS Monocytes 1.1 10^3/ul (0-0.8); ABS Neutrophils 6.3 10^3/ul (1.5-7.7); Eosinophil % 0.4 %; Hematocrit 38 % (42-52); Hemoglobin 13.1 g/dL (14.0-18.0); Lymphocyte % 8.9 %; Mean Corpuscular HGB Conc 34 g/dL (31-36); Mean Corpuscular Hemoglobin 32 pg (27-31); Mean Corpuscular Volume 95 fL (80-94); Mean Platelet Volume 9.5 fL (7.4-10.4); Platelet Count 234 10^3/uL (150-450); Red Blood Count 4.04 10^6 /uL (4.18-5.48); Red Cell Distribution Width 15 % (10-15); White Blood Count 8.2 10^3/uL (3.5-10.8)
[2020-09-01 06:17] LABS: Albumin 3.2 g/dL (3.2-5.2); Albumin/Globulin Ratio 1.2 (1-3); BUN/Creatinine Ratio 23.4 (8-20); Calcium 8.6 mg/dL (8.6-10.3); EGFR African American 60.6 (>60); EGFR Non-African American 50.1 (>60); Globulin 2.6 g/dL (2-4); Potassium 4.6 mmol/L (3.5-5.0); Total Bilirubin 0.4 mg/dL (0.2-1.0); Total Protein 5.8 g/dL (6.4-8.9)
[2020-09-01 06:53] LABS: INR 1.54 (0.82-1.09)
[2020-09-01] MEDS ORDERED: Sodium Citrate/Citric Acid LIQ 15 ML UDC PO ONE (07:00)
[2020-09-01] MEDS ORDERED: Sterile Water for Inj 0 ML ONE (07:09)
[2020-09-01] MEDS ORDERED: EPHEDrine (Pressors) 50 MG/ML VIAL ONE (07:09)
[2020-09-01] MEDS ORDERED: fentaNYL 100 mcg/2 ml 50 MCG/ML VIAL ONE (07:09)
[2020-09-01] MEDS ORDERED: Rocuronium 50 mg VIAL 10 mg/ml 5 ml VIAL (50 mg) ONE (07:09)
[2020-09-01] MEDS ORDERED: Midazolam 2 mg/2 ml VIAL 1 mg/ml 2 ml VIAL (2 mg) ONE (07:09)
[2020-09-01] MEDS ORDERED: Phenylephrine 40 mcg/mL 10mL (400mcg) SYRINGE ONE (07:10)
[2020-09-01] MEDS ORDERED: Lidocaine 2% PF 5 ML VIAL ONE (07:10)
[2020-09-01] MEDS ORDERED: Phenylephrine IV 10 MG/ML 1 ml VIAL ONE (07:10)
[2020-09-01] MEDS: Timolol 0.5% OPTH.SOL BTL BOTH EYES SCH (07:22)
[2020-09-01] MEDS: Vancomycin 1000 MG in NS 0.9% 250 ML IVPB SCH ×2 (07:23→21:59)
[2020-09-01] MEDS: prednisoLONE 1% OPHTH.SUSP 5 ML OPHTH.SUSP RIGHT EYE SCH ×2 (07:25→21:59)
[2020-09-01] MEDS ORDERED: Sodium Citrate/Citric Acid LIQ 15 ML UDC ONE (07:49)
[2020-09-01] MEDS ORDERED: Famotidine IV 10 MG/ML 2 ml VIAL (20 mg) ONE (08:09)
[2020-09-01] MEDS ORDERED: EPINEPHrine SYR 0.1MG/ML 10 ml SYRINGE ONE (08:25)
[2020-09-01] MEDS ORDERED: Bupivacaine 0.5% 50 ML MDV VIAL ONE (08:25)
[2020-09-01] MEDS ORDERED: Norepinephrine 16MCG/ML IVPRE 0 MCG/0 ML BAG IV ONE (08:25)
[2020-09-01] MEDS ORDERED: Naloxone 0.4 mg VIAL 0.4 mg/ml 1 ml VIAL IV PRN (09:07)
[2020-09-01] MEDS ORDERED: fentaNYL 100 mcg/2 ml 50 MCG/ML VIAL IV PRN (09:07)
[2020-09-01] MEDS ORDERED: Acetaminophen IV 1 GM/100ML 1,000 MG/100 ML VIAL IVPB ONE (09:07)
[2020-09-01] MEDS ORDERED: Ondansetron 4 mg VIAL 2 MG/ML 2 ml VIAL IV PRN (09:07)
[2020-09-01] MEDS: DESMOPRESSIN 0.1 MG PO SCH ×2 (09:18→21:59)
[2020-09-01] MEDS: Insulin GLARGINE 100 un/ml 10 ml VIAL SUBCUT SCH (09:31)
[2020-09-01] MEDS: Magnesium Hydroxide LIQ 30 ML UDC PO SCH ×2 (09:31→21:57)
[2020-09-01] MEDS ORDERED: Acetaminophen IV 1 GM/100ML 100 ML ONE (09:58)
[2020-09-01 11:29] LABS: Troponin I 0.06 ng/mL (<0.03)
[2020-09-01] MEDS: Patiromer POWDER 8.4 GM PAK PO SCH (12:04)
[2020-09-01] MEDS: Senna TAB 8.6 mg TAB PO PRN (17:03)
[2020-09-01 17:44] LABS: Troponin I 0.04 ng/mL (<0.03)
[2020-09-02] MEDS: Aztreonam 2 GM in NS 0.9% 100 ML 100 ML IV SCH ×3 (02:27→17:41)
[2020-09-02] MEDS ORDERED: Vancomycin Trough Check NOTE FOLLOW UP ONE (07:30)
[2020-09-02] MEDS: Magnesium Hydroxide LIQ 30 ML UDC PO SCH ×2 (08:09→21:01)
[2020-09-02 08:15] LABS: Hematocrit 38 % (42-52); Hemoglobin 12.8 g/dL (14.0-18.0); Mean Corpuscular HGB Conc 34 g/dL (31-36); Mean Corpuscular Hemoglobin 32 pg (27-31); Mean Corpuscular Volume 95 fL (80-94); Mean Platelet Volume 9.3 fL (7.4-10.4); Platelet Count 228 10^3/uL (150-450); Red Blood Count 3.98 10^6 /uL (4.18-5.48); Red Cell Distribution Width 15 % (10-15)
[2020-09-02] MEDS: prednisoLONE 1% OPHTH.SUSP 5 ML OPHTH.SUSP RIGHT EYE SCH ×2 (08:16→21:01)
[2020-09-02 08:18] LABS: BUN/Creatinine Ratio 22.6 (8-20); Calcium 8.4 mg/dL (8.6-10.3); EGFR African American 62.8 (>60); EGFR Non-African American 51.9 (>60); Potassium 4.4 mmol/L (3.5-5.0)
[2020-09-02 08:36] LABS: Vancomycin Trough 23.9 mcg/mL
[2020-09-02] MEDS: Vancomycin 1000 MG in NS 0.9% 250 ML IVPB SCH (08:55)
[2020-09-02] MEDS: Insulin GLARGINE 100 un/ml 10 ml VIAL SUBCUT SCH (09:06)
[2020-09-02] MEDS: DESMOPRESSIN 0.1 MG PO SCH ×2 (09:08→21:03)
[2020-09-02] MEDS: Timolol 0.5% OPTH.SOL BTL BOTH EYES SCH (09:08)
[2020-09-02] MEDS: Patiromer POWDER 8.4 GM PAK PO SCH (13:03)
[2020-09-02] MEDS ORDERED: Vancomycin per Pharmacy 1 EA NOTE FOLLOW UP PRN (14:14)
[2020-09-02] MEDS: Vancomycin 750 MG in NS 0.9% 250 ML IVPB SCH (23:11)
[2020-09-03] MEDS: Aztreonam 2 GM in NS 0.9% 100 ML 100 ML IV SCH ×2 (02:23→09:08)
[2020-09-03] MEDS: Insulin GLARGINE 100 un/ml 10 ml VIAL SUBCUT SCH (08:25)
[2020-09-03] MEDS: Magnesium Hydroxide LIQ 30 ML UDC PO SCH ×2 (08:26→21:11)
[2020-09-03] MEDS: prednisoLONE 1% OPHTH.SUSP 5 ML OPHTH.SUSP RIGHT EYE SCH ×2 (08:29→22:09)
[2020-09-03] MEDS: Timolol 0.5% OPTH.SOL BTL BOTH EYES SCH (08:29)
[2020-09-03] MEDS: DESMOPRESSIN 0.1 MG PO SCH ×2 (09:06→21:10)
[2020-09-03] MEDS: Vancomycin 750 MG in NS 0.9% 250 ML IVPB SCH ×2 (11:40→22:09)
[2020-09-03] MEDS ORDERED: Insulin GLARGINE 100 un/ml 10 ml VIAL SUBCUT ONE (16:32)
[2020-09-04] MEDS: Magnesium Hydroxide LIQ 30 ML UDC PO SCH (09:13)
[2020-09-04] MEDS: Insulin GLARGINE 100 un/ml 10 ml VIAL SUBCUT SCH (09:14)
[2020-09-04] MEDS: DESMOPRESSIN 0.1 MG PO SCH (09:17)
[2020-09-04] MEDS: Timolol 0.5% OPTH.SOL BTL BOTH EYES SCH (09:18)
[2020-09-04 09:19] LABS: Potassium 4.4 mmol/L (3.5-5.0)
[2020-09-04] MEDS: prednisoLONE 1% OPHTH.SUSP 5 ML OPHTH.SUSP RIGHT EYE SCH (09:19)
[2020-09-04 09:24] LABS: BUN/Creatinine Ratio 22.7 (8-20); EGFR African American 65.6 (>60); EGFR Non-African American 54.2 (>60)
[2020-09-04] MEDS ORDERED: Vancomycin Trough Check NOTE FOLLOW UP ONE (09:30)
[2020-09-04] MEDS: Vancomycin 750 MG in NS 0.9% 250 ML IVPB SCH (13:49)
[2020-09-04 16:04] VITALS: BP 151/70
[2020-09-07] MEDS ORDERED: Vancomycin Trough Check NOTE FOLLOW UP ONE (09:30)
== END 2020-09-04 18:50 | disposition home health service (06) | DRG 853 ==
LOC: ED 19:18 → ICU 08-23 03:30 → MEDTELE 08-25 03:17 → ICU 08-28 23:45 → MEDTELE 08-29 13:51
PROVIDERS: ADMIT Hospitalist; ATTEND Internal Medicine

== ENCOUNTER 2020-10-15 17:25 | Inpatient (IN) ==
[2020-10-15 19:08] LABS: ABS Basophils 0.1 10^3/ul (0-0.2); ABS Lymphocytes 0.6 10^3/ul (1.0-4.8); ABS Monocytes 0.9 10^3/ul (0-0.8); ABS Neutrophils 5.9 10^3/ul (1.5-7.7); Eosinophil % 0.3 %; Hematocrit 35 % (42-52); Hemoglobin 11.5 g/dL (14.0-18.0); Mean Corpuscular HGB Conc 33 g/dL (31-36); Mean Corpuscular Hemoglobin 31 pg (27-31); Mean Corpuscular Volume 93 fL (80-94); Mean Platelet Volume 9.4 fL (7.4-10.4); Nucleated Red Blood Cells % 0.1; Platelet Count 418 10^3/uL (150-450); Red Blood Count 3.71 10^6 /uL (4.18-5.48); Red Cell Distribution Width 17 % (10-15); White Blood Count 7.5 10^3/uL (3.5-10.8)
[2020-10-15] MEDS ORDERED: NS 0.9% 1000 ml BAG 1,000 ML IV ONE (19:11)
[2020-10-15 19:17] LABS: INR 4.48 (0.82-1.09)
[2020-10-15 19:32] LABS: Troponin I 0.05 ng/mL (<0.03)
[2020-10-15 19:42] LABS: ALT 33 U/L (7-52); AST 23 U/L (13-39); Albumin 2.9 g/dL (3.2-5.2); Albumin/Globulin Ratio 0.9 (1-3); Alkaline Phosphatase 76 U/L (34-104); Anion Gap 8 mmol/L (2-11); BUN/Creatinine Ratio 14.3 (8-20); Blood Urea Nitrogen 21 mg/dL (6-24); CO2 Carbon Dioxide 22 mmol/L (22-32); Calcium 8.1 mg/dL (8.6-10.3); Chloride 100 mmol/L (101-111); EGFR African American 55.8 (>60); EGFR Non-African American 46.1 (>60); Globulin 3.2 g/dL (2-4); Glucose 215 mg/dL (70-100); Lipase 10 U/L (11.0-82.0); Magnesium 1.8 mg/dL (1.9-2.7); Potassium 4.5 mmol/L (3.5-5.0); Sodium 130 mmol/L (135-145); Total Protein 6.1 g/dL (6.4-8.9)
[2020-10-15] MEDS ORDERED: Iodixanol (CONTRAST) 320 MG/ML 100 ML SDV IV ONE (20:12)
[2020-10-15 21:26] LABS: C Reactive Protein 72.78 mg/L (<8.01)
[2020-10-15 21:56] LABS: Urine Appearance Clear; Urine Bilirubin Negative (Negative); Urine Blood 1+ (Negative); Urine Color Yellow; Urine Glucose Negative (Negative); Urine Ketones Negative (Negative); Urine Nitrite Negative (Negative); Urine Protein Negative (Negative); Urine Specific Gravity 1.039 (1.010-1.030); Urine Urobilinogen Negative (Negative)
[2020-10-15 21:58] LABS: Urine Bacteria Absent (Absent); Urine Red Blood Cell 2+(6-10/hpf) (Absent); Urine Squamous Epithelial Cell Present (Absent); Urine White Blood Cell Trace(0-5/hpf) (Absent)
[2020-10-15] MEDS ORDERED: Dextrose 50% Syringe 50 ml 25 GM/50 ML SYRINGE IV PUSH PRN (23:33)
[2020-10-15] MEDS ORDERED: Piperacillin/Tazobac ADVAN 3.375 GM in NS 0.9% 100 ml BAG 100 ML IV ONE (23:39)
[2020-10-15] MEDS ORDERED: Zosyn per Pharmacy NOTE FOLLOW UP SCH (23:45)
[2020-10-16] MEDS ORDERED: Dextran 70/Hypromellose Tears Eye Drops 15 ml BTL (for Artificials Tears) BOTH EYES PRN (01:00)
[2020-10-16] MEDS ORDERED: ZOSYN 3.375 GM x ONE DOSE over 30 miuntes IV (01:30)
[2020-10-16] MEDS ORDERED: NS 0.9% 1000 ml BAG 1,000 ML IV ONE (02:05)
[2020-10-16 02:40] LABS: Troponin I 0.03 ng/mL (<0.03)
[2020-10-16] MEDS ORDERED: Hydrocortisone INJ 100 MG/2ML 2 ML VIAL IV SCH (03:00)
[2020-10-16] MEDS: Hydrocortisone INJ 100 MG/2ML 2 ML VIAL IV SCH ×3 (04:30→18:27)
[2020-10-16] MEDS: NS 0.9% 1000 ml BAG 1,000 ML IV SCH ×2 (05:49→14:49)
[2020-10-16] MEDS: ZOSYN 3.375 GM Q8H per EXTENDED INFUSION IV SCH ×3 (05:50→22:43)
[2020-10-16 05:59] LABS: ABS Basophils 0.1 10^3/ul (0-0.2); ABS Lymphocytes 0.6 10^3/ul (1.0-4.8); ABS Monocytes 0.5 10^3/ul (0-0.8); ABS Neutrophils 4.2 10^3/ul (1.5-7.7); Eosinophil % 0.5 %; Hematocrit 33 % (42-52); Hemoglobin 10.8 g/dL (14.0-18.0); Lymphocyte % 11.4 %; Mean Corpuscular HGB Conc 33 g/dL (31-36); Mean Corpuscular Hemoglobin 31 pg (27-31); Mean Corpuscular Volume 94 fL (80-94); Mean Platelet Volume 9.3 fL (7.4-10.4); Platelet Count 370 10^3/uL (150-450); Red Blood Count 3.45 10^6 /uL (4.18-5.48); Red Cell Distribution Width 17 % (10-15); White Blood Count 5.4 10^3/uL (3.5-10.8)
[2020-10-16 06:17] LABS: BUN/Creatinine Ratio 13.2 (8-20); Calcium 7.4 mg/dL (8.6-10.3); EGFR African American 57.1 (>60); EGFR Non-African American 47.2 (>60); Potassium 4.5 mmol/L (3.5-5.0)
[2020-10-16] MEDS: CMCS: Desmopressin 0.1 mg TAB (NF) PO SCH ×2 (09:38→22:41)
[2020-10-16] MEDS: Timolol 0.5% OPTH.SOL BTL BOTH EYES SCH (09:39)
[2020-10-16] MEDS: prednisoLONE 1% OPHTH.SUSP 5 ML OPHTH.SUSP RIGHT EYE SCH (09:39)
[2020-10-17] MEDS: Hydrocortisone INJ 100 MG/2ML 2 ML VIAL IV SCH ×2 (02:44→09:15)
[2020-10-17] MEDS: ZOSYN 3.375 GM Q8H per EXTENDED INFUSION IV SCH ×2 (05:07→06:21)
[2020-10-17] MEDS: Timolol 0.5% OPTH.SOL BTL BOTH EYES SCH (07:55)
[2020-10-17] MEDS: prednisoLONE 1% OPHTH.SUSP 5 ML OPHTH.SUSP RIGHT EYE SCH (07:56)
[2020-10-17] MEDS: CMCS: Desmopressin 0.1 mg TAB (NF) PO SCH (07:58)
[2020-10-17] MEDS ORDERED: Insulin GLARGINE 100 un/ml 10 ml VIAL SUBCUT SCH (09:00)
[2020-10-17] MEDS ORDERED: cefTRIAXone 1 gm/50 mL NS BAG 1 GM/50 ML BAG IVPB SCH (15:00)
[2020-10-17 16:11] VITALS: BP 128/67
== END 2020-10-17 18:45 | disposition home or self-care (01) ==
LOC: MED 17:25 → ED 17:25 → MED 10-17 06:30
PROVIDERS: ADMIT Hospitalist; ATTEND Student in an Organized Health Care Education/Training Program

== ENCOUNTER 2020-10-29 11:58 | Observation (INO) ==
[2020-10-29] MEDS ORDERED: Morphine 4 MG/ML VIAL (1 ml) IV ONE (12:57)
[2020-10-29] MEDS ORDERED: NS 0.9% 1000 ml BAG 1,000 ML IV ONE (12:57)
[2020-10-29 13:06] LABS: ABS Basophils 0.1 10^3/ul (0-0.2); ABS Lymphocytes 0.7 10^3/ul (1.0-4.8); ABS Monocytes 1.1 10^3/ul (0-0.8); ABS Neutrophils 7.4 10^3/ul (1.5-7.7); Eosinophil % 0.2 %; Hematocrit 37 % (42-52); Hemoglobin 12.3 g/dL (14.0-18.0); Lymphocyte % 8.1 %; Mean Corpuscular HGB Conc 33 g/dL (31-36); Mean Corpuscular Hemoglobin 31 pg (27-31); Mean Corpuscular Volume 91 fL (80-94); Mean Platelet Volume 9.7 fL (7.4-10.4); Platelet Count 245 10^3/uL (150-450); Red Blood Count 4.03 10^6 /uL (4.18-5.48); Red Cell Distribution Width 17 % (10-15); White Blood Count 9.3 10^3/uL (3.5-10.8)
[2020-10-29 13:19] LABS: INR 3.4 (0.82-1.09)
[2020-10-29 13:25] LABS: ALT 19 U/L (7-52); Albumin 3.2 g/dL (3.2-5.2); Albumin/Globulin Ratio 1.1 (1-3); Alkaline Phosphatase 65 U/L (34-104); BUN/Creatinine Ratio 10.9 (8-20); Blood Urea Nitrogen 13 mg/dL (6-24); C Reactive Protein 35.31 mg/L (<8.01); CO2 Carbon Dioxide 22 mmol/L (22-32); Calcium 7.8 mg/dL (8.6-10.3); Chloride 96 mmol/L (101-111); EGFR African American 71.2 (>60); EGFR Non-African American 58.8 (>60); Glucose 212 mg/dL (70-100); Lipase 18 U/L (11.0-82.0); Sodium 124 mmol/L (135-145); Total Protein 6.2 g/dL (6.4-8.9)
[2020-10-29 13:27] LABS: Anion Gap 6 mmol/L (2-11)
[2020-10-29] MEDS ORDERED: Iodixanol (CONTRAST) 320 MG/ML 100 ML SDV IV ONE (13:28)
[2020-10-29] MEDS ORDERED: NS 0.9% 1000 ml BAG 1,000 ML IV SCH (15:30)
[2020-10-29] MEDS ORDERED: guaiFENesin/CODIENE 100mg/10mg 5 ML UDC PO PRN (15:34)
[2020-10-29] MEDS ORDERED: Dextrose 50% Syringe 50 ml 25 GM/50 ML SYRINGE IV PUSH PRN (15:37)
[2020-10-29 17:09] LABS: Magnesium 1.9 mg/dL (1.9-2.7)
[2020-10-29 18:21] LABS: Potassium Redraw 4.4 mmol/L (3.5-5.0)
[2020-10-29] MEDS ORDERED: Morphine 2 MG/ML SYRINGE IV PRN (20:33)
[2020-10-29] MEDS: CMCS: Desmopressin 0.1 mg TAB (NF) PO SCH (20:36)
[2020-10-30 07:29] LABS: BUN/Creatinine Ratio 15.6 (8-20); Calcium 7.7 mg/dL (8.6-10.3); EGFR African American 91.2 (>60); EGFR Non-African American 75.4 (>60); Potassium 4.4 mmol/L (3.5-5.0)
[2020-10-30] MEDS ORDERED: NS 0.9% 1000 ml BAG 1,000 ML IV SCH (07:45)
[2020-10-30] MEDS: CMCS: Desmopressin 0.1 mg TAB (NF) PO SCH (08:29)
[2020-10-30] MEDS ORDERED: Insulin GLARGINE 100 un/ml 10 ml VIAL SUBCUT SCH (09:00)
[2020-10-30] MEDS ORDERED: Timolol 0.5% OPTH.SOL BTL BOTH EYES SCH (09:00)
[2020-10-30] MEDS ORDERED: prednisoLONE 1% OPHTH.SUSP 5 ML OPHTH.SUSP RIGHT EYE SCH (09:00)
[2020-10-30 13:13] VITALS: BP 149/73
[2020-10-30] MEDS ORDERED: NS 0.9% 1000 ml BAG 1,000 ML IV ONE (13:45)
== END 2020-10-30 15:40 | disposition home or self-care (01) ==
LOC: MEDTELE 11:58 → ED 11:58 → MEDTELE 17:30
PROVIDERS: ADMIT Student in an Organized Health Care Education/Training Program; ATTEND Student in an Organized Health Care Education/Training Program

== ENCOUNTER 2020-11-23 13:40 | Inpatient (IN) ==
[2020-11-23] MEDS ORDERED: NS 0.9% 1000 ml BAG 1,000 ML IV.FLUID IV ONE (14:05)
[2020-11-23] MEDS ORDERED: Azithromycin 500 mg/250 ml NS 500 MG/250 ML BAG IVPB ONE (15:29)
[2020-11-23] MEDS ORDERED: Aztreonam 2 GM in NS 0.9% 100 ml BAG 100 ML IVPB ONE (15:29)
[2020-11-23] MEDS ORDERED: Vancomycin 1,500 MG in NS 0.9% 250 ml 250 ML IVPB ONE (15:29)
[2020-11-23 15:36] LABS: ABS Lymphocytes 1.2 10^3/ul (1.0-4.8); ABS Monocytes 0.9 10^3/ul (0-0.8); ABS Neutrophils 5.3 10^3/ul (1.5-7.7); Eosinophil % 0.4 %; Hematocrit 38 % (42-52); Lymphocyte % 15.7 %; Mean Corpuscular HGB Conc 35 g/dL (31-36); Mean Corpuscular Hemoglobin 31 pg (27-31); Mean Corpuscular Volume 89 fL (80-94); Mean Platelet Volume 9.1 fL (7.4-10.4); Nucleated Red Blood Cells % 0.1; Platelet Count 349 10^3/uL (150-450); Red Blood Count 4.25 10^6 /uL (4.18-5.48); Red Cell Distribution Width 18 % (10-15); White Blood Count 7.4 10^3/uL (3.5-10.8)
[2020-11-23 16:00] LABS: Activated Partial Thrombo Time 40.4 seconds (26.0-38.0); INR 3.56 (0.82-1.09)
[2020-11-23 16:14] LABS: Troponin I 0.12 ng/mL (<0.03)
[2020-11-23 16:24] LABS: ALT 34 U/L (7-52); AST 35 U/L (13-39); Albumin 3.7 g/dL (3.2-5.2); Albumin/Globulin Ratio 0.9 (1-3); Alkaline Phosphatase 102 U/L (34-104); Anion Gap 9 mmol/L (2-11); BUN/Creatinine Ratio 14.7 (8-20); Blood Urea Nitrogen 22 mg/dL (6-24); C Reactive Protein 171.68 mg/L (<8.01); CO2 Carbon Dioxide 28 mmol/L (22-32); Calcium 9.3 mg/dL (8.6-10.3); Chloride 98 mmol/L (101-111); EGFR African American 54.5 (>60); Globulin 3.9 g/dL (2-4); Glucose 97 mg/dL (70-100); Potassium 4.2 mmol/L (3.5-5.0); Sodium 135 mmol/L (135-145); Total Protein 7.6 g/dL (6.4-8.9)
[2020-11-23] MEDS ORDERED: Iodixanol (CONTRAST) 320 MG/ML 100 ML SDV IV ONE (16:33)
[2020-11-23 17:01] LABS: Urine Appearance Cloudy; Urine Bilirubin Negative (Negative); Urine Blood 2+ (Negative); Urine Color Yellow; Urine Glucose Negative (Negative); Urine Ketones Negative (Negative); Urine Nitrite Negative (Negative); Urine Protein 1+(30 mg/dL) (Negative); Urine Specific Gravity 1.015 (1.010-1.030); Urine Urobilinogen Negative (Negative)
[2020-11-23 17:11] LABS: Urine Bacteria Absent (Absent); Urine Red Blood Cell 3+(>10/hpf) (Absent); Urine Squamous Epithelial Cell Present (Absent); Urine White Blood Cell Trace(0-5/hpf) (Absent)
[2020-11-23 19:20] LABS: Troponin I 0.08 ng/mL (<0.03)
[2020-11-23] MEDS ORDERED: Ondansetron 4 mg VIAL 2 MG/ML 2 ml VIAL IV PRN (23:26)
[2020-11-23] MEDS ORDERED: guaiFENesin/CODIENE 100mg/10mg 5 ML UDC PO PRN (23:32)
[2020-11-23] MEDS ORDERED: Dextran 70/Hypromellose Tears Eye Drops 15 ml BTL (for Artificials Tears) BOTH EYES PRN (23:32)
[2020-11-23] MEDS ORDERED: Vancomycin per Pharmacy 1 EA NOTE FOLLOW UP SCH (23:45)
[2020-11-23] MEDS ORDERED: Dextrose 50% Syringe 50 ml 25 GM/50 ML SYRINGE IV PUSH PRN (23:50)
[2020-11-24] MEDS ORDERED: Aztreonam 2 GM in NS 0.9% 100 ML 100 ML IV SCH (01:00)
[2020-11-24] MEDS: NS 0.9% 1000 ml BAG 1,000 ML IV SCH ×2 (01:54→14:16)
[2020-11-24] MEDS: Aztreonam 2 GM in NS 0.9% 100 ML 100 ML IV SCH ×3 (03:09→18:02)
[2020-11-24] MEDS: prednisoLONE 1% OPHTH.SUSP 5 ML OPHTH.SUSP RIGHT EYE SCH ×6 (04:41→20:53)
[2020-11-24 06:12] LABS: ABS Lymphocytes 0.8 10^3/ul (1.0-4.8); ABS Monocytes 0.7 10^3/ul (0-0.8); Eosinophil % 0.7 %; Hematocrit 30 % (42-52); Hemoglobin 9.8 g/dL (14.0-18.0); Lymphocyte % 14.6 %; Mean Corpuscular HGB Conc 33 g/dL (31-36); Mean Corpuscular Hemoglobin 29 pg (27-31); Mean Corpuscular Volume 90 fL (80-94); Mean Platelet Volume 9.1 fL (7.4-10.4); Platelet Count 243 10^3/uL (150-450); Red Blood Count 3.34 10^6 /uL (4.18-5.48); Red Cell Distribution Width 18 % (10-15); White Blood Count 5.5 10^3/uL (3.5-10.8)
[2020-11-24 06:37] LABS: BUN/Creatinine Ratio 20.2 (8-20); C Reactive Protein 131.93 mg/L (<8.01); Calcium 7.5 mg/dL (8.6-10.3); EGFR African American 78.8 (>60); EGFR Non-African American 65.1 (>60); Potassium 3.9 mmol/L (3.5-5.0)
[2020-11-24] MEDS: CMC:Desmopressin 0.1 mg TAB (NF) PO SCH ×2 (08:50→20:53)
[2020-11-24] MEDS ORDERED: Insulin GLARGINE 100 un/ml 10 ml VIAL SUBCUT SCH (09:00)
[2020-11-24] MEDS ORDERED: Timolol 0.25% OPHTH.SOLN BTL RIGHT EYE SCH (09:00)
[2020-11-24] MEDS: CMC:TESTOSTERONE GEL 25 MG (NF) IN 2.5 GM SIZE PACKET TOPICAL SCH (09:01)
[2020-11-24] MEDS ORDERED: Potassium Chlor 20 meq TAB.ER PO ONE (10:30)
[2020-11-24 11:25] LABS: Magnesium 1.8 mg/dL (1.9-2.7)
[2020-11-24] MEDS ORDERED: Magnesium Sulfate 2 gm BAG 2 GM/50 ML BAG IVPB ONE (13:32)
[2020-11-24] MEDS: VANCOMYCIN 1250 MG IVPB SCH (15:45)
[2020-11-24] MEDS: Azithromycin 500 mg/250 ml NS 500 MG/250 ML BAG IVPB SCH (16:59)
[2020-11-25] MEDS: Aztreonam 2 GM in NS 0.9% 100 ML 100 ML IV SCH ×3 (01:47→17:08)
[2020-11-25] MEDS: NS 0.9% 1000 ml BAG 1,000 ML IV SCH (04:57)
[2020-11-25] MEDS: CMC:Desmopressin 0.1 mg TAB (NF) PO SCH ×2 (08:43→21:00)
[2020-11-25] MEDS: prednisoLONE 1% OPHTH.SUSP 5 ML OPHTH.SUSP RIGHT EYE SCH ×4 (08:44→19:39)
[2020-11-25 08:56] LABS: ABS Eosinophils 0.1 10^3/ul (0-0.6); ABS Monocytes 0.6 10^3/ul (0-0.8); Eosinophil % 1.2 %; Hematocrit 33 % (42-52); Hemoglobin 10.9 g/dL (14.0-18.0); Lymphocyte % 17.2 %; Mean Corpuscular HGB Conc 33 g/dL (31-36); Mean Corpuscular Hemoglobin 29 pg (27-31); Mean Corpuscular Volume 90 fL (80-94); Mean Platelet Volume 8.7 fL (7.4-10.4); Platelet Count 296 10^3/uL (150-450); Red Blood Count 3.72 10^6 /uL (4.18-5.48); Red Cell Distribution Width 18 % (10-15); White Blood Count 5.6 10^3/uL (3.5-10.8)
[2020-11-25] MEDS: CMC:TESTOSTERONE GEL 25 MG (NF) IN 2.5 GM SIZE PACKET TOPICAL SCH (09:48)
[2020-11-25] MEDS: Timolol 0.25% OPHTH.SOLN BTL BOTH EYES SCH (09:50)
[2020-11-25] MEDS: VANCOMYCIN 1250 MG IVPB SCH (14:44)
[2020-11-25] MEDS: Azithromycin 500 mg/250 ml NS 500 MG/250 ML BAG IVPB SCH (15:30)
[2020-11-26] MEDS: Aztreonam 2 GM in NS 0.9% 100 ML 100 ML IV SCH ×3 (02:00→17:57)
[2020-11-26] MEDS ORDERED: Dextran 70/Hypromellose Tears Eye Drops 15 ml BTL (for Artificials Tears) BOTH EYES PRN (07:57)
[2020-11-26] MEDS: CMC:TESTOSTERONE GEL 25 MG (NF) IN 2.5 GM SIZE PACKET TOPICAL SCH (08:32)
[2020-11-26] MEDS: CMC:Desmopressin 0.1 mg TAB (NF) PO SCH ×2 (08:35→20:46)
[2020-11-26] MEDS: prednisoLONE 1% OPHTH.SUSP 5 ML OPHTH.SUSP RIGHT EYE SCH ×5 (08:36→20:46)
[2020-11-26] MEDS: Timolol 0.25% OPHTH.SOLN BTL BOTH EYES SCH (08:36)
[2020-11-26] MEDS ORDERED: Vancomycin Trough Check NOTE FOLLOW UP ONE (13:30)
[2020-11-26 14:00] LABS: EGFR Non-African American 70.3 (>60)
[2020-11-26 14:31] LABS: Vancomycin Trough 6.5 mcg/mL
[2020-11-26 17:12] LABS: Body Fluid Source Pleural Fluid
[2020-11-26 18:55] LABS: Body Fluid Mono 48 %
[2020-11-27] MEDS: Aztreonam 2 GM in NS 0.9% 100 ML 100 ML IV SCH ×3 (02:01→17:21)
[2020-11-27] MEDS: CMC:Desmopressin 0.1 mg TAB (NF) PO SCH ×2 (09:05→20:47)
[2020-11-27] MEDS: Timolol 0.25% OPHTH.SOLN BTL BOTH EYES SCH (09:06)
[2020-11-27] MEDS: CMC:TESTOSTERONE GEL 25 MG (NF) IN 2.5 GM SIZE PACKET TOPICAL SCH (09:06)
[2020-11-27] MEDS: prednisoLONE 1% OPHTH.SUSP 5 ML OPHTH.SUSP RIGHT EYE SCH ×3 (09:17→17:20)
[2020-11-27 18:35] LABS: Total Protein 6.2 g/dL (6.4-8.9)
[2020-11-27] MEDS ORDERED: Insulin GLARGINE 100 un/ml 10 ml VIAL SUBCUT SCH (21:00)
[2020-11-28] MEDS ORDERED: prednisoLONE 1% OPHTH.SUSP 5 ML OPHTH.SUSP RIGHT EYE SCH (09:00)
[2020-11-28 09:27] VITALS: BP 127/61
[2020-11-28] MEDS: CMC:Desmopressin 0.1 mg TAB (NF) PO SCH (09:29)
[2020-11-28] MEDS: Timolol 0.25% OPHTH.SOLN BTL BOTH EYES SCH (09:53)
[2020-11-28] MEDS: CMC:TESTOSTERONE GEL 25 MG (NF) IN 2.5 GM SIZE PACKET TOPICAL SCH (09:54)
[2020-11-28 14:25] LABS: Fluid Type, Glucose PLEURAL; Fluid Type, Protein, Total PLEURAL; Glucose, BF 217 mg/dL
[2020-11-28 15:25] LABS: Lactate Dehydrogenase, BF 217 U/L
== END 2020-11-28 11:29 | disposition home or self-care (01) | DRG 872 ==
LOC: ED 13:40 → MED 21:40 → MEDTELE 11-24 17:28
PROVIDERS: ADMIT Internal Medicine; ATTEND Internal Medicine

== ENCOUNTER 2020-11-30 10:48 | Inpatient (IN) ==
[2020-11-30] MEDS ORDERED: NS 0.9% 1000 ml BAG 1,000 ML IV ONE (11:06)
[2020-11-30 11:53] LABS: Hematocrit 37 % (42-52); Hemoglobin 12.1 g/dL (14.0-18.0); Mean Corpuscular HGB Conc 33 g/dL (31-36); Mean Corpuscular Hemoglobin 29 pg (27-31); Mean Corpuscular Volume 89 fL (80-94); Mean Platelet Volume 9.4 fL (7.4-10.4); Platelet Count 377 10^3/uL (150-450); Red Blood Count 4.17 10^6 /uL (4.18-5.48); Red Cell Distribution Width 19 % (10-15); White Blood Count 11.2 10^3/uL (3.5-10.8)
[2020-11-30 12:09] LABS: Troponin I 0.06 ng/mL (<0.03)
[2020-11-30 12:16] LABS: ALT 42 U/L (7-52); AST 43 U/L (13-39); Albumin 3.2 g/dL (3.2-5.2); Albumin/Globulin Ratio 0.9 (1-3); Alkaline Phosphatase 106 U/L (34-104); Anion Gap 9 mmol/L (2-11); BUN/Creatinine Ratio 14.4 (8-20); Blood Urea Nitrogen 19 mg/dL (6-24); CO2 Carbon Dioxide 22 mmol/L (22-32); Calcium 8.1 mg/dL (8.6-10.3); Chloride 98 mmol/L (101-111); EGFR African American 63.1 (>60); EGFR Non-African American 52.2 (>60); Globulin 3.7 g/dL (2-4); Glucose 179 mg/dL (70-100); Magnesium 1.9 mg/dL (1.9-2.7); Potassium 4.4 mmol/L (3.5-5.0); Sodium 129 mmol/L (135-145); Total Protein 6.9 g/dL (6.4-8.9)
[2020-11-30 12:21] LABS: TSH Ultra Thyroid Stim Horm 0.25 mcIU/mL (0.34-5.60)
[2020-11-30 12:31] LABS: ABS Basophils 0.1 10^3/ul (0-0.2); ABS Lymphocytes 2.1 10^3/ul (1.0-4.8); ABS Monocytes 1.3 10^3/ul (0-0.8); ABS Neutrophils 7.7 10^3/ul (1.5-7.7); Eosinophil % 0.1 %; Lymphocyte % 18.6 %
[2020-11-30] MEDS ORDERED: Piperacillin/Tazobac ADVAN 3.375 GM in NS 0.9% 100 ml BAG 100 ML IVPB ONE (14:18)
[2020-11-30] MEDS ORDERED: Dextrose 50% Syringe 50 ml 25 GM/50 ML SYRINGE IV PUSH PRN (14:53)
[2020-11-30] MEDS ORDERED: Zosyn per Pharmacy NOTE FOLLOW UP SCH (15:00)
[2020-11-30] MEDS ORDERED: NS 0.9% 1000 ml BAG 1,000 ML IV SCH (15:00)
[2020-11-30 15:59] LABS: T4, Total 8.33 mcg/dL (6.09-12.23)
[2020-11-30 16:08] LABS: Free T4 1.26 ng/dL (0.61-1.12)
[2020-11-30] MEDS: CMCS: Desmopressin 0.1 mg TAB (NF) PO SCH (21:43)
[2020-11-30] MEDS: prednisoLONE 1% OPHTH.SUSP 5 ML OPHTH.SUSP RIGHT EYE SCH (21:46)
[2020-11-30] MEDS: ZOSYN 3.375 GM Q8H per EXTENDED INFUSION IV SCH (21:47)
[2020-11-30] MEDS: guaiFENesin/CODIENE 100mg/10mg 5 ML UDC PO PRN (22:06)
[2020-12-01] MEDS: ZOSYN 3.375 GM Q8H per EXTENDED INFUSION IV SCH ×3 (03:46→21:33)
[2020-12-01 06:12] LABS: ABS Lymphocytes 1.6 10^3/ul (1.0-4.8); ABS Monocytes 1.5 10^3/ul (0-0.8); ABS Neutrophils 5.6 10^3/ul (1.5-7.7); Eosinophil % 0.2 %; Hematocrit 29 % (42-52); Hemoglobin 9.7 g/dL (14.0-18.0); Lymphocyte % 17.9 %; Mean Corpuscular HGB Conc 34 g/dL (31-36); Mean Corpuscular Hemoglobin 29 pg (27-31); Mean Corpuscular Volume 88 fL (80-94); Mean Platelet Volume 9.1 fL (7.4-10.4); Platelet Count 292 10^3/uL (150-450); Red Blood Count 3.31 10^6 /uL (4.18-5.48); Red Cell Distribution Width 18 % (10-15); White Blood Count 8.7 10^3/uL (3.5-10.8)
[2020-12-01 06:27] LABS: Anion Gap 6 mmol/L (2-11); BUN/Creatinine Ratio 15.7 (8-20); Blood Urea Nitrogen 20 mg/dL (6-24); CO2 Carbon Dioxide 23 mmol/L (22-32); Calcium 7.2 mg/dL (8.6-10.3); Chloride 103 mmol/L (101-111); EGFR Non-African American 54.6 (>60); Glucose 77 mg/dL (70-100); Potassium 3.8 mmol/L (3.5-5.0); Sodium 132 mmol/L (135-145)
[2020-12-01] MEDS: Insulin GLARGINE 100 un/ml 10 ml VIAL SUBCUT SCH (09:46)
[2020-12-01] MEDS: CMCS: Desmopressin 0.1 mg TAB (NF) PO SCH ×2 (09:49→21:32)
[2020-12-01] MEDS: prednisoLONE 1% OPHTH.SUSP 5 ML OPHTH.SUSP RIGHT EYE SCH ×4 (09:57→21:32)
[2020-12-01] MEDS: methylPREDNISolone SOD 40 mg/ml 1 ml VIAL IV SCH ×2 (10:03→18:26)
[2020-12-01 10:16] LABS: Troponin I 0.06 ng/mL (<0.03)
[2020-12-01] MEDS: NS 0.9% 1000 ml BAG 1,000 ML IV SCH (11:08)
[2020-12-01 15:24] LABS: Urine Appearance Cloudy; Urine Bilirubin Negative (Negative); Urine Blood 2+ (Negative); Urine Color Yellow; Urine Glucose Negative (Negative); Urine Ketones Negative (Negative); Urine Nitrite Negative (Negative); Urine Protein 1+(30 mg/dL) (Negative); Urine Specific Gravity 1.021 (1.010-1.030); Urine Urobilinogen Negative (Negative)
[2020-12-01 15:27] LABS: Urine Bacteria Absent (Absent); Urine Red Blood Cell Trace(0-2/hpf) (Absent); Urine White Blood Cell Trace(0-5/hpf) (Absent)
[2020-12-01] MEDS: Timolol 0.25% OPHTH.SOLN BTL RIGHT EYE SCH (16:28)
[2020-12-01] MEDS ORDERED: Senna TAB 8.6 mg TAB PO PRN (23:29)
[2020-12-01] MEDS ORDERED: Polyethylene Glycol 3350 17 GM PACKET PO PRN (23:29)
[2020-12-01] MEDS ORDERED: Magnesium Hydroxide LIQ 30 ML UDC PO PRN (23:29)
[2020-12-02] MEDS: methylPREDNISolone SOD 40 mg/ml 1 ml VIAL IV SCH ×3 (03:38→17:24)
[2020-12-02] MEDS: ZOSYN 3.375 GM Q8H per EXTENDED INFUSION IV SCH ×3 (03:38→20:41)
[2020-12-02] MEDS: NS 0.9% 1000 ml BAG 1,000 ML IV SCH ×3 (03:38→22:19)
[2020-12-02 05:58] LABS: ABS Lymphocytes 0.4 10^3/ul (1.0-4.8); ABS Monocytes 0.5 10^3/ul (0-0.8); ABS Neutrophils 8.7 10^3/ul (1.5-7.7); Hematocrit 30 % (42-52); Hemoglobin 9.9 g/dL (14.0-18.0); Lymphocyte % 4.6 %; Mean Corpuscular HGB Conc 33 g/dL (31-36); Mean Corpuscular Hemoglobin 29 pg (27-31); Mean Corpuscular Volume 89 fL (80-94); Mean Platelet Volume 8.6 fL (7.4-10.4); Platelet Count 291 10^3/uL (150-450); Red Blood Count 3.36 10^6 /uL (4.18-5.48); Red Cell Distribution Width 18 % (10-15); White Blood Count 9.6 10^3/uL (3.5-10.8)
[2020-12-02 06:16] LABS: BUN/Creatinine Ratio 18.5 (8-20); Calcium 7.5 mg/dL (8.6-10.3); EGFR African American 71.2 (>60); EGFR Non-African American 58.8 (>60); Potassium 3.9 mmol/L (3.5-5.0)
[2020-12-02] MEDS: CMCS: Desmopressin 0.1 mg TAB (NF) PO SCH ×2 (08:19→20:51)
[2020-12-02] MEDS: Insulin GLARGINE 100 un/ml 10 ml VIAL SUBCUT SCH (08:20)
[2020-12-02] MEDS: prednisoLONE 1% OPHTH.SUSP 5 ML OPHTH.SUSP RIGHT EYE SCH ×3 (08:21→17:25)
[2020-12-02] MEDS ORDERED: Insulin GLARGINE 100 un/ml 10 ml VIAL SUBCUT SCH (12:00)
[2020-12-02] MEDS: Timolol 0.25% OPHTH.SOLN BTL RIGHT EYE SCH (12:32)
[2020-12-02] MEDS ORDERED: methylPREDNISolone SOD 40 mg/ml 1 ml VIAL IV SCH (18:38)
[2020-12-03] MEDS: guaiFENesin/CODIENE 100mg/10mg 5 ML UDC PO PRN (03:25)
[2020-12-03] MEDS: methylPREDNISolone SOD 40 mg/ml 1 ml VIAL IV SCH ×3 (03:26→18:03)
[2020-12-03] MEDS: ZOSYN 3.375 GM Q8H per EXTENDED INFUSION IV SCH ×3 (03:26→21:14)
[2020-12-03 05:49] LABS: ABS Lymphocytes 0.3 10^3/ul (1.0-4.8); ABS Monocytes 0.5 10^3/ul (0-0.8); ABS Neutrophils 10.6 10^3/ul (1.5-7.7); Hematocrit 25 % (42-52); Hemoglobin 8.2 g/dL (14.0-18.0); Lymphocyte % 2.3 %; Mean Corpuscular HGB Conc 33 g/dL (31-36); Mean Corpuscular Hemoglobin 29 pg (27-31); Mean Corpuscular Volume 88 fL (80-94); Platelet Count 275 10^3/uL (150-450); Red Blood Count 2.82 10^6 /uL (4.18-5.48); Red Cell Distribution Width 18 % (10-15); White Blood Count 11.4 10^3/uL (3.5-10.8)
[2020-12-03 06:13] LABS: BUN/Creatinine Ratio 19.6 (8-20); Calcium 7.1 mg/dL (8.6-10.3); EGFR Non-African American 70.3 (>60); Potassium 3.8 mmol/L (3.5-5.0); Uric Acid 1.6 mg/dL (4.4-7.6)
[2020-12-03] MEDS: NS 0.9% 1000 ml BAG 1,000 ML IV SCH (06:19)
[2020-12-03] MEDS: Insulin GLARGINE 100 un/ml 10 ml VIAL SUBCUT SCH (08:52)
[2020-12-03] MEDS: prednisoLONE 1% OPHTH.SUSP 5 ML OPHTH.SUSP RIGHT EYE SCH ×2 (08:59→10:45)
[2020-12-03] MEDS ORDERED: Furosemide 20 mg/2 ml IV VIAL IV ONE (10:20)
[2020-12-03] MEDS: CMCS: Desmopressin 0.1 mg TAB (NF) PO SCH ×2 (10:42→21:14)
[2020-12-03] MEDS: Timolol 0.25% OPHTH.SOLN BTL RIGHT EYE SCH (10:45)
[2020-12-03 12:49] LABS: Hematocrit 28 % (42-52); Hemoglobin 8.8 g/dL (14.0-18.0)
[2020-12-04] MEDS: methylPREDNISolone SOD 40 mg/ml 1 ml VIAL IV SCH ×2 (02:08→09:02)
[2020-12-04] MEDS: guaiFENesin/CODIENE 100mg/10mg 5 ML UDC PO PRN (02:18)
[2020-12-04] MEDS: ZOSYN 3.375 GM Q8H per EXTENDED INFUSION IV SCH ×2 (04:52→12:09)
[2020-12-04 08:48] LABS: ABS Lymphocytes 0.4 10^3/ul (1.0-4.8); ABS Monocytes 0.8 10^3/ul (0-0.8); Hematocrit 24 % (42-52); Hemoglobin 8.3 g/dL (14.0-18.0); Lymphocyte % 3.2 %; Mean Corpuscular HGB Conc 34 g/dL (31-36); Mean Corpuscular Hemoglobin 30 pg (27-31); Mean Corpuscular Volume 87 fL (80-94); Mean Platelet Volume 8.5 fL (7.4-10.4); Platelet Count 278 10^3/uL (150-450); Red Blood Count 2.82 10^6 /uL (4.18-5.48); Red Cell Distribution Width 18 % (10-15); White Blood Count 12.2 10^3/uL (3.5-10.8)
[2020-12-04] MEDS: CMCS: Desmopressin 0.1 mg TAB (NF) PO SCH ×2 (08:54→19:37)
[2020-12-04] MEDS: PTO:Timolol 0.5% OPTH.SOL BTL BOTH EYES SCH (08:57)
[2020-12-04] MEDS: Insulin GLARGINE 100 un/ml 10 ml VIAL SUBCUT SCH (08:57)
[2020-12-04] MEDS: prednisoLONE 1% OPHTH.SUSP 5 ML OPHTH.SUSP RIGHT EYE SCH (08:57)
[2020-12-04 09:17] LABS: BUN/Creatinine Ratio 22.7 (8-20); Calcium 7.3 mg/dL (8.6-10.3); EGFR African American 90.1 (>60); EGFR Non-African American 74.5 (>60); Potassium 3.9 mmol/L (3.5-5.0)
[2020-12-04] MEDS ORDERED: Amoxicillin/Clavul 500/125 TAB (Augmentin 500 mg tab) PO SCH (14:00)
[2020-12-04 15:34] LABS: Indirect Bilirubin 0.2 mg/dL (0.3-1.0); Total Bilirubin 0.3 mg/dL (0.2-1.0)
[2020-12-04] MEDS: Amoxicillin/Clavul 500/125 TAB (Augmentin 500 mg tab) PO SCH ×2 (15:42→19:37)
[2020-12-05 07:11] LABS: ABS Lymphocytes 0.9 10^3/ul (1.0-4.8); ABS Monocytes 1.2 10^3/ul (0-0.8); ABS Neutrophils 8.7 10^3/ul (1.5-7.7); Eosinophil % 0.1 %; Hematocrit 26 % (42-52); Hemoglobin 8.5 g/dL (14.0-18.0); Lymphocyte % 8.2 %; Mean Corpuscular HGB Conc 33 g/dL (31-36); Mean Corpuscular Hemoglobin 29 pg (27-31); Mean Corpuscular Volume 87 fL (80-94); Mean Platelet Volume 8.7 fL (7.4-10.4); Platelet Count 283 10^3/uL (150-450); Red Blood Count 2.96 10^6 /uL (4.18-5.48); Red Cell Distribution Width 19 % (10-15); White Blood Count 10.8 10^3/uL (3.5-10.8)
[2020-12-05 07:31] LABS: BUN/Creatinine Ratio 24.7 (8-20); Calcium 7.4 mg/dL (8.6-10.3); EGFR African American 90.1 (>60); EGFR Non-African American 74.5 (>60)
[2020-12-05] MEDS: Amoxicillin/Clavul 500/125 TAB (Augmentin 500 mg tab) PO SCH ×2 (09:00→14:01)
[2020-12-05] MEDS: CMCS: Desmopressin 0.1 mg TAB (NF) PO SCH (09:00)
[2020-12-05] MEDS: PTO:Timolol 0.5% OPTH.SOL BTL BOTH EYES SCH (09:04)
[2020-12-05] MEDS: Insulin GLARGINE 100 un/ml 10 ml VIAL SUBCUT SCH (09:06)
[2020-12-05] MEDS: prednisoLONE 1% OPHTH.SUSP 5 ML OPHTH.SUSP RIGHT EYE SCH (09:07)
[2020-12-05 09:13] VITALS: BP 124/64
[2020-12-05 10:18] LABS: INR 1.6 (0.82-1.09)
[2020-12-07 23:16] LABS: Gliadin IgA Deamidated 24.9 U; Gliadin IgG Deamidated 16.9 U; Immunoglobulin A 315 mg/dL (61 - 356); Tissue Transglutaminase IgG Ab <1.2 U/mL
== END 2020-12-05 16:25 | disposition home or self-care (01) | DRG 194 ==
LOC: ED 10:48 → MED 14:46
PROVIDERS: ADMIT Student in an Organized Health Care Education/Training Program; ATTEND Internal Medicine

== ENCOUNTER 2021-01-11 07:12 | Inpatient (IN) ==
[2021-01-11] MEDS ORDERED: NS 0.9% 1000 ml BAG 1,000 ML IV ONE (07:27)
[2021-01-11 08:39] LABS: ABS Lymphocytes 0.3 10^3/ul (1.0-4.8); ABS Monocytes 0.1 10^3/ul (0-0.8); ABS Neutrophils 8.2 10^3/ul (1.5-7.7); Eosinophil % 0.1 %; Hematocrit 42 % (42-52); Hemoglobin 13.7 g/dL (14.0-18.0); Lymphocyte % 3.4 %; Mean Corpuscular HGB Conc 33 g/dL (31-36); Mean Corpuscular Hemoglobin 30 pg (27-31); Mean Corpuscular Volume 91 fL (80-94); Mean Platelet Volume 9.9 fL (7.4-10.4); Platelet Count 156 10^3/uL (150-450); Red Blood Count 4.63 10^6 /uL (4.18-5.48); Red Cell Distribution Width 22 % (10-15); White Blood Count 8.6 10^3/uL (3.5-10.8)
[2021-01-11 09:02] LABS: ALT 95 U/L (7-52); AST 118 U/L (13-39); Albumin 3.7 g/dL (3.2-5.2); Albumin/Globulin Ratio 1.1 (1-3); Alkaline Phosphatase 200 U/L (34-104); Anion Gap 11 mmol/L (2-11); BUN/Creatinine Ratio 17.3 (8-20); Blood Urea Nitrogen 24 mg/dL (6-24); C Reactive Protein 45.85 mg/L (<8.01); CO2 Carbon Dioxide 27 mmol/L (22-32); Calcium 9.5 mg/dL (8.6-10.3); Chloride 103 mmol/L (101-111); Creatine Kinase 160 U/L (10-223); EGFR African American 59.5 (>60); EGFR Non-African American 49.2 (>60); Globulin 3.3 g/dL (2-4); Glucose 123 mg/dL (70-100); Lipase 13 U/L (11.0-82.0); Magnesium 1.5 mg/dL (1.9-2.7); Potassium 2.8 mmol/L (3.5-5.0); Sodium 141 mmol/L (135-145)
[2021-01-11] MEDS ORDERED: Iodixanol (CONTRAST) 320 MG/ML 100 ML SDV IV ONE (09:29)
[2021-01-11 09:37] LABS: Troponin I 0.17 ng/mL (<0.03)
[2021-01-11] MEDS ORDERED: Magnesium Sulfate IV 1GM/100ML 1 GM/100 ML BAG IV ONE (10:10)
[2021-01-11] MEDS ORDERED: Ondansetron 4 mg VIAL 2 MG/ML 2 ml VIAL IV ONE (10:53)
[2021-01-11 11:38] LABS: Urine Appearance Clear; Urine Bilirubin Negative (Negative); Urine Blood Negative (Negative); Urine Color Yellow; Urine Glucose Negative (Negative); Urine Ketones Negative (Negative); Urine Nitrite Negative (Negative); Urine Protein 1+(30 mg/dL) (Negative); Urine Specific Gravity 1.012 (1.010-1.030); Urine Urobilinogen Negative (Negative)
[2021-01-11 11:41] LABS: Urine Bacteria Absent (Absent); Urine Red Blood Cell Trace(0-2/hpf) (Absent); Urine Squamous Epithelial Cell Present (Absent); Urine White Blood Cell Trace(0-5/hpf) (Absent)
[2021-01-11] MEDS: KCL 10 MEQ/50 ML IVPREMIX 10 MEQ/50 ML BAG IV SCH ×2 (13:17→14:34)
[2021-01-11] MEDS ORDERED: Magnesium Sulfate IV 3 GM in NS 0.9% 100 ml BAG 100 ML IVPB ONE (14:08)
[2021-01-11] MEDS ORDERED: Lactated Ringers 1000 ml BAG 1,500 ML IV ONE (14:29)
[2021-01-11] MEDS ORDERED: Piperacillin/Tazobac ADVAN 3.375 GM in NS 0.9% 100 ml BAG 100 ML IV ONE (14:31)
[2021-01-11] MEDS ORDERED: Buffered Lidocaine 1% SYRIN 1 ml INTRADERM ONE (14:39)
[2021-01-11] MEDS ORDERED: Zosyn per Pharmacy NOTE FOLLOW UP SCH (15:00)
[2021-01-11 15:22] LABS: Troponin I 0.19 ng/mL (<0.03)
[2021-01-11] MEDS ORDERED: Lactated Ringers 1000 ml BAG 1,000 ML IV ONE (16:57)
[2021-01-11] MEDS: HYDROmorphone 1 MG/1 ML SYRINGE IV SLOW PU PRN (18:53)
[2021-01-11 19:40] LABS: Troponin I 0.25 ng/mL (<0.03)
[2021-01-11] MEDS: ZOSYN 3.375 GM Q8H per EXTENDED INFUSION IV SCH (22:00)
[2021-01-11] MEDS: Hydrocortisone INJ 100 MG/2ML 2 ML VIAL IV SCH ×2 (22:31→22:46)
[2021-01-11 22:45] LABS: Troponin I 0.21 ng/mL (<0.03)
[2021-01-11] MEDS: DESMOPRESSIN 0.1 MG PO SCH ×2 (23:02→23:20)
[2021-01-12] MEDS: ZOSYN 3.375 GM Q8H per EXTENDED INFUSION IV SCH ×2 (04:45→11:43)
[2021-01-12] MEDS: Hydrocortisone INJ 100 MG/2ML 2 ML VIAL IV SCH ×3 (05:45→21:29)
[2021-01-12] MEDS ORDERED: Timolol 0.25% OPHTH.SOLN BTL RIGHT EYE SCH (09:00)
[2021-01-12 10:40] LABS: ABS Lymphocytes 0.6 10^3/ul (1.0-4.8); ABS Neutrophils 13.2 10^3/ul (1.5-7.7); Hematocrit 35 % (42-52); Mean Corpuscular HGB Conc 32 g/dL (31-36); Mean Corpuscular Hemoglobin 29 pg (27-31); Mean Corpuscular Volume 92 fL (80-94); Platelet Count 134 10^3/uL (150-450); Red Blood Count 3.81 10^6 /uL (4.18-5.48); Red Cell Distribution Width 22 % (10-15); White Blood Count 14.8 10^3/uL (3.5-10.8)
[2021-01-12 10:59] LABS: Albumin 2.7 g/dL (3.2-5.2); BUN/Creatinine Ratio 17.5 (8-20); EGFR African American 34.5 (>60); EGFR Non-African American 28.5 (>60); Globulin 2.8 g/dL (2-4); Magnesium 2.5 mg/dL (1.9-2.7); Total Bilirubin 0.8 mg/dL (0.2-1.0); Total Protein 5.5 g/dL (6.4-8.9)
[2021-01-12 11:01] LABS: Potassium 5.1 mmol/L (3.5-5.0)
[2021-01-12] MEDS: NS 0.9% 1000 ml BAG 1,000 ML IV SCH ×2 (11:43→23:01)
[2021-01-12] MEDS: HYDROmorphone 1 MG/1 ML SYRINGE IV SLOW PU PRN (12:35)
[2021-01-12] MEDS: DESMOPRESSIN 0.1 MG PO SCH ×2 (12:42→21:29)
[2021-01-12] MEDS ORDERED: Dextrose 50% Syringe 50 ml 25 GM/50 ML SYRINGE IV PUSH PRN (13:05)
[2021-01-12] MEDS ORDERED: Insulin GLARGINE 100 un/ml 10 ml VIAL SUBCUT ONE (13:06)
[2021-01-12 16:03] LABS: BUN/Creatinine Ratio 17.6 (8-20); Calcium 8.1 mg/dL (8.6-10.3); EGFR African American 35.8 (>60); EGFR Non-African American 29.6 (>60); Potassium 4.9 mmol/L (3.5-5.0)
[2021-01-12] MEDS: Meropenem 1 GM PREMIX 1 GM/50 ML BAG IV SCH (16:03)
[2021-01-12] MEDS: prednisoLONE 1% OPHTH.SUSP 5 ML OPHTH.SUSP RIGHT EYE SCH (16:04)
[2021-01-13] MEDS: Meropenem 1 GM PREMIX 1 GM/50 ML BAG IV SCH ×2 (03:00→13:50)
[2021-01-13 04:32] LABS: ABS Lymphocytes 0.4 10^3/ul (1.0-4.8); ABS Monocytes 0.8 10^3/ul (0-0.8); ABS Neutrophils 10.7 10^3/ul (1.5-7.7); Hematocrit 32 % (42-52); Hemoglobin 10.2 g/dL (14.0-18.0); Lymphocyte % 3.6 %; Mean Corpuscular HGB Conc 32 g/dL (31-36); Mean Corpuscular Hemoglobin 29 pg (27-31); Mean Corpuscular Volume 92 fL (80-94); Mean Platelet Volume 10.2 fL (7.4-10.4); Nucleated Red Blood Cells % 0.1; Platelet Count 126 10^3/uL (150-450); Red Blood Count 3.47 10^6 /uL (4.18-5.48); Red Cell Distribution Width 22 % (10-15); White Blood Count 11.9 10^3/uL (3.5-10.8)
[2021-01-13 04:40] LABS: INR 1.53 (0.82-1.09)
[2021-01-13 04:49] LABS: Albumin 2.5 g/dL (3.2-5.2); Albumin/Globulin Ratio 0.9 (1-3); BUN/Creatinine Ratio 21.3 (8-20); C Reactive Protein 279.5 mg/L (<8.01); Calcium 7.7 mg/dL (8.6-10.3); EGFR African American 43.3 (>60); EGFR Non-African American 35.8 (>60); Globulin 2.8 g/dL (2-4); Magnesium 2.5 mg/dL (1.9-2.7); Potassium 4.3 mmol/L (3.5-5.0); Total Bilirubin 0.5 mg/dL (0.2-1.0); Total Protein 5.3 g/dL (6.4-8.9)
[2021-01-13] MEDS: Hydrocortisone INJ 100 MG/2ML 2 ML VIAL IV SCH ×3 (05:19→22:03)
[2021-01-13] MEDS: NS 0.9% 1000 ml BAG 1,000 ML IV SCH ×3 (06:29→22:52)
[2021-01-13] MEDS: DESMOPRESSIN 0.1 MG PO SCH ×2 (09:24→21:57)
[2021-01-13] MEDS: Timolol 0.25% OPHTH.SOLN BTL BOTH EYES SCH (09:27)
[2021-01-13] MEDS: prednisoLONE 1% OPHTH.SUSP 5 ML OPHTH.SUSP RIGHT EYE SCH (09:27)
[2021-01-13] MEDS ORDERED: Insulin GLARGINE 100 un/ml 10 ml VIAL SUBCUT ONE (10:11)
[2021-01-13] MEDS: Enoxaparin 80 MG/0.8 ML SYR SUBCUT SCH ×2 (12:47→22:00)
[2021-01-13] MEDS: Morphine 2 MG/ML SYRINGE IV PRN ×4 (12:47→22:04)
[2021-01-14] MEDS: Meropenem 1 GM PREMIX 1 GM/50 ML BAG IV SCH (03:06)
[2021-01-14] MEDS: Hydrocortisone INJ 100 MG/2ML 2 ML VIAL IV SCH ×3 (05:52→21:54)
[2021-01-14] MEDS: NS 0.9% 1000 ml BAG 1,000 ML IV SCH ×2 (06:40→15:03)
[2021-01-14] MEDS: DESMOPRESSIN 0.1 MG PO SCH ×2 (08:14→21:54)
[2021-01-14] MEDS: prednisoLONE 1% OPHTH.SUSP 5 ML OPHTH.SUSP RIGHT EYE SCH (08:16)
[2021-01-14] MEDS: Timolol 0.25% OPHTH.SOLN BTL BOTH EYES SCH (08:16)
[2021-01-14 08:42] LABS: ABS Lymphocytes 0.4 10^3/ul (1.0-4.8); ABS Monocytes 0.3 10^3/ul (0-0.8); ABS Neutrophils 6.8 10^3/ul (1.5-7.7); Hematocrit 32 % (42-52); Hemoglobin 10.3 g/dL (14.0-18.0); Lymphocyte % 5.7 %; Mean Corpuscular HGB Conc 32 g/dL (31-36); Mean Corpuscular Hemoglobin 29 pg (27-31); Mean Corpuscular Volume 90 fL (80-94); Mean Platelet Volume 10.5 fL (7.4-10.4); Platelet Count 104 10^3/uL (150-450); Red Cell Distribution Width 22 % (10-15); White Blood Count 7.5 10^3/uL (3.5-10.8)
[2021-01-14 08:59] LABS: Albumin 2.7 g/dL (3.2-5.2); BUN/Creatinine Ratio 26.9 (8-20); Calcium 7.4 mg/dL (8.6-10.3); EGFR African American 71.2 (>60); EGFR Non-African American 58.8 (>60); Globulin 2.7 g/dL (2-4); Magnesium 2.3 mg/dL (1.9-2.7); Total Bilirubin 0.4 mg/dL (0.2-1.0); Total Protein 5.4 g/dL (6.4-8.9)
[2021-01-14] MEDS: Enoxaparin 80 MG/0.8 ML SYR SUBCUT SCH ×2 (11:00→21:55)
[2021-01-14] MEDS ORDERED: Zosyn per Pharmacy NOTE FOLLOW UP SCH (14:00)
[2021-01-14] MEDS ORDERED: Piperacillin/Tazobac ADVAN 3.375 GM in NS 0.9% 100 ml BAG 100 ML IV ONE (14:30)
[2021-01-14] MEDS: ZOSYN 3.375 GM Q8H per EXTENDED INFUSION IV SCH (18:07)
[2021-01-15] MEDS: ZOSYN 3.375 GM Q8H per EXTENDED INFUSION IV SCH ×3 (02:59→17:50)
[2021-01-15] MEDS: Hydrocortisone INJ 100 MG/2ML 2 ML VIAL IV SCH ×3 (05:44→20:42)
[2021-01-15 06:53] LABS: ABS Lymphocytes 0.6 10^3/ul (1.0-4.8); ABS Monocytes 0.4 10^3/ul (0-0.8); ABS Neutrophils 5.1 10^3/ul (1.5-7.7); Hematocrit 31 % (42-52); Hemoglobin 10.3 g/dL (14.0-18.0); Lymphocyte % 10.2 %; Mean Corpuscular HGB Conc 33 g/dL (31-36); Mean Corpuscular Hemoglobin 30 pg (27-31); Mean Corpuscular Volume 89 fL (80-94); Nucleated Red Blood Cells % 0.1; Platelet Count 105 10^3/uL (150-450); Red Blood Count 3.48 10^6 /uL (4.18-5.48); Red Cell Distribution Width 21 % (10-15); White Blood Count 6.1 10^3/uL (3.5-10.8)
[2021-01-15 07:16] LABS: Albumin 2.6 g/dL (3.2-5.2); BUN/Creatinine Ratio 25.7 (8-20); Calcium 7.3 mg/dL (8.6-10.3); EGFR African American 82.2 (>60); Globulin 2.7 g/dL (2-4); Potassium 3.4 mmol/L (3.5-5.0); Total Bilirubin 0.5 mg/dL (0.2-1.0); Total Protein 5.3 g/dL (6.4-8.9)
[2021-01-15] MEDS: DESMOPRESSIN 0.1 MG PO SCH ×2 (09:24→19:48)
[2021-01-15] MEDS: prednisoLONE 1% OPHTH.SUSP 5 ML OPHTH.SUSP RIGHT EYE SCH (09:25)
[2021-01-15] MEDS: Timolol 0.25% OPHTH.SOLN BTL BOTH EYES SCH (09:27)
[2021-01-15] MEDS: Enoxaparin 80 MG/0.8 ML SYR SUBCUT SCH ×2 (11:32→20:41)
[2021-01-16] MEDS: ZOSYN 3.375 GM Q8H per EXTENDED INFUSION IV SCH ×3 (02:58→20:52)
[2021-01-16] MEDS: Hydrocortisone INJ 100 MG/2ML 2 ML VIAL IV SCH ×3 (05:39→21:18)
[2021-01-16 07:09] LABS: ABS Lymphocytes 0.7 10^3/ul (1.0-4.8); ABS Monocytes 0.5 10^3/ul (0-0.8); ABS Neutrophils 3.9 10^3/ul (1.5-7.7); Hematocrit 31 % (42-52); Hemoglobin 10.4 g/dL (14.0-18.0); Lymphocyte % 13.9 %; Mean Corpuscular HGB Conc 33 g/dL (31-36); Mean Corpuscular Hemoglobin 30 pg (27-31); Mean Corpuscular Volume 88 fL (80-94); Mean Platelet Volume 10.2 fL (7.4-10.4); Platelet Count 116 10^3/uL (150-450); Red Blood Count 3.51 10^6 /uL (4.18-5.48); Red Cell Distribution Width 21 % (10-15); White Blood Count 5.2 10^3/uL (3.5-10.8)
[2021-01-16 07:26] LABS: Albumin 2.5 g/dL (3.2-5.2); BUN/Creatinine Ratio 22.3 (8-20); Calcium 7.4 mg/dL (8.6-10.3); EGFR African American 84.1 (>60); EGFR Non-African American 69.5 (>60); Globulin 2.6 g/dL (2-4); Magnesium 1.8 mg/dL (1.9-2.7); Potassium 2.9 mmol/L (3.5-5.0); Total Bilirubin 0.5 mg/dL (0.2-1.0); Total Protein 5.1 g/dL (6.4-8.9)
[2021-01-16] MEDS: DESMOPRESSIN 0.1 MG PO SCH ×2 (07:42→21:01)
[2021-01-16] MEDS ORDERED: Magnesium Sulfate 2 gm BAG 2 GM/50 ML BAG IVPB ONE (07:43)
[2021-01-16] MEDS: KCL 20 MEQ/100 ML IVPREMIX 20 MEQ/100 ML BAG IV SCH ×3 (08:19→12:47)
[2021-01-16] MEDS: Timolol 0.25% OPHTH.SOLN BTL BOTH EYES SCH (08:22)
[2021-01-16] MEDS: prednisoLONE 1% OPHTH.SUSP 5 ML OPHTH.SUSP RIGHT EYE SCH (08:22)
[2021-01-16] MEDS ORDERED: Bupivacaine 0.25% EPI 200,000 30 ML SDV ONE (14:17)
[2021-01-16] MEDS ORDERED: Buffered Lidocaine 1% SYRIN 1 ml INTRADERM ONE (14:43)
[2021-01-16] MEDS ORDERED: NS 0.9% 1000 ml BAG 1,000 ML IV SCH (14:45)
[2021-01-16] MEDS ORDERED: fentaNYL 100 mcg/2 ml 50 MCG/ML VIAL ONE (14:47)
[2021-01-16] MEDS ORDERED: EPHEDrine (Pressors) 50 MG/ML VIAL ONE (15:44)
[2021-01-16] MEDS ORDERED: Lidocaine 2% PF 5 ML VIAL ONE (15:45)
[2021-01-16] MEDS ORDERED: Albumin Human 5% 12.5 GM/250 ML BTL IV ONE (16:00)
[2021-01-16] MEDS ORDERED: fentaNYL 100 mcg/2 ml 50 MCG/ML VIAL IV PRN (17:44)
[2021-01-16] MEDS ORDERED: DiMENhydriNATE IV 50 mg/ml 1 ml VIAL IV PUSH PRN (17:44)
[2021-01-16] MEDS ORDERED: Naloxone 0.4 mg VIAL 0.4 mg/ml 1 ml VIAL IV PRN (17:44)
[2021-01-16] MEDS ORDERED: Levalbuterol 0.63MG/3ML NEB UNIT OF USE INH PRN (17:44)
[2021-01-16] MEDS ORDERED: Ondansetron 4 mg VIAL 2 MG/ML 2 ml VIAL IV PRN (17:44)
[2021-01-16] MEDS ORDERED: Ondansetron 4 mg VIAL 2 MG/ML 2 ml VIAL ONE (18:08)
[2021-01-16] MEDS: Morphine 2 MG/ML SYRINGE IV PRN (20:54)
[2021-01-16 22:03] LABS: Urine Appearance Clear; Urine Bilirubin Negative (Negative); Urine Blood 2+ (Negative); Urine Color Straw; Urine Glucose 1+(50 mg/dL) (Negative); Urine Ketones Trace (Negative); Urine Nitrite Negative (Negative); Urine Protein Negative (Negative); Urine Urobilinogen Negative (Negative)
[2021-01-16 22:11] LABS: Urine Bacteria 1+ (Absent); Urine Red Blood Cell Trace(0-2/hpf) (Absent); Urine Squamous Epithelial Cell Present (Absent); Urine White Blood Cell 2+(11-20/hpf) (Absent)
[2021-01-16] MEDS: HYDROmorphone 1 MG/1 ML SYRINGE IV SLOW PU PRN (23:06)
[2021-01-17] MEDS: ZOSYN 3.375 GM Q8H per EXTENDED INFUSION IV SCH ×3 (02:45→18:25)
[2021-01-17] MEDS: Hydrocortisone INJ 100 MG/2ML 2 ML VIAL IV SCH ×2 (05:42→17:54)
[2021-01-17 06:24] LABS: Hematocrit 30 % (42-52); Hemoglobin 9.9 g/dL (14.0-18.0); Mean Corpuscular HGB Conc 33 g/dL (31-36); Mean Corpuscular Hemoglobin 30 pg (27-31); Mean Corpuscular Volume 89 fL (80-94); Mean Platelet Volume 10.6 fL (7.4-10.4); Platelet Count 134 10^3/uL (150-450); Red Blood Count 3.36 10^6 /uL (4.18-5.48); Red Cell Distribution Width 21 % (10-15); White Blood Count 8.7 10^3/uL (3.5-10.8)
[2021-01-17 06:43] LABS: BUN/Creatinine Ratio 21.7 (8-20); Calcium 7.1 mg/dL (8.6-10.3); EGFR African American 81.3 (>60); EGFR Non-African American 67.2 (>60); Potassium 3.4 mmol/L (3.5-5.0)
[2021-01-17 07:36] LABS: ABS Lymphocytes 0.6 10^3/ul (1.0-4.8); ABS Monocytes 0.6 10^3/ul (0-0.8); ABS Neutrophils 7.4 10^3/ul (1.5-7.7); Lymphocyte % 7.3 %
[2021-01-17] MEDS ORDERED: Potassium Chlor 20 meq TAB.ER PO ONE (07:48)
[2021-01-17] MEDS ORDERED: Enoxaparin 80 MG/0.8 ML SYR SUBCUT SCH (09:00)
[2021-01-17] MEDS: DESMOPRESSIN 0.1 MG PO SCH ×2 (09:24→21:32)
[2021-01-17] MEDS: Timolol 0.25% OPHTH.SOLN BTL BOTH EYES SCH (09:25)
[2021-01-17] MEDS: prednisoLONE 1% OPHTH.SUSP 5 ML OPHTH.SUSP RIGHT EYE SCH (09:25)
[2021-01-17 14:31] LABS: C Reactive Protein 28.04 mg/L (<8.01)
[2021-01-17] MEDS: HYDROmorphone 1 MG/1 ML SYRINGE IV SLOW PU PRN (15:18)
[2021-01-17] MEDS: Enoxaparin 80 MG/0.8 ML SYR SUBCUT SCH (18:26)
[2021-01-18] MEDS: ZOSYN 3.375 GM Q8H per EXTENDED INFUSION IV SCH ×3 (03:04→18:46)
[2021-01-18 05:47] LABS: Hematocrit 29 % (42-52); Hemoglobin 9.5 g/dL (14.0-18.0); Mean Corpuscular HGB Conc 33 g/dL (31-36); Mean Corpuscular Hemoglobin 29 pg (27-31); Mean Corpuscular Volume 88 fL (80-94); Mean Platelet Volume 9.8 fL (7.4-10.4); Platelet Count 136 10^3/uL (150-450); Red Blood Count 3.27 10^6 /uL (4.18-5.48); Red Cell Distribution Width 21 % (10-15); White Blood Count 8.3 10^3/uL (3.5-10.8)
[2021-01-18 06:08] LABS: BUN/Creatinine Ratio 22.3 (8-20); Calcium 7.1 mg/dL (8.6-10.3); EGFR African American 84.1 (>60); EGFR Non-African American 69.5 (>60)
[2021-01-18] MEDS: Hydrocortisone INJ 100 MG/2ML 2 ML VIAL IV SCH ×2 (06:21→08:31)
[2021-01-18] MEDS ORDERED: Potassium Chlor 20 meq TAB.ER PO ONE (08:02)
[2021-01-18 08:25] LABS: Magnesium 1.8 mg/dL (1.9-2.7)
[2021-01-18] MEDS: Enoxaparin 80 MG/0.8 ML SYR SUBCUT SCH ×2 (08:32→21:10)
[2021-01-18] MEDS: DESMOPRESSIN 0.1 MG PO SCH ×2 (08:32→21:10)
[2021-01-18] MEDS: prednisoLONE 1% OPHTH.SUSP 5 ML OPHTH.SUSP RIGHT EYE SCH (08:33)
[2021-01-18] MEDS: Timolol 0.25% OPHTH.SOLN BTL BOTH EYES SCH (08:33)
[2021-01-18] MEDS: Insulin GLARGINE 100 un/ml 10 ml VIAL SUBCUT SCH (10:50)
[2021-01-18] MEDS ORDERED: Magnesium Sulfate 2 gm BAG 2 GM/50 ML BAG IVPB ONE (14:00)
[2021-01-18 16:45] LABS: BUN/Creatinine Ratio 22.5 (8-20); Calcium 6.9 mg/dL (8.6-10.3); EGFR Non-African American 70.3 (>60); HDL Cholesterol 28.8 mg/dL; Potassium 3.3 mmol/L (3.5-5.0)
[2021-01-19] MEDS: ZOSYN 3.375 GM Q8H per EXTENDED INFUSION IV SCH (03:48)
[2021-01-19 06:52] LABS: ABS Eosinophils 0.1 10^3/ul (0-0.6); ABS Lymphocytes 1.2 10^3/ul (1.0-4.8); ABS Monocytes 0.6 10^3/ul (0-0.8); ABS Neutrophils 5.2 10^3/ul (1.5-7.7); Eosinophil % 0.7 %; Hematocrit 32 % (42-52); Hemoglobin 10.6 g/dL (14.0-18.0); Lymphocyte % 17.4 %; Mean Corpuscular HGB Conc 34 g/dL (31-36); Mean Corpuscular Hemoglobin 29 pg (27-31); Mean Corpuscular Volume 88 fL (80-94); Mean Platelet Volume 9.9 fL (7.4-10.4); Nucleated Red Blood Cells % 0.1; Platelet Count 159 10^3/uL (150-450); Red Blood Count 3.59 10^6 /uL (4.18-5.48); Red Cell Distribution Width 21 % (10-15); White Blood Count 7.1 10^3/uL (3.5-10.8)
[2021-01-19 06:56] LABS: INR 1.29 (0.82-1.09)
[2021-01-19 07:07] LABS: Albumin 2.7 g/dL (3.2-5.2); Albumin/Globulin Ratio 1.1 (1-3); BUN/Creatinine Ratio 21.9 (8-20); Calcium 7.1 mg/dL (8.6-10.3); EGFR African American 91.2 (>60); EGFR Non-African American 75.4 (>60); Globulin 2.4 g/dL (2-4); Indirect Bilirubin 0.3 mg/dL (0.3-1.0); Magnesium 1.9 mg/dL (1.9-2.7); Total Bilirubin 0.5 mg/dL (0.2-1.0); Total Protein 5.1 g/dL (6.4-8.9)
[2021-01-19 07:57] LABS: Potassium 2.7 mmol/L (3.5-5.0)
[2021-01-19] MEDS ORDERED: Potassium Chlor 20 meq TAB.ER PO ONE (08:12)
[2021-01-19] MEDS: Hydrocortisone INJ 100 MG/2ML 2 ML VIAL IV SCH (09:20)
[2021-01-19] MEDS: Insulin GLARGINE 100 un/ml 10 ml VIAL SUBCUT SCH (09:20)
[2021-01-19] MEDS: KCL 20 MEQ/100 ML IVPREMIX 20 MEQ/100 ML BAG IV SCH ×2 (09:21→12:37)
[2021-01-19] MEDS: DESMOPRESSIN 0.1 MG PO SCH ×2 (09:21→20:55)
[2021-01-19] MEDS: Enoxaparin 80 MG/0.8 ML SYR SUBCUT SCH ×2 (09:21→17:26)
[2021-01-19] MEDS: Timolol 0.25% OPHTH.SOLN BTL BOTH EYES SCH (09:22)
[2021-01-19] MEDS: prednisoLONE 1% OPHTH.SUSP 5 ML OPHTH.SUSP RIGHT EYE SCH (09:22)
[2021-01-20 05:39] LABS: INR 1.31 (0.82-1.09)
[2021-01-20 05:49] LABS: BUN/Creatinine Ratio 24.1 (8-20); EGFR African American 107.9 (>60); EGFR Non-African American 89.1 (>60); Magnesium 1.7 mg/dL (1.9-2.7); Potassium 3.3 mmol/L (3.5-5.0)
[2021-01-20] MEDS: Enoxaparin 80 MG/0.8 ML SYR SUBCUT SCH (05:59)
[2021-01-20] MEDS: DESMOPRESSIN 0.1 MG PO SCH (08:04)
[2021-01-20] MEDS: Timolol 0.25% OPHTH.SOLN BTL BOTH EYES SCH (08:06)
[2021-01-20] MEDS: prednisoLONE 1% OPHTH.SUSP 5 ML OPHTH.SUSP RIGHT EYE SCH (08:06)
[2021-01-20] MEDS ORDERED: Potassium Chlor 20 meq TAB.ER PO ONE (08:22)
[2021-01-20] MEDS ORDERED: Magnesium Sulfate 2 gm BAG 2 GM/50 ML BAG IVPB ONE (08:23)
[2021-01-20] MEDS: Insulin GLARGINE 100 un/ml 10 ml VIAL SUBCUT SCH (09:36)
[2021-01-20 11:35] VITALS: BP 137/67
[2021-01-21 14:59] LABS: DRVVT Screen Ratio 0.94 ratio (<1.20); LAC APTT 26 sec (25 - 37); LAC INR 1.2 (0.9-1.1); Prothrombin Time(LAC) 12.9 sec (9.4 - 12.5)
[2021-01-21 19:18] LABS: Phospholipid Ab IgG < 9.4 GPL; Phospholipid Ab IgM, S < 9.4 MPL
== END 2021-01-20 13:48 | DRG 854 ==
LOC: ED 07:12 → SUATTDRO 14:47 → MED 14:47 → SSU 01-16 19:08 → UNDODISIN 01-20 09:24
PROVIDERS: ADMIT Internal Medicine; ATTEND Internal Medicine

== ENCOUNTER 2021-01-20 09:25 | Inpatient (IN) ==
[2021-01-20] MEDS ORDERED: Magnesium Hydroxide LIQ 30 ML UDC PO PRN ×3 (10:54→13:49)
[2021-01-20] MEDS ORDERED: Al Hydrox/Mg Hydrox/Simet LIQ 30 ML UDC PO PRN ×3 (10:54→13:49)
[2021-01-20] MEDS ORDERED: Dextrose 50% Syringe 50 ml 25 GM/50 ML SYRINGE IV PUSH PRN ×3 (11:15→13:49)
[2021-01-20] MEDS ORDERED: Enoxaparin 80 MG/0.8 ML SYR SUBCUT SCH (12:00)
[2021-01-20] MEDS: prednisoLONE 1% OPHTH.SUSP 5 ML OPHTH.SUSP RIGHT EYE SCH ×3 (13:00→21:13)
[2021-01-20] MEDS ORDERED: prednisoLONE 1% OPHTH.SUSP 5 ML OPHTH.SUSP RIGHT EYE SCH ×2 (13:00)
[2021-01-20] MEDS: Enoxaparin 80 MG/0.8 ML SYR SUBCUT SCH (17:25)
[2021-01-20] MEDS ORDERED: DESMOPRESSIN 0.1 MG PO SCH ×2 (21:00)
[2021-01-20] MEDS: DESMOPRESSIN 0.1 MG PO SCH (21:12)
[2021-01-21] MEDS ORDERED: Enoxaparin 80 MG/0.8 ML SYR SUBCUT SCH
[2021-01-21] MEDS: Enoxaparin 80 MG/0.8 ML SYR SUBCUT SCH (06:01)
[2021-01-21 07:41] LABS: ABS Lymphocytes 1.4 10^3/ul (1.0-4.8); ABS Monocytes 0.6 10^3/ul (0-0.8); ABS Neutrophils 6.6 10^3/ul (1.5-7.7); Eosinophil % 0.4 %; Hematocrit 34 % (42-52); Hemoglobin 11.2 g/dL (14.0-18.0); Mean Corpuscular HGB Conc 33 g/dL (31-36); Mean Corpuscular Hemoglobin 29 pg (27-31); Mean Corpuscular Volume 88 fL (80-94); Mean Platelet Volume 9.8 fL (7.4-10.4); Nucleated Red Blood Cells % 0.1; Platelet Count 184 10^3/uL (150-450); Red Blood Count 3.88 10^6 /uL (4.18-5.48); Red Cell Distribution Width 21 % (10-15); White Blood Count 8.7 10^3/uL (3.5-10.8)
[2021-01-21 07:49] LABS: INR 2.17 (0.82-1.09)
[2021-01-21 07:58] LABS: Albumin 2.9 g/dL (3.2-5.2); Albumin/Globulin Ratio 1.1 (1-3); BUN/Creatinine Ratio 23.8 (8-20); Calcium 7.6 mg/dL (8.6-10.3); EGFR African American 112.5 (>60); Globulin 2.6 g/dL (2-4); Potassium 3.7 mmol/L (3.5-5.0); Total Bilirubin 0.6 mg/dL (0.2-1.0); Total Protein 5.5 g/dL (6.4-8.9)
[2021-01-21] MEDS ORDERED: Insulin GLARGINE 100 un/ml 10 ml VIAL SUBCUT SCH ×2 (09:00)
[2021-01-21] MEDS ORDERED: prednisoLONE 1% OPHTH.SUSP 5 ML OPHTH.SUSP RIGHT EYE SCH (09:00)
[2021-01-21] MEDS ORDERED: Timolol 0.25% OPHTH.SOLN BTL BOTH EYES SCH ×2 (09:00)
[2021-01-21] MEDS: DESMOPRESSIN 0.1 MG PO SCH ×2 (09:20→21:10)
[2021-01-21] MEDS: Insulin GLARGINE 100 un/ml 10 ml VIAL SUBCUT SCH (09:21)
[2021-01-21] MEDS: prednisoLONE 1% OPHTH.SUSP 5 ML OPHTH.SUSP RIGHT EYE SCH ×4 (09:22→21:17)
[2021-01-21] MEDS: Timolol 0.25% OPHTH.SOLN BTL BOTH EYES SCH (09:39)
[2021-01-21] MEDS: Warfarin DAILY REMINDER **NOTE FOLLOW UP SCH (17:36)
[2021-01-22 06:37] LABS: INR 3.64 (0.82-1.09)
[2021-01-22] MEDS: DESMOPRESSIN 0.1 MG PO SCH ×2 (08:55→20:57)
[2021-01-22] MEDS: prednisoLONE 1% OPHTH.SUSP 5 ML OPHTH.SUSP RIGHT EYE SCH ×4 (08:56→21:00)
[2021-01-22] MEDS: Insulin GLARGINE 100 un/ml 10 ml VIAL SUBCUT SCH (08:56)
[2021-01-22] MEDS: Timolol 0.25% OPHTH.SOLN BTL BOTH EYES SCH (08:57)
[2021-01-22] MEDS ORDERED: TESTOSTERONE PUMP TOPICAL SCH (09:00)
[2021-01-22] MEDS: TESTOSTERONE GEL 25 MG (NF) IN 2.5 GM SIZE PACKET TOPICAL SCH (14:06)
[2021-01-22] MEDS: Warfarin DAILY REMINDER **NOTE FOLLOW UP SCH (19:22)
[2021-01-23 06:49] LABS: INR 5.67 (0.82-1.09)
[2021-01-23] MEDS: Insulin GLARGINE 100 un/ml 10 ml VIAL SUBCUT SCH (08:28)
[2021-01-23] MEDS: DESMOPRESSIN 0.1 MG PO SCH ×2 (08:32→20:57)
[2021-01-23] MEDS: prednisoLONE 1% OPHTH.SUSP 5 ML OPHTH.SUSP RIGHT EYE SCH ×3 (08:35→16:34)
[2021-01-23] MEDS: Timolol 0.25% OPHTH.SOLN BTL BOTH EYES SCH (09:00)
[2021-01-23] MEDS: TESTOSTERONE GEL 25 MG (NF) IN 2.5 GM SIZE PACKET TOPICAL SCH (10:39)
[2021-01-23] MEDS: Warfarin DAILY REMINDER **NOTE FOLLOW UP SCH (16:34)
[2021-01-24 06:22] LABS: INR 4.76 (0.82-1.09)
[2021-01-24] MEDS: Insulin GLARGINE 100 un/ml 10 ml VIAL SUBCUT SCH (09:52)
[2021-01-24] MEDS: Potassium Chlor 10 meq TAB PO SCH (09:53)
[2021-01-24] MEDS: DESMOPRESSIN 0.1 MG PO SCH ×2 (09:53→21:56)
[2021-01-24] MEDS: Timolol 0.25% OPHTH.SOLN BTL BOTH EYES SCH (09:54)
[2021-01-24] MEDS: TESTOSTERONE GEL 25 MG (NF) IN 2.5 GM SIZE PACKET TOPICAL SCH (09:54)
[2021-01-24] MEDS: prednisoLONE 1% OPHTH.SUSP 5 ML OPHTH.SUSP RIGHT EYE SCH (09:54)
[2021-01-24] MEDS ORDERED: Warfarin - No Order Today **NOTE FOLLOW UP ONE (17:00)
[2021-01-24] MEDS: Warfarin DAILY REMINDER **NOTE FOLLOW UP SCH (17:29)
[2021-01-25 06:42] LABS: INR 3.41 (0.82-1.09)
[2021-01-25 07:11] LABS: ABS Lymphocytes 1.2 10^3/ul (1.0-4.8); ABS Neutrophils 5.6 10^3/ul (1.5-7.7); Eosinophil % 0.5 %; Hematocrit 31 % (42-52); Hemoglobin 10.3 g/dL (14.0-18.0); Lymphocyte % 15.7 %; Mean Corpuscular HGB Conc 33 g/dL (31-36); Mean Corpuscular Hemoglobin 29 pg (27-31); Mean Corpuscular Volume 88 fL (80-94); Mean Platelet Volume 9.8 fL (7.4-10.4); Platelet Count 206 10^3/uL (150-450); Red Blood Count 3.56 10^6 /uL (4.18-5.48); Red Cell Distribution Width 21 % (10-15); White Blood Count 7.9 10^3/uL (3.5-10.8)
[2021-01-25 07:22] LABS: ALT 87 U/L (7-52); AST 57 U/L (13-39); Albumin/Globulin Ratio 1.2 (1-3); Alkaline Phosphatase 104 U/L (34-104); Anion Gap 5 mmol/L (2-11); Blood Urea Nitrogen 30 mg/dL (6-24); CO2 Carbon Dioxide 27 mmol/L (22-32); Calcium 7.9 mg/dL (8.6-10.3); Chloride 96 mmol/L (101-111); EGFR Non-African American 80.2 (>60); Globulin 2.6 g/dL (2-4); Glucose 145 mg/dL (70-100); Indirect Bilirubin 0.5 mg/dL (0.3-1.0); Sodium 128 mmol/L (135-145); Total Protein 5.6 g/dL (6.4-8.9)
[2021-01-25 07:28] LABS: Troponin I 0.05 ng/mL (<0.03)
[2021-01-25] MEDS: Insulin GLARGINE 100 un/ml 10 ml VIAL SUBCUT SCH (09:55)
[2021-01-25] MEDS ORDERED: CMCS: Omeprazole 20 mg CAP (NF) PO ONE (10:00)
[2021-01-25 10:23] LABS: Troponin I 0.04 ng/mL (<0.03)
[2021-01-25] MEDS: DESMOPRESSIN 0.1 MG PO SCH ×2 (12:19→21:23)
[2021-01-25] MEDS: Potassium Chlor 10 meq TAB PO SCH (12:20)
[2021-01-25] MEDS: TESTOSTERONE GEL 25 MG (NF) IN 2.5 GM SIZE PACKET TOPICAL SCH (12:20)
[2021-01-25] MEDS: Timolol 0.25% OPHTH.SOLN BTL BOTH EYES SCH (12:21)
[2021-01-25] MEDS: prednisoLONE 1% OPHTH.SUSP 5 ML OPHTH.SUSP RIGHT EYE SCH (12:21)
[2021-01-25] MEDS: Warfarin DAILY REMINDER **NOTE FOLLOW UP SCH (17:34)
[2021-01-26 05:54] LABS: INR 3.73 (0.82-1.09)
[2021-01-26] MEDS: Insulin GLARGINE 100 un/ml 10 ml VIAL SUBCUT SCH (10:29)
[2021-01-26] MEDS: DESMOPRESSIN 0.1 MG PO SCH ×2 (10:29→21:30)
[2021-01-26] MEDS: prednisoLONE 1% OPHTH.SUSP 5 ML OPHTH.SUSP RIGHT EYE SCH (10:30)
[2021-01-26] MEDS: Potassium Chlor 10 meq TAB PO SCH (10:30)
[2021-01-26] MEDS: CMCS: Omeprazole 20 mg CAP (NF) PO SCH (10:31)
[2021-01-26] MEDS: TESTOSTERONE GEL 25 MG (NF) IN 2.5 GM SIZE PACKET TOPICAL SCH (10:32)
[2021-01-26] MEDS: Timolol 0.25% OPHTH.SOLN BTL BOTH EYES SCH (10:34)
[2021-01-26] MEDS: Warfarin DAILY REMINDER **NOTE FOLLOW UP SCH (17:09)
[2021-01-27] MEDS: Insulin GLARGINE 100 un/ml 10 ml VIAL SUBCUT SCH (09:16)
[2021-01-27] MEDS: DESMOPRESSIN 0.1 MG PO SCH ×2 (09:21→20:08)
[2021-01-27] MEDS: CMCS: Omeprazole 20 mg CAP (NF) PO SCH (09:24)
[2021-01-27] MEDS: Potassium Chlor 10 meq TAB PO SCH (09:25)
[2021-01-27] MEDS: prednisoLONE 1% OPHTH.SUSP 5 ML OPHTH.SUSP RIGHT EYE SCH (09:33)
[2021-01-27] MEDS: TESTOSTERONE GEL 25 MG (NF) IN 2.5 GM SIZE PACKET TOPICAL SCH (09:34)
[2021-01-27] MEDS: Timolol 0.25% OPHTH.SOLN BTL BOTH EYES SCH (09:43)
[2021-01-27 10:49] LABS: INR 2.41 (0.82-1.09)
[2021-01-27] MEDS: Warfarin DAILY REMINDER **NOTE FOLLOW UP SCH (17:28)
[2021-01-28 05:21] LABS: ABS Basophils 0.1 10^3/ul (0-0.2); ABS Lymphocytes 1.2 10^3/ul (1.0-4.8); ABS Monocytes 1.2 10^3/ul (0-0.8); ABS Neutrophils 6.1 10^3/ul (1.5-7.7); Eosinophil % 0.2 %; Hematocrit 22 % (42-52); Hemoglobin 7.5 g/dL (14.0-18.0); Lymphocyte % 13.7 %; Mean Corpuscular HGB Conc 33 g/dL (31-36); Mean Corpuscular Hemoglobin 29 pg (27-31); Mean Corpuscular Volume 87 fL (80-94); Mean Platelet Volume 9.3 fL (7.4-10.4); Platelet Count 217 10^3/uL (150-450); Red Blood Count 2.57 10^6 /uL (4.18-5.48); Red Cell Distribution Width 20 % (10-15); White Blood Count 8.5 10^3/uL (3.5-10.8)
[2021-01-28 05:39] LABS: INR 2.15 (0.82-1.09)
[2021-01-28 05:53] LABS: Albumin 2.8 g/dL (3.2-5.2); Albumin/Globulin Ratio 0.9 (1-3); BUN/Creatinine Ratio 29.4 (8-20); Calcium 8.1 mg/dL (8.6-10.3); EGFR African American 71.2 (>60); EGFR Non-African American 58.8 (>60); Potassium 4.4 mmol/L (3.5-5.0); Total Bilirubin 0.5 mg/dL (0.2-1.0); Total Protein 5.8 g/dL (6.4-8.9)
[2021-01-28] MEDS: Insulin GLARGINE 100 un/ml 10 ml VIAL SUBCUT SCH (09:19)
[2021-01-28] MEDS: CMCS: Omeprazole 20 mg CAP (NF) PO SCH (10:20)
[2021-01-28] MEDS: Potassium Chlor 10 meq TAB PO SCH (10:20)
[2021-01-28] MEDS: DESMOPRESSIN 0.1 MG PO SCH ×2 (10:20→21:52)
[2021-01-28] MEDS: prednisoLONE 1% OPHTH.SUSP 5 ML OPHTH.SUSP RIGHT EYE SCH (10:21)
[2021-01-28] MEDS: TESTOSTERONE GEL 25 MG (NF) IN 2.5 GM SIZE PACKET TOPICAL SCH (10:21)
[2021-01-28] MEDS: Timolol 0.25% OPHTH.SOLN BTL BOTH EYES SCH (10:21)
[2021-01-28] MEDS: Warfarin DAILY REMINDER **NOTE FOLLOW UP SCH (18:16)
[2021-01-29 06:29] VITALS: BP 109/37
[2021-01-29 08:29] LABS: ABS Basophils 0.1 10^3/ul (0-0.2); ABS Lymphocytes 1.2 10^3/ul (1.0-4.8); ABS Monocytes 0.8 10^3/ul (0-0.8); ABS Neutrophils 5.1 10^3/ul (1.5-7.7); Eosinophil % 0.3 %; Hematocrit 23 % (42-52); Hemoglobin 7.8 g/dL (14.0-18.0); Lymphocyte % 17.1 %; Mean Corpuscular HGB Conc 34 g/dL (31-36); Mean Corpuscular Hemoglobin 29 pg (27-31); Mean Corpuscular Volume 86 fL (80-94); Mean Platelet Volume 9.1 fL (7.4-10.4); Platelet Count 238 10^3/uL (150-450); Red Cell Distribution Width 20 % (10-15); White Blood Count 7.3 10^3/uL (3.5-10.8)
[2021-01-29 08:46] LABS: INR 2.09 (0.82-1.09)
[2021-01-29] MEDS: Timolol 0.25% OPHTH.SOLN BTL BOTH EYES SCH (09:19)
[2021-01-29] MEDS: DESMOPRESSIN 0.1 MG PO SCH (09:21)
[2021-01-29] MEDS: Insulin GLARGINE 100 un/ml 10 ml VIAL SUBCUT SCH (09:21)
[2021-01-29] MEDS: Potassium Chlor 10 meq TAB PO SCH (09:22)
[2021-01-29] MEDS: CMCS: Omeprazole 20 mg CAP (NF) PO SCH (09:22)
[2021-01-29] MEDS: prednisoLONE 1% OPHTH.SUSP 5 ML OPHTH.SUSP RIGHT EYE SCH (09:22)
[2021-01-29] MEDS: TESTOSTERONE GEL 25 MG (NF) IN 2.5 GM SIZE PACKET TOPICAL SCH (09:23)
[2021-01-30] MEDS ORDERED: Insulin GLARGINE 100 un/ml 10 ml VIAL SUBCUT SCH (09:00)
== END 2021-01-29 13:15 | disposition home or self-care (01) | DRG 949 ==
LOC: PMRU 09:25
PROVIDERS: ADMIT Physical Medicine & Rehabilitation; ATTEND Physical Medicine & Rehabilitation

== ENCOUNTER 2021-04-12 15:26 | Inpatient (IN) ==
[2021-04-12 16:40] LABS: ABS Monocytes 0.7 10^3/ul (0-0.8); ABS Neutrophils 5.7 10^3/ul (1.5-7.7); Eosinophil % 0.2 %; Hematocrit 39 % (42-52); Lymphocyte % 13.3 %; Mean Corpuscular HGB Conc 33 g/dL (31-36); Mean Corpuscular Hemoglobin 30 pg (27-31); Mean Corpuscular Volume 89 fL (80-94); Mean Platelet Volume 9.1 fL (7.4-10.4); Platelet Count 192 10^3/uL (150-450); Red Blood Count 4.42 10^6 /uL (4.18-5.48); Red Cell Distribution Width 21 % (10-15); White Blood Count 7.4 10^3/uL (3.5-10.8)
[2021-04-12 16:56] LABS: Activated Partial Thrombo Time 35.3 seconds (26.0-38.0); Albumin 3.8 g/dL (3.2-5.2); C Reactive Protein 8.31 mg/L (<8.01); Calcium 9.2 mg/dL (8.6-10.3); EGFR Non-African American 50.4 (>60); Globulin 3.7 g/dL (2-4); INR 2.43 (0.82-1.09); Potassium 4.2 mmol/L (3.5-5.0); Total Bilirubin 0.5 mg/dL (0.2-1.0); Total Protein 7.5 g/dL (6.4-8.9)
[2021-04-12] MEDS ORDERED: Dextrose 50% Syringe 50 ml 25 GM/50 ML SYRINGE IV PUSH PRN (18:16)
[2021-04-12 19:00] LABS: Erythrocyte Sed Rate 40 mm/Hr (0-19)
[2021-04-12] MEDS ORDERED: Dextran 70/Hypromellose Tears Eye Drops 15 ml BTL (for Artificials Tears) BOTH EYES PRN (20:19)
[2021-04-12] MEDS: Enoxaparin 80 MG/0.8 ML SYR SUBCUT SCH (21:04)
[2021-04-12] MEDS: CMCS: Desmopressin 0.1 mg TAB (NF) PO SCH (21:04)
[2021-04-13 04:47] LABS: ABS Eosinophils 0.1 10^3/ul (0-0.6); ABS Lymphocytes 1.8 10^3/ul (1.0-4.8); ABS Monocytes 0.8 10^3/ul (0-0.8); ABS Neutrophils 4.1 10^3/ul (1.5-7.7); Eosinophil % 0.9 %; Hematocrit 35 % (42-52); Hemoglobin 11.3 g/dL (14.0-18.0); Lymphocyte % 25.9 %; Mean Corpuscular HGB Conc 32 g/dL (31-36); Mean Corpuscular Hemoglobin 29 pg (27-31); Mean Corpuscular Volume 89 fL (80-94); Mean Platelet Volume 8.8 fL (7.4-10.4); Platelet Count 170 10^3/uL (150-450); Red Blood Count 3.92 10^6 /uL (4.18-5.48); Red Cell Distribution Width 21 % (10-15); White Blood Count 6.8 10^3/uL (3.5-10.8)
[2021-04-13 04:55] LABS: INR 2.95 (0.82-1.09)
[2021-04-13 05:05] LABS: Calcium 8.4 mg/dL (8.6-10.3); EGFR African American 67.9 (>60); EGFR Non-African American 56.1 (>60); Magnesium 1.8 mg/dL (1.9-2.7); Potassium 4.1 mmol/L (3.5-5.0)
[2021-04-13] MEDS ORDERED: Phytonadione Oral Solution 5 MG/25 ML UDC PO ONE ×2 (07:21→20:50)
[2021-04-13] MEDS ORDERED: prednisoLONE 1% OPHTH.SUSP 5 ML OPHTH.SUSP RIGHT EYE SCH (09:00)
[2021-04-13] MEDS ORDERED: TESTOSTERONE GEL 25 MG (NF) IN 2.5 GM SIZE PACKET TOPICAL SCH (09:00)
[2021-04-13] MEDS ORDERED: Timolol 0.25% OPHTH.SOLN BTL BOTH EYES SCH (09:00)
[2021-04-13] MEDS ORDERED: Insulin GLARGINE 100 un/ml 10 ml VIAL SUBCUT SCH ×2 (09:00→11:00)
[2021-04-13] MEDS: Enoxaparin 80 MG/0.8 ML SYR SUBCUT SCH ×2 (09:03→22:41)
[2021-04-13] MEDS: CMCS: Desmopressin 0.1 mg TAB (NF) PO SCH (09:07)
[2021-04-13] MEDS: Potassium Chlor 10 meq TAB PO SCH (09:09)
[2021-04-13] MEDS ORDERED: DESMOPRESSIN 0.1 MG PO ONE (10:31)
[2021-04-13 14:09] LABS: Urine Appearance Clear; Urine Bilirubin Negative (Negative); Urine Blood Negative (Negative); Urine Color Straw; Urine Glucose Negative (Negative); Urine Ketones Negative (Negative); Urine Nitrite Negative (Negative); Urine Protein Negative (Negative); Urine Specific Gravity 1.008 (1.002-1.030); Urine Urobilinogen Negative (Negative)
[2021-04-13 17:55] LABS: INR 2.64 (0.82-1.09)
[2021-04-13] MEDS: Dextran 70/Hypromellose Tears Eye Drops 15 ml BTL (for Artificials Tears) BOTH EYES SCH (22:43)
[2021-04-13] MEDS: DESMOPRESSIN 0.1 MG PO SCH (22:47)
[2021-04-13] MEDS: LACTOBACILLUS RHAMNOSUS PO SCH (22:53)
[2021-04-13] MEDS: LACTOBACILLUS ACIDOPHILUS PO SCH (22:53)
[2021-04-14 04:55] LABS: ABS Basophils 0.1 10^3/ul (0-0.2); ABS Lymphocytes 2.1 10^3/ul (1.0-4.8); ABS Monocytes 1.3 10^3/ul (0-0.8); ABS Neutrophils 5.9 10^3/ul (1.5-7.7); Eosinophil % 0.4 %; Hematocrit 35 % (42-52); Hemoglobin 11.4 g/dL (14.0-18.0); Lymphocyte % 22.1 %; Mean Corpuscular HGB Conc 33 g/dL (31-36); Mean Corpuscular Hemoglobin 29 pg (27-31); Mean Corpuscular Volume 89 fL (80-94); Mean Platelet Volume 10.7 fL (7.4-10.4); Nucleated Red Blood Cells % 0.1; Platelet Count 191 10^3/uL (150-450); Red Blood Count 3.96 10^6 /uL (4.18-5.48); Red Cell Distribution Width 21 % (10-15); White Blood Count 9.3 10^3/uL (3.5-10.8)
[2021-04-14 05:01] LABS: INR 2.23 (0.82-1.09)
[2021-04-14 05:15] LABS: Calcium 7.9 mg/dL (8.6-10.3); Magnesium 1.7 mg/dL (1.9-2.7); Potassium 4.3 mmol/L (3.5-5.0)
[2021-04-14] MEDS ORDERED: Magnesium Sulfate 2 gm BAG 2 GM/50 ML BAG IVPB ONE (07:09)
[2021-04-14] MEDS: Insulin GLARGINE 100 un/ml 10 ml VIAL SUBCUT SCH (07:23)
[2021-04-14] MEDS: Potassium Chlor 10 meq TAB PO SCH (07:23)
[2021-04-14] MEDS: LACTOBACILLUS RHAMNOSUS PO SCH ×2 (07:23→21:24)
[2021-04-14] MEDS: DESMOPRESSIN 0.1 MG PO SCH ×2 (07:23→21:23)
[2021-04-14] MEDS: LACTOBACILLUS ACIDOPHILUS PO SCH ×2 (07:23→21:24)
[2021-04-14] MEDS ORDERED: Phytonadione Oral Solution 5 MG/25 ML UDC PO ONE (08:29)
[2021-04-14] MEDS: TESTOSTERONE GEL 25 MG (NF) IN 2.5 GM SIZE PACKET TOPICAL SCH (09:01)
[2021-04-14] MEDS: Timolol 0.5% OPTH.SOL BTL BOTH EYES SCH (09:04)
[2021-04-14] MEDS: Dextran 70/Hypromellose Tears Eye Drops 15 ml BTL (for Artificials Tears) BOTH EYES SCH ×2 (09:05→21:19)
[2021-04-14] MEDS ORDERED: Hydrocortisone INJ 100 MG/2ML 2 ML VIAL IV ONE (11:15)
[2021-04-14 12:01] LABS: INR 1.55 (0.82-1.09)
[2021-04-14] MEDS ORDERED: Propofol 10 MG/ML 20 ML BTL ONE (16:23)
[2021-04-14] MEDS ORDERED: Bupivacaine 0.5% 50 ML MDV VIAL ONE (16:43)
[2021-04-14] MEDS ORDERED: Clindamycin 900 MG/D5W BAG 900 MG/50 ML BAG IVPB ONE (17:10)
[2021-04-14] MEDS ORDERED: Dexamethasone IV 4 MG/ML VIAL 1 ml VIAL ONE (17:50)
[2021-04-14] MEDS ORDERED: Vancomycin per Pharmacy 1 EA NOTE FOLLOW UP PRN ×2 (19:51→21:49)
[2021-04-14] MEDS: Enoxaparin 80 MG/0.8 ML SYR SUBCUT SCH (21:27)
[2021-04-14] MEDS ORDERED: Vancomycin 1,250 MG IV x ONCE IVPB ONE (22:00)
[2021-04-14] MEDS: AZTREONAM 1 GM in SODIUM CHLORIDE 0.9% 50 ML IV SCH (23:43)
[2021-04-15] MEDS: AZTREONAM 1 GM in SODIUM CHLORIDE 0.9% 50 ML IV SCH ×3 (05:39→20:49)
[2021-04-15] MEDS: Potassium Chlor 10 meq TAB PO SCH (08:48)
[2021-04-15] MEDS: DESMOPRESSIN 0.1 MG PO SCH ×2 (08:48→20:52)
[2021-04-15] MEDS: Dextran 70/Hypromellose Tears Eye Drops 15 ml BTL (for Artificials Tears) BOTH EYES SCH ×2 (08:49→20:57)
[2021-04-15] MEDS: metroNIDAZOLE IV 250 MG/50ML 50 ML IVPB SCH ×2 (08:54→17:02)
[2021-04-15] MEDS: Enoxaparin 80 MG/0.8 ML SYR SUBCUT SCH ×2 (08:59→20:54)
[2021-04-15 09:00] LABS: ABS Lymphocytes 0.7 10^3/ul (1.0-4.8); ABS Monocytes 0.3 10^3/ul (0-0.8); ABS Neutrophils 9.7 10^3/ul (1.5-7.7); Hematocrit 38 % (42-52); Hemoglobin 12.5 g/dL (14.0-18.0); Lymphocyte % 6.4 %; Mean Corpuscular HGB Conc 33 g/dL (31-36); Mean Corpuscular Hemoglobin 29 pg (27-31); Mean Corpuscular Volume 89 fL (80-94); Mean Platelet Volume 9.4 fL (7.4-10.4); Platelet Count 187 10^3/uL (150-450); Red Cell Distribution Width 21 % (10-15); White Blood Count 10.7 10^3/uL (3.5-10.8)
[2021-04-15] MEDS: LACTOBACILLUS ACIDOPHILUS PO SCH (09:03)
[2021-04-15] MEDS: LACTOBACILLUS RHAMNOSUS PO SCH (09:03)
[2021-04-15 09:14] LABS: INR 1.25 (0.82-1.09)
[2021-04-15 09:16] LABS: C Reactive Protein 130.72 mg/L (<8.01); Calcium 8.5 mg/dL (8.6-10.3); EGFR African American 50.6 (>60); EGFR Non-African American 41.8 (>60); Magnesium 2.4 mg/dL (1.9-2.7); Potassium 4.8 mmol/L (3.5-5.0)
[2021-04-15] MEDS: TESTOSTERONE GEL 25 MG (NF) IN 2.5 GM SIZE PACKET TOPICAL SCH (09:24)
[2021-04-15] MEDS: Insulin GLARGINE 100 un/ml 10 ml VIAL SUBCUT SCH (09:24)
[2021-04-15] MEDS: Timolol 0.5% OPTH.SOL BTL BOTH EYES SCH (09:25)
[2021-04-15] MEDS ORDERED: Warfarin per PHARMACY **NOTE FOLLOW UP SCH (10:00)
[2021-04-15] MEDS ORDERED: Polyethylene Glycol 3350 17 GM PACKET PO PRN (11:07)
[2021-04-16] MEDS: metroNIDAZOLE IV 250 MG/50ML 50 ML IVPB SCH ×4 (00:19→23:44)
[2021-04-16] MEDS: Vancomycin 1,250 MG in NS 0.9% 250 ml 250 ML IVPB SCH (02:58)
[2021-04-16] MEDS: AZTREONAM 1 GM in SODIUM CHLORIDE 0.9% 50 ML IV SCH ×3 (05:07→21:09)
[2021-04-16 06:24] LABS: ABS Lymphocytes 0.8 10^3/ul (1.0-4.8); ABS Monocytes 0.7 10^3/ul (0-0.8); ABS Neutrophils 9.9 10^3/ul (1.5-7.7); Hematocrit 30 % (42-52); Hemoglobin 9.9 g/dL (14.0-18.0); Lymphocyte % 7.1 %; Mean Corpuscular HGB Conc 33 g/dL (31-36); Mean Corpuscular Hemoglobin 29 pg (27-31); Mean Corpuscular Volume 88 fL (80-94); Mean Platelet Volume 9.6 fL (7.4-10.4); Platelet Count 149 10^3/uL (150-450); Red Blood Count 3.43 10^6 /uL (4.18-5.48); Red Cell Distribution Width 21 % (10-15); White Blood Count 11.4 10^3/uL (3.5-10.8)
[2021-04-16 07:49] LABS: INR 1.36 (0.82-1.09)
[2021-04-16 08:26] LABS: Calcium 7.4 mg/dL (8.6-10.3); Potassium 4.6 mmol/L (3.5-5.0)
[2021-04-16 08:31] LABS: EGFR African American 57.1 (>60); EGFR Non-African American 47.2 (>60)
[2021-04-16 08:40] LABS: % Iron Saturation 9 % (15-55); Iron 24 ug/dL (50-212); Total Iron Binding Capacity 256 mcg/dL (250-450); Transferrin 183 mg/dL (203-362); Unsaturated Iron Binding < 241 ug/dL
[2021-04-16 09:00] LABS: Ferritin 108.7 ng/mL (24-336)
[2021-04-16] MEDS: Insulin GLARGINE 100 un/ml 10 ml VIAL SUBCUT SCH (09:51)
[2021-04-16] MEDS: Enoxaparin 80 MG/0.8 ML SYR SUBCUT SCH ×2 (09:51→20:09)
[2021-04-16] MEDS: Dextran 70/Hypromellose Tears Eye Drops 15 ml BTL (for Artificials Tears) BOTH EYES SCH (09:56)
[2021-04-16] MEDS: Timolol 0.5% OPTH.SOL BTL BOTH EYES SCH (09:56)
[2021-04-16] MEDS: Potassium Chlor 10 meq TAB PO SCH (10:01)
[2021-04-16] MEDS: DESMOPRESSIN 0.1 MG PO SCH ×2 (10:01→20:09)
[2021-04-16] MEDS: TESTOSTERONE GEL 25 MG (NF) IN 2.5 GM SIZE PACKET TOPICAL SCH (10:04)
[2021-04-16] MEDS: Dextran 70/Hypromellose Tears Eye Drops 15 ml BTL (for Artificials Tears) BOTH EYES PRN ×2 (13:15→17:34)
[2021-04-17] MEDS: AZTREONAM 1 GM in SODIUM CHLORIDE 0.9% 50 ML IV SCH ×2 (05:15→12:39)
[2021-04-17 06:42] LABS: ABS Lymphocytes 1.3 10^3/ul (1.0-4.8); ABS Monocytes 0.8 10^3/ul (0-0.8); ABS Neutrophils 5.7 10^3/ul (1.5-7.7); Eosinophil % 0.1 %; Hematocrit 32 % (42-52); Hemoglobin 10.4 g/dL (14.0-18.0); Lymphocyte % 16.4 %; Mean Corpuscular HGB Conc 33 g/dL (31-36); Mean Corpuscular Hemoglobin 29 pg (27-31); Mean Corpuscular Volume 88 fL (80-94); Mean Platelet Volume 9.1 fL (7.4-10.4); Platelet Count 155 10^3/uL (150-450); Red Blood Count 3.63 10^6 /uL (4.18-5.48); Red Cell Distribution Width 21 % (10-15); White Blood Count 7.8 10^3/uL (3.5-10.8)
[2021-04-17] MEDS: Vancomycin 1,250 MG in NS 0.9% 250 ml 250 ML IVPB SCH (06:46)
[2021-04-17 06:51] LABS: INR 1.32 (0.82-1.09)
[2021-04-17 07:11] LABS: C Reactive Protein 36.01 mg/L (<8.01); Calcium 7.6 mg/dL (8.6-10.3); EGFR African American 69.2 (>60); EGFR Non-African American 57.2 (>60); Potassium 4.2 mmol/L (3.5-5.0)
[2021-04-17] MEDS: metroNIDAZOLE IV 250 MG/50ML 50 ML IVPB SCH (09:07)
[2021-04-17] MEDS: Timolol 0.5% OPTH.SOL BTL BOTH EYES SCH (09:09)
[2021-04-17] MEDS: Enoxaparin 80 MG/0.8 ML SYR SUBCUT SCH (09:10)
[2021-04-17] MEDS: Insulin GLARGINE 100 un/ml 10 ml VIAL SUBCUT SCH (09:10)
[2021-04-17] MEDS: TESTOSTERONE GEL 25 MG (NF) IN 2.5 GM SIZE PACKET TOPICAL SCH (09:13)
[2021-04-17] MEDS: DESMOPRESSIN 0.1 MG PO SCH (09:16)
[2021-04-17] MEDS: Potassium Chlor 10 meq TAB PO SCH (09:16)
[2021-04-17 11:25] VITALS: BP 130/68
[2021-04-18] MEDS ORDERED: Vancomycin Trough Check NOTE FOLLOW UP ONE (06:00)
== END 2021-04-17 13:35 | disposition home or self-care (01) | DRG 617 ==
LOC: ED 15:26 → SSU 19:54
PROVIDERS: ADMIT Internal Medicine; ATTEND Hospitalist

== ENCOUNTER 2022-10-31 19:21 | Inpatient (IN) ==
[2022-10-31] MEDS ORDERED: NS 0.9% 1000 ml BAG 1,000 ML IV ONE (19:41)
[2022-10-31] MEDS ORDERED: Dextrose 50% Syringe 50 ml 25 GM/50 ML SYRINGE IV PUSH ONE (19:51)
[2022-10-31 22:34] LABS: ABS Lymphocytes 0.3 10^3/ul (1.0-4.8); ABS Neutrophils 6.9 10^3/ul (1.5-7.7); Eosinophil % 0.6 %; Hematocrit 46 % (42-52); Hemoglobin 15.4 g/dL (14.0-18.0); Lymphocyte % 3.4 %; Mean Corpuscular HGB Conc 33 g/dL (31-36); Mean Corpuscular Hemoglobin 33 pg (27-31); Mean Corpuscular Volume 100 fL (80-94); Nucleated Red Blood Cells % 0.1; Platelet Count 128 10^3/uL (150-450); Red Blood Count 4.64 10^6 /uL (4.18-5.48); Red Cell Distribution Width 17 % (10-15); White Blood Count 8.2 10^3/uL (3.5-10.8)
[2022-10-31] MEDS ORDERED: Ondansetron ODT 4 mg TAB 4 MG TAB SL ONE (23:14)
[2022-11-01 00:19] LABS: Albumin 3.6 g/dL (3.2-5.2); Calcium 8.2 mg/dL (8.6-10.3); Potassium 4.1 mmol/L (3.5-5.0); Total Bilirubin 0.6 mg/dL (0.2-1.0)
[2022-11-01 00:25] LABS: Albumin/Globulin Ratio 1.3 (1-3); C Reactive Protein 8.86 mg/L (<8.01); Globulin 2.7 g/dL (2-4); Total Protein 6.3 g/dL (6.4-8.9); eGFR CKD-EPI 29.3 (>60)
[2022-11-01] MEDS ORDERED: Ondansetron ODT 4 mg TAB 4 MG TAB SL PRN (01:15)
[2022-11-01] MEDS ORDERED: NS 0.9% 1000 ml BAG 1,000 ML IV ONE (02:03)
[2022-11-01 04:12] LABS: High Sensitivity Troponin 1 Hr 115 pg/mL (<20)
[2022-11-01 04:20] LABS: Albumin 3.1 g/dL (3.2-5.2); Calcium 6.8 mg/dL (8.6-10.3); Potassium 3.7 mmol/L (3.5-5.0); Total Bilirubin 0.8 mg/dL (0.2-1.0)
[2022-11-01 04:26] LABS: Albumin/Globulin Ratio 1.3 (1-3); Globulin 2.3 g/dL (2-4); Total Protein 5.4 g/dL (6.4-8.9); eGFR CKD-EPI 31.8 (>60)
[2022-11-01] MEDS ORDERED: Piperacillin/Tazobac ADVAN 3.375 GM in NS 0.9% 100 ml BAG 100 ML IV ONE (05:26)
[2022-11-01 05:33] LABS: INR 3.54 (0.88-1.18)
[2022-11-01] MEDS ORDERED: Zosyn per Pharmacy NOTE FOLLOW UP SCH (06:00)
[2022-11-01] MEDS ORDERED: Warfarin per PHARMACY **NOTE FOLLOW UP SCH (06:00)
[2022-11-01] MEDS ORDERED: Lactated Ringers 1000 ml BAG 1,000 ML IV ONE (08:03)
[2022-11-01] MEDS: Insulin GLARGINE 100 un/ml 10 ml VIAL SUBCUT SCH ×2 (10:02→21:57)
[2022-11-01] MEDS ORDERED: Dextrose 50% Syringe 50 ml 25 GM/50 ML SYRINGE IV PUSH PRN (10:52)
[2022-11-01] MEDS: DESMOPRESSIN 0.1 MG PO SCH ×2 (11:30→21:55)
[2022-11-01] MEDS: Timolol 0.25% OPHTH.SOLN BTL BOTH EYES SCH (11:37)
[2022-11-01] MEDS: ZOSYN 3.375 GM Q8H per EXTENDED INFUSION IV SCH ×2 (12:52→19:42)
[2022-11-01] MEDS ORDERED: Silver Nitrate/Potassium Nitr 1 PAK (1 PAK PER PATIENT) TOPICAL ONE (13:55)
[2022-11-01 17:47] LABS: Magnesium 1.4 mg/dL (1.9-2.7)
[2022-11-02] MEDS: ZOSYN 3.375 GM Q8H per EXTENDED INFUSION IV SCH ×3 (01:57→23:13)
[2022-11-02 06:09] LABS: Urine Appearance Slightly Cloudy; Urine Bilirubin Negative (Negative); Urine Color Yellow; Urine Glucose Negative (Negative); Urine Ketones Negative (Negative)
[2022-11-02 06:10] LABS: Urine Blood 1+ (Small) (Negative); Urine Nitrite Negative (Negative); Urine Protein 1+ (30 mg/dL) (Negative); Urine Specific Gravity 1.021 (1.002-1.030); Urine Urobilinogen 0.2 (Negative) (Negative); Urine pH 5.5 (5.0-9.0)
[2022-11-02 06:39] LABS: Urine Bacteria Absent (Absent); Urine Red Blood Cell Absent (Absent); Urine Squamous Epithelial Cell Present (Absent); Urine White Blood Cell Trace(0-5/hpf) (Absent)
[2022-11-02 08:01] LABS: ABS Lymphocytes 0.7 10^3/ul (1.0-4.8); ABS Monocytes 0.8 10^3/ul (0-0.8); ABS Neutrophils 5.8 10^3/ul (1.5-7.7); Hematocrit 38 % (42-52); Hemoglobin 12.8 g/dL (14.0-18.0); Lymphocyte % 10.1 %; Mean Corpuscular HGB Conc 34 g/dL (31-36); Mean Corpuscular Hemoglobin 33 pg (27-31); Mean Corpuscular Volume 98 fL (80-94); Mean Platelet Volume 10.2 fL (7.4-10.4); Platelet Count 105 10^3/uL (150-450); Red Blood Count 3.91 10^6 /uL (4.18-5.48); Red Cell Distribution Width 17 % (10-15); White Blood Count 7.3 10^3/uL (3.5-10.8)
[2022-11-02 08:23] LABS: Albumin 2.7 g/dL (3.2-5.2); Albumin/Globulin Ratio 1.4 (1-3); Calcium 7.4 mg/dL (8.6-10.3); Potassium 4.8 mmol/L (3.5-5.0); Total Protein 4.7 g/dL (6.4-8.9); eGFR CKD-EPI 21.3 (>60)
[2022-11-02] MEDS: Insulin GLARGINE 100 un/ml 10 ml VIAL SUBCUT SCH (08:56)
[2022-11-02 09:19] LABS: PSA Screening Total 0.499 ng/mL (0-4.000)
[2022-11-02 10:02] LABS: INR 3.36 (0.88-1.18)
[2022-11-02] MEDS: DESMOPRESSIN 0.1 MG PO SCH ×2 (10:47→21:36)
[2022-11-02] MEDS: Timolol 0.25% OPHTH.SOLN BTL BOTH EYES SCH (10:47)
[2022-11-02] MEDS: Hydrocortisone INJ 100 MG/2ML 2 ML VIAL IV SCH ×2 (10:48→17:08)
[2022-11-02] MEDS ORDERED: Lactated Ringers 1000 ml BAG 1,000 ML IV ONE (13:12)
[2022-11-02] MEDS ORDERED: Warfarin - No Order Today **NOTE FOLLOW UP ONE (17:00)
[2022-11-02 17:03] LABS: Urine Appearance Clear; Urine Bilirubin Negative (Negative); Urine Color Yellow; Urine Glucose Negative (Negative); Urine Ketones Negative (Negative); Urine Nitrite Negative (Negative); Urine Protein 2+ (100 mg/dL) (Negative); Urine Specific Gravity 1.025 (1.005-1.030); Urine Urobilinogen 0.2 (Negative) (Negative); Urine pH 5.5 (5.0-9.0)
[2022-11-02 17:08] LABS: Urine Bacteria Absent (Absent); Urine Red Blood Cell 3+(>10/hpf) (Absent); Urine Squamous Epithelial Cell Present (Absent); Urine White Blood Cell 3+(>20/hpf) (Absent)
[2022-11-02] MEDS ORDERED: Dextrose 50% Syringe 50 ml 25 GM/50 ML SYRINGE IV PUSH PRN (17:32)
[2022-11-02] MEDS ORDERED: Insulin GLARGINE 100 un/ml 10 ml VIAL SUBCUT SCH (21:00)
[2022-11-03] MEDS: Hydrocortisone INJ 100 MG/2ML 2 ML VIAL IV SCH ×3 (02:11→15:34)
[2022-11-03 06:20] LABS: ABS Lymphocytes 0.6 10^3/ul (1.0-4.8); ABS Monocytes 0.5 10^3/ul (0-0.8); ABS Neutrophils 5.6 10^3/ul (1.5-7.7); Hematocrit 34 % (42-52); Hemoglobin 11.2 g/dL (14.0-18.0); Lymphocyte % 8.3 %; Mean Corpuscular HGB Conc 33 g/dL (31-36); Mean Corpuscular Hemoglobin 32 pg (27-31); Mean Corpuscular Volume 98 fL (80-94); Mean Platelet Volume 10.2 fL (7.4-10.4); Nucleated Red Blood Cells % 0.1; Platelet Count 99 10^3/uL (150-450); Red Blood Count 3.47 10^6 /uL (4.18-5.48); Red Cell Distribution Width 16 % (10-15); White Blood Count 6.7 10^3/uL (3.5-10.8)
[2022-11-03 06:33] LABS: Calcium 7.2 mg/dL (8.6-10.3); Magnesium 1.9 mg/dL (1.9-2.7); Potassium 4.9 mmol/L (3.5-5.0); eGFR CKD-EPI 30.3 (>60)
[2022-11-03 07:55] LABS: Albumin 2.6 g/dL (3.2-5.2)
[2022-11-03] MEDS: Insulin GLARGINE 100 un/ml 10 ml VIAL SUBCUT SCH ×2 (08:21→21:27)
[2022-11-03] MEDS: Timolol 0.25% OPHTH.SOLN BTL BOTH EYES SCH (08:29)
[2022-11-03 10:19] LABS: INR 3.84 (0.88-1.18)
[2022-11-03 14:21] LABS: Calcium 7.4 mg/dL (8.6-10.3); Potassium 4.7 mmol/L (3.5-5.0); eGFR CKD-EPI 31.6 (>60)
[2022-11-03 14:23] LABS: Urine Osmo 560 mOsm/kg (150-1150)
[2022-11-03] MEDS: ZOSYN 3.375 GM Q8H per EXTENDED INFUSION IV SCH ×2 (15:33→23:05)
[2022-11-03] MEDS ORDERED: Warfarin - No Order Today **NOTE FOLLOW UP ONE (17:00)
[2022-11-04 05:59] LABS: ABS Lymphocytes 0.8 10^3/ul (1.0-4.8); ABS Monocytes 0.5 10^3/ul (0-0.8); ABS Neutrophils 4.2 10^3/ul (1.5-7.7); Eosinophil % 0.3 %; Hematocrit 32 % (42-52); Hemoglobin 10.9 g/dL (14.0-18.0); Mean Corpuscular HGB Conc 34 g/dL (31-36); Mean Corpuscular Hemoglobin 32 pg (27-31); Mean Corpuscular Volume 95 fL (80-94); Mean Platelet Volume 9.8 fL (7.4-10.4); Nucleated Red Blood Cells % 0.1; Platelet Count 100 10^3/uL (150-450); Red Blood Count 3.38 10^6 /uL (4.18-5.48); Red Cell Distribution Width 16 % (10-15); White Blood Count 5.6 10^3/uL (3.5-10.8)
[2022-11-04 06:24] LABS: Calcium 7.2 mg/dL (8.6-10.3); Potassium 4.8 mmol/L (3.5-5.0)
[2022-11-04 06:30] LABS: eGFR CKD-EPI 39.2 (>60)
[2022-11-04 07:49] LABS: Albumin 2.7 g/dL (3.2-5.2)
[2022-11-04] MEDS: Timolol 0.25% OPHTH.SOLN BTL BOTH EYES SCH (08:25)
[2022-11-04] MEDS: Insulin GLARGINE 100 un/ml 10 ml VIAL SUBCUT SCH (08:34)
[2022-11-04 11:15] LABS: INR 2.53 (0.88-1.18)
[2022-11-04 11:42] VITALS: BP 177/95
[2022-11-04] MEDS: ZOSYN 3.375 GM Q8H per EXTENDED INFUSION IV SCH (11:46)
[2022-11-04] MEDS ORDERED: Warfarin DAILY REMINDER **NOTE FOLLOW UP SCH (17:00)
[2022-11-04] MEDS ORDERED: ZOSYN 3.375 GM Q8H per EXTENDED INFUSION IV SCH (20:00)
== END 2022-11-04 16:30 | disposition home health service (06) | DRG 394 ==
LOC: ED 19:21 → EDHOLD 19:21 → SUATTDRO 11-01 03:11 → EDHOLD 11-01 12:39 → MED 11-01 17:36
PROVIDERS: ADMIT Internal Medicine; ATTEND Internal Medicine

== ENCOUNTER 2023-01-06 14:47 | Inpatient (IN) ==
[2023-01-06] MEDS ORDERED: NS 0.9% 1000 ml BAG 1,000 ML IV ONE (14:53)
[2023-01-06 15:15] LABS: INR 3.27 (0.88-1.18)
[2023-01-06 15:21] LABS: Hematocrit 42 % (42-52); Hemoglobin 13.4 g/dL (14.0-18.0); Mean Corpuscular HGB Conc 32 g/dL (31-36); Mean Corpuscular Hemoglobin 32 pg (27-31); Mean Corpuscular Volume 100 fL (80-94); Red Blood Count 4.23 10^6 /uL (4.18-5.48); Red Cell Distribution Width 18 % (10-15); White Blood Count 9.1 10^3/uL (3.5-10.8)
[2023-01-06 15:35] LABS: Albumin 2.9 g/dL (3.2-5.2); Albumin/Globulin Ratio 1.2 (1-3); C Reactive Protein 172.6 mg/L (<8.01); Calcium 7.2 mg/dL (8.6-10.3); Creatinine, Serum 3.51 mg/dL (0.67-1.17); Globulin 2.4 g/dL (2-4); Phosphorus 2.6 mg/dL (2.5-5.0); Total Bilirubin 0.7 mg/dL (0.2-1.0); Total Protein 5.3 g/dL (6.4-8.9); eGFR CKD-EPI 16.7 (>60)
[2023-01-06 15:36] LABS: Potassium 5.9 mmol/L (3.5-5.0)
[2023-01-06 15:46] LABS: ABS Lymphocytes 1.7 10^3/ul (1.0-4.8); ABS Monocytes 0.7 10^3/ul (0-0.8); ABS Neutrophils 6.6 10^3/ul (1.5-7.7); Mean Platelet Volume 11.2 fL (7.4-10.4); Nucleated Red Blood Cells % 0.2; Platelet Count 89 10^3/uL (150-450)
[2023-01-06] MEDS ORDERED: Hydrocortisone INJ 100 MG/2ML 2 ML VIAL IV ONE (16:04)
[2023-01-06 16:23] LABS: Urine Appearance Cloudy; Urine Bilirubin Negative (Negative); Urine Blood 1+ (Negative); Urine Color Yellow; Urine Glucose Negative (Negative); Urine Ketones Negative (Negative); Urine Nitrite Negative (Negative); Urine Protein 2+(100 mg/dL) (Negative); Urine Specific Gravity 1.013 (1.002-1.030); Urine Urobilinogen Negative (Negative)
[2023-01-06 16:36] LABS: High Sensitivity Troponin 1 Hr 333 pg/mL (<20)
[2023-01-06 16:36] LABS: Urine Bacteria Absent (Absent); Urine Red Blood Cell Trace(0-2/hpf) (Absent); Urine Squamous Epithelial Cell Present (Absent); Urine White Blood Cell Absent (Absent)
[2023-01-06] MEDS ORDERED: NS 0.9% 1000 ml BAG 1,000 ML IV SCH (19:30)
[2023-01-06] MEDS ORDERED: Remdesivir 100 mg Vial 200 MG in NS 0.9% 250 ml 210 ML IV ONE (19:30)
[2023-01-06 19:57] LABS: PCO2 Arterial 35 mmHg (35-45); PO2 Arterial 265 mmHg (80-100)
[2023-01-06] MEDS: DOXYcycline 100 MG in NS 0.9% 250 ml 250 ML IVPB SCH (20:19)
[2023-01-06 20:33] LABS: INR 3.32 (0.88-1.18)
[2023-01-06 20:35] LABS: Hematocrit 37 % (42-52); Hemoglobin 11.7 g/dL (14.0-18.0); Mean Corpuscular HGB Conc 32 g/dL (31-36); Mean Corpuscular Hemoglobin 32 pg (27-31); Mean Corpuscular Volume 100 fL (80-94); Mean Platelet Volume 10.9 fL (7.4-10.4); Platelet Count 84 10^3/uL (150-450); Red Cell Distribution Width 18 % (10-15); White Blood Count 10.8 10^3/uL (3.5-10.8)
[2023-01-06 21:02] LABS: Calcium 6.7 mg/dL (8.6-10.3); Creatinine, Serum 3.69 mg/dL (0.67-1.17); eGFR CKD-EPI 15.7 (>60)
[2023-01-06 21:10] LABS: Potassium 6.4 mmol/L (3.5-5.0)
[2023-01-06 21:31] LABS: Magnesium 1.9 mg/dL (1.9-2.7)
[2023-01-06] MEDS ORDERED: Dextrose 50% Syringe 50 ml 25 GM/50 ML SYRINGE IV PUSH ONE (21:34)
[2023-01-06] MEDS ORDERED: CALCIUM GLUCONATE 1GM/50ML NS 1 GM/50 ML BAG IV ONE (21:34)
[2023-01-06] MEDS ORDERED: Sodium Polystyrene ORAL.SUSP 15 GM/60 ML BTL PO ONE (21:35)
[2023-01-06] MEDS: DESMOPRESSIN 0.1 MG PO SCH (21:57)
[2023-01-06] MEDS: Aztreonam 1 GM in NS 0.9% 50 ML 50 ML IV SCH (22:22)
[2023-01-06] MEDS: NS 0.9% 1000 ml BAG 1,000 ML IV SCH (22:35)
[2023-01-07] MEDS: methylPREDNISolone SOD SUCC 40 mg/ml 1 ml VIAL IV SCH ×3 (00:36→17:31)
[2023-01-07] MEDS: DESMOPRESSIN 0.1 MG PO SCH ×3 (00:37→20:57)
[2023-01-07] MEDS ORDERED: Dextrose 50% Syringe 50 ml 25 GM/50 ML SYRINGE IV PUSH PRN ×2 (01:01→03:48)
[2023-01-07 01:10] LABS: Calcium 7.1 mg/dL (8.6-10.3); Creatinine, Serum 3.54 mg/dL (0.67-1.17); eGFR CKD-EPI 16.5 (>60)
[2023-01-07 01:15] LABS: Potassium 5.7 mmol/L (3.5-5.0)
[2023-01-07] MEDS ORDERED: Dextrose 50% Syringe 50 ml 25 GM/50 ML SYRINGE IV PUSH ONE (01:42)
[2023-01-07 03:37] LABS: Glucose Confirmatory 412 mg/dL (70-100)
[2023-01-07] MEDS ORDERED: Insulin GLARGINE 100 un/ml 10 ml VIAL SUBCUT ONE (03:47)
[2023-01-07 04:34] LABS: Hematocrit 37 % (42-52); Hemoglobin 11.7 g/dL (14.0-18.0); Mean Corpuscular HGB Conc 32 g/dL (31-36); Mean Corpuscular Hemoglobin 32 pg (27-31); Mean Corpuscular Volume 100 fL (80-94); Mean Platelet Volume 10.6 fL (7.4-10.4); Platelet Count 90 10^3/uL (150-450); Red Blood Count 3.65 10^6 /uL (4.18-5.48); Red Cell Distribution Width 18 % (10-15); White Blood Count 9.2 10^3/uL (3.5-10.8)
[2023-01-07 04:42] LABS: INR 3.48 (0.88-1.18)
[2023-01-07 05:06] LABS: Albumin 2.6 g/dL (3.2-5.2); Albumin/Globulin Ratio 1.2 (1-3); Creatinine, Serum 3.36 mg/dL (0.67-1.17); Globulin 2.2 g/dL (2-4); Phosphorus 2.4 mg/dL (2.5-5.0); Total Bilirubin 0.5 mg/dL (0.2-1.0); Total Protein 4.8 g/dL (6.4-8.9); eGFR CKD-EPI 17.6 (>60)
[2023-01-07 05:11] LABS: Potassium 5.2 mmol/L (3.5-5.0)
[2023-01-07] MEDS: Aztreonam 1 GM in NS 0.9% 50 ML 50 ML IV SCH ×2 (08:46→23:07)
[2023-01-07] MEDS: Timolol 0.25% OPHTH.SOLN BTL BOTH EYES SCH (08:47)
[2023-01-07] MEDS ORDERED: PUMP TRANSDERM SCH (09:00)
[2023-01-07] MEDS ORDERED: TESTOSTERONE TRANSDERM SCH (09:00)
[2023-01-07] MEDS: DOXYcycline 100 MG in NS 0.9% 250 ml 250 ML IVPB SCH ×2 (11:11→20:27)
[2023-01-07] MEDS: Patiromer POWDER 8.4 GM PAK PO SCH (15:11)
[2023-01-07] MEDS: NS 0.9% 1000 ml BAG 1,000 ML IV SCH ×2 (17:31→20:24)
[2023-01-07] MEDS: Remdesivir 100 mg Vial 100 MG in NS 0.9% 250 ml 230 ML IV SCH (20:33)
[2023-01-07] MEDS: Insulin GLARGINE 100 un/ml 10 ml VIAL SUBCUT SCH (21:00)
[2023-01-07 21:21] LABS: CO2 Carbon Dioxide 15 mmol/L (22-32); Calcium 7.1 mg/dL (8.6-10.3); Sodium 138 mmol/L (135-145)
[2023-01-07 21:22] LABS: Anion Gap 10 mmol/L (2-11); Chloride 113 mmol/L (101-111)
[2023-01-07 21:26] LABS: Blood Urea Nitrogen 60 mg/dL (6-24); Creatinine, Serum 2.63 mg/dL (0.67-1.17); Glucose 247 mg/dL (70-100); eGFR CKD-EPI 23.5 (>60)
[2023-01-08] MEDS: methylPREDNISolone SOD SUCC 40 mg/ml 1 ml VIAL IV SCH ×2 (06:31→17:01)
[2023-01-08 06:38] LABS: ABS Lymphocytes 0.4 10^3/ul (1.0-4.8); ABS Monocytes 0.5 10^3/ul (0-0.8); ABS Neutrophils 10.9 10^3/ul (1.5-7.7); Hematocrit 35 % (42-52); Hemoglobin 11.5 g/dL (14.0-18.0); Lymphocyte % 3.3 %; Mean Corpuscular HGB Conc 33 g/dL (31-36); Mean Corpuscular Hemoglobin 32 pg (27-31); Mean Corpuscular Volume 98 fL (80-94); Mean Platelet Volume 10.4 fL (7.4-10.4); Platelet Count 101 10^3/uL (150-450); Red Blood Count 3.59 10^6 /uL (4.18-5.48); Red Cell Distribution Width 18 % (10-15); White Blood Count 11.8 10^3/uL (3.5-10.8)
[2023-01-08 07:03] LABS: Albumin 2.5 g/dL (3.2-5.2); Albumin/Globulin Ratio 1.1 (1-3); Calcium 7.3 mg/dL (8.6-10.3); Creatinine, Serum 2.3 mg/dL (0.67-1.17); Globulin 2.3 g/dL (2-4); Magnesium 1.9 mg/dL (1.9-2.7); Phosphorus 3.3 mg/dL (2.5-5.0); Potassium 4.4 mmol/L (3.5-5.0); Total Bilirubin 0.7 mg/dL (0.2-1.0); Total Protein 4.8 g/dL (6.4-8.9); eGFR CKD-EPI 27.7 (>60)
[2023-01-08 07:09] LABS: INR 4.31 (0.88-1.18)
[2023-01-08 07:59] LABS: C Reactive Protein 199.48 mg/L (<8.01)
[2023-01-08] MEDS: Aztreonam 1 GM in NS 0.9% 50 ML 50 ML IV SCH (08:30)
[2023-01-08] MEDS: Insulin GLARGINE 100 un/ml 10 ml VIAL SUBCUT SCH ×2 (08:34→23:46)
[2023-01-08] MEDS: DESMOPRESSIN 0.1 MG PO SCH ×2 (08:44→23:10)
[2023-01-08] MEDS: DOXYcycline 100 MG in NS 0.9% 250 ml 250 ML IVPB SCH ×2 (08:50→22:50)
[2023-01-08] MEDS: Patiromer POWDER 8.4 GM PAK PO SCH (09:02)
[2023-01-08] MEDS: Timolol 0.25% OPHTH.SOLN BTL BOTH EYES SCH (09:03)
[2023-01-08] MEDS: NS 0.9% 1000 ml BAG 1,000 ML IV SCH (17:03)
[2023-01-08] MEDS: Remdesivir 100 mg Vial 100 MG in NS 0.9% 250 ml 230 ML IV SCH (23:07)
[2023-01-09] MEDS: Aztreonam 1 GM in NS 0.9% 50 ML 50 ML IV SCH ×3 (00:36→22:10)
[2023-01-09] MEDS: methylPREDNISolone SOD SUCC 40 mg/ml 1 ml VIAL IV SCH ×2 (05:34→17:54)
[2023-01-09 07:08] LABS: INR 3.89 (0.88-1.18)
[2023-01-09 08:02] LABS: Albumin 2.5 g/dL (3.2-5.2); CO2 Carbon Dioxide 16 mmol/L (22-32); Calcium 7.4 mg/dL (8.6-10.3); Sodium 143 mmol/L (135-145)
[2023-01-09 08:05] LABS: ABS Lymphocytes 0.3 10^3/ul (1.0-4.8); ABS Monocytes 0.6 10^3/ul (0-0.8); ABS Neutrophils 11.7 10^3/ul (1.5-7.7); Hematocrit 37 % (42-52); Hemoglobin 11.9 g/dL (14.0-18.0); Lymphocyte % 2.2 %; Mean Corpuscular HGB Conc 33 g/dL (31-36); Mean Corpuscular Hemoglobin 32 pg (27-31); Mean Corpuscular Volume 99 fL (80-94); Mean Platelet Volume 11.7 fL (7.4-10.4); Nucleated Red Blood Cells % 0.1; Platelet Count 117 10^3/uL (150-450); Red Blood Count 3.69 10^6 /uL (4.18-5.48); Red Cell Distribution Width 18 % (10-15); White Blood Count 12.6 10^3/uL (3.5-10.8)
[2023-01-09 08:08] LABS: ALT 71 U/L (7-52); Albumin/Globulin Ratio 1.1 (1-3); Alkaline Phosphatase 81 U/L (35-149); Blood Urea Nitrogen 65 mg/dL (6-24); Creatinine, Serum 2.19 mg/dL (0.67-1.17); Globulin 2.3 g/dL (2-4); Glucose 65 mg/dL (70-100); Total Protein 4.8 g/dL (6.4-8.9); eGFR CKD-EPI 29.3 (>60)
[2023-01-09 08:14] LABS: Anion Gap 11 mmol/L (2-11); Chloride 116 mmol/L (101-111)
[2023-01-09] MEDS: Insulin GLARGINE 100 un/ml 10 ml VIAL SUBCUT SCH ×2 (08:44→23:11)
[2023-01-09] MEDS: DESMOPRESSIN 0.1 MG PO SCH ×2 (08:46→21:08)
[2023-01-09] MEDS: Timolol 0.25% OPHTH.SOLN BTL BOTH EYES SCH (08:53)
[2023-01-09] MEDS: Patiromer POWDER 8.4 GM PAK PO SCH (09:16)
[2023-01-09] MEDS: DOXYcycline 100 MG in NS 0.9% 250 ml 250 ML IVPB SCH ×2 (09:17→20:54)
[2023-01-09 11:47] LABS: Potassium, Whole Blood 3.4 mmol/L (3.4-4.5)
[2023-01-09 11:56] LABS: Potassium Redraw 3.5 mmol/L (3.5-5.0)
[2023-01-09] MEDS ORDERED: Warfarin per PHARMACY **NOTE FOLLOW UP SCH (12:00)
[2023-01-09] MEDS ORDERED: Warfarin - No Order Today **NOTE FOLLOW UP ONE (17:00)
[2023-01-09] MEDS: NS 0.9% 1000 ml BAG 1,000 ML IV SCH (17:54)
[2023-01-09] MEDS: Remdesivir 100 mg Vial 100 MG in NS 0.9% 250 ml 230 ML IV SCH (21:01)
[2023-01-10] MEDS: methylPREDNISolone SOD SUCC 40 mg/ml 1 ml VIAL IV SCH ×2 (06:07→18:00)
[2023-01-10 07:28] LABS: INR 4.45 (0.88-1.18)
[2023-01-10 08:07] LABS: Albumin 2.5 g/dL (3.2-5.2); Calcium 7.2 mg/dL (8.6-10.3); Potassium 3.6 mmol/L (3.5-5.0); Total Bilirubin 1.1 mg/dL (0.2-1.0)
[2023-01-10 08:13] LABS: Albumin/Globulin Ratio 1.1 (1-3); Creatinine, Serum 1.99 mg/dL (0.67-1.17); Globulin 2.3 g/dL (2-4); Total Protein 4.8 g/dL (6.4-8.9); eGFR CKD-EPI 32.9 (>60)
[2023-01-10] MEDS: Patiromer POWDER 8.4 GM PAK PO SCH ×2 (08:59→13:38)
[2023-01-10] MEDS: Insulin GLARGINE 100 un/ml 10 ml VIAL SUBCUT SCH ×2 (09:00→21:55)
[2023-01-10] MEDS: Aztreonam 1 GM in NS 0.9% 50 ML 50 ML IV SCH ×2 (09:01→22:51)
[2023-01-10] MEDS: Timolol 0.25% OPHTH.SOLN BTL BOTH EYES SCH (09:03)
[2023-01-10] MEDS: DESMOPRESSIN 0.1 MG PO SCH ×2 (10:30→21:39)
[2023-01-10] MEDS: DOXYcycline 100 MG in NS 0.9% 250 ml 250 ML IVPB SCH ×2 (10:30→22:42)
[2023-01-10 11:12] LABS: PCO2 Arterial 27 mmHg (35-45); PO2 Arterial 61 mmHg (80-100)
[2023-01-10 11:12] LABS: Hematocrit 37 % (42-52); Mean Corpuscular HGB Conc 33 g/dL (31-36); Mean Corpuscular Hemoglobin 32 pg (27-31); Mean Corpuscular Volume 98 fL (80-94); Mean Platelet Volume 10.6 fL (7.4-10.4); Platelet Count 123 10^3/uL (150-450); Red Blood Count 3.77 10^6 /uL (4.18-5.48); Red Cell Distribution Width 18 % (10-15); White Blood Count 12.7 10^3/uL (3.5-10.8)
[2023-01-10] MEDS ORDERED: Furosemide 40 mg/4 ml IV VIAL IV ONE ×2 (11:16→11:26)
[2023-01-10 11:49] LABS: ABS Eosinophils 0.1 10^3/ul (0-0.6); ABS Lymphocytes 0.3 10^3/ul (1.0-4.8); ABS Monocytes 0.8 10^3/ul (0-0.8); ABS Neutrophils 11.5 10^3/ul (1.5-7.7); Eosinophil % 0.8 %; Lymphocyte % 2.2 %; Nucleated Red Blood Cells % 0.2
[2023-01-10] MEDS ORDERED: Metoprolol Tartrate 5 mg VIAL 5 ml VIAL (1 mg/ml) IV ONE ×2 (12:12→13:05)
[2023-01-10] MEDS ORDERED: Potassium Chlor 20 meq TAB.ER PO ONE (15:01)
[2023-01-10] MEDS ORDERED: KCL 20 MEQ/100 ML IVPREMIX 20 MEQ/100 ML BAG IV ONE (15:01)
[2023-01-10] MEDS ORDERED: Magnesium Sulfate 2 gm BAG 2 GM/50 ML BAG IVPB ONE (15:01)
[2023-01-10 15:57] LABS: Magnesium 1.8 mg/dL (1.9-2.7)
[2023-01-10] MEDS ORDERED: Esmolol 10 MG/ML IVPREMIX 2,500 MG/250 ML BAG IV SCH (16:00)
[2023-01-10] MEDS ORDERED: Warfarin - No Order Today **NOTE FOLLOW UP ONE (17:00)
[2023-01-10 17:12] LABS: Hematocrit 35 % (42-52); Hemoglobin 11.3 g/dL (14.0-18.0); Mean Corpuscular HGB Conc 33 g/dL (31-36); Mean Corpuscular Hemoglobin 32 pg (27-31); Mean Corpuscular Volume 97 fL (80-94); Mean Platelet Volume 10.7 fL (7.4-10.4); Platelet Count 124 10^3/uL (150-450); Red Blood Count 3.59 10^6 /uL (4.18-5.48); Red Cell Distribution Width 18 % (10-15); White Blood Count 12.4 10^3/uL (3.5-10.8)
[2023-01-10] MEDS ORDERED: Acetaminophen IV 1 GM/100ML 1,000 MG/100 ML BAG IV PRN (18:38)
[2023-01-10 18:47] LABS: Creatinine, Serum 2.07 mg/dL (0.67-1.17); Potassium 3.3 mmol/L (3.5-5.0); eGFR CKD-EPI 31.4 (>60)
[2023-01-10] MEDS ORDERED: Furosemide 40 mg/4 ml IV VIAL IV SCH (21:00)
[2023-01-10] MEDS ORDERED: NS 0.9% 250 ml 250 ML IV ONE (22:05)
[2023-01-10 22:44] LABS: Magnesium 2.5 mg/dL (1.9-2.7); Potassium 3.4 mmol/L (3.5-5.0)
[2023-01-10] MEDS: Remdesivir 100 mg Vial 100 MG in NS 0.9% 250 ml 230 ML IV SCH (23:14)
[2023-01-11] MEDS ORDERED: NS 0.9% 250 ml 250 ML IV ONE (00:01)
[2023-01-11] MEDS ORDERED: Amiodarone 150 mg IVPREMIX 150 MG/100 ML BAG IV ONE (00:01)
[2023-01-11] MEDS ORDERED: Amiodarone 360 MG IVPREMIX 360 MG/200 ML BAG IV SCH (02:00)
[2023-01-11 05:51] LABS: ABS Basophils 0.2 10^3/ul (0-0.2); ABS Lymphocytes 0.2 10^3/ul (1.0-4.8); ABS Monocytes 0.7 10^3/ul (0-0.8); ABS Neutrophils 11.6 10^3/ul (1.5-7.7); Hematocrit 35 % (42-52); Hemoglobin 11.6 g/dL (14.0-18.0); Lymphocyte % 1.3 %; Mean Corpuscular HGB Conc 33 g/dL (31-36); Mean Corpuscular Hemoglobin 32 pg (27-31); Mean Corpuscular Volume 96 fL (80-94); Nucleated Red Blood Cells % 0.1; Platelet Count 120 10^3/uL (150-450); Red Blood Count 3.64 10^6 /uL (4.18-5.48); Red Cell Distribution Width 18 % (10-15); White Blood Count 12.7 10^3/uL (3.5-10.8)
[2023-01-11 05:52] LABS: Urine Appearance Turbid; Urine Color Red
[2023-01-11 06:11] LABS: INR 5.03 (0.88-1.18)
[2023-01-11 06:12] LABS: Urine Specific Gravity 1.017 (1.002-1.030)
[2023-01-11] MEDS: methylPREDNISolone SOD SUCC 40 mg/ml 1 ml VIAL IV SCH ×3 (06:12→22:15)
[2023-01-11 06:13] LABS: Urine Red Blood Cell 3+(>10/hpf) (Absent)
[2023-01-11 06:14] LABS: Urine Bacteria 1+ (Absent); Urine Squamous Epithelial Cell Present (Absent); Urine White Blood Cell 1+(6-10/hpf) (Absent)
[2023-01-11 06:55] LABS: Magnesium 2.2 mg/dL (1.9-2.7)
[2023-01-11 06:56] LABS: Albumin 2.2 g/dL (3.2-5.2); Albumin/Globulin Ratio 1.1 (1-3); Creatinine, Serum 2.17 mg/dL (0.67-1.17); Potassium 3.6 mmol/L (3.5-5.0); Total Bilirubin 0.7 mg/dL (0.2-1.0); Total Protein 4.2 g/dL (6.4-8.9); eGFR CKD-EPI 29.7 (>60)
[2023-01-11] MEDS ORDERED: Lactated Ringers 1000 ml BAG 500 ML IV ONE ×2 (08:30→10:25)
[2023-01-11 08:41] LABS: PCO2 Arterial 41 mmHg (35-45); PO2 Arterial 82 mmHg (80-100)
[2023-01-11] MEDS ORDERED: Phenylephrine IV 10 MG/ML 1 ml VIAL ONE (08:47)
[2023-01-11] MEDS ORDERED: PHENYLEPHRINE DRIP IVPREMIX 50 MG/250 ML BAG IV SCH (09:00)
[2023-01-11] MEDS ORDERED: Furosemide 40 mg/4 ml IV VIAL IV SLOW PU SCH (09:00)
[2023-01-11 09:10] LABS: C Reactive Protein 130.56 mg/L (<8.01)
[2023-01-11] MEDS: Phenylephrine DRIP 0.2 MG/ML in NS 0.9% 250 ML (PHA mix) IV SCH ×2 (09:14→12:15)
[2023-01-11 09:29] LABS: Ferritin 1313.3 ng/mL (24-336)
[2023-01-11] MEDS: Amiodarone 360 MG IVPREMIX 360 MG/200 ML BAG IV SCH ×2 (09:48→20:46)
[2023-01-11] MEDS ORDERED: Norepinephrine 16MCG/ML BAGD5W 4,000 MCG/250 ML BAG IV ONE (09:51)
[2023-01-11] MEDS ORDERED: Norepinephrine 16MCG/ML BAGD5W 4,000 MCG/250 ML BAG IV SCH (11:00)
[2023-01-11] MEDS: Timolol 0.25% OPHTH.SOLN BTL BOTH EYES SCH (11:38)
[2023-01-11] MEDS: DESMOPRESSIN 0.1 MG PO SCH ×2 (11:50→22:19)
[2023-01-11] MEDS: DOXYcycline 100 MG in NS 0.9% 250 ml 250 ML IVPB SCH (11:59)
[2023-01-11] MEDS ORDERED: Furosemide 40 mg/4 ml IV VIAL IV SCH (12:00)
[2023-01-11] MEDS: Insulin GLARGINE 100 un/ml 10 ml VIAL SUBCUT SCH ×2 (12:11→22:13)
[2023-01-11] MEDS ORDERED: Phytonadione IV (Adult) 2.5 MG in NS 0.9% 50 ML 50 ML IV ONE (12:46)
[2023-01-11] MEDS ORDERED: Tocilizumab 200 MG/10 ML 10 ml VIAL IVPB ONE (12:48)
[2023-01-11 13:25] LABS: PCO2 Arterial 40 mmHg (35-45); PO2 Arterial 139 mmHg (80-100)
[2023-01-11] MEDS ORDERED: NS 0.9% IVPB ONE (14:00)
[2023-01-11] MEDS ORDERED: TOCILIZUMAB IVPB ONE (14:00)
[2023-01-11 17:51] LABS: INR 4.16 (0.88-1.18)
[2023-01-11 18:38] LABS: Calcium 6.8 mg/dL (8.6-10.3); Creatinine, Serum 2.61 mg/dL (0.67-1.17); eGFR CKD-EPI 23.8 (>60)
[2023-01-11 22:16] LABS: PCO2 Arterial 43 mmHg (35-45); PO2 Arterial 176 mmHg (80-100)
[2023-01-12 04:18] LABS: ABS Lymphocytes 0.1 10^3/ul (1.0-4.8); ABS Monocytes 0.5 10^3/ul (0-0.8); ABS Neutrophils 7.2 10^3/ul (1.5-7.7); Hematocrit 32 % (42-52); Hemoglobin 10.5 g/dL (14.0-18.0); Lymphocyte % 1.7 %; Mean Corpuscular HGB Conc 33 g/dL (31-36); Mean Corpuscular Hemoglobin 32 pg (27-31); Mean Corpuscular Volume 97 fL (80-94); Mean Platelet Volume 10.5 fL (7.4-10.4); Nucleated Red Blood Cells % 0.3; Platelet Count 122 10^3/uL (150-450); Red Blood Count 3.31 10^6 /uL (4.18-5.48); Red Cell Distribution Width 18 % (10-15); White Blood Count 7.8 10^3/uL (3.5-10.8)
[2023-01-12 04:27] LABS: INR 2.43 (0.88-1.18)
[2023-01-12 04:42] LABS: Calcium 6.8 mg/dL (8.6-10.3); Creatinine, Serum 2.75 mg/dL (0.67-1.17); Magnesium 2.3 mg/dL (1.9-2.7); Potassium 3.9 mmol/L (3.5-5.0); eGFR CKD-EPI 22.3 (>60)
[2023-01-12] MEDS ORDERED: Morphine 2 MG/ML SYRINGE IV ONE (04:55)
[2023-01-12] MEDS ORDERED: Morphine 2 MG/ML SYRINGE ONE (04:58)
[2023-01-12] MEDS: methylPREDNISolone SOD SUCC 40 mg/ml 1 ml VIAL IV SCH ×3 (05:58→21:47)
[2023-01-12] MEDS ORDERED: Amiodarone 400 mg TAB PO SCH (09:00)
[2023-01-12] MEDS: Insulin GLARGINE 100 un/ml 10 ml VIAL SUBCUT SCH ×2 (09:15→21:36)
[2023-01-12] MEDS: Timolol 0.25% OPHTH.SOLN BTL BOTH EYES SCH (09:16)
[2023-01-12] MEDS: DESMOPRESSIN 0.1 MG PO SCH ×2 (09:16→20:12)
[2023-01-12] MEDS ORDERED: Ondansetron 4 mg VIAL 2 MG/ML 2 ml VIAL IV PRN (11:05)
[2023-01-12] MEDS ORDERED: Propofol 10 mg/ml 100 ML BTL 1,000 MG/100 ML BTL ONE (17:41)
[2023-01-12] MEDS ORDERED: Succinylcholine 200 mg VIAL 20 mg/ml 10 ml VIAL (200 mg) ONE (17:41)
[2023-01-12] MEDS ORDERED: Norepinephrine 16MCG/ML BAGD5W 4,000 MCG/250 ML BAG IV ONE (17:45)
[2023-01-12] MEDS ORDERED: Etomidate 40 mg/20 ml (2 MG/ML) 20 ml VIAL (40 mg) ONE (17:48)
[2023-01-12] MEDS: Propofol 10 mg/ml 100 ML BTL 1,000 MG/100 ML BTL IV SCH ×2 (17:50→23:12)
[2023-01-12] MEDS: Norepinephrine 16MCG/ML BAGD5W 4,000 MCG/250 ML BAG IV SCH ×2 (18:00→21:39)
[2023-01-12 20:10] LABS: PCO2 Arterial 55 mmHg (35-45); PO2 Arterial 92 mmHg (80-100)
[2023-01-12] MEDS: Amiodarone 400 mg TAB PO SCH (20:15)
[2023-01-12] MEDS: Chlorhexidine MOUTHWASH 0.12% 15 ML UDC SWISH SPIT SCH (21:47)
[2023-01-12 22:50] LABS: PCO2 Arterial 41 mmHg (35-45); PO2 Arterial 83 mmHg (80-100)
[2023-01-13] MEDS: Norepinephrine 16MCG/ML BAGD5W 4,000 MCG/250 ML BAG IV SCH ×4 (00:25→22:20)
[2023-01-13] MEDS: Chlorhexidine MOUTHWASH 0.12% 15 ML UDC SWISH SPIT SCH ×6 (01:41→21:14)
[2023-01-13] MEDS: Amiodarone 400 mg TAB PO SCH ×3 (01:41→18:12)
[2023-01-13 04:07] LABS: Hematocrit 35 % (42-52); Hemoglobin 11.4 g/dL (14.0-18.0); Mean Corpuscular HGB Conc 33 g/dL (31-36); Mean Corpuscular Hemoglobin 32 pg (27-31); Mean Corpuscular Volume 97 fL (80-94); Mean Platelet Volume 11.2 fL (7.4-10.4); Platelet Count 152 10^3/uL (150-450); Red Blood Count 3.57 10^6 /uL (4.18-5.48); Red Cell Distribution Width 19 % (10-15); White Blood Count 10.6 10^3/uL (3.5-10.8)
[2023-01-13 04:13] LABS: INR 1.64 (0.88-1.18)
[2023-01-13 04:35] LABS: ABS Lymphocytes 0.2 10^3/ul (1.0-4.8); ABS Monocytes 0.5 10^3/ul (0-0.8); ABS Neutrophils 9.8 10^3/ul (1.5-7.7); Eosinophil % 0.3 %; Lymphocyte % 2.1 %; Nucleated Red Blood Cells % 0.4
[2023-01-13 04:37] LABS: Anisocytosis 1+; Macrocytosis 1+
[2023-01-13 04:38] LABS: Polychromasia 1+
[2023-01-13 04:39] LABS: Burr Cells 3+
[2023-01-13 04:54] LABS: Albumin 2.1 g/dL (3.2-5.2); Calcium 6.7 mg/dL (8.6-10.3); Creatinine, Serum 3.08 mg/dL (0.67-1.17); Globulin 2.1 g/dL (2-4); Magnesium 2.3 mg/dL (1.9-2.7); Potassium 4.4 mmol/L (3.5-5.0); Total Bilirubin 0.9 mg/dL (0.2-1.0); Total Protein 4.2 g/dL (6.4-8.9); eGFR CKD-EPI 19.5 (>60)
[2023-01-13] MEDS: methylPREDNISolone SOD SUCC 40 mg/ml 1 ml VIAL IV SCH ×3 (05:09→21:11)
[2023-01-13] MEDS ORDERED: Phenylephrine IV 10 MG/ML 1 ml VIAL ONE (08:04)
[2023-01-13] MEDS: Insulin GLARGINE 100 un/ml 10 ml VIAL SUBCUT SCH ×2 (09:04→21:13)
[2023-01-13] MEDS: Timolol 0.25% OPHTH.SOLN BTL BOTH EYES SCH (09:06)
[2023-01-13] MEDS: DESMOPRESSIN 0.1 MG PO SCH ×2 (09:23→21:12)
[2023-01-13] MEDS: Phenylephrine DRIP 0.2 MG/ML in NS 0.9% 250 ML (PHA mix) IV SCH ×4 (09:24→23:35)
[2023-01-13] MEDS ORDERED: Lactated Ringers 1000 ml BAG 1,000 ML IV SCH (10:00)
[2023-01-13] MEDS: Propofol 10 mg/ml 100 ML BTL 1,000 MG/100 ML BTL IV SCH ×2 (10:58→22:50)
[2023-01-13] MEDS ORDERED: Warfarin - No Order Today **NOTE FOLLOW UP ONE (17:00)
[2023-01-13] MEDS ORDERED: Piperacillin/Tazobac ADVAN 3.375 GM in NS 0.9% 100 ml BAG 100 ML IV ONE (17:35)
[2023-01-13] MEDS ORDERED: Heparin DRIP 25,000 UNITS BAG 25,000 UNITS/500 ML BAG IV SCH ×2 (17:45→20:14)
[2023-01-13] MEDS ORDERED: Zosyn per Pharmacy NOTE FOLLOW UP SCH (18:00)
[2023-01-13 18:16] LABS: ABS Basophils 0.1 10^3/ul (0-0.2); ABS Lymphocytes 0.2 10^3/ul (1.0-4.8); ABS Monocytes 0.4 10^3/ul (0-0.8); ABS Neutrophils 11.1 10^3/ul (1.5-7.7); ABS Nucleated RBC 0.1 10^3/ul; Hematocrit 36 % (42-52); Hemoglobin 11.5 g/dL (14.0-18.0); Lymphocyte % 1.5 %; Mean Corpuscular HGB Conc 32 g/dL (31-36); Mean Corpuscular Hemoglobin 31 pg (27-31); Mean Corpuscular Volume 99 fL (80-94); Mean Platelet Volume 11.3 fL (7.4-10.4); Nucleated Red Blood Cells % 1.1; Platelet Count 157 10^3/uL (150-450); Red Blood Count 3.67 10^6 /uL (4.18-5.48); Red Cell Distribution Width 19 % (10-15); White Blood Count 11.8 10^3/uL (3.5-10.8)
[2023-01-13 19:11] LABS: Creatinine, Serum 3.64 mg/dL (0.67-1.17); eGFR CKD-EPI 15.9 (>60)
[2023-01-13] MEDS ORDERED: Heparin 5000 UNITS/ML 1 mL VIAL IV SCH (21:00)
[2023-01-14] MEDS: Phenylephrine IV 50 MG in NS 0.9% 250 ml 245 ML IV SCH ×10 (00:51→22:01)
[2023-01-14] MEDS: Norepinephrine 16MCG/ML BAGD5W 4,000 MCG/250 ML BAG IV SCH ×5 (01:47→19:33)
[2023-01-14] MEDS: Chlorhexidine MOUTHWASH 0.12% 15 ML UDC SWISH SPIT SCH ×6 (02:18→21:32)
[2023-01-14] MEDS: Amiodarone 400 mg TAB PO SCH ×3 (02:18→16:25)
[2023-01-14 04:03] LABS: Hematocrit 35 % (42-52); Hemoglobin 10.9 g/dL (14.0-18.0); Mean Corpuscular HGB Conc 31 g/dL (31-36); Mean Corpuscular Hemoglobin 31 pg (27-31); Mean Corpuscular Volume 101 fL (80-94); Mean Platelet Volume 11.3 fL (7.4-10.4); Platelet Count 142 10^3/uL (150-450); Red Blood Count 3.47 10^6 /uL (4.18-5.48); Red Cell Distribution Width 20 % (10-15); White Blood Count 15.2 10^3/uL (3.5-10.8)
[2023-01-14 04:12] LABS: INR 1.97 (0.88-1.18)
[2023-01-14 04:51] LABS: Creatinine, Serum 3.94 mg/dL (0.67-1.17); Magnesium 2.1 mg/dL (1.9-2.7); Phosphorus 9.5 mg/dL (2.5-5.0); Potassium 4.6 mmol/L (3.5-5.0); eGFR CKD-EPI 14.5 (>60)
[2023-01-14 04:52] LABS: Calcium 5.9 mg/dL (8.6-10.3)
[2023-01-14 05:27] LABS: Acanthocytes 2+; Macrocytosis 2+; RBC Morphology Normal (Normal)
[2023-01-14] MEDS: methylPREDNISolone SOD SUCC 40 mg/ml 1 ml VIAL IV SCH ×3 (05:29→21:32)
[2023-01-14 05:31] LABS: Basophilic Stippling 1+; Burr Cells 1+
[2023-01-14 05:32] LABS: Anisocytosis 2+; Polychromasia 1+; Schistocytes 1+
[2023-01-14 05:33] LABS: Howell Jolly Bodies 1
[2023-01-14 05:36] LABS: ABS Basophils 0.1 10^3/ul (0-0.2); ABS Lymphocytes 0.2 10^3/ul (1.0-4.8); ABS Monocytes 0.3 10^3/ul (0-0.8); ABS Neutrophils 14.6 10^3/ul (1.5-7.7); ABS Nucleated RBC 0.2 10^3/ul; Eosinophil % 0.1 %; Lymphocyte % 1.3 %; Nucleated Red Blood Cells % 1.2
[2023-01-14 05:46] LABS: Creatinine, Serum 4.17 mg/dL (0.67-1.17); Magnesium 2.3 mg/dL (1.9-2.7); Phosphorus 10.2 mg/dL (2.5-5.0); Potassium 4.9 mmol/L (3.5-5.0); eGFR CKD-EPI 13.5 (>60)
[2023-01-14 05:48] LABS: Calcium 6.2 mg/dL (8.6-10.3)
[2023-01-14] MEDS: ZOSYN 3.375 GM Q12H per EXTENDED INFUSION IV SCH ×2 (07:49→20:35)
[2023-01-14] MEDS: Timolol 0.25% OPHTH.SOLN BTL BOTH EYES SCH (08:19)
[2023-01-14] MEDS: Insulin GLARGINE 100 un/ml 10 ml VIAL SUBCUT SCH ×2 (08:44→20:48)
[2023-01-14] MEDS: DESMOPRESSIN 0.1 MG PO SCH ×2 (08:45→21:31)
[2023-01-14] MEDS ORDERED: fentaNYL 100 mcg/2 ml 50 MCG/ML VIAL IV SLOW PU PRN (08:54)
[2023-01-14] MEDS ORDERED: Phenylephrine IV 10 MG/ML 1 ml VIAL ONE ×2 (10:45→10:46)
[2023-01-14] MEDS ORDERED: Warfarin per PHARMACY **NOTE FOLLOW UP SCH (17:00)
[2023-01-15] MEDS: Phenylephrine IV 50 MG in NS 0.9% 250 ml 245 ML IV SCH ×6 (00:07→10:48)
[2023-01-15] MEDS: Chlorhexidine MOUTHWASH 0.12% 15 ML UDC SWISH SPIT SCH ×3 (01:43→10:32)
[2023-01-15] MEDS: Amiodarone 400 mg TAB PO SCH ×2 (01:43→09:48)
[2023-01-15] MEDS: Norepinephrine 16MCG/ML BAGD5W 4,000 MCG/250 ML BAG IV SCH ×2 (04:35→10:05)
[2023-01-15 05:13] LABS: Potassium 5.3 mmol/L (3.5-5.0)
[2023-01-15 05:14] LABS: Calcium 5.5 mg/dL (8.6-10.3)
[2023-01-15 05:18] LABS: Creatinine, Serum 4.93 mg/dL (0.67-1.17); eGFR CKD-EPI 11.1 (>60)
[2023-01-15 05:20] LABS: Magnesium 2.2 mg/dL (1.9-2.7); Phosphorus 10.7 mg/dL (2.5-5.0)
[2023-01-15] MEDS: methylPREDNISolone SOD SUCC 40 mg/ml 1 ml VIAL IV SCH (05:41)
[2023-01-15 05:42] LABS: ABS Lymphocytes 0.1 10^3/ul (1.0-4.8); ABS Monocytes 0.7 10^3/ul (0-0.8); ABS Neutrophils 16.9 10^3/ul (1.5-7.7); ABS Nucleated RBC 0.2 10^3/ul; Hematocrit 41 % (42-52); Hemoglobin 12.1 g/dL (14.0-18.0); Lymphocyte % 0.6 %; Mean Corpuscular HGB Conc 30 g/dL (31-36); Mean Corpuscular Hemoglobin 32 pg (27-31); Mean Corpuscular Volume 107 fL (80-94); Mean Platelet Volume 10.6 fL (7.4-10.4); Nucleated Red Blood Cells % 1.3; Platelet Count 120 10^3/uL (150-450); Red Blood Count 3.82 10^6 /uL (4.18-5.48); Red Cell Distribution Width 21 % (10-15); White Blood Count 17.7 10^3/uL (3.5-10.8)
[2023-01-15 05:46] LABS: Macrocytosis 1+
[2023-01-15 05:47] LABS: Acanthocytes 2+; Anisocytosis 2+
[2023-01-15 05:49] LABS: Schistocytes 2+
[2023-01-15 05:51] LABS: Burr Cells 3+
[2023-01-15 05:52] LABS: Basophilic Stippling 1+
[2023-01-15 06:36] VITALS: BP 112/38
[2023-01-15] MEDS: DESMOPRESSIN 0.1 MG PO SCH (09:48)
[2023-01-15] MEDS: ZOSYN 3.375 GM Q12H per EXTENDED INFUSION IV SCH (09:48)
[2023-01-15] MEDS: Insulin GLARGINE 100 un/ml 10 ml VIAL SUBCUT SCH (09:48)
[2023-01-15] MEDS: Timolol 0.25% OPHTH.SOLN BTL BOTH EYES SCH (09:48)
[2023-01-15] MEDS ORDERED: Lorazepam PYXIS KEY PRN (11:26)
[2023-01-15] MEDS ORDERED: Morphine 10 MG/ML VIAL (1 ml) IV PRN (12:00)
[2023-01-15] MEDS ORDERED: LORazepam 2 mg VIAL 1 ml IV PUSH PRN (12:00)
[2023-01-15] MEDS ORDERED: Morphine 10 MG/ML VIAL (1 ml) IV ONE (12:00)
[2023-01-15] MEDS ORDERED: LORazepam 2 mg VIAL 1 ml IV PUSH ONE (12:00)
== END 2023-01-15 12:00 | disposition expired | DRG 870 ==
LOC: ED 14:47 → EDHOLD 16:43 → SUATTDRO 16:43 → ICU 21:16 → MED 01-07 20:17 → ICU 01-10 14:50
PROVIDERS: ADMIT Internal Medicine Critical Care Medicine; ATTEND Internal Medicine Critical Care Medicine